=== PATIENT | male | born 1950 | race Caucasian/White ===

== ENCOUNTER 2019-06-01 14:10 | Inpatient (IN) | payer MEDICARE, SELFPAY ==
[2019-06-01] VITALS (11 sets, daily range): BP systolic 113–133; BP diastolic 55–93; PULSE 113–141; RESP 20–24; TEMP 36.8–38.3; O2SAT 90–98; BMI 46.6
--- NOTE | 2019-06-01 14:32 | DI.US.S_ITS ---
PROCEDURE: US PERIPH VENOUS LOW EXTREM LT INDICATIONS: L LOWER LEG TO THIGH DISCOMFORT WITH REDNESS, HX OF AFIB TECHNIQUE: Real-time imaging, as well as color and pulse Doppler interrogation, were performed of the lower extremity deep veins from the inguinal ligament to the popliteal fossa. COMPARISON: None. FINDINGS: The common femoral, femoral and popliteal veins are normally compressible, and free of intraluminal thrombus. Color and pulse Doppler demonstrate normal phasic intraluminal flow. There is normal augmentation response to distal compression maneuver. There is a mildly enlarged left inguinal lymph node noted measuring approximately 1.4 cm in short axis with a preserved fatty hilum. IMPRESSION: 1. No evidence of deep venous thrombosis in the left lower extremity. 2. Mildly enlarged left inguinal lymph node with a preserved fatty hilum is nonspecific but likely reactive. Recommend correlation clinically. Dictated by: Toby Vega M.D. on 06/01/2019 at 15:23 Approved by: Toby Vega M.D. on 06/01/2019 at 15:25
--- NOTE | 2019-06-01 14:34 | DI.RAD.S_ITS ---
PROCEDURE: XR CHEST 1V INDICATIONS: tachycardia, possible sepsis TECHNIQUE: One view of the chest was acquired. COMPARISON: None. FINDINGS: Surgical changes and devices: None. Lungs and pleura: Lungs are clear. No pleural effusions or pneumothorax. Mediastinum: Mediastinal contours appear normal. Heart size is enlarged. Bones and chest wall: No suspicious bony lesions. Overlying soft tissues appear unremarkable. IMPRESSION: Cardiomegaly. No acute pulmonary findings. Dictated by: Sarah Rose M.D. on 06/01/2019 at 14:32 Approved by: Sarah Rose M.D. on 06/01/2019 at 14:33
[2019-06-01] MEDS: SODIUM CHLORIDE 0.9% 100 ML 1000 ML IV (14:36)
--- NOTE | 2019-06-01 14:37 | PC.NURSE ---
1430 IV bolus of 1000ml NS at 1000ml/hr clarified with [employer] and administered as such
[2019-06-01 14:47] LABS: Hematocrit 48.5 % (41-53); Hemoglobin 16.5 g/dL (13.5-17.5); INR 2.3 (0.9-1.3); Mean Corpuscular HGB Conc 34.1 % (30-36); Mean Corpuscular Hemoglobin 29.3 PG (26-34); Platelet Count 201 X10^3/uL (150-400); Prothrombin Time 26.9 SECONDS (10.1-12.7); Red Blood Cell Count 5.64 X10^6/uL (4.5-5.9); Red Cell Distribution Width 14.7 % (11.6-14.8)
[2019-06-01 14:48] LABS: White Blood Cell Count 29.5 X10^3/uL (4.5-11.0)
[2019-06-01 14:49] LABS: Add Manual Diff / Slide Review YES
[2019-06-01 14:51] LABS: Lactate (Lactic Acid) 2.8 mmol/L (0.7-2.1)
[2019-06-01 14:52] LABS: Alanine Aminotransferase 7 IU/L (21-72); Alkaline Phosphatase 92 U/L (38-126); Aspartate Aminotransferase 22 IU/L (17-59); BUN Creatinine Ratio 17.5 (6-22); Bilirubin Total 2.1 mg/dL (0.2-1.3); Blood Urea Nitrogen 21 mg/dL (9-20); Calcium 9.1 mg/dL (8.4-10.2); Carbon Dioxide 27 mmol/L (22-32); Chloride 96 mmol/L (98-107); Estimated Glomerular Filt Rate > 60.0 mL/min (>60); Globulin 3.9 g/dL (1.7-4.1); Glucose 139 mg/dL (80-110); HEMOLYSIS < 15 (0-50); Potassium 3.7 mmol/L (3.4-5.1); Sodium 134 mmol/L (137-145); Total Protein 7.9 g/dL (6.3-8.2)
--- NOTE | 2019-06-01 14:57 | DI.RAD.S_ITS ---
PROCEDURE: XR FEMUR LT MIN 2V INDICATIONS: cellulitis of L leg, severe pain on thigh TECHNIQUE: 2 views of the femur were acquired. COMPARISON: None. FINDINGS: Bones: No fractures or dislocations. No suspicious bony lesions. Soft tissues: No suspicious soft tissue calcifications or masses. IMPRESSION: No acute radiographic findings. No suspicious bony lesions to suggest osteomyelitis. However, plain film is less sensitive in the acute phases of osteomyelitis. If there is high clinical suspicion for infection, MRI of the femur with and without contrast is recommended. Dictated by: Sarah Rose M.D. on 06/01/2019 at 14:31 Approved by: Sarah Rose M.D. on 06/01/2019 at 14:32
--- NOTE | 2019-06-01 14:59 | ED.LOWEXIN ---
HPI - Extremity Injury (Lower) <JESUS MANUEL Mendoza - Last Filed: 06/02/19 01:07> General Chief Complaint: Extremity Problem,Nontraumatic Stated Complaint: Swollen lft leg, radiating up, sores on legs, arms Time Seen by Provider: 06/01/19 14:15 Source: patient and family Mode of arrival: wheelchair Limitations: no limitations History of Present Illness HPI Narrative: This is a 69 year old male, previous smoker, presented with the daughter with history of AFib who is anticoagulated with coumadin, HTN in chief complaining of left leg pain and swelling for last 1-2 weeks. He denies fever, nausea, vomiting, fatigue but had chills last night. The pain is from left ankle to knee which radiates to the groin area. He reports nothing aggravates pain and the pain is pretty constant. His lower legs have discoloration but now the L leg appears to be darker in color per the patient's daughter. He denies recent injury or trauma to the affected leg. Also, he reports has several skin lesions on his right lower arm, 2 on left hand, 1 on the right lower abdomen as well as 1 in the medial aspect of left calf. He denies chest pain, difficulty breathing, dizziness. He is a nondiabetic patient without history of IV drug use. Related Data Home Medications Medication Instructions Recorded Confirmed amlodipine 5 mg PO DAILY 06/01/19 06/01/19 hydrochlorothiazide 12.5 mg PO DAILY 06/01/19 06/01/19 metformin 500 mg PO DAILY 06/01/19 06/01/19 metoprolol tartrate 100 mg PO DAILY 06/01/19 06/01/19 sertraline 25 mg PO DAILY 06/01/19 06/01/19 warfarin 5 mg PO Q OTHER DAY 06/01/19 06/01/19 Allergies Allergy/AdvReac Type Severity Reaction Status Date / Time No Known Drug Allergies Allergy Verified 06/01/19 14:19 Review of Systems <JESUS MANUEL Mendoza - Last Filed: 06/02/19 01:07> Review of Systems General: See HPI HEENT: Denies sinus pain, ear pain, sore throat, difficulty swallowing, dizziness. Respiratory: Denies dyspnea, cough, wheezing, hemoptysis, sputum. Cardiovascular: Denies chest pain, palpitations, orthopnea. Gastrointestinal: Denies nausea, vomiting, abdominal pain, diarrhea, constipation, melena. : Reports urinary frequency and takes BPH medication. Denies dysuria,incontinence, hematuria, urinary retention. Musculoskeletal: Reports pain in L leg. Denies weakness, joint pain or bony pain. Skin: Reports several skin lesions on right lower abdomen, left hand, right lower arm. Reports some redness to left lower leg. Neurologic: Denies weakness, headache, numbness, change in speech, confusion, seizures, incoordination. Psychiatric: No concerning psychosocial issues. 12-point review of systems is negative except for those stated above. PFSH <JESUS MANUEL Mendoza - Last Filed: 06/02/19 01:07> Medical History Cellulitis of left lower extremity without foot (Acute) Depression (Chronic) Diabetes mellitus type 2 in obese (Chronic) Essential hypertension (Chronic) Surgical History History of knee surgery (Acute) Social History household members: spouse Smoking Status: Former smoker alcohol intake: former Social History household members: spouse Smoking Status: Former smoker alcohol intake: former Exam <JESUS MANUEL Mendoza - Last Filed: 06/02/19 01:07> Narrative Exam Narrative: GEN: Alert, oriented x 3, well appearing and nourished, and in no acute distress. Head: Normal cephalic, atraumatic. No scalp or temporal tenderness, palpable mass or rash. EYES: Pupils are equal, round, and reactive to light and accommodation. Extraocular muscles are intact bilaterally. There is no subconjunctival hemorrhage, exudate and sclera non-icteric. ENT: Hearing grossly intact. Nose without bleeding, purulent discharge. Mucous membrane moist, no mucosal lesion. Throat without erythema, tonsillar hypertrophy or exudate. Uvula in midline, airway patent. Neck: Trachea in midline. No JVD, non-tender without lymphadenopathy. No masses or thyroid megaly. Supple, non-tender and meningeal signs. CARDIAC: Rhythm irregular rate and tachycardia rate about 120's. No murmurs, gallops, or rubs. No chest wall tenderness. L leg edema. No cyanosis or pallor. Capillary refill is less than 2 seconds. RESPIRATORY: Lungs are cleat to auscultate bilaterally. No cough, wheezes, rales, or rhonchi. No stridor, respiratory distress, increase work of breathing, or accessary muscle used. ABD: Abdomen soft, nontender and non-distended. No guarding or rebound tenderness to palpate. Bowel sounds are normal in all 4 quadrants. There is no palpable masses or organomegaly. EXT: L lower leg with non-pitting edema, very tender to even a light touch on especially in L thigh region. Full ROM of all extremities with no loss of sensation, strength, effusion. SKIN: Bilateral lower leg discoloration with thickened skin. L lower leg with mild diffused erythema and increase warmth to touch. Several isolated erythematous and raised skin lesions scabbed over on R lower arm, two on L hand, on R lower abdomen and one on L medial calf 1 cm in diameter w/o drainage. BACK: Nontender without deformity or crepitance. No flank tenderness. NEUROLOGICAL: Alert and oriented to place, time and person. Sensation and motor function intact bilaterally. No facial droops, dysphasia. PSYCHIATRIC: Good judgement and reason, without hallucinations, abnormal affect or abnormal behaviors during the examination. Initial Vital Signs Initial Vital Signs: Vital Signs Temperature 98.3 F 06/01/19 14:18 Pulse Rate 124 H 06/01/19 14:18 Respiratory Rate 22 06/01/19 14:18 Blood Pressure 124/70 06/01/19 14:18 Pulse Oximetry 95 06/01/19 14:18 <Arely Cunha MD - Last Filed: 06/03/19 07:45> Initial Vital Signs Initial Vital Signs: Vital Signs Temperature 98.3 F 06/01/19 14:18 Pulse Rate 124 H 06/01/19 14:18 Respiratory Rate 22 06/01/19 14:18 Blood Pressure 124/70 06/01/19 14:18 Pulse Oximetry 95 06/01/19 14:18 Course <JESUS MANUEL Mendoza - Last Filed: 06/02/19 01:07> Decision to Admit Date: 06/01/19 Decision to Admit time: 15:30 Orders Ordered: ED Orders 06/02/19 23:17 C-Reactive Protein Quant Stat Complete Blood Count AUTO DIFF Stat 06/02/19 23:18 CPAP RT PROTOCOL 06/03/19 02:30 CBC [Complete Blood Count AUTO DIFF] Routine CMP [Comprehensive Metabolic Panel] Routine Lactate (Lactic Acid) Routine Magnesium Routine Procalcitonin Routine Prothrombin Time INR Routine Vancomycin Trough Urgent Acetaminophen (Tylenol) 650 mg PO Q6HR PRN PRN Reason: As Needed for Fever/Mild Pain Al Hydrox/Mg Hydrox/Simethicone (Maalox Plus) 30 ml PO Q6HR PRN PRN Reason: Dyspepsia Amlodipine Besylate (Norvasc) 5 mg PO DAILY [facility] Last Admin: 06/02/19 09:13 Dose: 5 mg Bisacodyl (Dulcolax) 10 mg LA DAILY PRN PRN Reason: Constipation Calcium Carbonate (Tums) 1,000 mg PO Q4HR PRN PRN Reason: Dyspepsia Dextrose (D50w) 25 gm IV PRN PRN PRN Reason: Hypoglycemia Docusate Sodium (Colace) 100 mg PO BID PRN PRN Reason: Constipation Piperacillin/Tazobactam/Dextrose (Zosyn) 3.375 gm in 50 mls @ 100 mls/hr IV Q8H [facility] Last Infusion: 06/03/19 07:44 Dose: 100 mls/hr Admin: 06/03/19 07:07 Dose: 100 mls/hr Infusion: 06/03/19 00:09 Dose: 100 mls/hr Admin: 06/02/19 23:39 Dose: 100 mls/hr Infusion: 06/02/19 18:57 Dose: 100 mls/hr Admin: 06/02/19 16:00 Dose: 100 mls/hr Vancomycin HCl 2,000 mg/ (Sodium Chloride) 500 mls @ 250 mls/hr IV Q12H [facility] Magnesium Hydroxide (Milk Of Magnesia) 30 ml PO DAILY PRN PRN Reason: Constipation Metoprolol Tartrate (Lopressor) 100 mg PO BID [facility] Last Admin: 06/02/19 20:01 Dose: 100 mg Admin: 06/02/19 09:12 Dose: 100 mg Ondansetron HCl (Zofran) 4 mg IV Q8HR PRN PRN Reason: Nausea And Vomiting Sertraline HCl (Zoloft) 25 mg PO 1900 [facility] Last Admin: 06/02/19 20:01 Dose: 25 mg Vancomycin HCl (Vancomycin Trough) 1 request MISC 1430 [facility] Discontinued Medications Acetaminophen (Tylenol) 650 mg PO Q6HR PRN PRN Reason: As Needed for Fever/Mild Pain Heparin Sodium (Porcine) (Heparin) 5,000 unit SUBCUT BID [facility] Last Admin: 06/02/19 09:14 Dose: Not Given Admin: 06/01/19 22:27 Dose: 5,000 unit Sodium Chloride (Normal Saline 0.9%) 1,000 mls @ 1,000 mls/hr IV BOLUS ONE Stop: 06/01/19 15:36 Last Admin: 06/01/19 14:50 Dose: Not Given Vancomycin HCl/Dextrose (Vancomycin) 1,500 mg in 300 mls @ 200 mls/hr IV NOW ONE Stop: 06/01/19 16:26 Last Infusion: 06/01/19 17:46 Dose: 200 mls/hr Admin: 06/01/19 15:18 Dose: 200 mls/hr Sodium Chloride (Normal Saline 0.9%) 1,000 mls @ 1,000 mls/hr IV BOLUS ONE Stop: 06/01/19 16:17 Last Infusion: 06/01/19 16:57 Dose: 0 mls/hr Admin: 06/01/19 15:21 Dose: 1,000 mls/hr Sodium Chloride (Normal Saline 0.9%) 1,000 mls @ 100 mls/hr IV CONT [facility] Last Admin: 06/02/19 05:47 Dose: 100 mls/hr Infusion: 06/02/19 05:03 Dose: 100 mls/hr Admin: 06/01/19 19:03 Dose: 100 mls/hr Vancomycin HCl/Dextrose (Vancomycin) 1,500 mg in 300 mls @ 200 mls/hr IV Q12H [facility] Last Infusion: 06/03/19 04:48 Dose: 200 mls/hr Admin: 06/03/19 03:18 Dose: 200 mls/hr Infusion: 06/02/19 18:57 Dose: 200 mls/hr Admin: 06/02/19 14:49 Dose: 200 mls/hr Infusion: 06/02/19 04:30 Dose: 0 mls/hr Admin: 06/02/19 02:58 Dose: 200 mls/hr Sodium Chloride (Normal Saline 0.9%) 1,000 mls @ 100 mls/hr IV CONT [facility] Last Admin: 06/02/19 14:50 Dose: 100 mls/hr Admin: 06/01/19 22:30 Dose: Not Given Magnesium Sulfate (Magnesium Sulfate) 2 gm in 50 mls @ 25 mls/hr IV NOW ONE Stop: 06/02/19 09:14 Last Infusion: 06/02/19 10:20 Dose: 0 mls/hr Admin: 06/02/19 08:17 Dose: 25 mls/hr Vancomycin HCl 500 mg/ Sodium (Chloride) 100 mls @ 100 mls/hr IV NOW ONE Stop: 06/03/19 05:59 Last Infusion: 06/03/19 06:29 Dose: 100 mls/hr Admin: 06/03/19 05:29 Dose: 100 mls/hr Insulin Aspart (Novolog Flexpen) 6 unit SUBCUT TIDWM [facility] Last Admin: 06/02/19 12:20 Dose: Not Given Insulin Glargine (Lantus Solostar (Pen)) 18 unit SUBCUT BID [facility] Last Admin: 06/02/19 12:21 Dose: Not Given Admin: 06/01/19 22:53 Dose: 18 unit Metoprolol Succinate (Toprol Xl) 100 mg PO NOW STA Stop: 06/01/19 20:15 Last Admin: 06/01/19 20:37 Dose: 100 mg Metoprolol Tartrate (Lopressor) 5 mg IV NOW ONE Stop: 06/01/19 16:46 Last Admin: 06/01/19 16:56 Dose: 5 mg Ondansetron HCl (Zofran) 4 mg IV Q8HR PRN PRN Reason: Nausea And Vomiting Sertraline HCl (Zoloft) 25 mg PO DAILY [facility] Last Admin: 06/02/19 12:48 Dose: Not Given Sodium Chloride (Normal Saline 0.9%) 1,000 ml IV NOW ONE Stop: 06/01/19 14:32 Last Admin: 06/01/19 14:36 Dose: 1,000 ml Vancomycin HCl (Vancomycin Per Pharmacy) 1 request MISC NOW ONE Stop: 06/01/19 17:50 Vancomycin HCl (Vancomycin Trough) 1 request MISC NOW ONE Stop: 06/03/19 02:31 Last Admin: 06/03/19 03:18 Dose: 1 request Warfarin Sodium (Coumadin) 5 mg PO QOD [facility] Warfarin Sodium (Coumadin) 5 mg PO NOW [facility] Stop: 06/01/19 22:00 Last Admin: 06/01/19 20:37 Dose: 5 mg Warfarin Sodium (Coumadin) 2.5 mg PO EVERY OTHER DAY [facility] Reevaluation(s) Reevaluation #1: The patient's remains in AFib rating 118 after nearly 2nd L of normal saline has completed. Consulted hospitalist DR. Gomez and she requested to treat this with Metoprolol 5mg IV. Time: 16:48 Vital Signs - 8 hr 06/02/19 23:55 06/03/19 01:00 06/03/19 03:34 Temperature 98.6 F 98.5 F Pulse Rate 107 H 99 H Respiratory Rate 18 18 Blood Pressure 122/58 L 144/81 H Pulse Oximetry 94 94 94 <Arely Cunha MD - Last Filed: 06/03/19 07:45> Orders Ordered: ED Orders 06/02/19 23:17 C-Reactive Protein Quant Stat Complete Blood Count AUTO DIFF Stat 06/02/19 23:18 CPAP RT PROTOCOL 06/03/19 02:30 CBC [Complete Blood Count AUTO DIFF] Routine CMP [Comprehensive Metabolic Panel] Routine Lactate (Lactic Acid) Routine Magnesium Routine Procalcitonin Routine Prothrombin Time INR Routine Vancomycin Trough Urgent Acetaminophen (Tylenol) 650 mg PO Q6HR PRN PRN Reason: As Needed for Fever/Mild Pain Al Hydrox/Mg Hydrox/Simethicone (Maalox Plus) 30 ml PO Q6HR PRN PRN Reason: Dyspepsia Amlodipine Besylate (Norvasc) 5 mg PO DAILY [facility] Last Admin: 06/02/19 09:13 Dose: 5 mg Bisacodyl (Dulcolax) 10 mg LA DAILY PRN PRN Reason: Constipation Calcium Carbonate (Tums) 1,000 mg PO Q4HR PRN PRN Reason: Dyspepsia Dextrose (D50w) 25 gm IV PRN PRN PRN Reason: Hypoglycemia Docusate Sodium (Colace) 100 mg PO BID PRN PRN Reason: Constipation Piperacillin/Tazobactam/Dextrose (Zosyn) 3.375 gm in 50 mls @ 100 mls/hr IV Q8H [facility] Last Infusion: 06/03/19 07:44 Dose: 100 mls/hr Admin: 06/03/19 07:07 Dose: 100 mls/hr Infusion: 06/03/19 00:09 Dose: 100 mls/hr Admin: 06/02/19 23:39 Dose: 100 mls/hr Infusion: 06/02/19 18:57 Dose: 100 mls/hr Admin: 06/02/19 16:00 Dose: 100 mls/hr Vancomycin HCl 2,000 mg/ (Sodium Chloride) 500 mls @ 250 mls/hr IV Q12H [facility] Magnesium Hydroxide (Milk Of Magnesia) 30 ml PO DAILY PRN PRN Reason: Constipation Metoprolol Tartrate (Lopressor) 100 mg PO BID [facility] Last Admin: 06/02/19 20:01 Dose: 100 mg Admin: 06/02/19 09:12 Dose: 100 mg Ondansetron HCl (Zofran) 4 mg IV Q8HR PRN PRN Reason: Nausea And Vomiting Sertraline HCl (Zoloft) 25 mg PO 1900 [facility] Last Admin: 06/02/19 20:01 Dose: 25 mg Vancomycin HCl (Vancomycin Trough) 1 request MISC 1430 [facility] Discontinued Medications Acetaminophen (Tylenol) 650 mg PO Q6HR PRN PRN Reason: As Needed for Fever/Mild Pain Heparin Sodium (Porcine) (Heparin) 5,000 unit SUBCUT BID [facility] Last Admin: 06/02/19 09:14 Dose: Not Given Admin: 06/01/19 22:27 Dose: 5,000 unit Sodium Chloride (Normal Saline 0.9%) 1,000 mls @ 1,000 mls/hr IV BOLUS ONE Stop: 06/01/19 15:36 Last Admin: 06/01/19 14:50 Dose: Not Given Vancomycin HCl/Dextrose (Vancomycin) 1,500 mg in 300 mls @ 200 mls/hr IV NOW ONE Stop: 06/01/19 16:26 Last Infusion: 06/01/19 17:46 Dose: 200 mls/hr Admin: 06/01/19 15:18 Dose: 200 mls/hr Sodium Chloride (Normal Saline 0.9%) 1,000 mls @ 1,000 mls/hr IV BOLUS ONE Stop: 06/01/19 16:17 Last Infusion: 06/01/19 16:57 Dose: 0 mls/hr Admin: 06/01/19 15:21 Dose: 1,000 mls/hr Sodium Chloride (Normal Saline 0.9%) 1,000 mls @ 100 mls/hr IV CONT [facility] Last Admin: 06/02/19 05:47 Dose: 100 mls/hr Infusion: 06/02/19 05:03 Dose: 100 mls/hr Admin: 06/01/19 19:03 Dose: 100 mls/hr Vancomycin HCl/Dextrose (Vancomycin) 1,500 mg in 300 mls @ 200 mls/hr IV Q12H [facility] Last Infusion: 06/03/19 04:48 Dose: 200 mls/hr Admin: 06/03/19 03:18 Dose: 200 mls/hr Infusion: 06/02/19 18:57 Dose: 200 mls/hr Admin: 06/02/19 14:49 Dose: 200 mls/hr Infusion: 06/02/19 04:30 Dose: 0 mls/hr Admin: 06/02/19 02:58 Dose: 200 mls/hr Sodium Chloride (Normal Saline 0.9%) 1,000 mls @ 100 mls/hr IV CONT [facility] Last Admin: 06/02/19 14:50 Dose: 100 mls/hr Admin: 06/01/19 22:30 Dose: Not Given Magnesium Sulfate (Magnesium Sulfate) 2 gm in 50 mls @ 25 mls/hr IV NOW ONE Stop: 06/02/19 09:14 Last Infusion: 06/02/19 10:20 Dose: 0 mls/hr Admin: 06/02/19 08:17 Dose: 25 mls/hr Vancomycin HCl 500 mg/ Sodium (Chloride) 100 mls @ 100 mls/hr IV NOW ONE Stop: 06/03/19 05:59 Last Infusion: 06/03/19 06:29 Dose: 100 mls/hr Admin: 06/03/19 05:29 Dose: 100 mls/hr Insulin Aspart (Novolog Flexpen) 6 unit SUBCUT TIDWM [facility] Last Admin: 06/02/19 12:20 Dose: Not Given Insulin Glargine (Lantus Solostar (Pen)) 18 unit SUBCUT BID [facility] Last Admin: 06/02/19 12:21 Dose: Not Given Admin: 06/01/19 22:53 Dose: 18 unit Metoprolol Succinate (Toprol Xl) 100 mg PO NOW STA Stop: 06/01/19 20:15 Last Admin: 06/01/19 20:37 Dose: 100 mg Metoprolol Tartrate (Lopressor) 5 mg IV NOW ONE Stop: 06/01/19 16:46 Last Admin: 06/01/19 16:56 Dose: 5 mg Ondansetron HCl (Zofran) 4 mg IV Q8HR PRN PRN Reason: Nausea And Vomiting Sertraline HCl (Zoloft) 25 mg PO DAILY [facility] Last Admin: 06/02/19 12:48 Dose: Not Given Sodium Chloride (Normal Saline 0.9%) 1,000 ml IV NOW ONE Stop: 06/01/19 14:32 Last Admin: 06/01/19 14:36 Dose: 1,000 ml Vancomycin HCl (Vancomycin Per Pharmacy) 1 request MISC NOW ONE Stop: 06/01/19 17:50 Vancomycin HCl (Vancomycin Trough) 1 request MIS NOW ONE Stop: 06/03/19 02:31 Last Admin: 06/03/19 03:18 Dose: 1 request Warfarin Sodium (Coumadin) 5 mg PO QOD [facility] Warfarin Sodium (Coumadin) 5 mg PO NOW [facility] Stop: 06/01/19 22:00 Last Admin: 06/01/19 20:37 Dose: 5 mg Warfarin Sodium (Coumadin) 2.5 mg PO EVERY OTHER DAY [facility] Vital Signs - 8 hr 06/02/19 23:55 06/03/19 01:00 06/03/19 03:34 Temperature 98.6 F 98.5 F Pulse Rate 107 H 99 H Respiratory Rate 18 18 Blood Pressure 122/58 L 144/81 H Pulse Oximetry 94 94 94 MDM - Extremity Injury (Lower) <JESUS MANUEL Mendoza - Last Filed: 06/02/19 01:07> Differential Diagnosis Likely fracture of femur and other (cellulitis, DVT, necrotizing fascitis) Medical Records Attestation: I reviewed the patient's medical records. Lab Data Attestation: I reviewed the patient's lab results. Result diagrams: 06/03/19 02:30 06/03/19 02:30 Lab Results 06/01/19 06/01/19 06/01/19 Range/Units 14:20 14:20 14:20 WBC 29.5 H (4.5-11.0) X10^3/uL RBC 5.64 (4.5-5.9) X10^6/uL Hgb 16.5 (13.5-17.5) g/dL Hct 48.5 (41-53) % MCV 86.0 (80-100) fL MCH 29.3 (26-34) PG MCHC 34.1 (30-36) % RDW 14.7 (11.6-14.8) % Plt Count 201 (150-400) X10^3/uL Neut % (Auto) Not Reportable Lymph % (Auto) Not Reportable [place] % (Auto) Not Reportable Eos % (Auto) Not Reportable Baso % (Auto) Not Reportable Neut # (Auto) (2355-5191) /uL Lymph # (Auto) Not Reportable [place] # (Auto) Not Reportable Eos # (Auto) (0-450) /uL Baso # (Auto) Not Reportable Total Counted 100 Seg Neutrophils % 83.0 H (38-70) % Band Neutrophils % 12.0 H (3-7) % Lymphocytes % (Manual) 4.0 L (25-45) % Monocytes % (Manual) 1.0 L (2-11) % Neutrophils # (Manual) 45804 H (1689-7282) /uL RBC Morphology Normal morphology PT 26.9 H (10.1-12.7) SECONDS INR 2.3 H (0.9-1.3) Sodium 134 L (137-145) mmol/L Potassium 3.7 (3.4-5.1) mmol/L Chloride 96 L (98-107) mmol/L Carbon Dioxide 27 (22-32) mmol/L BUN 21 H (9-20) mg/dL Creatinine 1.20 (0.66-1.25) mg/dL Estimated GFR > 60.0 (>60) mL/min BUN/Creatinine Ratio 17.5 (6-22) Glucose 139 H (80-110) mg/dL Hemoglobin A1c (4.0-6.0) % Lactate (0.7-2.1) mmol/L Calcium 9.1 (8.4-10.2) mg/dL Magnesium (1.6-2.3) mg/dL Total Bilirubin 2.1 H (0.2-1.3) mg/dL AST 22 (17-59) IU/L ALT 7 L (21-72) IU/L Alkaline Phosphatase 92 (38-126) U/L C-Reactive Protein (<1.0) mg/dL Total Protein 7.9 (6.3-8.2) g/dL Albumin 4.0 (3.5-5.0) g/dL Globulin 3.9 (1.7-4.1) g/dL Albumin/Globulin Ratio 1.0 (1.0-2.8) Procalcitonin (<0.5) ng/mL Urine Color Urine Appearance Urine pH (4.5-8.0) Ur Specific [place] (1.000-1.035) Urine Protein (Negative) Urine Glucose (UA) (Negative) g/dL Urine Ketones (NEGATIVE) Urine Occult Blood (Negative) Urine Nitrate (Negative) Urine Bilirubin (NEGATIVE) Urine Urobilinogen (0.2) E.U./dL Ur Leukocyte Esterase (NEGATIVE) Urine RBC (0-5/HPF) Urine WBC (0-5/HPF) Ur Squamous Epith Cells (0-5/HPF) Amorphous Sediment Urine Bacteria (None) Granular Casts (None) Urine Mucus (Negative) Ur Culture Indicated? Nasal Screen MRSA (PCR) (Negative) Vancomycin Trough (10-20) ug/mL 06/01/19 06/01/19 06/01/19 Range/Units 14:20 14:20 14:20 WBC (4.5-11.0) X10^3/uL RBC (4.5-5.9) X10^6/uL Hgb (13.5-17.5) g/dL Hct (41-53) % MCV (80-100) fL MCH (26-34) PG MCHC (30-36) % RDW (11.6-14.8) % Plt Count (150-400) X10^3/uL Neut % (Auto) Lymph % (Auto) [place] % (Auto) Eos % (Auto) Baso % (Auto) Neut # (Auto) (9104-4756) /uL Lymph # (Auto) [place] # (Auto) Eos # (Auto) (0-450) /uL Baso # (Auto) Total Counted Seg Neutrophils % (38-70) % Band Neutrophils % (3-7) % Lymphocytes % (Manual) (25-45) % Monocytes % (Manual) (2-11) % Neutrophils # (Manual) (7749-5436) /uL RBC Morphology PT (10.1-12.7) SECONDS INR (0.9-1.3) Sodium (137-145) mmol/L Potassium (3.4-5.1) mmol/L Chloride (98-107) mmol/L Carbon Dioxide (22-32) mmol/L BUN (9-20) mg/dL Creatinine (0.66-1.25) mg/dL Estimated GFR (>60) mL/min BUN/Creatinine Ratio (6-22) Glucose (80-110) mg/dL Hemoglobin A1c 5.8 (4.0-6.0) % Lactate 2.8 H (0.7-2.1) mmol/L Calcium (8.4-10.2) mg/dL Magnesium (1.6-2.3) mg/dL Total Bilirubin (0.2-1.3) mg/dL AST (17-59) IU/L ALT (21-72) IU/L Alkaline Phosphatase (38-126) U/L C-Reactive Protein (<1.0) mg/dL Total Protein (6.3-8.2) g/dL Albumin (3.5-5.0) g/dL Globulin (1.7-4.1) g/dL Albumin/Globulin Ratio (1.0-2.8) Procalcitonin 3.36 H (<0.5) ng/mL Urine Color Urine Appearance Urine pH (4.5-8.0) Ur Specific [place] (1.000-1.035) Urine Protein (Negative) Urine Glucose (UA) (Negative) g/dL Urine Ketones (NEGATIVE) Urine Occult Blood (Negative) Urine Nitrate (Negative) Urine Bilirubin (NEGATIVE) Urine Urobilinogen (0.2) E.U./dL Ur Leukocyte Esterase (NEGATIVE) Urine RBC (0-5/HPF) Urine WBC (0-5/HPF) Ur Squamous Epith Cells (0-5/HPF) Amorphous Sediment Urine Bacteria (None) Granular Casts (None) Urine Mucus (Negative) Ur Culture Indicated? Nasal Screen MRSA (PCR) (Negative) Vancomycin Trough (10-20) ug/mL 06/01/19 06/01/19 06/01/19 Range/Units 16:45 18:35 18:35 WBC (4.5-11.0) X10^3/uL RBC (4.5-5.9) X10^6/uL Hgb (13.5-17.5) g/dL Hct (41-53) % MCV (80-100) fL MCH (26-34) PG MCHC (30-36) % RDW (11.6-14.8) % Plt Count (150-400) X10^3/uL Neut % (Auto) Lymph % (Auto) [place] % (Auto) Eos % (Auto) Baso % (Auto) Neut # (Auto) (1395-9525) /uL Lymph # (Auto) [place] # (Auto) Eos # (Auto) (0-450) /uL Baso # (Auto) Total Counted Seg Neutrophils % (38-70) % Band Neutrophils % (3-7) % Lymphocytes % (Manual) (25-45) % Monocytes % (Manual) (2-11) % Neutrophils # (Manual) (0447-5247) /uL RBC Morphology PT (10.1-12.7) SECONDS INR (0.9-1.3) Sodium (137-145) mmol/L Potassium (3.4-5.1) mmol/L Chloride (98-107) mmol/L Carbon Dioxide (22-32) mmol/L BUN (9-20) mg/dL Creatinine (0.66-1.25) mg/dL Estimated GFR (>60) mL/min BUN/Creatinine Ratio (6-22) Glucose (80-110) mg/dL Hemoglobin A1c (4.0-6.0) % Lactate 2.3 H 2.3 H (0.7-2.1) mmol/L Calcium (8.4-10.2) mg/dL Magnesium 1.3 L (1.6-2.3) mg/dL Total Bilirubin (0.2-1.3) mg/dL AST (17-59) IU/L ALT (21-72) IU/L Alkaline Phosphatase (38-126) U/L C-Reactive Protein (<1.0) mg/dL Total Protein (6.3-8.2) g/dL Albumin (3.5-5.0) g/dL Globulin (1.7-4.1) g/dL Albumin/Globulin Ratio (1.0-2.8) Procalcitonin (<0.5) ng/mL Urine Color Urine Appearance Urine pH (4.5-8.0) Ur Specific [place] (1.000-1.035) Urine Protein (Negative) Urine Glucose (UA) (Negative) g/dL Urine Ketones (NEGATIVE) Urine Occult Blood (Negative) Urine Nitrate (Negative) Urine Bilirubin (NEGATIVE) Urine Urobilinogen (0.2) E.U./dL Ur Leukocyte Esterase (NEGATIVE) Urine RBC (0-5/HPF) Urine WBC (0-5/HPF) Ur Squamous Epith Cells (0-5/HPF) Amorphous Sediment Urine Bacteria (None) Granular Casts (None) Urine Mucus (Negative) Ur Culture Indicated? Nasal Screen MRSA (PCR) (Negative) Vancomycin Trough (10-20) ug/mL 06/01/19 06/02/19 06/02/19 Range/Units 23:00 02:54 05:02 WBC 24.1 H (4.5-11.0) X10^3/uL RBC 4.81 (4.5-5.9) X10^6/uL Hgb 14.0 (13.5-17.5) g/dL Hct 41.5 (41-53) % MCV 86.2 (80-100) fL MCH 29.0 (26-34) PG MCHC 33.7 (30-36) % RDW 15.0 H (11.6-14.8) % Plt Count 151 (150-400) X10^3/uL Neut % (Auto) 92.8 H Lymph % (Auto) 4.0 L [place] % (Auto) 3.0 Eos % (Auto) 0.0 L Baso % (Auto) 0.2 Neut # (Auto) 59626 H (2653-9735) /uL Lymph # (Auto) 1000 L [place] # (Auto) 700 Eos # (Auto) 0 (0-450) /uL Baso # (Auto) 100 Total Counted Seg Neutrophils % (38-70) % Band Neutrophils % (3-7) % Lymphocytes % (Manual) (25-45) % Monocytes % (Manual) (2-11) % Neutrophils # (Manual) (0608-9858) /uL RBC Morphology PT (10.1-12.7) SECONDS INR (0.9-1.3) Sodium (137-145) mmol/L Potassium (3.4-5.1) mmol/L Chloride (98-107) mmol/L Carbon Dioxide (22-32) mmol/L BUN (9-20) mg/dL Creatinine (0.66-1.25) mg/dL Estimated GFR (>60) mL/min BUN/Creatinine Ratio (6-22) Glucose (80-110) mg/dL Hemoglobin A1c (4.0-6.0) % Lactate (0.7-2.1) mmol/L Calcium (8.4-10.2) mg/dL Magnesium (1.6-2.3) mg/dL Total Bilirubin (0.2-1.3) mg/dL AST (17-59) IU/L ALT (21-72) IU/L Alkaline Phosphatase (38-126) U/L C-Reactive Protein (<1.0) mg/dL Total Protein (6.3-8.2) g/dL Albumin (3.5-5.0) g/dL Globulin (1.7-4.1) g/dL Albumin/Globulin Ratio (1.0-2.8) Procalcitonin (<0.5) ng/mL Urine Color Dark yellow Urine Appearance Clear Urine pH 5.0 (4.5-8.0) Ur Specific [place] 1.025 (1.000-1.035) Urine Protein Trace H (Negative) Urine Glucose (UA) Negative (Negative) g/dL Urine Ketones Negative (NEGATIVE) Urine Occult Blood Trace-intact (Negative) Urine Nitrate Negative (Negative) Urine Bilirubin Negative (NEGATIVE) Urine Urobilinogen 1.0 (0.2) E.U./dL Ur Leukocyte Esterase Negative (NEGATIVE) Urine RBC 0-1/hpf (0-5/HPF) Urine WBC 0-1/hpf (0-5/HPF) Ur Squamous Epith Cells 0-1 /hpf (0-5/HPF) Amorphous Sediment 1+ Urine Bacteria Occasional (0-1) (None) Granular Casts 0-1/lpf (None) Urine Mucus 1+ H (Negative) Ur Culture Indicated? Cult not indicated Nasal Screen MRSA (PCR) Negative for mrsa (Negative) Vancomycin Trough (10-20) ug/mL 07/29/19 07/29/19 07/29/19 Range/Units 05:02 05:02 05:02 WBC (4.5-11.0) X10^3/uL RBC (4.5-5.9) X10^6/uL Hgb (13.5-17.5) g/dL Hct (41-53) % MCV (80-100) fL MCH (26-34) PG MCHC (30-36) % RDW (11.6-14.8) % Plt Count (150-400) X10^3/uL Neut % (Auto) Lymph % (Auto) [place] % (Auto) Eos % (Auto) Baso % (Auto) Neut # (Auto) (8733-5556) /uL Lymph # (Auto) [place] # (Auto) Eos # (Auto) (0-450) /uL Baso # (Auto) Total Counted Seg Neutrophils % (38-70) % Band Neutrophils % (3-7) % Lymphocytes % (Manual) (25-45) % Monocytes % (Manual) (2-11) % Neutrophils # (Manual) (3799-2260) /uL RBC Morphology PT 30.6 H (10.1-12.7) SECONDS INR 2.6 H (0.9-1.3) Sodium 134 L (137-145) mmol/L Potassium 3.9 (3.4-5.1) mmol/L Chloride 98 (98-107) mmol/L Carbon Dioxide 26 (22-32) mmol/L BUN 19 (9-20) mg/dL Creatinine 1.00 (0.66-1.25) mg/dL Estimated GFR > 60.0 (>60) mL/min BUN/Creatinine Ratio 19.0 (6-22) Glucose 119 H (80-110) mg/dL Hemoglobin A1c (4.0-6.0) % Lactate (0.7-2.1) mmol/L Calcium 8.1 L (8.4-10.2) mg/dL Magnesium (1.6-2.3) mg/dL Total Bilirubin (0.2-1.3) mg/dL AST (17-59) IU/L ALT (21-72) IU/L Alkaline Phosphatase (38-126) U/L C-Reactive Protein (<1.0) mg/dL Total Protein (6.3-8.2) g/dL Albumin (3.5-5.0) g/dL Globulin (1.7-4.1) g/dL Albumin/Globulin Ratio (1.0-2.8) Procalcitonin 4.10 H (<0.5) ng/mL Urine Color Urine Appearance Urine pH (4.5-8.0) Ur Specific [place] (1.000-1.035) Urine Protein (Negative) Urine Glucose (UA) (Negative) g/dL Urine Ketones (NEGATIVE) Urine Occult Blood (Negative) Urine Nitrate (Negative) Urine Bilirubin (NEGATIVE) Urine Urobilinogen (0.2) E.U./dL Ur Leukocyte Esterase (NEGATIVE) Urine RBC (0-5/HPF) Urine WBC (0-5/HPF) Ur Squamous Epith Cells (0-5/HPF) Amorphous Sediment Urine Bacteria (None) Granular Casts (None) Urine Mucus (Negative) Ur Culture Indicated? Nasal Screen MRSA (PCR) (Negative) Vancomycin Trough (10-20) ug/mL 06/02/19 06/02/19 06/03/19 Range/Units 23:17 23:17 02:30 WBC 22.9 H (4.5-11.0) X10^3/uL RBC 4.91 (4.5-5.9) X10^6/uL Hgb 14.2 (13.5-17.5) g/dL Hct 42.8 (41-53) % MCV 87.2 (80-100) fL MCH 29.0 (26-34) PG MCHC 33.3 (30-36) % RDW 15.0 H (11.6-14.8) % Plt Count 159 (150-400) X10^3/uL Neut % (Auto) 91.3 H Lymph % (Auto) 4.9 L [place] % (Auto) 3.4 Eos % (Auto) 0.1 L Baso % (Auto) 0.3 Neut # (Auto) 60958 H (4053-2796) /uL Lymph # (Auto) 1100 [place] # (Auto) 800 Eos # (Auto) 0 (0-450) /uL Baso # (Auto) 100 Total Counted Seg Neutrophils % (38-70) % Band Neutrophils % (3-7) % Lymphocytes % (Manual) (25-45) % Monocytes % (Manual) (2-11) % Neutrophils # (Manual) (9400-6849) /uL RBC Morphology PT (10.1-12.7) SECONDS INR (0.9-1.3) Sodium (137-145) mmol/L Potassium (3.4-5.1) mmol/L Chloride (98-107) mmol/L Carbon Dioxide (22-32) mmol/L BUN (9-20) mg/dL Creatinine (0.66-1.25) mg/dL Estimated GFR (>60) mL/min BUN/Creatinine Ratio (6-22) Glucose (80-110) mg/dL Hemoglobin A1c (4.0-6.0) % Lactate (0.7-2.1) mmol/L Calcium (8.4-10.2) mg/dL Magnesium (1.6-2.3) mg/dL Total Bilirubin (0.2-1.3) mg/dL AST (17-59) IU/L ALT (21-72) IU/L Alkaline Phosphatase (38-126) U/L C-Reactive Protein 20.8 H (<1.0) mg/dL Total Protein (6.3-8.2) g/dL Albumin (3.5-5.0) g/dL Globulin (1.7-4.1) g/dL Albumin/Globulin Ratio (1.0-2.8) Procalcitonin (<0.5) ng/mL Urine Color Urine Appearance Urine pH (4.5-8.0) Ur Specific [place] (1.000-1.035) Urine Protein (Negative) Urine Glucose (UA) (Negative) g/dL Urine Ketones (NEGATIVE) Urine Occult Blood (Negative) Urine Nitrate (Negative) Urine Bilirubin (NEGATIVE) Urine Urobilinogen (0.2) E.U./dL Ur Leukocyte Esterase (NEGATIVE) Urine RBC (0-5/HPF) Urine WBC (0-5/HPF) Ur Squamous Epith Cells (0-5/HPF) Amorphous Sediment Urine Bacteria (None) Granular Casts (None) Urine Mucus (Negative) Ur Culture Indicated? Nasal Screen MRSA (PCR) (Negative) Vancomycin Trough 7.8 L (10-20) ug/mL 06/03/19 06/03/19 06/03/19 Range/Units 02:30 02:30 02:30 WBC 21.3 H (4.5-11.0) X10^3/uL RBC 4.82 (4.5-5.9) X10^6/uL Hgb 14.1 (13.5-17.5) g/dL Hct 41.8 (41-53) % MCV 86.6 (80-100) fL MCH 29.2 (26-34) PG MCHC 33.7 (30-36) % RDW 15.0 H (11.6-14.8) % Plt Count 148 L (150-400) X10^3/uL Neut % (Auto) 90.6 H Lymph % (Auto) 4.8 L [place] % (Auto) 3.6 Eos % (Auto) 0.1 L Baso % (Auto) 0.9 Neut # (Auto) 49915 H (5397-9694) /uL Lymph # (Auto) 1000 L [place] # (Auto) 800 Eos # (Auto) 0 (0-450) /uL Baso # (Auto) 200 H Total Counted Seg Neutrophils % (38-70) % Band Neutrophils % (3-7) % Lymphocytes % (Manual) (25-45) % Monocytes % (Manual) (2-11) % Neutrophils # (Manual) (9436-0221) /uL RBC Morphology PT (10.1-12.7) SECONDS INR (0.9-1.3) Sodium 133 L (137-145) mmol/L Potassium 3.2 L (3.4-5.1) mmol/L Chloride 101 (98-107) mmol/L Carbon Dioxide 22 (22-32) mmol/L BUN 16 (9-20) mg/dL Creatinine 0.80 (0.66-1.25) mg/dL Estimated GFR > 60.0 (>60) mL/min BUN/Creatinine Ratio 20.0 (6-22) Glucose 122 H (80-110) mg/dL Hemoglobin A1c (4.0-6.0) % Lactate (0.7-2.1) mmol/L Calcium 8.7 (8.4-10.2) mg/dL Magnesium 1.9 (1.6-2.3) mg/dL Total Bilirubin 2.0 H (0.2-1.3) mg/dL AST 27 (17-59) IU/L ALT 24 (21-72) IU/L Alkaline Phosphatase 99 (38-126) U/L C-Reactive Protein (<1.0) mg/dL Total Protein 6.8 (6.3-8.2) g/dL Albumin 3.2 L (3.5-5.0) g/dL Globulin 3.6 (1.7-4.1) g/dL Albumin/Globulin Ratio 0.9 L (1.0-2.8) Procalcitonin 2.10 H (<0.5) ng/mL Urine Color Urine Appearance Urine pH (4.5-8.0) Ur Specific [place] (1.000-1.035) Urine Protein (Negative) Urine Glucose (UA) (Negative) g/dL Urine Ketones (NEGATIVE) Urine Occult Blood (Negative) Urine Nitrate (Negative) Urine Bilirubin (NEGATIVE) Urine Urobilinogen (0.2) E.U./dL Ur Leukocyte Esterase (NEGATIVE) Urine RBC (0-5/HPF) Urine WBC (0-5/HPF) Ur Squamous Epith Cells (0-5/HPF) Amorphous Sediment Urine Bacteria (None) Granular Casts (None) Urine Mucus (Negative) Ur Culture Indicated? Nasal Screen MRSA (PCR) (Negative) Vancomycin Trough (10-20) ug/mL 06/03/19 06/03/19 Range/Units 02:30 02:30 WBC (4.5-11.0) X10^3/uL RBC (4.5-5.9) X10^6/uL Hgb (13.5-17.5) g/dL Hct (41-53) % MCV (80-100) fL MCH (26-34) PG MCHC (30-36) % RDW (11.6-14.8) % Plt Count (150-400) X10^3/uL Neut % (Auto) Lymph % (Auto) [place] % (Auto) Eos % (Auto) Baso % (Auto) Neut # (Auto) (5897-8330) /uL Lymph # (Auto) [place] # (Auto) Eos # (Auto) (0-450) /uL Baso # (Auto) Total Counted Seg Neutrophils % (38-70) % Band Neutrophils % (3-7) % Lymphocytes % (Manual) (25-45) % Monocytes % (Manual) (2-11) % Neutrophils # (Manual) (9814-6309) /uL RBC Morphology PT 27.9 H (10.1-12.7) SECONDS INR 2.4 H (0.9-1.3) Sodium (137-145) mmol/L Potassium (3.4-5.1) mmol/L Chloride (98-107) mmol/L Carbon Dioxide (22-32) mmol/L BUN (9-20) mg/dL Creatinine (0.66-1.25) mg/dL Estimated GFR (>60) mL/min BUN/Creatinine Ratio (6-22) Glucose (80-110) mg/dL Hemoglobin A1c (4.0-6.0) % Lactate 1.2 (0.7-2.1) mmol/L Calcium (8.4-10.2) mg/dL Magnesium (1.6-2.3) mg/dL Total Bilirubin (0.2-1.3) mg/dL AST (17-59) IU/L ALT (21-72) IU/L Alkaline Phosphatase (38-126) U/L C-Reactive Protein (<1.0) mg/dL Total Protein (6.3-8.2) g/dL Albumin (3.5-5.0) g/dL Globulin (1.7-4.1) g/dL Albumin/Globulin Ratio (1.0-2.8) Procalcitonin (<0.5) ng/mL Urine Color Urine Appearance Urine pH (4.5-8.0) Ur Specific [place] (1.000-1.035) Urine Protein (Negative) Urine Glucose (UA) (Negative) g/dL Urine Ketones (NEGATIVE) Urine Occult Blood (Negative) Urine Nitrate (Negative) Urine Bilirubin (NEGATIVE) Urine Urobilinogen (0.2) E.U./dL Ur Leukocyte Esterase (NEGATIVE) Urine RBC (0-5/HPF) Urine WBC (0-5/HPF) Ur Squamous Epith Cells (0-5/HPF) Amorphous Sediment Urine Bacteria (None) Granular Casts (None) Urine Mucus (Negative) Ur Culture Indicated? Nasal Screen MRSA (PCR) (Negative) Vancomycin Trough (10-20) ug/mL Point of Care Testing Glucose POC 112 Imaging Data Venous US: Radiologist's impression: Rick Cunningham Jr [address] [address] Ultrasound Report Signed Patient: Rick Cunningham Jr EMR#: [id number] : 1950Acct:[id number] Age/Sex: 69 / MDate of Service: 06/01/19 Loc: ED Accession Number: [id number] Procedure: US periph venous low extrem lt Ordering Provider: Bill Guevara PROCEDURE: US PERIPH VENOUS LOW EXTREM LT INDICATIONS: L LOWER LEG TO THIGH DISCOMFORT WITH REDNESS, HX OF AFIB TECHNIQUE: Real-time imaging, as well as color and pulse Doppler interrogation, were performed of the lower extremity deep veins from the inguinal ligament to the popliteal fossa. COMPARISON: None. FINDINGS: The common femoral, femoral and popliteal veins are normally compressible, and free of intraluminal thrombus. Color and pulse Doppler demonstrate normal phasic intraluminal flow. There is normal augmentation response to distal compression maneuver. There is a mildly enlarged left inguinal lymph node noted measuring approximately 1.4 cm in short axis with a preserved fatty hilum. IMPRESSION: 1. No evidence of deep venous thrombosis in the left lower extremity. 2. Mildly enlarged left inguinal lymph node with a preserved fatty hilum is nonspecific but likely reactive. Recommend correlation clinically. Dictated by: Toby Vega M.D. on 06/01/2019 at 15:23 Approved by: Toby Vega M.D. on 06/01/2019 at 15:25 Chest x-ray: Radiologist's impression: [place] [address] XRay Report Signed Patient: Rick Cunningham Jr EMR#: [id number] : 1950Acct:[id number] Age/Sex: 69 / MDate of Service: 06/01/19 Loc: ED Accession Number: [id number] Procedure: XR chest 1V Ordering Provider: Bill Guevara PROCEDURE: XR CHEST 1V INDICATIONS: tachycardia, possible sepsis TECHNIQUE: One view of the chest was acquired. COMPARISON: None. FINDINGS: Surgical changes and devices: None. Lungs and pleura: Lungs are clear. No pleural effusions or pneumothorax. Mediastinum: Mediastinal contours appear normal. Heart size is enlarged. Bones and chest wall: No suspicious bony lesions. Overlying soft tissues appear unremarkable. IMPRESSION: Cardiomegaly. No acute pulmonary findings. Dictated by: Sarah Rose M.D. on 06/01/2019 at 14:32 Approved by: Sarah Rose M.D. on 06/01/2019 at 14:33 XR-L femur: Radiologist's impression: [address] [address] XRay Report Signed Patient: Rick Cunningham Jr EMR#: [id number] : 1950Acct:[id number] Age/Sex: 69 / MDate of Service: 06/01/19 Loc: ED Accession Number: [id number] Procedure: XR femur LT min 2V Ordering Provider: Bill Guevara PROCEDURE: XR FEMUR LT MIN 2V INDICATIONS: cellulitis of L leg, severe pain on thigh TECHNIQUE: 2 views of the femur were acquired. COMPARISON: None. FINDINGS: Bones: No fractures or dislocations. No suspicious bony lesions. Soft tissues: No suspicious soft tissue calcifications or masses. IMPRESSION: No acute radiographic findings. No suspicious bony lesions to suggest osteomyelitis. However, plain film is less sensitive in the acute phases of osteomyelitis. If there is high clinical suspicion for infection, MRI of the femur with and without contrast is recommended. Dictated by: Sarah Rose M.D. on 06/01/2019 at 14:31 Approved by: Sarah Rose M.D. on 06/01/2019 at 14:32 ECG Data Attestation: I personally reviewed and interpreted this ECG as follows: Prior ECG tracings: not available for review Interpretation: AFib with RVR, rate at 126, normal axis, nonspecific ST and T-wave abnormality in V4 V5 V6 MDM Narrative Medical decision making narrative: This is a 69 year presents with daughter in chief complaint left leg discomfort for over last 1-2 weeks which has progressively worsening. Patient has a history of AFib and currently anticoagulated with Coumadin. Patient denies fever nausea or vomiting but had chills last night. The patient denies acute injury or trauma to the affected lack. He has isolated several small boil like skin lesions throughout his body including 1 in left medial knee area. Patient takes metoprolol for 100 mg at night for his AFib. Upon his arrival his rhythm is is in AFib weight in 120s. His previous EKG was not available to compare. He denies history of diabetes current meds takes 500 mg of metformin and denies history of heart failure. Venous Ultrasound on left leg was ordered to rule out DVT. Given patient's history, consider to cellulitis and CBC, chemistry, lactic acid, procalcitonin and blood cultures. CBC indicates significantly elevated WBC of 29.5 with 1st lactic acid as 2.8 with calcitonin of 3.36 which indicates possibly the patient is in sepsis. Patient was treated with 2 L of normal saline infusion and his heart rate has improved to 110's. Per the hospitalist, Dr. Gomez's request, the patient was medicated with IV metoprolol 5 mg for AFib with RVR. The pateint was afebrile during his stay in ED and he was treated with vancomycin 1.5 g IV. The femur x-ray indicates no obvious signs of gas, acute findings or necrotizing fasciitis. His chest x-ray shows cardiomegaly without acute pulmonary findings. Patient's 2nd lactic acid was decreased to 2.3. Patient's case was discussed with the hospitalist, Dr. Gomez, who kindly accepts his admission to tele telemetry inpatient. <Arely Cunha MD - Last Filed: 06/03/19 07:45> Lab Data Lab Results 06/01/19 06/01/19 06/01/19 Range/Units 14:20 14:20 14:20 WBC 29.5 H (4.5-11.0) X10^3/uL RBC 5.64 (4.5-5.9) X10^6/uL Hgb 16.5 (13.5-17.5) g/dL Hct 48.5 (41-53) % MCV 86.0 (80-100) fL MCH 29.3 (26-34) PG MCHC 34.1 (30-36) % RDW 14.7 (11.6-14.8) % Plt Count 201 (150-400) X10^3/uL Neut % (Auto) Not Reportable Lymph % (Auto) Not Reportable [place] % (Auto) Not Reportable Eos % (Auto) Not Reportable Baso % (Auto) Not Reportable Neut # (Auto) (2562-0573) /uL Lymph # (Auto) Not Reportable [place] # (Auto) Not Reportable Eos # (Auto) (0-450) /uL Baso # (Auto) Not Reportable Total Counted 100 Seg Neutrophils % 83.0 H (38-70) % Band Neutrophils % 12.0 H (3-7) % Lymphocytes % (Manual) 4.0 L (25-45) % Monocytes % (Manual) 1.0 L (2-11) % Neutrophils # (Manual) 83008 H (1826-1162) /uL RBC Morphology Normal morphology PT 26.9 H (10.1-12.7) SECONDS INR 2.3 H (0.9-1.3) Sodium 134 L (137-145) mmol/L Potassium 3.7 (3.4-5.1) mmol/L Chloride 96 L (98-107) mmol/L Carbon Dioxide 27 (22-32) mmol/L BUN 21 H (9-20) mg/dL Creatinine 1.20 (0.66-1.25) mg/dL Estimated GFR > 60.0 (>60) mL/min BUN/Creatinine Ratio 17.5 (6-22) Glucose 139 H (80-110) mg/dL Hemoglobin A1c (4.0-6.0) % Lactate (0.7-2.1) mmol/L Calcium 9.1 (8.4-10.2) mg/dL Magnesium (1.6-2.3) mg/dL Total Bilirubin 2.1 H (0.2-1.3) mg/dL AST 22 (17-59) IU/L ALT 7 L (21-72) IU/L Alkaline Phosphatase 92 (38-126) U/L C-Reactive Protein (<1.0) mg/dL Total Protein 7.9 (6.3-8.2) g/dL Albumin 4.0 (3.5-5.0) g/dL Globulin 3.9 (1.7-4.1) g/dL Albumin/Globulin Ratio 1.0 (1.0-2.8) Procalcitonin (<0.5) ng/mL Urine Color Urine Appearance Urine pH (4.5-8.0) Ur Specific [place] (1.000-1.035) Urine Protein (Negative) Urine Glucose (UA) (Negative) g/dL Urine Ketones (NEGATIVE) Urine Occult Blood (Negative) Urine Nitrate (Negative) Urine Bilirubin (NEGATIVE) Urine Urobilinogen (0.2) E.U./dL Ur Leukocyte Esterase (NEGATIVE) Urine RBC (0-5/HPF) Urine WBC (0-5/HPF) Ur Squamous Epith Cells (0-5/HPF) Amorphous Sediment Urine Bacteria (None) Granular Casts (None) Urine Mucus (Negative) Ur Culture Indicated? Nasal Screen MRSA (PCR) (Negative) Vancomycin Trough (10-20) ug/mL 06/01/19 06/01/19 06/01/19 Range/Units 14:20 14:20 14:20 WBC (4.5-11.0) X10^3/uL RBC (4.5-5.9) X10^6/uL Hgb (13.5-17.5) g/dL Hct (41-53) % MCV (80-100) fL MCH (26-34) PG MCHC (30-36) % RDW (11.6-14.8) % Plt Count (150-400) X10^3/uL Neut % (Auto) Lymph % (Auto) [place] % (Auto) Eos % (Auto) Baso % (Auto) Neut # (Auto) (5803-2673) /uL Lymph # (Auto) [place] # (Auto) Eos # (Auto) (0-450) /uL Baso # (Auto) Total Counted Seg Neutrophils % (38-70) % Band Neutrophils % (3-7) % Lymphocytes % (Manual) (25-45) % Monocytes % (Manual) (2-11) % Neutrophils # (Manual) (6854-0770) /uL RBC Morphology PT (10.1-12.7) SECONDS INR (0.9-1.3) Sodium (137-145) mmol/L Potassium (3.4-5.1) mmol/L Chloride (98-107) mmol/L Carbon Dioxide (22-32) mmol/L BUN (9-20) mg/dL Creatinine (0.66-1.25) mg/dL Estimated GFR (>60) mL/min BUN/Creatinine Ratio (6-22) Glucose (80-110) mg/dL Hemoglobin A1c 5.8 (4.0-6.0) % Lactate 2.8 H (0.7-2.1) mmol/L Calcium (8.4-10.2) mg/dL Magnesium (1.6-2.3) mg/dL Total Bilirubin (0.2-1.3) mg/dL AST (17-59) IU/L ALT (21-72) IU/L Alkaline Phosphatase (38-126) U/L C-Reactive Protein (<1.0) mg/dL Total Protein (6.3-8.2) g/dL Albumin (3.5-5.0) g/dL Globulin (1.7-4.1) g/dL Albumin/Globulin Ratio (1.0-2.8) Procalcitonin 3.36 H (<0.5) ng/mL Urine Color Urine Appearance Urine pH (4.5-8.0) Ur Specific [place] (1.000-1.035) Urine Protein (Negative) Urine Glucose (UA) (Negative) g/dL Urine Ketones (NEGATIVE) Urine Occult Blood (Negative) Urine Nitrate (Negative) Urine Bilirubin (NEGATIVE) Urine Urobilinogen (0.2) E.U./dL Ur Leukocyte Esterase (NEGATIVE) Urine RBC (0-5/HPF) Urine WBC (0-5/HPF) Ur Squamous Epith Cells (0-5/HPF) Amorphous Sediment Urine Bacteria (None) Granular Casts (None) Urine Mucus (Negative) Ur Culture Indicated? Nasal Screen MRSA (PCR) (Negative) Vancomycin Trough (10-20) ug/mL 06/01/19 06/01/19 06/01/19 Range/Units 16:45 18:35 18:35 WBC (4.5-11.0) X10^3/uL RBC (4.5-5.9) X10^6/uL Hgb (13.5-17.5) g/dL Hct (41-53) % MCV (80-100) fL MCH (26-34) PG MCHC (30-36) % RDW (11.6-14.8) % Plt Count (150-400) X10^3/uL Neut % (Auto) Lymph % (Auto) [place] % (Auto) Eos % (Auto) Baso % (Auto) Neut # (Auto) (5045-6182) /uL Lymph # (Auto) [place] # (Auto) Eos # (Auto) (0-450) /uL Baso # (Auto) Total Counted Seg Neutrophils % (38-70) % Band Neutrophils % (3-7) % Lymphocytes % (Manual) (25-45) % Monocytes % (Manual) (2-11) % Neutrophils # (Manual) (4669-1301) /uL RBC Morphology PT (10.1-12.7) SECONDS INR (0.9-1.3) Sodium (137-145) mmol/L Potassium (3.4-5.1) mmol/L Chloride (98-107) mmol/L Carbon Dioxide (22-32) mmol/L BUN (9-20) mg/dL Creatinine (0.66-1.25) mg/dL Estimated GFR (>60) mL/min BUN/Creatinine Ratio (6-22) Glucose (80-110) mg/dL Hemoglobin A1c (4.0-6.0) % Lactate 2.3 H 2.3 H (0.7-2.1) mmol/L Calcium (8.4-10.2) mg/dL Magnesium 1.3 L (1.6-2.3) mg/dL Total Bilirubin (0.2-1.3) mg/dL AST (17-59) IU/L ALT (21-72) IU/L Alkaline Phosphatase (38-126) U/L C-Reactive Protein (<1.0) mg/dL Total Protein (6.3-8.2) g/dL Albumin (3.5-5.0) g/dL Globulin (1.7-4.1) g/dL Albumin/Globulin Ratio (1.0-2.8) Procalcitonin (<0.5) ng/mL Urine Color Urine Appearance Urine pH (4.5-8.0) Ur Specific [place] (1.000-1.035) Urine Protein (Negative) Urine Glucose (UA) (Negative) g/dL Urine Ketones (NEGATIVE) Urine Occult Blood (Negative) Urine Nitrate (Negative) Urine Bilirubin (NEGATIVE) Urine Urobilinogen (0.2) E.U./dL Ur Leukocyte Esterase (NEGATIVE) Urine RBC (0-5/HPF) Urine WBC (0-5/HPF) Ur Squamous Epith Cells (0-5/HPF) Amorphous Sediment Urine Bacteria (None) Granular Casts (None) Urine Mucus (Negative) Ur Culture Indicated? Nasal Screen MRSA (PCR) (Negative) Vancomycin Trough (10-20) ug/mL 06/01/19 06/02/19 06/02/19 Range/Units 23:00 02:54 05:02 WBC 24.1 H (4.5-11.0) X10^3/uL RBC 4.81 (4.5-5.9) X10^6/uL Hgb 14.0 (13.5-17.5) g/dL Hct 41.5 (41-53) % MCV 86.2 (80-100) fL MCH 29.0 (26-34) PG MCHC 33.7 (30-36) % RDW 15.0 H (11.6-14.8) % Plt Count 151 (150-400) X10^3/uL Neut % (Auto) 92.8 H Lymph % (Auto) 4.0 L [place] % (Auto) 3.0 Eos % (Auto) 0.0 L Baso % (Auto) 0.2 Neut # (Auto) 28591 H (0958-5813) /uL Lymph # (Auto) 1000 L [place] # (Auto) 700 Eos # (Auto) 0 (0-450) /uL Baso # (Auto) 100 Total Counted Seg Neutrophils % (38-70) % Band Neutrophils % (3-7) % Lymphocytes % (Manual) (25-45) % Monocytes % (Manual) (2-11) % Neutrophils # (Manual) (4787-4064) /uL RBC Morphology PT (10.1-12.7) SECONDS INR (0.9-1.3) Sodium (137-145) mmol/L Potassium (3.4-5.1) mmol/L Chloride (98-107) mmol/L Carbon Dioxide (22-32) mmol/L BUN (9-20) mg/dL Creatinine (0.66-1.25) mg/dL Estimated GFR (>60) mL/min BUN/Creatinine Ratio (6-22) Glucose (80-110) mg/dL Hemoglobin A1c (4.0-6.0) % Lactate (0.7-2.1) mmol/L Calcium (8.4-10.2) mg/dL Magnesium (1.6-2.3) mg/dL Total Bilirubin (0.2-1.3) mg/dL AST (17-59) IU/L ALT (21-72) IU/L Alkaline Phosphatase (38-126) U/L C-Reactive Protein (<1.0) mg/dL Total Protein (6.3-8.2) g/dL Albumin (3.5-5.0) g/dL Globulin (1.7-4.1) g/dL Albumin/Globulin Ratio (1.0-2.8) Procalcitonin (<0.5) ng/mL Urine Color Dark yellow Urine Appearance Clear Urine pH 5.0 (4.5-8.0) Ur Specific [place] 1.025 (1.000-1.035) Urine Protein Trace H (Negative) Urine Glucose (UA) Negative (Negative) g/dL Urine Ketones Negative (NEGATIVE) Urine Occult Blood Trace-intact (Negative) Urine Nitrate Negative (Negative) Urine Bilirubin Negative (NEGATIVE) Urine Urobilinogen 1.0 (0.2) E.U./dL Ur Leukocyte Esterase Negative (NEGATIVE) Urine RBC 0-1/hpf (0-5/HPF) Urine WBC 0-1/hpf (0-5/HPF) Ur Squamous Epith Cells 0-1 /hpf (0-5/HPF) Amorphous Sediment 1+ Urine Bacteria Occasional (0-1) (None) Granular Casts 0-1/lpf (None) Urine Mucus 1+ H (Negative) Ur Culture Indicated? Cult not indicated Nasal Screen MRSA (PCR) Negative for mrsa (Negative) Vancomycin Trough (10-20) ug/mL 06/02/19 06/02/19 06/02/19 Range/Units 05:02 05:02 05:02 WBC (4.5-11.0) X10^3/uL RBC (4.5-5.9) X10^6/uL Hgb (13.5-17.5) g/dL Hct (41-53) % MCV (80-100) fL MCH (26-34) PG MCHC (30-36) % RDW (11.6-14.8) % Plt Count (150-400) X10^3/uL Neut % (Auto) Lymph % (Auto) [place] % (Auto) Eos % (Auto) Baso % (Auto) Neut # (Auto) (8980-5613) /uL Lymph # (Auto) [place] # (Auto) Eos # (Auto) (0-450) /uL Baso # (Auto) Total Counted Seg Neutrophils % (38-70) % Band Neutrophils % (3-7) % Lymphocytes % (Manual) (25-45) % Monocytes % (Manual) (2-11) % Neutrophils # (Manual) (4694-2071) /uL RBC Morphology PT 30.6 H (10.1-12.7) SECONDS INR 2.6 H (0.9-1.3) Sodium 134 L (137-145) mmol/L Potassium 3.9 (3.4-5.1) mmol/L Chloride 98 (98-107) mmol/L Carbon Dioxide 26 (22-32) mmol/L BUN 19 (9-20) mg/dL Creatinine 1.00 (0.66-1.25) mg/dL Estimated GFR > 60.0 (>60) mL/min BUN/Creatinine Ratio 19.0 (6-22) Glucose 119 H (80-110) mg/dL Hemoglobin A1c (4.0-6.0) % Lactate (0.7-2.1) mmol/L Calcium 8.1 L (8.4-10.2) mg/dL Magnesium (1.6-2.3) mg/dL Total Bilirubin (0.2-1.3) mg/dL AST (17-59) IU/L ALT (21-72) IU/L Alkaline Phosphatase (38-126) U/L C-Reactive Protein (<1.0) mg/dL Total Protein (6.3-8.2) g/dL Albumin (3.5-5.0) g/dL Globulin (1.7-4.1) g/dL Albumin/Globulin Ratio (1.0-2.8) Procalcitonin 4.10 H (<0.5) ng/mL Urine Color Urine Appearance Urine pH (4.5-8.0) Ur Specific [place] (1.000-1.035) Urine Protein (Negative) Urine Glucose (UA) (Negative) g/dL Urine Ketones (NEGATIVE) Urine Occult Blood (Negative) Urine Nitrate (Negative) Urine Bilirubin (NEGATIVE) Urine Urobilinogen (0.2) E.U./dL Ur Leukocyte Esterase (NEGATIVE) Urine RBC (0-5/HPF) Urine WBC (0-5/HPF) Ur Squamous Epith Cells (0-5/HPF) Amorphous Sediment Urine Bacteria (None) Granular Casts (None) Urine Mucus (Negative) Ur Culture Indicated? Nasal Screen MRSA (PCR) (Negative) Vancomycin Trough (10-20) ug/mL 06/02/19 06/02/19 06/03/19 Range/Units 23:17 23:17 02:30 WBC 22.9 H (4.5-11.0) X10^3/uL RBC 4.91 (4.5-5.9) X10^6/uL Hgb 14.2 (13.5-17.5) g/dL Hct 42.8 (41-53) % MCV 87.2 (80-100) fL MCH 29.0 (26-34) PG MCHC 33.3 (30-36) % RDW 15.0 H (11.6-14.8) % Plt Count 159 (150-400) X10^3/uL Neut % (Auto) 91.3 H Lymph % (Auto) 4.9 L [place] % (Auto) 3.4 Eos % (Auto) 0.1 L Baso % (Auto) 0.3 Neut # (Auto) 23967 H (4098-4687) /uL Lymph # (Auto) 1100 [place] # (Auto) 800 Eos # (Auto) 0 (0-450) /uL Baso # (Auto) 100 Total Counted Seg Neutrophils % (38-70) % Band Neutrophils % (3-7) % Lymphocytes % (Manual) (25-45) % Monocytes % (Manual) (2-11) % Neutrophils # (Manual) (8722-4400) /uL RBC Morphology PT (10.1-12.7) SECONDS INR (0.9-1.3) Sodium (137-145) mmol/L Potassium (3.4-5.1) mmol/L Chloride (98-107) mmol/L Carbon Dioxide (22-32) mmol/L BUN (9-20) mg/dL Creatinine (0.66-1.25) mg/dL Estimated GFR (>60) mL/min BUN/Creatinine Ratio (6-22) Glucose (80-110) mg/dL Hemoglobin A1c (4.0-6.0) % Lactate (0.7-2.1) mmol/L Calcium (8.4-10.2) mg/dL Magnesium (1.6-2.3) mg/dL Total Bilirubin (0.2-1.3) mg/dL AST (17-59) IU/L ALT (21-72) IU/L Alkaline Phosphatase (38-126) U/L C-Reactive Protein 20.8 H (<1.0) mg/dL Total Protein (6.3-8.2) g/dL Albumin (3.5-5.0) g/dL Globulin (1.7-4.1) g/dL Albumin/Globulin Ratio (1.0-2.8) Procalcitonin (<0.5) ng/mL Urine Color Urine Appearance Urine pH (4.5-8.0) Ur Specific [place] (1.000-1.035) Urine Protein (Negative) Urine Glucose (UA) (Negative) g/dL Urine Ketones (NEGATIVE) Urine Occult Blood (Negative) Urine Nitrate (Negative) Urine Bilirubin (NEGATIVE) Urine Urobilinogen (0.2) E.U./dL Ur Leukocyte Esterase (NEGATIVE) Urine RBC (0-5/HPF) Urine WBC (0-5/HPF) Ur Squamous Epith Cells (0-5/HPF) Amorphous Sediment Urine Bacteria (None) Granular Casts (None) Urine Mucus (Negative) Ur Culture Indicated? Nasal Screen MRSA (PCR) (Negative) Vancomycin Trough 7.8 L (10-20) ug/mL 06/03/19 06/03/19 06/03/19 Range/Units 02:30 02:30 02:30 WBC 21.3 H (4.5-11.0) X10^3/uL RBC 4.82 (4.5-5.9) X10^6/uL Hgb 14.1 (13.5-17.5) g/dL Hct 41.8 (41-53) % MCV 86.6 (80-100) fL MCH 29.2 (26-34) PG MCHC 33.7 (30-36) % RDW 15.0 H (11.6-14.8) % Plt Count 148 L (150-400) X10^3/uL Neut % (Auto) 90.6 H Lymph % (Auto) 4.8 L [place] % (Auto) 3.6 Eos % (Auto) 0.1 L Baso % (Auto) 0.9 Neut # (Auto) 86103 H (6977-6215) /uL Lymph # (Auto) 1000 L [place] # (Auto) 800 Eos # (Auto) 0 (0-450) /uL Baso # (Auto) 200 H Total Counted Seg Neutrophils % (38-70) % Band Neutrophils % (3-7) % Lymphocytes % (Manual) (25-45) % Monocytes % (Manual) (2-11) % Neutrophils # (Manual) (8852-3505) /uL RBC Morphology PT (10.1-12.7) SECONDS INR (0.9-1.3) Sodium 133 L (137-145) mmol/L Potassium 3.2 L (3.4-5.1) mmol/L Chloride 101 (98-107) mmol/L Carbon Dioxide 22 (22-32) mmol/L BUN 16 (9-20) mg/dL Creatinine 0.80 (0.66-1.25) mg/dL Estimated GFR > 60.0 (>60) mL/min BUN/Creatinine Ratio 20.0 (6-22) Glucose 122 H (80-110) mg/dL Hemoglobin A1c (4.0-6.0) % Lactate (0.7-2.1) mmol/L Calcium 8.7 (8.4-10.2) mg/dL Magnesium 1.9 (1.6-2.3) mg/dL Total Bilirubin 2.0 H (0.2-1.3) mg/dL AST 27 (17-59) IU/L ALT 24 (21-72) IU/L Alkaline Phosphatase 99 (38-126) U/L C-Reactive Protein (<1.0) mg/dL Total Protein 6.8 (6.3-8.2) g/dL Albumin 3.2 L (3.5-5.0) g/dL Globulin 3.6 (1.7-4.1) g/dL Albumin/Globulin Ratio 0.9 L (1.0-2.8) Procalcitonin 2.10 H (<0.5) ng/mL Urine Color Urine Appearance Urine pH (4.5-8.0) Ur Specific [place] (1.000-1.035) Urine Protein (Negative) Urine Glucose (UA) (Negative) g/dL Urine Ketones (NEGATIVE) Urine Occult Blood (Negative) Urine Nitrate (Negative) Urine Bilirubin (NEGATIVE) Urine Urobilinogen (0.2) E.U./dL Ur Leukocyte Esterase (NEGATIVE) Urine RBC (0-5/HPF) Urine WBC (0-5/HPF) Ur Squamous Epith Cells (0-5/HPF) Amorphous Sediment Urine Bacteria (None) Granular Casts (None) Urine Mucus (Negative) Ur Culture Indicated? Nasal Screen MRSA (PCR) (Negative) Vancomycin Trough (10-20) ug/mL 06/03/19 06/03/19 Range/Units 02:30 02:30 WBC (4.5-11.0) X10^3/uL RBC (4.5-5.9) X10^6/uL Hgb (13.5-17.5) g/dL Hct (41-53) % MCV (80-100) fL MCH (26-34) PG MCHC (30-36) % RDW (11.6-14.8) % Plt Count (150-400) X10^3/uL Neut % (Auto) Lymph % (Auto) [place] % (Auto) Eos % (Auto) Baso % (Auto) Neut # (Auto) (9668-8366) /uL Lymph # (Auto) [place] # (Auto) Eos # (Auto) (0-450) /uL Baso # (Auto) Total Counted Seg Neutrophils % (38-70) % Band Neutrophils % (3-7) % Lymphocytes % (Manual) (25-45) % Monocytes % (Manual) (2-11) % Neutrophils # (Manual) (5834-6621) /uL RBC Morphology PT 27.9 H (10.1-12.7) SECONDS INR 2.4 H (0.9-1.3) Sodium (137-145) mmol/L Potassium (3.4-5.1) mmol/L Chloride (98-107) mmol/L Carbon Dioxide (22-32) mmol/L BUN (9-20) mg/dL Creatinine (0.66-1.25) mg/dL Estimated GFR (>60) mL/min BUN/Creatinine Ratio (6-22) Glucose (80-110) mg/dL Hemoglobin A1c (4.0-6.0) % Lactate 1.2 (0.7-2.1) mmol/L Calcium (8.4-10.2) mg/dL Magnesium (1.6-2.3) mg/dL Total Bilirubin (0.2-1.3) mg/dL AST (17-59) IU/L ALT (21-72) IU/L Alkaline Phosphatase (38-126) U/L C-Reactive Protein (<1.0) mg/dL Total Protein (6.3-8.2) g/dL Albumin (3.5-5.0) g/dL Globulin (1.7-4.1) g/dL Albumin/Globulin Ratio (1.0-2.8) Procalcitonin (<0.5) ng/mL Urine Color Urine Appearance Urine pH (4.5-8.0) Ur Specific [place] (1.000-1.035) Urine Protein (Negative) Urine Glucose (UA) (Negative) g/dL Urine Ketones (NEGATIVE) Urine Occult Blood (Negative) Urine Nitrate (Negative) Urine Bilirubin (NEGATIVE) Urine Urobilinogen (0.2) E.U./dL Ur Leukocyte Esterase (NEGATIVE) Urine RBC (0-5/HPF) Urine WBC (0-5/HPF) Ur Squamous Epith Cells (0-5/HPF) Amorphous Sediment Urine Bacteria (None) Granular Casts (None) Urine Mucus (Negative) Ur Culture Indicated? Nasal Screen MRSA (PCR) (Negative) Vancomycin Trough (10-20) ug/mL Point of Care Testing Glucose POC 112 Discharge Plan Departure Patient Disposition: Admitted As Inpatient Clinical Impression: Cellulitis Qualifiers: Site of cellulitis: extremity Site of cellulitis of extremity: lower extremity Laterality: left Qualified Code(s): L03.116 - Cellulitis of left lower limb Sepsis Qualifiers: Sepsis type: sepsis due to unspecified organism Qualified Code(s): A41.9 - Sepsis, unspecified organism Discharge Date/Time: 06/01/19 17:30 Interventions: ED Discharge Assessment Last Done: 06/01/19 17:30 Admit Date/Time: 06/01/19 16:44 Admit Provider: Elaine Rivera
--- NOTE | 2019-06-01 15:02 | ED_ITS ---
HPI - Extremity Injury (Lower) <JESUS MANUEL Mendoza - Last Filed: 06/02/19 01:07> General Chief Complaint: Extremity Problem,Nontraumatic Stated Complaint: Swollen lft leg, radiating up, sores on legs, arms Time Seen by Provider: 06/01/19 14:15 Source: patient and family Mode of arrival: wheelchair Limitations: no limitations History of Present Illness HPI Narrative: This is a 69 year old male, previous smoker, presented with the daughter with history of AFib who is anticoagulated with coumadin, HTN in chief complaining of left leg pain and swelling for last 1-2 weeks. He denies fever, nausea, vomiting, fatigue but had chills last night. The pain is from left ankle to knee which radiates to the groin area. He reports nothing aggravates pain and the pain is pretty constant. His lower legs have discoloration but now the L leg appears to be darker in color per the patient's daughter. He denies recent injury or trauma to the affected leg. Also, he reports has several skin lesions on his right lower arm, 2 on left hand, 1 on the right lower abdomen as well as 1 in the medial aspect of left calf. He denies chest pain, difficulty breathing, dizziness. He is a nondiabetic patient without history of IV drug use. Related Data Home Medications Medication Instructions Recorded Confirmed amlodipine 5 mg PO DAILY 06/01/19 06/01/19 hydrochlorothiazide 12.5 mg PO DAILY 06/01/19 06/01/19 metformin 500 mg PO DAILY 06/01/19 06/01/19 metoprolol tartrate 100 mg PO DAILY 06/01/19 06/01/19 sertraline 25 mg PO DAILY 06/01/19 06/01/19 warfarin 5 mg PO Q OTHER DAY 06/01/19 06/01/19 Allergies Allergy/AdvReac Type Severity Reaction Status Date / Time No Known Drug Allergies Allergy Verified 06/01/19 14:19 Review of Systems <JESUS MANUEL Mendoza - Last Filed: 06/02/19 01:07> Review of Systems General: See HPI HEENT: Denies sinus pain, ear pain, sore throat, difficulty swallowing, dizziness. Respiratory: Denies dyspnea, cough, wheezing, hemoptysis, sputum. Cardiovascular: Denies chest pain, palpitations, orthopnea. Gastrointestinal: Denies nausea, vomiting, abdominal pain, diarrhea, constipation, melena. : Reports urinary frequency and takes BPH medication. Denies dysuria,incontinence, hematuria, urinary retention. Musculoskeletal: Reports pain in L leg. Denies weakness, joint pain or bony pain. Skin: Reports several skin lesions on right lower abdomen, left hand, right lower arm. Reports some redness to left lower leg. Neurologic: Denies weakness, headache, numbness, change in speech, confusion, seizures, incoordination. Psychiatric: No concerning psychosocial issues. 12-point review of systems is negative except for those stated above. PFSH <JESUS MANUEL Mendoza - Last Filed: 06/02/19 01:07> Medical History Cellulitis of left lower extremity without foot (Acute) Depression (Chronic) Diabetes mellitus type 2 in obese (Chronic) Essential hypertension (Chronic) Surgical History History of knee surgery (Acute) Social History household members: spouse Smoking Status: Former smoker alcohol intake: former Social History household members: spouse Smoking Status: Former smoker alcohol intake: former Exam <JESUS MANUEL Mendoza - Last Filed: 06/02/19 01:07> Narrative Exam Narrative: GEN: Alert, oriented x 3, well appearing and nourished, and in no acute distress. Head: Normal cephalic, atraumatic. No scalp or temporal tenderness, palpable mass or rash. EYES: Pupils are equal, round, and reactive to light and accommodation. Extraocular muscles are intact bilaterally. There is no subconjunctival hemorrhage, exudate and sclera non-icteric. ENT: Hearing grossly intact. Nose without bleeding, purulent discharge. Mucous membrane moist, no mucosal lesion. Throat without erythema, tonsillar hypertrophy or exudate. Uvula in midline, airway patent. Neck: Trachea in midline. No JVD, non-tender without lymphadenopathy. No masses or thyroid megaly. Supple, non-tender and meningeal signs. CARDIAC: Rhythm irregular rate and tachycardia rate about 120's. No murmurs, gallops, or rubs. No chest wall tenderness. L leg edema. No cyanosis or pallor. Capillary refill is less than 2 seconds. RESPIRATORY: Lungs are cleat to auscultate bilaterally. No cough, wheezes, rales, or rhonchi. No stridor, respiratory distress, increase work of breathing, or accessary muscle used. ABD: Abdomen soft, nontender and non-distended. No guarding or rebound tenderness to palpate. Bowel sounds are normal in all 4 quadrants. There is no palpable masses or organomegaly. EXT: L lower leg with non-pitting edema, very tender to even a light touch on especially in L thigh region. Full ROM of all extremities with no loss of sensation, strength, effusion. SKIN: Bilateral lower leg discoloration with thickened skin. L lower leg with mild diffused erythema and increase warmth to touch. Several isolated erythematous and raised skin lesions scabbed over on R lower arm, two on L hand, on R lower abdomen and one on L medial calf 1 cm in diameter w/o drainage. BACK: Nontender without deformity or crepitance. No flank tenderness. NEUROLOGICAL: Alert and oriented to place, time and person. Sensation and motor function intact bilaterally. No facial droops, dysphasia. PSYCHIATRIC: Good judgement and reason, without hallucinations, abnormal affect or abnormal behaviors during the examination. Initial Vital Signs Initial Vital Signs: Vital Signs Temperature 98.3 F 06/01/19 14:18 Pulse Rate 124 H 06/01/19 14:18 Respiratory Rate 22 06/01/19 14:18 Blood Pressure 124/70 06/01/19 14:18 Pulse Oximetry 95 06/01/19 14:18 <Arely Cunha MD - Last Filed: 06/03/19 07:45> Initial Vital Signs Initial Vital Signs: Vital Signs Temperature 98.3 F 06/01/19 14:18 Pulse Rate 124 H 06/01/19 14:18 Respiratory Rate 22 06/01/19 14:18 Blood Pressure 124/70 06/01/19 14:18 Pulse Oximetry 95 06/01/19 14:18 Course <JESUS MANUEL Mendoza - Last Filed: 06/02/19 01:07> Decision to Admit Date: 06/01/19 Decision to Admit time: 15:30 Orders Ordered: ED Orders 06/02/19 23:17 C-Reactive Protein Quant Stat Complete Blood Count AUTO DIFF Stat 06/02/19 23:18 CPAP RT PROTOCOL 06/03/19 02:30 CBC [Complete Blood Count AUTO DIFF] Routine CMP [Comprehensive Metabolic Panel] Routine Lactate (Lactic Acid) Routine Magnesium Routine Procalcitonin Routine Prothrombin Time INR Routine Vancomycin Trough Urgent Acetaminophen (Tylenol) 650 mg PO Q6HR PRN PRN Reason: As Needed for Fever/Mild Pain Al Hydrox/Mg Hydrox/Simethicone (Maalox Plus) 30 ml PO Q6HR PRN PRN Reason: Dyspepsia Amlodipine Besylate (Norvasc) 5 mg PO DAILY [facility] Last Admin: 06/02/19 09:13 Dose: 5 mg Bisacodyl (Dulcolax) 10 mg [place] DAILY PRN PRN Reason: Constipation Calcium Carbonate (Tums) 1,000 mg PO Q4HR PRN PRN Reason: Dyspepsia Dextrose (D50w) 25 gm IV PRN PRN PRN Reason: Hypoglycemia Docusate Sodium (Colace) 100 mg PO BID PRN PRN Reason: Constipation Piperacillin/Tazobactam/Dextrose (Zosyn) 3.375 gm in 50 mls @ 100 mls/hr IV Q8H [facility] Last Infusion: 06/03/19 07:44 Dose: 100 mls/hr Admin: 06/03/19 07:07 Dose: 100 mls/hr Infusion: 06/03/19 00:09 Dose: 100 mls/hr Admin: 06/02/19 23:39 Dose: 100 mls/hr Infusion: 06/02/19 18:57 Dose: 100 mls/hr Admin: 06/02/19 16:00 Dose: 100 mls/hr Vancomycin HCl 2,000 mg/ (Sodium Chloride) 500 mls @ 250 mls/hr IV Q12H [facility] Magnesium Hydroxide (Milk Of Magnesia) 30 ml PO DAILY PRN PRN Reason: Constipation Metoprolol Tartrate (Lopressor) 100 mg PO BID [facility] Last Admin: 06/02/19 20:01 Dose: 100 mg Admin: 06/02/19 09:12 Dose: 100 mg Ondansetron HCl (Zofran) 4 mg IV Q8HR PRN PRN Reason: Nausea And Vomiting Sertraline HCl (Zoloft) 25 mg PO 1900 [facility] Last Admin: 06/02/19 20:01 Dose: 25 mg Vancomycin HCl (Vancomycin Trough) 1 request MISC 1430 [facility] Discontinued Medications Acetaminophen (Tylenol) 650 mg PO Q6HR PRN PRN Reason: As Needed for Fever/Mild Pain Heparin Sodium (Porcine) (Heparin) 5,000 unit SUBCUT BID [facility] Last Admin: 06/02/19 09:14 Dose: Not Given Admin: 06/01/19 22:27 Dose: 5,000 unit Sodium Chloride (Normal Saline 0.9%) 1,000 mls @ 1,000 mls/hr IV BOLUS ONE Stop: 06/01/19 15:36 Last Admin: 06/01/19 14:50 Dose: Not Given Vancomycin HCl/Dextrose (Vancomycin) 1,500 mg in 300 mls @ 200 mls/hr IV NOW ONE Stop: 06/01/19 16:26 Last Infusion: 06/01/19 17:46 Dose: 200 mls/hr Admin: 06/01/19 15:18 Dose: 200 mls/hr Sodium Chloride (Normal Saline 0.9%) 1,000 mls @ 1,000 mls/hr IV BOLUS ONE Stop: 06/01/19 16:17 Last Infusion: 06/01/19 16:57 Dose: 0 mls/hr Admin: 06/01/19 15:21 Dose: 1,000 mls/hr Sodium Chloride (Normal Saline 0.9%) 1,000 mls @ 100 mls/hr IV CONT [facility] Last Admin: 06/02/19 05:47 Dose: 100 mls/hr Infusion: 06/02/19 05:03 Dose: 100 mls/hr Admin: 06/01/19 19:03 Dose: 100 mls/hr Vancomycin HCl/Dextrose (Vancomycin) 1,500 mg in 300 mls @ 200 mls/hr IV Q12H [facility] Last Infusion: 06/03/19 04:48 Dose: 200 mls/hr Admin: 06/03/19 03:18 Dose: 200 mls/hr Infusion: 06/02/19 18:57 Dose: 200 mls/hr Admin: 06/02/19 14:49 Dose: 200 mls/hr Infusion: 06/02/19 04:30 Dose: 0 mls/hr Admin: 06/02/19 02:58 Dose: 200 mls/hr Sodium Chloride (Normal Saline 0.9%) 1,000 mls @ 100 mls/hr IV CONT [facility] Last Admin: 06/02/19 14:50 Dose: 100 mls/hr Admin: 06/01/19 22:30 Dose: Not Given Magnesium Sulfate (Magnesium Sulfate) 2 gm in 50 mls @ 25 mls/hr IV NOW ONE Stop: 06/02/19 09:14 Last Infusion: 06/02/19 10:20 Dose: 0 mls/hr Admin: 06/02/19 08:17 Dose: 25 mls/hr Vancomycin HCl 500 mg/ Sodium (Chloride) 100 mls @ 100 mls/hr IV NOW ONE Stop: 06/03/19 05:59 Last Infusion: 06/03/19 06:29 Dose: 100 mls/hr Admin: 06/03/19 05:29 Dose: 100 mls/hr Insulin Aspart (Novolog Flexpen) 6 unit SUBCUT TIDWM [facility] Last Admin: 06/02/19 12:20 Dose: Not Given Insulin Glargine (Lantus Solostar (Pen)) 18 unit SUBCUT BID [facility] Last Admin: 06/02/19 12:21 Dose: Not Given Admin: 06/01/19 22:53 Dose: 18 unit Metoprolol Succinate (Toprol Xl) 100 mg PO NOW STA Stop: 06/01/19 20:15 Last Admin: 06/01/19 20:37 Dose: 100 mg Metoprolol Tartrate (Lopressor) 5 mg IV NOW ONE Stop: 06/01/19 16:46 Last Admin: 06/01/19 16:56 Dose: 5 mg Ondansetron HCl (Zofran) 4 mg IV Q8HR PRN PRN Reason: Nausea And Vomiting Sertraline HCl (Zoloft) 25 mg PO DAILY [facility] Last Admin: 06/02/19 12:48 Dose: Not Given Sodium Chloride (Normal Saline 0.9%) 1,000 ml IV NOW ONE Stop: 06/01/19 14:32 Last Admin: 06/01/19 14:36 Dose: 1,000 ml Vancomycin HCl (Vancomycin Per Pharmacy) 1 request MISC NOW ONE Stop: 06/01/19 17:50 Vancomycin HCl (Vancomycin Trough) 1 request MISC NOW ONE Stop: 06/03/19 02:31 Last Admin: 06/03/19 03:18 Dose: 1 request Warfarin Sodium (Coumadin) 5 mg PO QOD [facility] Warfarin Sodium (Coumadin) 5 mg PO NOW [facility] Stop: 06/01/19 22:00 Last Admin: 06/01/19 20:37 Dose: 5 mg Warfarin Sodium (Coumadin) 2.5 mg PO EVERY OTHER DAY [facility] Reevaluation(s) Reevaluation #1: The patient's remains in AFib rating 118 after nearly 2nd L of normal saline has completed. Consulted hospitalist DR. Gomez and she requested to treat this with Metoprolol 5mg IV. Time: 16:48 Vital Signs - 8 hr 06/02/19 23:55 06/03/19 01:00 06/03/19 03:34 Temperature 98.6 F 98.5 F Pulse Rate 107 H 99 H Respiratory Rate 18 18 Blood Pressure 122/58 L 144/81 H Pulse Oximetry 94 94 94 <Arely Cunha MD - Last Filed: 06/03/19 07:45> Orders Ordered: ED Orders 06/02/19 23:17 C-Reactive Protein Quant Stat Complete Blood Count AUTO DIFF Stat 06/02/19 23:18 CPAP RT PROTOCOL 06/03/19 02:30 CBC [Complete Blood Count AUTO DIFF] Routine CMP [Comprehensive Metabolic Panel] Routine Lactate (Lactic Acid) Routine Magnesium Routine Procalcitonin Routine Prothrombin Time INR Routine Vancomycin Trough Urgent Acetaminophen (Tylenol) 650 mg PO Q6HR PRN PRN Reason: As Needed for Fever/Mild Pain Al Hydrox/Mg Hydrox/Simethicone (Maalox Plus) 30 ml PO Q6HR PRN PRN Reason: Dyspepsia Amlodipine Besylate (Norvasc) 5 mg PO DAILY [facility] Last Admin: 06/02/19 09:13 Dose: 5 mg Bisacodyl (Dulcolax) 10 mg [place] DAILY PRN PRN Reason: Constipation Calcium Carbonate (Tums) 1,000 mg PO Q4HR PRN PRN Reason: Dyspepsia Dextrose (D50w) 25 gm IV PRN PRN PRN Reason: Hypoglycemia Docusate Sodium (Colace) 100 mg PO BID PRN PRN Reason: Constipation Piperacillin/Tazobactam/Dextrose (Zosyn) 3.375 gm in 50 mls @ 100 mls/hr IV Q8H [facility] Last Infusion: 06/03/19 07:44 Dose: 100 mls/hr Admin: 06/03/19 07:07 Dose: 100 mls/hr Infusion: 06/03/19 00:09 Dose: 100 mls/hr Admin: 06/02/19 23:39 Dose: 100 mls/hr Infusion: 06/02/19 18:57 Dose: 100 mls/hr Admin: 06/02/19 16:00 Dose: 100 mls/hr Vancomycin HCl 2,000 mg/ (Sodium Chloride) 500 mls @ 250 mls/hr IV Q12H [facility] Magnesium Hydroxide (Milk Of Magnesia) 30 ml PO DAILY PRN PRN Reason: Constipation Metoprolol Tartrate (Lopressor) 100 mg PO BID [facility] Last Admin: 06/02/19 20:01 Dose: 100 mg Admin: 06/02/19 09:12 Dose: 100 mg Ondansetron HCl (Zofran) 4 mg IV Q8HR PRN PRN Reason: Nausea And Vomiting Sertraline HCl (Zoloft) 25 mg PO 1900 [facility] Last Admin: 06/02/19 20:01 Dose: 25 mg Vancomycin HCl (Vancomycin Trough) 1 request MISC 1430 [facility] Discontinued Medications Acetaminophen (Tylenol) 650 mg PO Q6HR PRN PRN Reason: As Needed for Fever/Mild Pain Heparin Sodium (Porcine) (Heparin) 5,000 unit SUBCUT BID [facility] Last Admin: 06/02/19 09:14 Dose: Not Given Admin: 06/01/19 22:27 Dose: 5,000 unit Sodium Chloride (Normal Saline 0.9%) 1,000 mls @ 1,000 mls/hr IV BOLUS ONE Stop: 06/01/19 15:36 Last Admin: 06/01/19 14:50 Dose: Not Given Vancomycin HCl/Dextrose (Vancomycin) 1,500 mg in 300 mls @ 200 mls/hr IV NOW ONE Stop: 06/01/19 16:26 Last Infusion: 06/01/19 17:46 Dose: 200 mls/hr Admin: 06/01/19 15:18 Dose: 200 mls/hr Sodium Chloride (Normal Saline 0.9%) 1,000 mls @ 1,000 mls/hr IV BOLUS ONE Stop: 06/01/19 16:17 Last Infusion: 06/01/19 16:57 Dose: 0 mls/hr Admin: 06/01/19 15:21 Dose: 1,000 mls/hr Sodium Chloride (Normal Saline 0.9%) 1,000 mls @ 100 mls/hr IV CONT [facility] Last Admin: 06/02/19 05:47 Dose: 100 mls/hr Infusion: 06/02/19 05:03 Dose: 100 mls/hr Admin: 06/01/19 19:03 Dose: 100 mls/hr Vancomycin HCl/Dextrose (Vancomycin) 1,500 mg in 300 mls @ 200 mls/hr IV Q12H [facility] Last Infusion: 06/03/19 04:48 Dose: 200 mls/hr Admin: 06/03/19 03:18 Dose: 200 mls/hr Infusion: 06/02/19 18:57 Dose: 200 mls/hr Admin: 06/02/19 14:49 Dose: 200 mls/hr Infusion: 06/02/19 04:30 Dose: 0 mls/hr Admin: 06/02/19 02:58 Dose: 200 mls/hr Sodium Chloride (Normal Saline 0.9%) 1,000 mls @ 100 mls/hr IV CONT [facility] Last Admin: 06/02/19 14:50 Dose: 100 mls/hr Admin: 06/01/19 22:30 Dose: Not Given Magnesium Sulfate (Magnesium Sulfate) 2 gm in 50 mls @ 25 mls/hr IV NOW ONE Stop: 06/02/19 09:14 Last Infusion: 06/02/19 10:20 Dose: 0 mls/hr Admin: 06/02/19 08:17 Dose: 25 mls/hr Vancomycin HCl 500 mg/ Sodium (Chloride) 100 mls @ 100 mls/hr IV NOW ONE Stop: 06/03/19 05:59 Last Infusion: 06/03/19 06:29 Dose: 100 mls/hr Admin: 06/03/19 05:29 Dose: 100 mls/hr Insulin Aspart (Novolog Flexpen) 6 unit SUBCUT TIDWM [facility] Last Admin: 06/02/19 12:20 Dose: Not Given Insulin Glargine (Lantus Solostar (Pen)) 18 unit SUBCUT BID [facility] Last Admin: 06/02/19 12:21 Dose: Not Given Admin: 06/01/19 22:53 Dose: 18 unit Metoprolol Succinate (Toprol Xl) 100 mg PO NOW STA Stop: 06/01/19 20:15 Last Admin: 06/01/19 20:37 Dose: 100 mg Metoprolol Tartrate (Lopressor) 5 mg IV NOW ONE Stop: 06/01/19 16:46 Last Admin: 06/01/19 16:56 Dose: 5 mg Ondansetron HCl (Zofran) 4 mg IV Q8HR PRN PRN Reason: Nausea And Vomiting Sertraline HCl (Zoloft) 25 mg PO DAILY [facility] Last Admin: 06/02/19 12:48 Dose: Not Given Sodium Chloride (Normal Saline 0.9%) 1,000 ml IV NOW ONE Stop: 06/01/19 14:32 Last Admin: 06/01/19 14:36 Dose: 1,000 ml Vancomycin HCl (Vancomycin Per Pharmacy) 1 request MISC NOW ONE Stop: 06/01/19 17:50 Vancomycin HCl (Vancomycin Trough) 1 request MIS NOW ONE Stop: 06/03/19 02:31 Last Admin: 06/03/19 03:18 Dose: 1 request Warfarin Sodium (Coumadin) 5 mg PO QOD [facility] Warfarin Sodium (Coumadin) 5 mg PO NOW [facility] Stop: 06/01/19 22:00 Last Admin: 06/01/19 20:37 Dose: 5 mg Warfarin Sodium (Coumadin) 2.5 mg PO EVERY OTHER DAY [facility] Vital Signs - 8 hr 06/02/19 23:55 06/03/19 01:00 06/03/19 03:34 Temperature 98.6 F 98.5 F Pulse Rate 107 H 99 H Respiratory Rate 18 18 Blood Pressure 122/58 L 144/81 H Pulse Oximetry 94 94 94 MDM - Extremity Injury (Lower) <JESUS MANUEL Mendoza - Last Filed: 06/02/19 01:07> Differential Diagnosis Likely fracture of femur and other (cellulitis, DVT, necrotizing fascitis) Medical Records Attestation: I reviewed the patient's medical records. Lab Data Attestation: I reviewed the patient's lab results. Result diagrams: 06/03/19 02:30 06/03/19 02:30 Lab Results 06/01/19 06/01/19 06/01/19 Range/Units 14:20 14:20 14:20 WBC 29.5 H (4.5-11.0) X10^3/uL RBC 5.64 (4.5-5.9) X10^6/uL Hgb 16.5 (13.5-17.5) g/dL Hct 48.5 (41-53) % MCV 86.0 (80-100) fL MCH 29.3 (26-34) PG MCHC 34.1 (30-36) % RDW 14.7 (11.6-14.8) % Plt Count 201 (150-400) X10^3/uL Neut % (Auto) Not Reportable Lymph % (Auto) Not Reportable [place] % (Auto) Not Reportable Eos % (Auto) Not Reportable Baso % (Auto) Not Reportable Neut # (Auto) (7360-2601) /uL Lymph # (Auto) Not Reportable [place] # (Auto) Not Reportable Eos # (Auto) (0-450) /uL Baso # (Auto) Not Reportable Total Counted 100 Seg Neutrophils % 83.0 H (38-70) % Band Neutrophils % 12.0 H (3-7) % Lymphocytes % (Manual) 4.0 L (25-45) % Monocytes % (Manual) 1.0 L (2-11) % Neutrophils # (Manual) 57532 H (4707-8357) /uL RBC Morphology Normal morphology PT 26.9 H (10.1-12.7) SECONDS INR 2.3 H (0.9-1.3) Sodium 134 L (137-145) mmol/L Potassium 3.7 (3.4-5.1) mmol/L Chloride 96 L (98-107) mmol/L Carbon Dioxide 27 (22-32) mmol/L BUN 21 H (9-20) mg/dL Creatinine 1.20 (0.66-1.25) mg/dL Estimated GFR > 60.0 (>60) mL/min BUN/Creatinine Ratio 17.5 (6-22) Glucose 139 H (80-110) mg/dL Hemoglobin A1c (4.0-6.0) % Lactate (0.7-2.1) mmol/L Calcium 9.1 (8.4-10.2) mg/dL Magnesium (1.6-2.3) mg/dL Total Bilirubin 2.1 H (0.2-1.3) mg/dL AST 22 (17-59) IU/L ALT 7 L (21-72) IU/L Alkaline Phosphatase 92 (38-126) U/L C-Reactive Protein (<1.0) mg/dL Total Protein 7.9 (6.3-8.2) g/dL Albumin 4.0 (3.5-5.0) g/dL Globulin 3.9 (1.7-4.1) g/dL Albumin/Globulin Ratio 1.0 (1.0-2.8) Procalcitonin (<0.5) ng/mL Urine Color Urine Appearance Urine pH (4.5-8.0) Ur Specific [place] (1.000-1.035) Urine Protein (Negative) Urine Glucose (UA) (Negative) g/dL Urine Ketones (NEGATIVE) Urine Occult Blood (Negative) Urine Nitrate (Negative) Urine Bilirubin (NEGATIVE) Urine Urobilinogen (0.2) E.U./dL Ur Leukocyte Esterase (NEGATIVE) Urine RBC (0-5/HPF) Urine WBC (0-5/HPF) Ur Squamous Epith Cells (0-5/HPF) Amorphous Sediment Urine Bacteria (None) Granular Casts (None) Urine Mucus (Negative) Ur Culture Indicated? Nasal Screen MRSA (PCR) (Negative) Vancomycin Trough (10-20) ug/mL 06/01/19 06/01/19 06/01/19 Range/Units 14:20 14:20 14:20 WBC (4.5-11.0) X10^3/uL RBC (4.5-5.9) X10^6/uL Hgb (13.5-17.5) g/dL Hct (41-53) % MCV (80-100) fL MCH (26-34) PG MCHC (30-36) % RDW (11.6-14.8) % Plt Count (150-400) X10^3/uL Neut % (Auto) Lymph % (Auto) [place] % (Auto) Eos % (Auto) Baso % (Auto) Neut # (Auto) (5344-6666) /uL Lymph # (Auto) [place] # (Auto) Eos # (Auto) (0-450) /uL Baso # (Auto) Total Counted Seg Neutrophils % (38-70) % Band Neutrophils % (3-7) % Lymphocytes % (Manual) (25-45) % Monocytes % (Manual) (2-11) % Neutrophils # (Manual) (3981-7467) /uL RBC Morphology PT (10.1-12.7) SECONDS INR (0.9-1.3) Sodium (137-145) mmol/L Potassium (3.4-5.1) mmol/L Chloride (98-107) mmol/L Carbon Dioxide (22-32) mmol/L BUN (9-20) mg/dL Creatinine (0.66-1.25) mg/dL Estimated GFR (>60) mL/min BUN/Creatinine Ratio (6-22) Glucose (80-110) mg/dL Hemoglobin A1c 5.8 (4.0-6.0) % Lactate 2.8 H (0.7-2.1) mmol/L Calcium (8.4-10.2) mg/dL Magnesium (1.6-2.3) mg/dL Total Bilirubin (0.2-1.3) mg/dL AST (17-59) IU/L ALT (21-72) IU/L Alkaline Phosphatase (38-126) U/L C-Reactive Protein (<1.0) mg/dL Total Protein (6.3-8.2) g/dL Albumin (3.5-5.0) g/dL Globulin (1.7-4.1) g/dL Albumin/Globulin Ratio (1.0-2.8) Procalcitonin 3.36 H (<0.5) ng/mL Urine Color Urine Appearance Urine pH (4.5-8.0) Ur Specific [place] (1.000-1.035) Urine Protein (Negative) Urine Glucose (UA) (Negative) g/dL Urine Ketones (NEGATIVE) Urine Occult Blood (Negative) Urine Nitrate (Negative) Urine Bilirubin (NEGATIVE) Urine Urobilinogen (0.2) E.U./dL Ur Leukocyte Esterase (NEGATIVE) Urine RBC (0-5/HPF) Urine WBC (0-5/HPF) Ur Squamous Epith Cells (0-5/HPF) Amorphous Sediment Urine Bacteria (None) Granular Casts (None) Urine Mucus (Negative) Ur Culture Indicated? Nasal Screen MRSA (PCR) (Negative) Vancomycin Trough (10-20) ug/mL 06/01/19 06/01/19 06/01/19 Range/Units 16:45 18:35 18:35 WBC (4.5-11.0) X10^3/uL RBC (4.5-5.9) X10^6/uL Hgb (13.5-17.5) g/dL Hct (41-53) % MCV (80-100) fL MCH (26-34) PG MCHC (30-36) % RDW (11.6-14.8) % Plt Count (150-400) X10^3/uL Neut % (Auto) Lymph % (Auto) [place] % (Auto) Eos % (Auto) Baso % (Auto) Neut # (Auto) (3911-6468) /uL Lymph # (Auto) [place] # (Auto) Eos # (Auto) (0-450) /uL Baso # (Auto) Total Counted Seg Neutrophils % (38-70) % Band Neutrophils % (3-7) % Lymphocytes % (Manual) (25-45) % Monocytes % (Manual) (2-11) % Neutrophils # (Manual) (2833-8973) /uL RBC Morphology PT (10.1-12.7) SECONDS INR (0.9-1.3) Sodium (137-145) mmol/L Potassium (3.4-5.1) mmol/L Chloride (98-107) mmol/L Carbon Dioxide (22-32) mmol/L BUN (9-20) mg/dL Creatinine (0.66-1.25) mg/dL Estimated GFR (>60) mL/min BUN/Creatinine Ratio (6-22) Glucose (80-110) mg/dL Hemoglobin A1c (4.0-6.0) % Lactate 2.3 H 2.3 H (0.7-2.1) mmol/L Calcium (8.4-10.2) mg/dL Magnesium 1.3 L (1.6-2.3) mg/dL Total Bilirubin (0.2-1.3) mg/dL AST (17-59) IU/L ALT (21-72) IU/L Alkaline Phosphatase (38-126) U/L C-Reactive Protein (<1.0) mg/dL Total Protein (6.3-8.2) g/dL Albumin (3.5-5.0) g/dL Globulin (1.7-4.1) g/dL Albumin/Globulin Ratio (1.0-2.8) Procalcitonin (<0.5) ng/mL Urine Color Urine Appearance Urine pH (4.5-8.0) Ur Specific [place] (1.000-1.035) Urine Protein (Negative) Urine Glucose (UA) (Negative) g/dL Urine Ketones (NEGATIVE) Urine Occult Blood (Negative) Urine Nitrate (Negative) Urine Bilirubin (NEGATIVE) Urine Urobilinogen (0.2) E.U./dL Ur Leukocyte Esterase (NEGATIVE) Urine RBC (0-5/HPF) Urine WBC (0-5/HPF) Ur Squamous Epith Cells (0-5/HPF) Amorphous Sediment Urine Bacteria (None) Granular Casts (None) Urine Mucus (Negative) Ur Culture Indicated? Nasal Screen MRSA (PCR) (Negative) Vancomycin Trough (10-20) ug/mL 06/01/19 06/02/19 06/02/19 Range/Units 23:00 02:54 05:02 WBC 24.1 H (4.5-11.0) X10^3/uL RBC 4.81 (4.5-5.9) X10^6/uL Hgb 14.0 (13.5-17.5) g/dL Hct 41.5 (41-53) % MCV 86.2 (80-100) fL MCH 29.0 (26-34) PG MCHC 33.7 (30-36) % RDW 15.0 H (11.6-14.8) % Plt Count 151 (150-400) X10^3/uL Neut % (Auto) 92.8 H Lymph % (Auto) 4.0 L [place] % (Auto) 3.0 Eos % (Auto) 0.0 L Baso % (Auto) 0.2 Neut # (Auto) 45838 H (1632-5392) /uL Lymph # (Auto) 1000 L [place] # (Auto) 700 Eos # (Auto) 0 (0-450) /uL Baso # (Auto) 100 Total Counted Seg Neutrophils % (38-70) % Band Neutrophils % (3-7) % Lymphocytes % (Manual) (25-45) % Monocytes % (Manual) (2-11) % Neutrophils # (Manual) (7042-8290) /uL RBC Morphology PT (10.1-12.7) SECONDS INR (0.9-1.3) Sodium (137-145) mmol/L Potassium (3.4-5.1) mmol/L Chloride (98-107) mmol/L Carbon Dioxide (22-32) mmol/L BUN (9-20) mg/dL Creatinine (0.66-1.25) mg/dL Estimated GFR (>60) mL/min BUN/Creatinine Ratio (6-22) Glucose (80-110) mg/dL Hemoglobin A1c (4.0-6.0) % Lactate (0.7-2.1) mmol/L Calcium (8.4-10.2) mg/dL Magnesium (1.6-2.3) mg/dL Total Bilirubin (0.2-1.3) mg/dL AST (17-59) IU/L ALT (21-72) IU/L Alkaline Phosphatase (38-126) U/L C-Reactive Protein (<1.0) mg/dL Total Protein (6.3-8.2) g/dL Albumin (3.5-5.0) g/dL Globulin (1.7-4.1) g/dL Albumin/Globulin Ratio (1.0-2.8) Procalcitonin (<0.5) ng/mL Urine Color Dark yellow Urine Appearance Clear Urine pH 5.0 (4.5-8.0) Ur Specific [place] 1.025 (1.000-1.035) Urine Protein Trace H (Negative) Urine Glucose (UA) Negative (Negative) g/dL Urine Ketones Negative (NEGATIVE) Urine Occult Blood Trace-intact (Negative) Urine Nitrate Negative (Negative) Urine Bilirubin Negative (NEGATIVE) Urine Urobilinogen 1.0 (0.2) E.U./dL Ur Leukocyte Esterase Negative (NEGATIVE) Urine RBC 0-1/hpf (0-5/HPF) Urine WBC 0-1/hpf (0-5/HPF) Ur Squamous Epith Cells 0-1 /hpf (0-5/HPF) Amorphous Sediment 1+ Urine Bacteria Occasional (0-1) (None) Granular Casts 0-1/lpf (None) Urine Mucus 1+ H (Negative) Ur Culture Indicated? Cult not indicated Nasal Screen MRSA (PCR) Negative for mrsa (Negative) Vancomycin Trough (10-20) ug/mL 07/29/19 07/29/19 07/29/19 Range/Units 05:02 05:02 05:02 WBC (4.5-11.0) X10^3/uL RBC (4.5-5.9) X10^6/uL Hgb (13.5-17.5) g/dL Hct (41-53) % MCV (80-100) fL MCH (26-34) PG MCHC (30-36) % RDW (11.6-14.8) % Plt Count (150-400) X10^3/uL Neut % (Auto) Lymph % (Auto) [place] % (Auto) Eos % (Auto) Baso % (Auto) Neut # (Auto) (5524-8618) /uL Lymph # (Auto) [place] # (Auto) Eos # (Auto) (0-450) /uL Baso # (Auto) Total Counted Seg Neutrophils % (38-70) % Band Neutrophils % (3-7) % Lymphocytes % (Manual) (25-45) % Monocytes % (Manual) (2-11) % Neutrophils # (Manual) (8688-6841) /uL RBC Morphology PT 30.6 H (10.1-12.7) SECONDS INR 2.6 H (0.9-1.3) Sodium 134 L (137-145) mmol/L Potassium 3.9 (3.4-5.1) mmol/L Chloride 98 (98-107) mmol/L Carbon Dioxide 26 (22-32) mmol/L BUN 19 (9-20) mg/dL Creatinine 1.00 (0.66-1.25) mg/dL Estimated GFR > 60.0 (>60) mL/min BUN/Creatinine Ratio 19.0 (6-22) Glucose 119 H (80-110) mg/dL Hemoglobin A1c (4.0-6.0) % Lactate (0.7-2.1) mmol/L Calcium 8.1 L (8.4-10.2) mg/dL Magnesium (1.6-2.3) mg/dL Total Bilirubin (0.2-1.3) mg/dL AST (17-59) IU/L ALT (21-72) IU/L Alkaline Phosphatase (38-126) U/L C-Reactive Protein (<1.0) mg/dL Total Protein (6.3-8.2) g/dL Albumin (3.5-5.0) g/dL Globulin (1.7-4.1) g/dL Albumin/Globulin Ratio (1.0-2.8) Procalcitonin 4.10 H (<0.5) ng/mL Urine Color Urine Appearance Urine pH (4.5-8.0) Ur Specific [place] (1.000-1.035) Urine Protein (Negative) Urine Glucose (UA) (Negative) g/dL Urine Ketones (NEGATIVE) Urine Occult Blood (Negative) Urine Nitrate (Negative) Urine Bilirubin (NEGATIVE) Urine Urobilinogen (0.2) E.U./dL Ur Leukocyte Esterase (NEGATIVE) Urine RBC (0-5/HPF) Urine WBC (0-5/HPF) Ur Squamous Epith Cells (0-5/HPF) Amorphous Sediment Urine Bacteria (None) Granular Casts (None) Urine Mucus (Negative) Ur Culture Indicated? Nasal Screen MRSA (PCR) (Negative) Vancomycin Trough (10-20) ug/mL 06/02/19 06/02/19 06/03/19 Range/Units 23:17 23:17 02:30 WBC 22.9 H (4.5-11.0) X10^3/uL RBC 4.91 (4.5-5.9) X10^6/uL Hgb 14.2 (13.5-17.5) g/dL Hct 42.8 (41-53) % MCV 87.2 (80-100) fL MCH 29.0 (26-34) PG MCHC 33.3 (30-36) % RDW 15.0 H (11.6-14.8) % Plt Count 159 (150-400) X10^3/uL Neut % (Auto) 91.3 H Lymph % (Auto) 4.9 L [place] % (Auto) 3.4 Eos % (Auto) 0.1 L Baso % (Auto) 0.3 Neut # (Auto) 21222 H (0410-6273) /uL Lymph # (Auto) 1100 [place] # (Auto) 800 Eos # (Auto) 0 (0-450) /uL Baso # (Auto) 100 Total Counted Seg Neutrophils % (38-70) % Band Neutrophils % (3-7) % Lymphocytes % (Manual) (25-45) % Monocytes % (Manual) (2-11) % Neutrophils # (Manual) (5401-9930) /uL RBC Morphology PT (10.1-12.7) SECONDS INR (0.9-1.3) Sodium (137-145) mmol/L Potassium (3.4-5.1) mmol/L Chloride (98-107) mmol/L Carbon Dioxide (22-32) mmol/L BUN (9-20) mg/dL Creatinine (0.66-1.25) mg/dL Estimated GFR (>60) mL/min BUN/Creatinine Ratio (6-22) Glucose (80-110) mg/dL Hemoglobin A1c (4.0-6.0) % Lactate (0.7-2.1) mmol/L Calcium (8.4-10.2) mg/dL Magnesium (1.6-2.3) mg/dL Total Bilirubin (0.2-1.3) mg/dL AST (17-59) IU/L ALT (21-72) IU/L Alkaline Phosphatase (38-126) U/L C-Reactive Protein 20.8 H (<1.0) mg/dL Total Protein (6.3-8.2) g/dL Albumin (3.5-5.0) g/dL Globulin (1.7-4.1) g/dL Albumin/Globulin Ratio (1.0-2.8) Procalcitonin (<0.5) ng/mL Urine Color Urine Appearance Urine pH (4.5-8.0) Ur Specific [place] (1.000-1.035) Urine Protein (Negative) Urine Glucose (UA) (Negative) g/dL Urine Ketones (NEGATIVE) Urine Occult Blood (Negative) Urine Nitrate (Negative) Urine Bilirubin (NEGATIVE) Urine Urobilinogen (0.2) E.U./dL Ur Leukocyte Esterase (NEGATIVE) Urine RBC (0-5/HPF) Urine WBC (0-5/HPF) Ur Squamous Epith Cells (0-5/HPF) Amorphous Sediment Urine Bacteria (None) Granular Casts (None) Urine Mucus (Negative) Ur Culture Indicated? Nasal Screen MRSA (PCR) (Negative) Vancomycin Trough 7.8 L (10-20) ug/mL 06/03/19 06/03/19 06/03/19 Range/Units 02:30 02:30 02:30 WBC 21.3 H (4.5-11.0) X10^3/uL RBC 4.82 (4.5-5.9) X10^6/uL Hgb 14.1 (13.5-17.5) g/dL Hct 41.8 (41-53) % MCV 86.6 (80-100) fL MCH 29.2 (26-34) PG MCHC 33.7 (30-36) % RDW 15.0 H (11.6-14.8) % Plt Count 148 L (150-400) X10^3/uL Neut % (Auto) 90.6 H Lymph % (Auto) 4.8 L [place] % (Auto) 3.6 Eos % (Auto) 0.1 L Baso % (Auto) 0.9 Neut # (Auto) 36701 H (2767-8681) /uL Lymph # (Auto) 1000 L [place] # (Auto) 800 Eos # (Auto) 0 (0-450) /uL Baso # (Auto) 200 H Total Counted Seg Neutrophils % (38-70) % Band Neutrophils % (3-7) % Lymphocytes % (Manual) (25-45) % Monocytes % (Manual) (2-11) % Neutrophils # (Manual) (9419-8355) /uL RBC Morphology PT (10.1-12.7) SECONDS INR (0.9-1.3) Sodium 133 L (137-145) mmol/L Potassium 3.2 L (3.4-5.1) mmol/L Chloride 101 (98-107) mmol/L Carbon Dioxide 22 (22-32) mmol/L BUN 16 (9-20) mg/dL Creatinine 0.80 (0.66-1.25) mg/dL Estimated GFR > 60.0 (>60) mL/min BUN/Creatinine Ratio 20.0 (6-22) Glucose 122 H (80-110) mg/dL Hemoglobin A1c (4.0-6.0) % Lactate (0.7-2.1) mmol/L Calcium 8.7 (8.4-10.2) mg/dL Magnesium 1.9 (1.6-2.3) mg/dL Total Bilirubin 2.0 H (0.2-1.3) mg/dL AST 27 (17-59) IU/L ALT 24 (21-72) IU/L Alkaline Phosphatase 99 (38-126) U/L C-Reactive Protein (<1.0) mg/dL Total Protein 6.8 (6.3-8.2) g/dL Albumin 3.2 L (3.5-5.0) g/dL Globulin 3.6 (1.7-4.1) g/dL Albumin/Globulin Ratio 0.9 L (1.0-2.8) Procalcitonin 2.10 H (<0.5) ng/mL Urine Color Urine Appearance Urine pH (4.5-8.0) Ur Specific [place] (1.000-1.035) Urine Protein (Negative) Urine Glucose (UA) (Negative) g/dL Urine Ketones (NEGATIVE) Urine Occult Blood (Negative) Urine Nitrate (Negative) Urine Bilirubin (NEGATIVE) Urine Urobilinogen (0.2) E.U./dL Ur Leukocyte Esterase (NEGATIVE) Urine RBC (0-5/HPF) Urine WBC (0-5/HPF) Ur Squamous Epith Cells (0-5/HPF) Amorphous Sediment Urine Bacteria (None) Granular Casts (None) Urine Mucus (Negative) Ur Culture Indicated? Nasal Screen MRSA (PCR) (Negative) Vancomycin Trough (10-20) ug/mL 06/03/19 06/03/19 Range/Units 02:30 02:30 WBC (4.5-11.0) X10^3/uL RBC (4.5-5.9) X10^6/uL Hgb (13.5-17.5) g/dL Hct (41-53) % MCV (80-100) fL MCH (26-34) PG MCHC (30-36) % RDW (11.6-14.8) % Plt Count (150-400) X10^3/uL Neut % (Auto) Lymph % (Auto) [place] % (Auto) Eos % (Auto) Baso % (Auto) Neut # (Auto) (0232-3242) /uL Lymph # (Auto) [place] # (Auto) Eos # (Auto) (0-450) /uL Baso # (Auto) Total Counted Seg Neutrophils % (38-70) % Band Neutrophils % (3-7) % Lymphocytes % (Manual) (25-45) % Monocytes % (Manual) (2-11) % Neutrophils # (Manual) (1166-7578) /uL RBC Morphology PT 27.9 H (10.1-12.7) SECONDS INR 2.4 H (0.9-1.3) Sodium (137-145) mmol/L Potassium (3.4-5.1) mmol/L Chloride (98-107) mmol/L Carbon Dioxide (22-32) mmol/L BUN (9-20) mg/dL Creatinine (0.66-1.25) mg/dL Estimated GFR (>60) mL/min BUN/Creatinine Ratio (6-22) Glucose (80-110) mg/dL Hemoglobin A1c (4.0-6.0) % Lactate 1.2 (0.7-2.1) mmol/L Calcium (8.4-10.2) mg/dL Magnesium (1.6-2.3) mg/dL Total Bilirubin (0.2-1.3) mg/dL AST (17-59) IU/L ALT (21-72) IU/L Alkaline Phosphatase (38-126) U/L C-Reactive Protein (<1.0) mg/dL Total Protein (6.3-8.2) g/dL Albumin (3.5-5.0) g/dL Globulin (1.7-4.1) g/dL Albumin/Globulin Ratio (1.0-2.8) Procalcitonin (<0.5) ng/mL Urine Color Urine Appearance Urine pH (4.5-8.0) Ur Specific [place] (1.000-1.035) Urine Protein (Negative) Urine Glucose (UA) (Negative) g/dL Urine Ketones (NEGATIVE) Urine Occult Blood (Negative) Urine Nitrate (Negative) Urine Bilirubin (NEGATIVE) Urine Urobilinogen (0.2) E.U./dL Ur Leukocyte Esterase (NEGATIVE) Urine RBC (0-5/HPF) Urine WBC (0-5/HPF) Ur Squamous Epith Cells (0-5/HPF) Amorphous Sediment Urine Bacteria (None) Granular Casts (None) Urine Mucus (Negative) Ur Culture Indicated? Nasal Screen MRSA (PCR) (Negative) Vancomycin Trough (10-20) ug/mL Point of Care Testing Glucose POC 112 Imaging Data Venous US: Radiologist's impression: Rick Cunningham Jr [address] [address] Ultrasound Report Signed Patient: Rick Cunningham Jr EMR#: [id number] : 1950Acct:[id number] Age/Sex: 69 / MDate of Service: 06/01/19 Loc: ED Accession Number: [id number] Procedure: US periph venous low extrem lt Ordering Provider: Bill Guevara PROCEDURE: US PERIPH VENOUS LOW EXTREM LT INDICATIONS: L LOWER LEG TO THIGH DISCOMFORT WITH REDNESS, HX OF AFIB TECHNIQUE: Real-time imaging, as well as color and pulse Doppler interrogation, were performed of the lower extremity deep veins from the inguinal ligament to the popliteal fossa. COMPARISON: None. FINDINGS: The common femoral, femoral and popliteal veins are normally compressible, and free of intraluminal thrombus. Color and pulse Doppler demonstrate normal phasic intraluminal flow. There is normal augmentation response to distal compression maneuver. There is a mildly enlarged left inguinal lymph node noted measuring approximately 1.4 cm in short axis with a preserved fatty hilum. IMPRESSION: 1. No evidence of deep venous thrombosis in the left lower extremity. 2. Mildly enlarged left inguinal lymph node with a preserved fatty hilum is nonspecific but likely reactive. Recommend correlation clinically. Dictated by: Toby Vega M.D. on 06/01/2019 at 15:23 Approved by: Toby Vega M.D. on 06/01/2019 at 15:25 Chest x-ray: Radiologist's impression: [place] [address] XRay Report Signed Patient: Rick Cunningham Jr EMR#: [id number] : 1950Acct:[id number] Age/Sex: 69 / MDate of Service: 06/01/19 Loc: ED Accession Number: [id number] Procedure: XR chest 1V Ordering Provider: Bill Guevara PROCEDURE: XR CHEST 1V INDICATIONS: tachycardia, possible sepsis TECHNIQUE: One view of the chest was acquired. COMPARISON: None. FINDINGS: Surgical changes and devices: None. Lungs and pleura: Lungs are clear. No pleural effusions or pneumothorax. Mediastinum: Mediastinal contours appear normal. Heart size is enlarged. Bones and chest wall: No suspicious bony lesions. Overlying soft tissues appear unremarkable. IMPRESSION: Cardiomegaly. No acute pulmonary findings. Dictated by: Sarah Rose M.D. on 06/01/2019 at 14:32 Approved by: Sarah Rose M.D. on 06/01/2019 at 14:33 XR-L femur: Radiologist's impression: [address] [address] XRay Report Signed Patient: Rick Cunningham Jr EMR#: [id number] : 1950Acct:[id number] Age/Sex: 69 / MDate of Service: 06/01/19 Loc: ED Accession Number: [id number] Procedure: XR femur LT min 2V Ordering Provider: Bill Guevara PROCEDURE: XR FEMUR LT MIN 2V INDICATIONS: cellulitis of L leg, severe pain on thigh TECHNIQUE: 2 views of the femur were acquired. COMPARISON: None. FINDINGS: Bones: No fractures or dislocations. No suspicious bony lesions. Soft tissues: No suspicious soft tissue calcifications or masses. IMPRESSION: No acute radiographic findings. No suspicious bony lesions to suggest osteomyelitis. However, plain film is less sensitive in the acute phases of osteomyelitis. If there is high clinical suspicion for infection, MRI of the femur with and without contrast is recommended. Dictated by: Sarah Rose M.D. on 06/01/2019 at 14:31 Approved by: Sarah Rose M.D. on 06/01/2019 at 14:32 ECG Data Attestation: I personally reviewed and interpreted this ECG as follows: Prior ECG tracings: not available for review Interpretation: AFib with RVR, rate at 126, normal axis, nonspecific ST and T- wave abnormality in V4 V5 V6 MDM Narrative Medical decision making narrative: This is a 69 year presents with daughter in chief complaint left leg discomfort for over last 1-2 weeks which has progressively worsening. Patient has a history of AFib and currently anticoagulated with Coumadin. Patient denies fever nausea or vomiting but had chills last night. The patient denies acute injury or trauma to the affected lack. He has isolated several small boil like skin lesions throughout his body including 1 in left medial knee area. Patient takes metoprolol for 100 mg at night for his AFib. Upon his arrival his rhythm is is in AFib weight in 120s. His previous EKG was not available to compare. He denies history of diabetes current meds takes 500 mg of metformin and denies history of heart failure. Venous Ultrasound on left leg was ordered to rule out DVT. Given patient's history, consider to cellulitis and CBC, chemistry, lactic acid, procalcitonin and blood cultures. CBC indicates significantly elevated WBC of 29.5 with 1st lactic acid as 2.8 with calcitonin of 3.36 which indicates possibly the patient is in sepsis. Patient was treated with 2 L of normal saline infusion and his heart rate has improved to 110's. Per the hospitalist, Dr. Gomez's request, the patient was medicated with IV metoprolol 5 mg for AFib with RVR. The pateint was afebrile during his stay in ED and he was treated with vancomycin 1.5 g IV. The femur x-ray indicates no obvious signs of gas, acute findings or necrotizing fasciitis. His chest x-ray shows cardiomegaly without acute pulmonary findings. Patient's 2nd lactic acid was decreased to 2.3. Patient's case was discussed with the hospitalist, Dr. Gomez, who kindly accepts his admission to tele telemetry inpatient. <Arely Cunha MD - Last Filed: 06/03/19 07:45> Lab Data Lab Results 06/01/19 06/01/19 06/01/19 Range/Units 14:20 14:20 14:20 WBC 29.5 H (4.5-11.0) X10^3/uL RBC 5.64 (4.5-5.9) X10^6/uL Hgb 16.5 (13.5-17.5) g/dL Hct 48.5 (41-53) % MCV 86.0 (80-100) fL MCH 29.3 (26-34) PG MCHC 34.1 (30-36) % RDW 14.7 (11.6-14.8) % Plt Count 201 (150-400) X10^3/uL Neut % (Auto) Not Reportable Lymph % (Auto) Not Reportable [place] % (Auto) Not Reportable Eos % (Auto) Not Reportable Baso % (Auto) Not Reportable Neut # (Auto) (5380-5073) /uL Lymph # (Auto) Not Reportable [place] # (Auto) Not Reportable Eos # (Auto) (0-450) /uL Baso # (Auto) Not Reportable Total Counted 100 Seg Neutrophils % 83.0 H (38-70) % Band Neutrophils % 12.0 H (3-7) % Lymphocytes % (Manual) 4.0 L (25-45) % Monocytes % (Manual) 1.0 L (2-11) % Neutrophils # (Manual) 55575 H (7028-1128) /uL RBC Morphology Normal morphology PT 26.9 H (10.1-12.7) SECONDS INR 2.3 H (0.9-1.3) Sodium 134 L (137-145) mmol/L Potassium 3.7 (3.4-5.1) mmol/L Chloride 96 L (98-107) mmol/L Carbon Dioxide 27 (22-32) mmol/L BUN 21 H (9-20) mg/dL Creatinine 1.20 (0.66-1.25) mg/dL Estimated GFR > 60.0 (>60) mL/min BUN/Creatinine Ratio 17.5 (6-22) Glucose 139 H (80-110) mg/dL Hemoglobin A1c (4.0-6.0) % Lactate (0.7-2.1) mmol/L Calcium 9.1 (8.4-10.2) mg/dL Magnesium (1.6-2.3) mg/dL Total Bilirubin 2.1 H (0.2-1.3) mg/dL AST 22 (17-59) IU/L ALT 7 L (21-72) IU/L Alkaline Phosphatase 92 (38-126) U/L C-Reactive Protein (<1.0) mg/dL Total Protein 7.9 (6.3-8.2) g/dL Albumin 4.0 (3.5-5.0) g/dL Globulin 3.9 (1.7-4.1) g/dL Albumin/Globulin Ratio 1.0 (1.0-2.8) Procalcitonin (<0.5) ng/mL Urine Color Urine Appearance Urine pH (4.5-8.0) Ur Specific [place] (1.000-1.035) Urine Protein (Negative) Urine Glucose (UA) (Negative) g/dL Urine Ketones (NEGATIVE) Urine Occult Blood (Negative) Urine Nitrate (Negative) Urine Bilirubin (NEGATIVE) Urine Urobilinogen (0.2) E.U./dL Ur Leukocyte Esterase (NEGATIVE) Urine RBC (0-5/HPF) Urine WBC (0-5/HPF) Ur Squamous Epith Cells (0-5/HPF) Amorphous Sediment Urine Bacteria (None) Granular Casts (None) Urine Mucus (Negative) Ur Culture Indicated? Nasal Screen MRSA (PCR) (Negative) Vancomycin Trough (10-20) ug/mL 06/01/19 06/01/19 06/01/19 Range/Units 14:20 14:20 14:20 WBC (4.5-11.0) X10^3/uL RBC (4.5-5.9) X10^6/uL Hgb (13.5-17.5) g/dL Hct (41-53) % MCV (80-100) fL MCH (26-34) PG MCHC (30-36) % RDW (11.6-14.8) % Plt Count (150-400) X10^3/uL Neut % (Auto) Lymph % (Auto) [place] % (Auto) Eos % (Auto) Baso % (Auto) Neut # (Auto) (3473-9797) /uL Lymph # (Auto) [place] # (Auto) Eos # (Auto) (0-450) /uL Baso # (Auto) Total Counted Seg Neutrophils % (38-70) % Band Neutrophils % (3-7) % Lymphocytes % (Manual) (25-45) % Monocytes % (Manual) (2-11) % Neutrophils # (Manual) (2418-5834) /uL RBC Morphology PT (10.1-12.7) SECONDS INR (0.9-1.3) Sodium (137-145) mmol/L Potassium (3.4-5.1) mmol/L Chloride (98-107) mmol/L Carbon Dioxide (22-32) mmol/L BUN (9-20) mg/dL Creatinine (0.66-1.25) mg/dL Estimated GFR (>60) mL/min BUN/Creatinine Ratio (6-22) Glucose (80-110) mg/dL Hemoglobin A1c 5.8 (4.0-6.0) % Lactate 2.8 H (0.7-2.1) mmol/L Calcium (8.4-10.2) mg/dL Magnesium (1.6-2.3) mg/dL Total Bilirubin (0.2-1.3) mg/dL AST (17-59) IU/L ALT (21-72) IU/L Alkaline Phosphatase (38-126) U/L C-Reactive Protein (<1.0) mg/dL Total Protein (6.3-8.2) g/dL Albumin (3.5-5.0) g/dL Globulin (1.7-4.1) g/dL Albumin/Globulin Ratio (1.0-2.8) Procalcitonin 3.36 H (<0.5) ng/mL Urine Color Urine Appearance Urine pH (4.5-8.0) Ur Specific [place] (1.000-1.035) Urine Protein (Negative) Urine Glucose (UA) (Negative) g/dL Urine Ketones (NEGATIVE) Urine Occult Blood (Negative) Urine Nitrate (Negative) Urine Bilirubin (NEGATIVE) Urine Urobilinogen (0.2) E.U./dL Ur Leukocyte Esterase (NEGATIVE) Urine RBC (0-5/HPF) Urine WBC (0-5/HPF) Ur Squamous Epith Cells (0-5/HPF) Amorphous Sediment Urine Bacteria (None) Granular Casts (None) Urine Mucus (Negative) Ur Culture Indicated? Nasal Screen MRSA (PCR) (Negative) Vancomycin Trough (10-20) ug/mL 06/01/19 06/01/19 06/01/19 Range/Units 16:45 18:35 18:35 WBC (4.5-11.0) X10^3/uL RBC (4.5-5.9) X10^6/uL Hgb (13.5-17.5) g/dL Hct (41-53) % MCV (80-100) fL MCH (26-34) PG MCHC (30-36) % RDW (11.6-14.8) % Plt Count (150-400) X10^3/uL Neut % (Auto) Lymph % (Auto) [place] % (Auto) Eos % (Auto) Baso % (Auto) Neut # (Auto) (5995-9107) /uL Lymph # (Auto) [place] # (Auto) Eos # (Auto) (0-450) /uL Baso # (Auto) Total Counted Seg Neutrophils % (38-70) % Band Neutrophils % (3-7) % Lymphocytes % (Manual) (25-45) % Monocytes % (Manual) (2-11) % Neutrophils # (Manual) (3190-6198) /uL RBC Morphology PT (10.1-12.7) SECONDS INR (0.9-1.3) Sodium (137-145) mmol/L Potassium (3.4-5.1) mmol/L Chloride (98-107) mmol/L Carbon Dioxide (22-32) mmol/L BUN (9-20) mg/dL Creatinine (0.66-1.25) mg/dL Estimated GFR (>60) mL/min BUN/Creatinine Ratio (6-22) Glucose (80-110) mg/dL Hemoglobin A1c (4.0-6.0) % Lactate 2.3 H 2.3 H (0.7-2.1) mmol/L Calcium (8.4-10.2) mg/dL Magnesium 1.3 L (1.6-2.3) mg/dL Total Bilirubin (0.2-1.3) mg/dL AST (17-59) IU/L ALT (21-72) IU/L Alkaline Phosphatase (38-126) U/L C-Reactive Protein (<1.0) mg/dL Total Protein (6.3-8.2) g/dL Albumin (3.5-5.0) g/dL Globulin (1.7-4.1) g/dL Albumin/Globulin Ratio (1.0-2.8) Procalcitonin (<0.5) ng/mL Urine Color Urine Appearance Urine pH (4.5-8.0) Ur Specific [place] (1.000-1.035) Urine Protein (Negative) Urine Glucose (UA) (Negative) g/dL Urine Ketones (NEGATIVE) Urine Occult Blood (Negative) Urine Nitrate (Negative) Urine Bilirubin (NEGATIVE) Urine Urobilinogen (0.2) E.U./dL Ur Leukocyte Esterase (NEGATIVE) Urine RBC (0-5/HPF) Urine WBC (0-5/HPF) Ur Squamous Epith Cells (0-5/HPF) Amorphous Sediment Urine Bacteria (None) Granular Casts (None) Urine Mucus (Negative) Ur Culture Indicated? Nasal Screen MRSA (PCR) (Negative) Vancomycin Trough (10-20) ug/mL 06/01/19 06/02/19 06/02/19 Range/Units 23:00 02:54 05:02 WBC 24.1 H (4.5-11.0) X10^3/uL RBC 4.81 (4.5-5.9) X10^6/uL Hgb 14.0 (13.5-17.5) g/dL Hct 41.5 (41-53) % MCV 86.2 (80-100) fL MCH 29.0 (26-34) PG MCHC 33.7 (30-36) % RDW 15.0 H (11.6-14.8) % Plt Count 151 (150-400) X10^3/uL Neut % (Auto) 92.8 H Lymph % (Auto) 4.0 L [place] % (Auto) 3.0 Eos % (Auto) 0.0 L Baso % (Auto) 0.2 Neut # (Auto) 56860 H (2375-0232) /uL Lymph # (Auto) 1000 L [place] # (Auto) 700 Eos # (Auto) 0 (0-450) /uL Baso # (Auto) 100 Total Counted Seg Neutrophils % (38-70) % Band Neutrophils % (3-7) % Lymphocytes % (Manual) (25-45) % Monocytes % (Manual) (2-11) % Neutrophils # (Manual) (8181-4883) /uL RBC Morphology PT (10.1-12.7) SECONDS INR (0.9-1.3) Sodium (137-145) mmol/L Potassium (3.4-5.1) mmol/L Chloride (98-107) mmol/L Carbon Dioxide (22-32) mmol/L BUN (9-20) mg/dL Creatinine (0.66-1.25) mg/dL Estimated GFR (>60) mL/min BUN/Creatinine Ratio (6-22) Glucose (80-110) mg/dL Hemoglobin A1c (4.0-6.0) % Lactate (0.7-2.1) mmol/L Calcium (8.4-10.2) mg/dL Magnesium (1.6-2.3) mg/dL Total Bilirubin (0.2-1.3) mg/dL AST (17-59) IU/L ALT (21-72) IU/L Alkaline Phosphatase (38-126) U/L C-Reactive Protein (<1.0) mg/dL Total Protein (6.3-8.2) g/dL Albumin (3.5-5.0) g/dL Globulin (1.7-4.1) g/dL Albumin/Globulin Ratio (1.0-2.8) Procalcitonin (<0.5) ng/mL Urine Color Dark yellow Urine Appearance Clear Urine pH 5.0 (4.5-8.0) Ur Specific [place] 1.025 (1.000-1.035) Urine Protein Trace H (Negative) Urine Glucose (UA) Negative (Negative) g/dL Urine Ketones Negative (NEGATIVE) Urine Occult Blood Trace-intact (Negative) Urine Nitrate Negative (Negative) Urine Bilirubin Negative (NEGATIVE) Urine Urobilinogen 1.0 (0.2) E.U./dL Ur Leukocyte Esterase Negative (NEGATIVE) Urine RBC 0-1/hpf (0-5/HPF) Urine WBC 0-1/hpf (0-5/HPF) Ur Squamous Epith Cells 0-1 /hpf (0-5/HPF) Amorphous Sediment 1+ Urine Bacteria Occasional (0-1) (None) Granular Casts 0-1/lpf (None) Urine Mucus 1+ H (Negative) Ur Culture Indicated? Cult not indicated Nasal Screen MRSA (PCR) Negative for mrsa (Negative) Vancomycin Trough (10-20) ug/mL 06/02/19 06/02/19 06/02/19 Range/Units 05:02 05:02 05:02 WBC (4.5-11.0) X10^3/uL RBC (4.5-5.9) X10^6/uL Hgb (13.5-17.5) g/dL Hct (41-53) % MCV (80-100) fL MCH (26-34) PG MCHC (30-36) % RDW (11.6-14.8) % Plt Count (150-400) X10^3/uL Neut % (Auto) Lymph % (Auto) [place] % (Auto) Eos % (Auto) Baso % (Auto) Neut # (Auto) (6743-6148) /uL Lymph # (Auto) [place] # (Auto) Eos # (Auto) (0-450) /uL Baso # (Auto) Total Counted Seg Neutrophils % (38-70) % Band Neutrophils % (3-7) % Lymphocytes % (Manual) (25-45) % Monocytes % (Manual) (2-11) % Neutrophils # (Manual) (4257-0202) /uL RBC Morphology PT 30.6 H (10.1-12.7) SECONDS INR 2.6 H (0.9-1.3) Sodium 134 L (137-145) mmol/L Potassium 3.9 (3.4-5.1) mmol/L Chloride 98 (98-107) mmol/L Carbon Dioxide 26 (22-32) mmol/L BUN 19 (9-20) mg/dL Creatinine 1.00 (0.66-1.25) mg/dL Estimated GFR > 60.0 (>60) mL/min BUN/Creatinine Ratio 19.0 (6-22) Glucose 119 H (80-110) mg/dL Hemoglobin A1c (4.0-6.0) % Lactate (0.7-2.1) mmol/L Calcium 8.1 L (8.4-10.2) mg/dL Magnesium (1.6-2.3) mg/dL Total Bilirubin (0.2-1.3) mg/dL AST (17-59) IU/L ALT (21-72) IU/L Alkaline Phosphatase (38-126) U/L C-Reactive Protein (<1.0) mg/dL Total Protein (6.3-8.2) g/dL Albumin (3.5-5.0) g/dL Globulin (1.7-4.1) g/dL Albumin/Globulin Ratio (1.0-2.8) Procalcitonin 4.10 H (<0.5) ng/mL Urine Color Urine Appearance Urine pH (4.5-8.0) Ur Specific [place] (1.000-1.035) Urine Protein (Negative) Urine Glucose (UA) (Negative) g/dL Urine Ketones (NEGATIVE) Urine Occult Blood (Negative) Urine Nitrate (Negative) Urine Bilirubin (NEGATIVE) Urine Urobilinogen (0.2) E.U./dL Ur Leukocyte Esterase (NEGATIVE) Urine RBC (0-5/HPF) Urine WBC (0-5/HPF) Ur Squamous Epith Cells (0-5/HPF) Amorphous Sediment Urine Bacteria (None) Granular Casts (None) Urine Mucus (Negative) Ur Culture Indicated? Nasal Screen MRSA (PCR) (Negative) Vancomycin Trough (10-20) ug/mL 06/02/19 06/02/19 06/03/19 Range/Units 23:17 23:17 02:30 WBC 22.9 H (4.5-11.0) X10^3/uL RBC 4.91 (4.5-5.9) X10^6/uL Hgb 14.2 (13.5-17.5) g/dL Hct 42.8 (41-53) % MCV 87.2 (80-100) fL MCH 29.0 (26-34) PG MCHC 33.3 (30-36) % RDW 15.0 H (11.6-14.8) % Plt Count 159 (150-400) X10^3/uL Neut % (Auto) 91.3 H Lymph % (Auto) 4.9 L [place] % (Auto) 3.4 Eos % (Auto) 0.1 L Baso % (Auto) 0.3 Neut # (Auto) 50883 H (8192-0484) /uL Lymph # (Auto) 1100 [place] # (Auto) 800 Eos # (Auto) 0 (0-450) /uL Baso # (Auto) 100 Total Counted Seg Neutrophils % (38-70) % Band Neutrophils % (3-7) % Lymphocytes % (Manual) (25-45) % Monocytes % (Manual) (2-11) % Neutrophils # (Manual) (2042-6218) /uL RBC Morphology PT (10.1-12.7) SECONDS INR (0.9-1.3) Sodium (137-145) mmol/L Potassium (3.4-5.1) mmol/L Chloride (98-107) mmol/L Carbon Dioxide (22-32) mmol/L BUN (9-20) mg/dL Creatinine (0.66-1.25) mg/dL Estimated GFR (>60) mL/min BUN/Creatinine Ratio (6-22) Glucose (80-110) mg/dL Hemoglobin A1c (4.0-6.0) % Lactate (0.7-2.1) mmol/L Calcium (8.4-10.2) mg/dL Magnesium (1.6-2.3) mg/dL Total Bilirubin (0.2-1.3) mg/dL AST (17-59) IU/L ALT (21-72) IU/L Alkaline Phosphatase (38-126) U/L C-Reactive Protein 20.8 H (<1.0) mg/dL Total Protein (6.3-8.2) g/dL Albumin (3.5-5.0) g/dL Globulin (1.7-4.1) g/dL Albumin/Globulin Ratio (1.0-2.8) Procalcitonin (<0.5) ng/mL Urine Color Urine Appearance Urine pH (4.5-8.0) Ur Specific [place] (1.000-1.035) Urine Protein (Negative) Urine Glucose (UA) (Negative) g/dL Urine Ketones (NEGATIVE) Urine Occult Blood (Negative) Urine Nitrate (Negative) Urine Bilirubin (NEGATIVE) Urine Urobilinogen (0.2) E.U./dL Ur Leukocyte Esterase (NEGATIVE) Urine RBC (0-5/HPF) Urine WBC (0-5/HPF) Ur Squamous Epith Cells (0-5/HPF) Amorphous Sediment Urine Bacteria (None) Granular Casts (None) Urine Mucus (Negative) Ur Culture Indicated? Nasal Screen MRSA (PCR) (Negative) Vancomycin Trough 7.8 L (10-20) ug/mL 06/03/19 06/03/19 06/03/19 Range/Units 02:30 02:30 02:30 WBC 21.3 H (4.5-11.0) X10^3/uL RBC 4.82 (4.5-5.9) X10^6/uL Hgb 14.1 (13.5-17.5) g/dL Hct 41.8 (41-53) % MCV 86.6 (80-100) fL MCH 29.2 (26-34) PG MCHC 33.7 (30-36) % RDW 15.0 H (11.6-14.8) % Plt Count 148 L (150-400) X10^3/uL Neut % (Auto) 90.6 H Lymph % (Auto) 4.8 L [place] % (Auto) 3.6 Eos % (Auto) 0.1 L Baso % (Auto) 0.9 Neut # (Auto) 04858 H (7179-0867) /uL Lymph # (Auto) 1000 L [place] # (Auto) 800 Eos # (Auto) 0 (0-450) /uL Baso # (Auto) 200 H Total Counted Seg Neutrophils % (38-70) % Band Neutrophils % (3-7) % Lymphocytes % (Manual) (25-45) % Monocytes % (Manual) (2-11) % Neutrophils # (Manual) (2748-9487) /uL RBC Morphology PT (10.1-12.7) SECONDS INR (0.9-1.3) Sodium 133 L (137-145) mmol/L Potassium 3.2 L (3.4-5.1) mmol/L Chloride 101 (98-107) mmol/L Carbon Dioxide 22 (22-32) mmol/L BUN 16 (9-20) mg/dL Creatinine 0.80 (0.66-1.25) mg/dL Estimated GFR > 60.0 (>60) mL/min BUN/Creatinine Ratio 20.0 (6-22) Glucose 122 H (80-110) mg/dL Hemoglobin A1c (4.0-6.0) % Lactate (0.7-2.1) mmol/L Calcium 8.7 (8.4-10.2) mg/dL Magnesium 1.9 (1.6-2.3) mg/dL Total Bilirubin 2.0 H (0.2-1.3) mg/dL AST 27 (17-59) IU/L ALT 24 (21-72) IU/L Alkaline Phosphatase 99 (38-126) U/L C-Reactive Protein (<1.0) mg/dL Total Protein 6.8 (6.3-8.2) g/dL Albumin 3.2 L (3.5-5.0) g/dL Globulin 3.6 (1.7-4.1) g/dL Albumin/Globulin Ratio 0.9 L (1.0-2.8) Procalcitonin 2.10 H (<0.5) ng/mL Urine Color Urine Appearance Urine pH (4.5-8.0) Ur Specific [place] (1.000-1.035) Urine Protein (Negative) Urine Glucose (UA) (Negative) g/dL Urine Ketones (NEGATIVE) Urine Occult Blood (Negative) Urine Nitrate (Negative) Urine Bilirubin (NEGATIVE) Urine Urobilinogen (0.2) E.U./dL Ur Leukocyte Esterase (NEGATIVE) Urine RBC (0-5/HPF) Urine WBC (0-5/HPF) Ur Squamous Epith Cells (0-5/HPF) Amorphous Sediment Urine Bacteria (None) Granular Casts (None) Urine Mucus (Negative) Ur Culture Indicated? Nasal Screen MRSA (PCR) (Negative) Vancomycin Trough (10-20) ug/mL 06/03/19 06/03/19 Range/Units 02:30 02:30 WBC (4.5-11.0) X10^3/uL RBC (4.5-5.9) X10^6/uL Hgb (13.5-17.5) g/dL Hct (41-53) % MCV (80-100) fL MCH (26-34) PG MCHC (30-36) % RDW (11.6-14.8) % Plt Count (150-400) X10^3/uL Neut % (Auto) Lymph % (Auto) [place] % (Auto) Eos % (Auto) Baso % (Auto) Neut # (Auto) (4801-4385) /uL Lymph # (Auto) [place] # (Auto) Eos # (Auto) (0-450) /uL Baso # (Auto) Total Counted Seg Neutrophils % (38-70) % Band Neutrophils % (3-7) % Lymphocytes % (Manual) (25-45) % Monocytes % (Manual) (2-11) % Neutrophils # (Manual) (1345-0198) /uL RBC Morphology PT 27.9 H (10.1-12.7) SECONDS INR 2.4 H (0.9-1.3) Sodium (137-145) mmol/L Potassium (3.4-5.1) mmol/L Chloride (98-107) mmol/L Carbon Dioxide (22-32) mmol/L BUN (9-20) mg/dL Creatinine (0.66-1.25) mg/dL Estimated GFR (>60) mL/min BUN/Creatinine Ratio (6-22) Glucose (80-110) mg/dL Hemoglobin A1c (4.0-6.0) % Lactate 1.2 (0.7-2.1) mmol/L Calcium (8.4-10.2) mg/dL Magnesium (1.6-2.3) mg/dL Total Bilirubin (0.2-1.3) mg/dL AST (17-59) IU/L ALT (21-72) IU/L Alkaline Phosphatase (38-126) U/L C-Reactive Protein (<1.0) mg/dL Total Protein (6.3-8.2) g/dL Albumin (3.5-5.0) g/dL Globulin (1.7-4.1) g/dL Albumin/Globulin Ratio (1.0-2.8) Procalcitonin (<0.5) ng/mL Urine Color Urine Appearance Urine pH (4.5-8.0) Ur Specific [place] (1.000-1.035) Urine Protein (Negative) Urine Glucose (UA) (Negative) g/dL Urine Ketones (NEGATIVE) Urine Occult Blood (Negative) Urine Nitrate (Negative) Urine Bilirubin (NEGATIVE) Urine Urobilinogen (0.2) E.U./dL Ur Leukocyte Esterase (NEGATIVE) Urine RBC (0-5/HPF) Urine WBC (0-5/HPF) Ur Squamous Epith Cells (0-5/HPF) Amorphous Sediment Urine Bacteria (None) Granular Casts (None) Urine Mucus (Negative) Ur Culture Indicated? Nasal Screen MRSA (PCR) (Negative) Vancomycin Trough (10-20) ug/mL Point of Care Testing Glucose POC 112 Discharge Plan Departure Patient Disposition: Admitted As Inpatient Clinical Impression: Cellulitis Qualifiers: Site of cellulitis: extremity Site of cellulitis of extremity: lower extremity Laterality: left Qualified Code(s): L03.116 - Cellulitis of left lower limb Sepsis Qualifiers: Sepsis type: sepsis due to unspecified organism Qualified Code(s): A41.9 - Sepsis, unspecified organism Discharge Date/Time: 06/01/19 17:30 Interventions: ED Discharge Assessment Last Done: 06/01/19 17:30 Admit Date/Time: 06/01/19 16:44 Admit Provider: Elaine Rivera
[2019-06-01 15:03] LABS: Neutrophils Absolute Manual 28025 /uL (3000-5900); Total Cells Counted 100
[2019-06-01 15:04] LABS: RBC Morphology Normal Morphology
[2019-06-01] MEDS: VANCOMYCIN 1,500 MG/300 ML FROZ.PIGGY 200 MG IV (15:18)
[2019-06-01] MEDS: SODIUM CHLORIDE 0.9% 1,000 ML 1000 ML IV (15:21)
[2019-06-01 15:32] LABS: Procalcitonin 3.36 ng/mL (<0.5)
[2019-06-01 16:35] LABS: Reflexed Lactate in 2 Hours Y
[2019-06-01] MEDS: METOPROLOL TARTRATE 5 MG/5 ML INJ IV (16:56)
[2019-06-01 17:03] LABS: Lactate 2HR (Lactic Acid Rflx) 2.3 mmol/L (0.7-2.1)
[2019-06-01 19:00] LABS: Lactate (Lactic Acid) 2.3 mmol/L (0.7-2.1); Magnesium 1.3 mg/dL (1.6-2.3)
[2019-06-01] MEDS: SODIUM CHLORIDE 0.9% 1,000 ML 100 ML IV (19:03)
[2019-06-01] MEDS: WARFARIN 5 MG TABLET PO (20:37)
[2019-06-01] MEDS: METOPROLOL ER 50 MG TABLET 100 MG PO (20:37)
[2019-06-01 20:40] LABS: Reflexed Lactate in 2 Hours Y
--- NOTE | 2019-06-01 20:52 | P.HP_ITS ---
History of Present Illness Date Patient Seen: 06/01/19 Time Patient Seen: 20:00 Chief complaint: Swollen lft leg, radiating up, sores on legs, arms Narrative: Rick Cunningham is a 69-year-old male with a history of atrial fibrillation anticoagulated on warfarin, diabetes type 2, essential hypertension, and a new diagnosis of depression who presents to the emergency department with a 2 to th ree-week history of pain in his left lower leg. He states that it began with a sore on the right side of his left lower leg calf area and has now gotten more painful and difficult to walk on. The patient does not appear to be aware whether not he has had a fever. He endorses mild shortness of breath with exertion, denies chest pain or palpitations, denies nausea, vomiting, abdominal pain, diarrhea or constipation, he does state he urinates frequently and has benign prostatic hypertrophy, denies urinary pain, incontinence, hematuria or urinary retention. He does endorse having pain in his left leg but denies weakness, difficulty ambulating. He does state he has lesions on his hands and arms and he does state that he picks as a stress reaction. He denies weakness but acknowledges that he has difficulties word-finding and answering questions even though he understands what is being said. He does state that he is mildly depressed, recently started on an antidepressant, he does not know the name of the medication he is taking. The patient states that he is not diabetic even though he is taking medicine for this. He states that they have been trying to monitor him for this. Patient states he takes warfarin 5 mg every other day and 2.5 mg every other day. Patient History Medical History (Updated 06/01/19 @ 21:12 by JESUS MANUEL Cardenas) Cellulitis of left lower extremity without foot (Acute) Depression (Chronic) Diabetes mellitus type 2 in obese (Chronic) Essential hypertension (Chronic) Surgical History (Updated 06/01/19 @ 21:12 by JESUS MANUEL Cardenas) History of knee surgery (Acute) Social History household members: spouse Smoking Status: Former smoker alcohol intake: former Family & Social History Social History: household members spouse is 76 years and has dementia Mother age 76 of stomach cancer Father age 93 of old age Patient has 3 siblings states alive and well Prior Living Arrangements recently moved from [place] to be with his son and [id number]. States he has been taking care of his with dementia, currently they are renting a small cottage in [place] Safety & Behavioral: Feels Safe in Current Yes Environment Been Physically Hurt or No Threatened By a Person Suicidal Ideation Description None Suicide Plan Description No Plan Tobacco & Substance use: Smoking Status Former smoker alcohol intake denies Substance Use Type denies current or prior IVDU Meds Home Medications Medication Instructions Recorded Confirmed Type amlodipine 5 mg PO DAILY 06/01/19 06/01/19 History hydrochlorothiazide 12.5 mg PO DAILY 06/01/19 06/01/19 History metformin 500 mg PO DAILY 06/01/19 06/01/19 History metoprolol tartrate 100 mg PO DAILY 06/01/19 06/01/19 History sertraline 25 mg PO DAILY 06/01/19 06/01/19 History warfarin 5 mg PO Q OTHER DAY 06/01/19 06/01/19 History Allergies Allergy/AdvReac Type Severity Reaction Status Date / Time No Known Drug Allergies Allergy Verified 06/01/19 14:19 Review of Systems Review of Systems All systems reviewed & are unremarkable except as noted in HPI and below Exam Vital Signs (past 8 hours): - 06/01/19 14:18 06/01/19 15:00 06/01/19 16:00 Temperature 98.3 F Pulse Rate 124 H 123 H 113 H Respiratory Rate 22 24 Blood Pressure 124/70 Blood Pressure [Left Arm] 120/68 133/76 Pulse Oximetry 95 98 96 06/01/19 16:30 06/01/19 17:00 06/01/19 17:30 Temperature 99.9 F H Pulse Rate 131 H 115 H 113 H Respiratory Rate 23 Blood Pressure 122/58 L Blood Pressure [Left Arm] 132/55 L 132/55 L Pulse Oximetry 95 96 96 06/01/19 18:13 06/01/19 20:00 06/01/19 20:37 Temperature 98.7 F Pulse Rate 139 H 122 H 141 H Respiratory Rate 20 24 Blood Pressure 130/93 H 113/69 130/93 H Blood Pressure [Left Arm] Pulse Oximetry 98 90 L Oxygen Delivery Method Room Air Narrative Exam Narrative: Gen: Alert, oriented 69 y.o. morbidly obese male, does not appear toxic HEENT: normocephalic, atraumatic, conjunctiva clear, sclera non-icteric, oral mucosa pink and moist Neck: supple, full ROM Resp: Lungs CTA, non-labored breathing CV: RRR, no murmur or rubs Abd: Obese, soft, non-tender, normoactive BTs Skin: Multiple areas of bruising, as a mildly macerated wound approximately 1/2 inch in diameter on the right side of the affected leg with no drainage or exudate observed. Bilaterally he has darkened pigmentation of both lower legs. Neuro: Alert and oriented X 4, appears to be either fatigued or with difficulty word finding. Extremities: moves all 4 extremities, is ambulatory currently with assistance Psyche: normal mood and affect. Objective Labs Result Diagrams: 06/01/19 14:20 06/01/19 14:20 Labs: Laboratory Results - last 24 hr 06/01/19 06/01/19 06/01/19 14:20 14:20 14:20 WBC 29.5 H RBC 5.64 Hgb 16.5 Hct 48.5 MCV 86.0 MCH 29.3 MCHC 34.1 RDW 14.7 Plt Count 201 Neut % (Auto) Not Reportable Lymph % (Auto) Not Reportable [place] % (Auto) Not Reportable Eos % (Auto) Not Reportable Baso % (Auto) Not Reportable Lymph # (Auto) Not Reportable [place] # (Auto) Not Reportable Baso # (Auto) Not Reportable Total Counted 100 Seg Neutrophils % 83.0 H Band Neutrophils % 12.0 H Lymphocytes % (Manual) 4.0 L Monocytes % (Manual) 1.0 L Neutrophils # (Manual) 53549 H RBC Morphology Normal morphology PT 26.9 H INR 2.3 H Sodium 134 L Potassium 3.7 Chloride 96 L Carbon Dioxide 27 BUN 21 H Creatinine 1.20 Estimated GFR > 60.0 BUN/Creatinine Ratio 17.5 Glucose 139 H Lactate Calcium 9.1 Magnesium Total Bilirubin 2.1 H AST 22 ALT 7 L Alkaline Phosphatase 92 Total Protein 7.9 Albumin 4.0 Globulin 3.9 Albumin/Globulin Ratio 1.0 Procalcitonin 06/01/19 06/01/19 06/01/19 14:20 14:20 16:45 WBC RBC Hgb Hct MCV MCH MCHC RDW Plt Count Neut % (Auto) Lymph % (Auto) [place] % (Auto) Eos % (Auto) Baso % (Auto) Lymph # (Auto) [place] # (Auto) Baso # (Auto) Total Counted Seg Neutrophils % Band Neutrophils % Lymphocytes % (Manual) Monocytes % (Manual) Neutrophils # (Manual) RBC Morphology PT INR Sodium Potassium Chloride Carbon Dioxide BUN Creatinine Estimated GFR BUN/Creatinine Ratio Glucose Lactate 2.8 H 2.3 H Calcium Magnesium Total Bilirubin AST ALT Alkaline Phosphatase Total Protein Albumin Globulin Albumin/Globulin Ratio Procalcitonin 3.36 H 06/01/19 06/01/19 18:35 18:35 WBC RBC Hgb Hct MCV MCH MCHC RDW Plt Count Neut % (Auto) Lymph % (Auto) [place] % (Auto) Eos % (Auto) Baso % (Auto) Lymph # (Auto) [place] # (Auto) Baso # (Auto) Total Counted Seg Neutrophils % Band Neutrophils % Lymphocytes % (Manual) Monocytes % (Manual) Neutrophils # (Manual) RBC Morphology PT INR Sodium Potassium Chloride Carbon Dioxide BUN Creatinine Estimated GFR BUN/Creatinine Ratio Glucose Lactate 2.3 H Calcium Magnesium 1.3 L Total Bilirubin AST ALT Alkaline Phosphatase Total Protein Albumin Globulin Albumin/Globulin Ratio Procalcitonin Assessment & Plan Assessment & Plan narrative: At 1 Octavio will be admitted as an inpatient for further management of a left lower extremity cellulitis through IV antibiotic administration. 1. Sepsis secondary to cellulitis of the left lower extremity, acute, present on admission * Patient has a temperature of 101?, heart rate into the 150s, and mildly hypotensive on admission * Patient's WBC was 29,000, lactate of 2.8 and a procalcitonin of 3.36 * Patient was started on IV vancomycin initially 1500 mg b.i.d. to be dosed by pharmacy 2. Atrial fibrillation anticoagulated on warfarin, chronic, INR of 2.3 is therapeutic, present on admission * Patient takes warfarin 5 mg alternating with 2.5 mg. This will be continued. 3. Diabetes type 2 * Patient's home medications included metformin 500 mg once daily. Patient stated that he does not have diabetes an is taking for either prevention or is still being assessed for diabetes * Hemoglobin A1c was 5.8 which places him in a pre-diabetic status * Patient's admission glucose was 139. * He is started on Lantus weight based b.i.d. dosing and prandial insulin * Carb controlled diet * Dietary consult for diabetic education in the morning 3. Essential hypertension * ED note states patient takes metoprolol tartrate 100 mg b.i.d. although his home medications indicate that he takes once daily. Due to tachycardia he was given 5 mg of IV Lopressor. * Patient will be administered metoprolol tartrate 100 mg b.i.d. and received his 2nd dose this evening. 4. Morbid obesity * Patient is at high risk of BESSY. He will require close pulse oximetry monitoring tonight. Patient is admitted as an inpatient as his stay is anticipated to exceed 2 midnights. FEN: NS at 100 ml/hour, carb controlled diet, chemistries in the am VTE Prophylaxis: Continue current warfarin anticoagulation Disposition: Unknown at this time, likely discharge to home Code status: Full Code Admission time: 65 minutes Meds reconciled: Yes/No/Partial based on current med list Time Spent With Patient Time with patient: 25 - 35 minutes Quality VTE Deep Vein Thrombosis/Pulmonary Embolism Present on Admission: No
[2019-06-01 21:15] LABS: Hemoglobin A1C% w Est Avg Glu 5.8 % (4.0-6.0)
[2019-06-01] MEDS: HEPARIN 5,000 UNIT/ML VIAL 5000 UNIT SUBCUT (22:27)
[2019-06-01] MEDS: INSULIN GLARGINE 100 UNIT/ML 3ML PEN 18 UNIT SUBCUT (22:53)
--- NOTE | 2019-06-01 23:41 | PC.NURSE ---
1745- Pt arrived to room 214 from ED via bed. A/O x4, 96%RA, LS wheezy throughout, SOB with activity and rest, labored breathing. Tremors. Pt tachy in ED and first VSS HR 139, BP 130-93, right LE 2+ pitting edema, erythema from top calf to ankle, tender, hot to tough, marked boarders, left LE 1+ pitting edema, erythema from mid calf to ankle, non tender, elevated bilat. Using urinal while standing at bedside with 2PA FWW, unsteady gait, urine is redish/orange, 100mL out and rest on floor. Telemetry in place with A-fib-128 @ 1800. RAC NS Bolus then 100/hr. Bolus and vanco given in ED. CBG @ 1999 146 and 2250-140, new orders for 18 units lantus, given @ 0. 2PA FWW BSC for LG BM. UA ordered and waiting for next void to get clean catch urine. Bed alarm on.
[2019-06-02] VITALS (10 sets, daily range): BP systolic 95–129; BP diastolic 45–87; PULSE 93–122; RESP 16–22; TEMP 36.6–37.4; O2SAT 92–94
[2019-06-02 01:15] LABS: Appearance Urine UA CLEAR; Bilirubin Urine UA NEGATIVE (NEGATIVE); Glucose Urine UA NEGATIVE (Negative); Ketones Urine UA NEGATIVE (NEGATIVE); Leukocyte Esterase Urine UA NEGATIVE (NEGATIVE); Nitrite Urine UA NEGATIVE (Negative); Occult Blood Urine UA TRACE-INTACT (Negative); Protein Urine UA TRACE (Negative); Specific Gravity Urine UA 1.025 (1.000-1.035)
[2019-06-02 01:17] LABS: Color Urine UA Dark Yellow
[2019-06-02 01:18] LABS: Amorphous Sediment Urine 1+; Bacteria Urine Occasional (0-1); Culture Indicated Urine Cult Not Indicated; Granular Casts Urine 0-1/LPF; Mucus Urine 1+ (Negative); RBC Urine 0-1/HPF (0-5/HPF); Squamous Epithelial Cell Urine 0-1 /HPF (0-5/HPF); WBC Urine 0-1/HPF (0-5/HPF)
[2019-06-02] MEDS: VANCOMYCIN 1,500 MG/300 ML FROZ.PIGGY 200 MG IV ×2 (02:58→14:49)
[2019-06-02 05:21] LABS: INR 2.6 (0.9-1.3); Prothrombin Time 30.6 SECONDS (10.1-12.7)
[2019-06-02 05:24] LABS: Add Manual Diff / Slide Review NO; Basophils Absolute Auto 100 /uL (0-100); Basophils Percent Auto 0.2 % (0-2); Eosinophils Absolute Auto 0 /uL (0-450); Hematocrit 41.5 % (41-53); Lymphocytes Absolute Auto 1000 /uL (1100-4500); Mean Corpuscular HGB Conc 33.7 % (30-36); Mean Corpuscular Volume 86.2 fL (80-100); Monocytes Absolute Auto 700 /uL (0-900); Neutrophils Absolute Auto 22400 /uL (1500-7000); Neutrophils Percent Auto 92.8 % (50-75); Platelet Count 151 X10^3/uL (150-400); Red Blood Cell Count 4.81 X10^6/uL (4.5-5.9); White Blood Cell Count 24.1 X10^3/uL (4.5-11.0)
[2019-06-02 05:27] LABS: Blood Urea Nitrogen 19 mg/dL (9-20); Calcium 8.1 mg/dL (8.4-10.2); Carbon Dioxide 26 mmol/L (22-32); Chloride 98 mmol/L (98-107); Estimated Glomerular Filt Rate > 60.0 mL/min (>60); Glucose 119 mg/dL (80-110); HEMOLYSIS < 15 (0-50); Potassium 3.9 mmol/L (3.4-5.1); Sodium 134 mmol/L (137-145)
[2019-06-02] MEDS: SODIUM CHLORIDE 0.9% 1,000 ML 100 ML IV ×2 (05:47→14:50)
[2019-06-02] MEDS: MAGNESIUM SULFATE 2 GM/50 ML PIGGYBACK IV (08:17)
--- NOTE | 2019-06-02 08:55 | CM.DANOTE ---
Addendum entered by Shraddha Rajan R.N. 06/02/19 12:19: Was able to reach out to [id number], Callie Ritchie, who she stated that she and her are patient's POA. Stated that patient's has a GEORGE caregiver that comes out weekly to assist her with showers. Stated and confirmed that patient's is staying with older son in [facility]. Discussed how patient does at home, and she mentioned, he had been getting around ok, but since his leg has been bothering him, has been harder. She stated, patient is not a diabetic to their knowledge. Discussed home health option, which she stated, is a great idea, and had mentioned that they have worked with [facility] before. She understands that nursing could come out and do INR checks, as well as wound care if necessary. P.T. may also be an option as well. Well continue to assess, and see how patient progresses here in hospital. Addendum entered by Shraddha Rajan R.N. 06/02/19 11:05: Noted that patient is two person assist with walker. Has P.T/O.T. orders, will see how he does with therapy team. Addendum entered by Shraddha Rajan R.N. 06/02/19 09:12: Correction, Callie Ritchie is [id number], not Teri Dye, which was documented in error. Original Note: DCP: Case received, EMR reviewed and met with patient. Introduced self and role. Was able to obtain baseline history and living situation from patient. DCP assessment was completed with information currently available. Patient is a 69 year old male who admitted yesterday afternoon to the care of the hospitalist team. DCP: Dr. Beverly. Payer: confirmed: [facility]. Patient came to the hospital via family vehicle secondary to increased pain in his left leg. Patient holds diagnosis of cellulitis of his left leg. Patient has history of a-fib, as well as diabetes type 2. His leg had gotten to the point of where it was difficult to walk. Met with patient in his room. Alert and oriented. He lives in a small cottage here in [place] with his , who has dementia. He is her main caregiver. He stated that she is currently staying with her son in [facility], while he is here in the hospital. They both moved here a few years ago from [place]. He stated that Teri Dye is his [id number], and his son and her live approximately 5 minutes away. Patient mentioned that he is independent at home, and is driving. P: DCP will follow closely. Will be available for any resources that patient may need. Is still early at this time, but patient could benefit from home health nursing, as long as he is homebound. Shraddha Rajan, RN/[employer] T[employer]
--- NOTE | 2019-06-02 09:05 | PT.IPTN ---
Physical Therapy Treatment Note M3 PT-IP Subjective Start: 06/02/19 10:22 Freq: NEEDED Status: Active Protocol: Document 06/02/19 09:05 RS (Rec: 06/02/19 15:08 RS [id number]) Subjective Physical Therapy Visit Type Type Patient Unavailable Notes Pt eating breakfast, not available to participate at this time.
[2019-06-02] MEDS: METOPROLOL IR 50 MG TABLET 100 MG PO ×2 (09:12→20:01)
[2019-06-02] MEDS: AMLODIPINE 5 MG TABLET PO (09:13)
--- NOTE | 2019-06-02 13:00 | PT.IPTN ---
Physical Therapy Treatment Note M3 PT-IP Subjective Start: 06/02/19 10:22 Freq: NEEDED Status: Active Protocol: Document 06/02/19 13:00 RS (Rec: 06/02/19 15:09 RS [id number]) Subjective Physical Therapy Visit Type Type Patient Unavailable Notes Pt just got done working with OT, quite fatigued, needs time to rest.
--- NOTE | 2019-06-02 14:43 | OT.IP.EVAL ---
Past Medical History (Last Reviewed 06/02/19 @ 00:33 by JESUS MANUEL Mendoza) Cellulitis of left lower extremity without foot (Acute) Depression (Chronic) Diabetes mellitus type 2 in obese (Chronic) Essential hypertension (Chronic) Surgical History (Last Reviewed 06/02/19 @ 00:33 by JESUS MANUEL Mendoza) History of knee surgery (Acute) Occupational Therapy Inpatient Evaluation/Re-Eval M1 PT/OT-IP Prior Functional Status Start: 06/02/19 10:22 Freq: NEEDED Status: Active Protocol: Document 06/02/19 14:22 CGR (Rec: 06/02/19 14:43 CGR [email or web address]) Medical Review Prior Functional Status Medical History Reviewed Yes Communication Able to communicate effectively Mobility and Gait Pt is IND in all ADLs and functional mobility. Activities of Daily Living and IADL's Pt is IND in all ADLs and functional mobility. Social History Household Members spouse Living Arrangements House Number of Floors (Floors) One Floor Number of Stairs To Enter/Railing? 2 steps to enter with B rails Home Environment Standard Height Toilet Tub/Shower Home Equipment Grab Bars Near Toilet Grab Bars In Shower Employment Status Retired Additional Social History Comment Pt has no DME M2 OT-IP Current Condition Start: 06/02/19 13:21 Freq: Status: Active Protocol: Document 06/02/19 14:22 CGR (Rec: 06/02/19 14:43 CGR [email or web address]) Occupational Therapy Current Condition Current Condition Evaluation Date 06/02/19 Treatment Diagnosis LLE cellulitis Weight Bearing Status Weight Bearing Status Full Weight Bearing M3 OT- IP Subjective and Pain Start: 06/02/19 13:21 Freq: Status: Active Protocol: Document 06/02/19 14:22 CGR (Rec: 06/02/19 14:43 CGR [email or web address]) OT- Subjective Occupational Therapy Visit Type Type Initial Evaluation Visit Start Time 12:15 Visit Stop Time 13:00 Total Visit Minutes 45 Occupational Therapy Visit Comments Patient Comments Pt states the nurse wants him back to bed because of the swelling to the leg. OT Pain Assessment Pain When Pain Assessed At Rest Pain Present Pain Present Pain Reported Location Bilateral Leg Intensity 2 Scale Used Numeric (1 - 10) M4 OT- IP ADL's Start: 06/02/19 13:21 Freq: Status: Active Protocol: Document 06/02/19 14:22 CGR (Rec: 06/02/19 14:43 CGR [email or web address]) OT [id number] General Evaluation Self-Feeding Ability Independent Comments OT Self-Feeding Comments Pt finishing lunch when OT entered. OT ADL-Grooming General Evaluation Grooming Ability Standby Assistance Areas Needing Assistance Retrieving/Set-up of Grooming Items Face Washing Comments OT Grooming Comments Seated OT ADL-Oral Care Comments Oral Care Comments Pt declined OT ADL-Dressing General Eval Lower Body Dressing Ability Standby Assistance Areas Needing Assistance Shoes Comments OT Dressing Comments Pt able to slide slip on shoes off OT ADL-Toileting General Evaluation Toileting Ability Moderate Assistance Areas Needing Assistance Manage Clothing Perform Perineal Hygiene Comments OT Toileting Comments On BSC, Pt urinated but no BM. Requests assist for back pericare. OT ADL-Bathing Comments OT Bathing Comments Not performed on this date. M5 OT- IP IADL's Start: 06/02/19 13:21 Freq: Status: Active Protocol: Document 06/02/19 14:22 CGR (Rec: 06/02/19 14:43 CGR [email or web address]) OT-Instrumental Activities of Daily Living Deficits IADL Deficits Identified Deficits Home Safety Awareness Awareness of Need for Assistance at Home Good Awareness Ability to Problem Solve Emergency Able to Problem Solve Situations Home Safety Comments Pt is the caregiver for his with advanced dementia. 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 M6 OT- IP Functional Cognition Start: 06/02/19 13:21 Freq: Status: Active Protocol: Document 06/02/19 14:22 CGR (Rec: 06/02/19 14:43 CGR [email or web address]) Cognitive Factors Limiting Selfcare Function Cognitive Ability Level of Alertness Alert Patient Orientation Name Age Birthday Month Date Year Day of Week Place Situation Attention Span Ability Capable of Focused Attention Ability to Follow Commands Able to Follow One Step Commands Memory Description No Deficits Noted Safety Awareness No Deficits Noted Problem Solving Ability No deficits Noted Cognitive Comments Cognitive Assessment Comments May benefit from formal assessment given delayed responses in todays session but appears to be at baseline. OT- Vision and Hearing OT- Hearing Assessment OT- Hearing Assessment WFL OT- Vision Assessment Visual Acuity Glasses For Reading Visual Attentiveness WFL Occular Pursuits WFL Visual Convergence WFL Visual Mason WFL M7 OT- IP Mobility and Balance Start: 06/02/19 13:21 Freq: Status: Active Protocol: Document 06/02/19 14:22 CGR (Rec: 06/02/19 14:43 CGR [email or web address]) OT- Bed Mobility Assessment Sit to Supine Sit to Supine Assist Minimal Assistance Bedrails Scooting Scooting to Edge of Bed Standby Assistance Scooting Up and Down in Bed Standby Assistance OT-Transfer Assessment Sit to and From Stand Sit to and from Stand Contact Guard Assistance Transfers Transfer Ability Contact Guard Assistance Technique Transfer Destination Bedside Commode Chair Devices Transfer Assistive Devices Gait Belt Front Wheeled Walker OT- Gait Assessment Gait Gait Assistance Required: Contact Guard Assist Assistive Devices Assistive Device Gait Belt Front Wheeled Walker Comments Gait Ability Comments 5 steps to edge of bed. OT- Balance Assessment Sitting Balance and Reactions Static Sitting Balance Ability Good Dynamic Sitting Balance Ability Good Standing Balance and Reactions Static Standing Balance Ability Fair Dynamic Standing Balance Ability Fair M8 OT- IP Objective Assessments Start: 06/02/19 13:21 Freq: Status: Active Protocol: Document 06/02/19 14:22 CGR (Rec: 06/02/19 14:43 CGR [email or web address]) OT Gross Range of Motion Upper Extremity Range of Motion Assessment Within Functional Limits OT Strength Upper Extremity Strength Assessment Within Functional Limits Comments Strength Comments Grossly 4+/5 throughout OT- Coordination Assessment Upper Extremity Finger to Nose Test Within Functional Limits Finger Tapping Test Within Functional Limits OT-Muscle Tone Assessment Muscle Tone WNL Yes OT Sensation Assessment Comments Summary Comments No deficits noted Edema Edema Present Edema Comments to LLE M9 OT- IP Assessment and Plan Start: 06/02/19 13:21 Freq: Status: Active Protocol: Document 06/02/19 14:22 CGR (Rec: 06/02/19 14:43 CGR [email or web address]) OT Summary Assessment and Plan Potential Rehabilitation Potential Excellent Analytic Complexity at Evaluation Low Summary OT Impairments Pain Balance Functional Mobility Grooming Dressing Toileting Bathing Toilet Transfers Shower Transfers Progress Towards Goals Progressing Toward Goals Assessment Summary Pt presents with LLE cellulitis which is impairing his ability to perform ADLs and functional mobility at his baseline. Pt will benefit from OT services to address declines. Recommend d/c to SNF vs home depending on functional progress as pt is the caregiver for his with dementia. Goals Grooming Goal Independent Dressing Goal Independent Toileting Goal Independent Bathing Goal Independent Toilet Transfer Goal Independent Shower Transfer Goal Independent Days to Meet Goals 5 Frequency of Treatment Frequency Of Treatment Once a Day Treatment Plan OT Treatment Plan ADL Training Functional Mobility Patient/Family Education Discharge Planning Other Treatment Recommendations and Next Shower and ADLs standing at Treatment Focus sink. Discharge Recommendations OT Discharge Recommendations Home SNF Rehab Other Discharge Recommendations Home vs SNF depending on functional abilities. Pt is the fulltime caregiver for his .
[2019-06-02] MEDS: PIPERACILLIN-TAZO 3.375 GM/50 ML FROZ.PIGGY IV ×2 (16:00→23:39)
--- NOTE | 2019-06-02 16:00 | PM.PN.1 ---
Subjective Date Patient Seen: 06/02/19 Interval history: Rick Cunningham is a 69-year-old male with a past medical history significant for hypertension, chronic atrial fibrillation anticoagulated on warfarin, prediabetes and a recent new diagnosis of depression who presented to the ED with a 2-3 week history of pain in his left lower leg with worsening erythema and edema. The patient is resting in bed and appears mildly uncomfortable. He is in no acute distress. He endorses pain in leg that is +2/10 at rest and with palpation he reports is a 10-11. He has no other complaints and denies headache, shortness of breath, chest pain, abdominal pain, nausea, vomiting, fever, chills, dysuria, diarrhea or constipation. He is voiding and eliminating without difficulty. He is in bed due to significant generalized weakness. Exam Vital Signs (past 8 hours): - 06/02/19 16:40 06/02/19 16:57 06/02/19 20:32 Temperature 97.8 F Pulse Rate 104 H 107 H Respiratory Rate 20 22 Blood Pressure 128/87 127/86 Pulse Oximetry 93 94 92 Oxygen Delivery Method Room Air Oxygen Flow Rate 0 Narrative Exam Narrative: General: Older male lying in bed and in no acute distress, slightly uncomfortable, appears older than stated age, well-developed, well-nourished, depressed mood and flat affect but appropriately interactive. HEENT: Normocephalic, atraumatic. External ears without defect. Pupils equal, round, and reactive to light. Anicteric sclerae, moist conjunctivae, and no lid lag. Neck: Supple with full range of motion No lymphadenopathy or thyromegaly. Cardiovascular: Irregularly irregular, mild tachycardia, without murmurs, rubs, or gallops appreciated Pulmonary: Clear to auscultation bilaterally without crackles, wheezes, or rhonchi. Normal respiratory effort with no use of accessory muscles. Abdomen: Mildly firm, bowel sounds hypoactive, nontender, nondistended. No hepatosplenomegaly or masses appreciated. Extremities: No clubbing or cyanosis. Stasis dermatitis of right leg without signs of infection. Moderate swelling of left leg from foot to knee, warmth, significant erythema and streaking outside margins to groin which was outlined with black marker (previous outline blue). Neurological: Cranial nerves grossly intact. Psychiatric: Depressed mood and flat affect. Appears alert and oriented to person, place, and time. Objective Labs Result Diagrams: 06/02/19 05:02 06/02/19 05:02 Labs: Laboratory Results - last 24 hr 06/01/19 06/02/19 06/02/19 23:00 02:54 05:02 WBC 24.1 H RBC 4.81 Hgb 14.0 Hct 41.5 MCV 86.2 MCH 29.0 MCHC 33.7 RDW 15.0 H Plt Count 151 Neut % (Auto) 92.8 H Lymph % (Auto) 4.[address] % (Auto) 3.0 Eos % (Auto) 0.0 L Baso % (Auto) 0.2 Neut # (Auto) 97290 H Lymph # (Auto) [address] [place] # (Auto) 700 Eos # (Auto) 0 Baso # (Auto) 100 PT INR Sodium Potassium Chloride Carbon Dioxide BUN Creatinine Estimated GFR BUN/Creatinine Ratio Glucose Calcium Procalcitonin Urine Color Dark yellow Urine Appearance Clear Urine pH 5.0 Ur Specific [place] 1.025 Urine Protein Trace H Urine Glucose (UA) Negative Urine Ketones Negative Urine Occult Blood Trace-intact Urine Nitrate Negative Urine Bilirubin Negative Urine Urobilinogen 1.0 Ur Leukocyte Esterase Negative Urine RBC 0-1/hpf Urine WBC 0-1/hpf Ur Squamous Epith Cells 0-1 /hpf Amorphous Sediment 1+ Urine Bacteria Occasional (0-1) Granular Casts 0-1/lpf Urine Mucus 1+ H Ur Culture Indicated? Cult not indicated Nasal Screen MRSA (PCR) Negative for mrsa 06/02/19 06/02/19 06/02/19 05:02 05:02 05:02 WBC RBC Hgb Hct MCV MCH MCHC RDW Plt Count Neut % (Auto) Lymph % (Auto) [place] % (Auto) Eos % (Auto) Baso % (Auto) Neut # (Auto) Lymph # (Auto) [place] # (Auto) Eos # (Auto) Baso # (Auto) PT 30.6 H INR 2.6 H Sodium 134 L Potassium 3.9 Chloride 98 Carbon Dioxide 26 BUN 19 Creatinine 1.00 Estimated GFR > 60.0 BUN/Creatinine Ratio 19.0 Glucose 119 H Calcium 8.1 L Procalcitonin 4.10 H Urine Color Urine Appearance Urine pH Ur Specific [place] Urine Protein Urine Glucose (UA) Urine Ketones Urine Occult Blood Urine Nitrate Urine Bilirubin Urine Urobilinogen Ur Leukocyte Esterase Urine RBC Urine WBC Ur Squamous Epith Cells Amorphous Sediment Urine Bacteria Granular Casts Urine Mucus Ur Culture Indicated? Nasal Screen MRSA (PCR) Assessment & Plan Assessment & Plan narrative: Rick Cunningham is a 69-year-old male with a past medical history significant for hypertension, chronic atrial fibrillation anticoagulated on warfarin, prediabetes and a recent new diagnosis of depression who presented to the ED with a 2-3 week history of pain in his left lower leg with worsening erythema and edema. 1. Acute severe sepsis, present on admission. Resolved. -Sepsis criteria met including: Febrile (T 101? F), tachycardic (HR 150's), leukocytosis (WBC 29.5), tachypneic (RR 24) with organ dysfunction hypotension (BP 95/45 and IV fluid responsive) and source significant left leg cellulitis. qSOFA score 2. -Early goal-directed therapy met including IV fluids and broad-spectrum antibiotics which were further broadened today with addition of Zosyn to vancomycin. -LA elevated at 2.8. Continued to trend LA which trended down to 2.3 and persitently at 2.3. Repeat in AM. 2. Acute severe left leg cellulitis, present on admission. Active. -Patient presented with left leg pain from left ankle to knee radiating to groin. Now patient has streaking toward groin and has additionally been marked. -WBC markedly elevated at 29.5 and trending down to 22.9. Procalcitonin elevated at 3.36 and now likely peaking at 4.10. Continue to trend both WBC and PCT daily. -Received vancomycin in ED. Continue vancomycin with dosing per pharmacist and added Zosyn 3.375 mg every 8 hours for additional gram negative coverage. -May need to consult general surgery if infection continues to expand per outline margins of infection. 3. Chronic trial fibrillation with mild RVR and anticoagulated on warfarin, acute on chronic, present on admission. Active. -Received metoprolol 5 mg of IV for persistent atrial fibrillation with RVR 120's despite pain control and treatment of infection. -Continue metoprolol tartrate 100 mg twice daily. May need metoprolol IV push for continued RVR. -Continue warfarin alternating 5 mg and 2.5 mg daily. INR of 2.3 is therapeutic. Continue to monitor daily. 4. Acute hypomagnesemia, present on admission. Active. -Initial magnesium level is 1.3. -Received magnesium sulfate 2 g IV x 1. -Continue to monitor closely and replete as necessary. Goal Mg + > 2.0 and K+ > 4.0 with atrial fibrillation. 5. Prediabetes, chronic, present on admission. Stable and well controlled. -Hemoglobin A1c was 5.8% indicative of prediabetes. -Held metformin. -Admitting provider ordered lantus 18 units twice daily and nutritional 6 three times daily with meals which was discontinued as patient is not overtly hyperglycemic and not on insulin. May consider correctional or low dose basal only if persitently hyperglycemic and due to infection. -Continue carbohydrate consistent diet. 6. Hypertension, chronic, present on admission. Stable. -Received metoprolol 5 mg of IV for persistent atrial fibrillation with RVR 120's despite pain control and treatment of infection. -Did not receive amlodipine right away and continued this morning as no longer hypotensive. Continue metoprolol tartrate 100 mg twice daily. 7. Depression, newly diagnosed, present on admission. Stable. -Patient has mildly depressed mood and flat affect. -Continue sertraline 25 mg daily. 8. Morbid obesity, chronic, present on admission. Stable. -BMI 46.3 -Patient is at high risk of BESSY and ordered CPAP protocol to assess overnight capnography. Recommend outpatient sleep study. Disposition: Patient will be hospitalized for several days and will need to have significant improvement in cellulitis and may need SNF at discharge due to weakness. Quality VTE Deep Vein Thrombosis/Pulmonary Embolism Present on Admission: No
[2019-06-02] MEDS: SERTRALINE 25 MG TABLET PO (20:01)
--- NOTE | 2019-06-02 23:16 | PM.CN ---
History of Present Illness Date Patient Seen: 06/02/19 Time Patient Seen: 23:16 Chief complaint: Swollen lft leg, radiating up, sores on legs, arms Reason for consult: Concern for necrotizing soft tissue infection Narrative: 69-year-old man hospital day 2, admitted for left lower extremity cellulitis -in the setting of pre diabetes, and obesity with BMI of 46. Patient initially presented with septic physiology with a T-max of a 101?, tachycardia, without hypotension. He was noted to have exquisitely tender erythema and induration of the left leg. He was admitted to the medicine service and started on vancomycin monotherapy. Admission blood cultures have been negative times 24 hours. Today medicine team was concerned that there was progression of his erythema on his leg, with streaking up the medial thigh towards the groin. His procalcitonin had worsened from 3.36->4.1 This evening patient states that he feels mildly but clearly improved from his admission. He now feels well. He feels his left leg is better into ways firstly he has clearly less painful tingling at rest within the leg, the leg is less tender when palpated as well. He does not have additional complaints. No scrotal penile or perineal pain or discomfort Reviewing patient's laboratory data: White blood cell count has dropped from 29.5-24 Creatinine has improved from 1.2-1 Sodium has remained stable at 134 He has been afebrile times 24 hours, he continues to make good urine at 1.1 L in the last 24 hours Of note patient on warfarin with INR of 2.6 for history of AFib. [facility] Medical History Cellulitis of left lower extremity without foot (Acute) Depression (Chronic) Diabetes mellitus type 2 in obese (Chronic) Essential hypertension (Chronic) Surgical History History of knee surgery (Acute) Social History household members: spouse Smoking Status: Former smoker alcohol intake: former Social History household members: spouse Smoking Status: Former smoker alcohol intake: former Meds Home Medications Medication Instructions Recorded Confirmed Type amlodipine 5 mg PO DAILY 06/01/19 06/01/19 History hydrochlorothiazide 12.5 mg PO DAILY 06/01/19 06/01/19 History metformin 500 mg PO DAILY 06/01/19 06/01/19 History metoprolol tartrate 100 mg PO DAILY 06/01/19 06/01/19 History sertraline 25 mg PO DAILY 06/01/19 06/01/19 History warfarin 5 mg PO Q OTHER DAY 06/01/19 06/01/19 History Allergies Allergy/AdvReac Type Severity Reaction Status Date / Time No Known Drug Allergies Allergy Verified 06/01/19 14:19 Review of Systems Constitutional Constitutional: Denies fever(s) Eyes Eyes: Denies bulging eyes ENT Ears, Nose, Mouth, and Throat: No lip swelling Cardiovascular Cardiovascular: Denies generalize swelling Respiratory Respiratory: Denies stridor Gastrointestinal Gastrointestinal: Denies coffee ground emesis Musculoskeletal Musculoskeletal: Denies loss of height Integumentary/Breasts Skin/Breast: Denies wounds Neurologic Neurologic: Denies abnormal speech and Denies confusion Psychiatric Psychiatric: Denies confusion Endocrine Endocrine: Denies deepening of the voice Hematologic/Lymphatic Hematologic/Lymphatic: Denies lymphadenopathy Allergic/Immunologic Allergic/Immunologic: Denies lip swelling Exam Vital Signs (past 8 hours): - 06/02/19 16:40 06/02/19 16:57 06/02/19 20:32 Temperature 97.8 F Pulse Rate 104 H 107 H Respiratory Rate 20 22 Blood Pressure 128/87 127/86 Pulse Oximetry 93 94 92 Oxygen Delivery Method Room Air Oxygen Flow Rate 0 Narrative Exam Narrative: Overall appears well not ill resting comfortably in bed Const General: cooperative Orientation: alert HENMT Head: normal to inspection Nose: nares normal Mouth: oral mucosae normal and lip normal Eyes Eyelids: eyelids normal Conjunctivae: conjunctivae normal Sclera: sclerae normal Neck Neck: supple and other (No thyromegally) Chest Chest: other (LCTAB , regular respiratory effort) Cardio Rhythm: regular rhythm Heart Sounds: S1 normal, S2 normal, no gallops, no murmurs and no rubs GI Other: Abdomen soft nontender nondistended Skin General: no rashes or lesions noted Neuro General: alert and awake Extrem Other: Extremity exam: The left leg has a circumferential area of induration and erythema that extends from just superior to the ankle to the level just below the knee -this is ready erythematous without bullae or purpuric changes. There is a small area of skin breakdown on the medial aspect of the leg which the patient reports his long-standing from a injury on a ladder approximately 1 year ago. The area is quite tender to touch but patient is able to tolerate this -he reports there is less pain at this point than prior exam. Along the left medial thigh there is a streak of erythema that extends to within approximately 20 cm of the groin crease. This is relatively mild, it is tender to palpation but minimally so -patient reports this area has improve substantially in terms of overall tenderness. Inspecting the intertrigo areas between the toes patient has tinea pedis was areas of skin cracking No crepitance identified, no areas of necrotic skin Psych Appearance: grossly normal Affect: normal affect Objective Labs Result Diagrams: 06/02/19 05:02 06/02/19 05:02 Labs: Laboratory Results - last 24 hr 06/01/19 06/02/19 06/02/19 23:00 02:54 05:02 WBC 24.1 H RBC 4.81 Hgb 14.0 Hct 41.5 MCV 86.2 MCH 29.0 MCHC 33.7 RDW 15.0 H Plt Count 151 Neut % (Auto) 92.8 H Lymph % (Auto) 4.0 L [place] % (Auto) 3.0 Eos % (Auto) 0.0 L Baso % (Auto) 0.2 Neut # (Auto) 57787 H Lymph # (Auto) 1000 L [place] # (Auto) 700 Eos # (Auto) 0 Baso # (Auto) 100 PT INR Sodium Potassium Chloride Carbon Dioxide BUN Creatinine Estimated GFR BUN/Creatinine Ratio Glucose Calcium Procalcitonin Urine Color Dark yellow Urine Appearance Clear Urine pH 5.0 Ur Specific [place] 1.025 Urine Protein Trace H Urine Glucose (UA) Negative Urine Ketones Negative Urine Occult Blood Trace-intact Urine Nitrate Negative Urine Bilirubin Negative Urine Urobilinogen 1.0 Ur Leukocyte Esterase Negative Urine RBC 0-1/hpf Urine WBC 0-1/hpf Ur Squamous Epith Cells 0-1 /hpf Amorphous Sediment 1+ Urine Bacteria Occasional (0-1) Granular Casts 0-1/lpf Urine Mucus 1+ H Ur Culture Indicated? Cult not indicated Nasal Screen MRSA (PCR) Negative for mrsa 06/02/19 06/02/19 06/02/19 05:02 05:02 05:02 WBC RBC Hgb Hct MCV MCH MCHC RDW Plt Count Neut % (Auto) Lymph % (Auto) [place] % (Auto) Eos % (Auto) Baso % (Auto) Neut # (Auto) Lymph # (Auto) [place] # (Auto) Eos # (Auto) Baso # (Auto) PT 30.6 H INR 2.6 H Sodium 134 L Potassium 3.9 Chloride 98 Carbon Dioxide 26 BUN 19 Creatinine 1.00 Estimated GFR > 60.0 BUN/Creatinine Ratio 19.0 Glucose 119 H Calcium 8.1 L Procalcitonin 4.10 H Urine Color Urine Appearance Urine pH Ur Specific [place] Urine Protein Urine Glucose (UA) Urine Ketones Urine Occult Blood Urine Nitrate Urine Bilirubin Urine Urobilinogen Ur Leukocyte Esterase Urine RBC Urine WBC Ur Squamous Epith Cells Amorphous Sediment Urine Bacteria Granular Casts Urine Mucus Ur Culture Indicated? Nasal Screen MRSA (PCR) Assessment & Plan Assessment & Plan narrative: 69-year-old man hospital the to with severe left lower extremity cellulitis in the setting of a BMI of 46, pre diabetes. The significant majority of patients clinical markers including physical exam, subjective pain, subjective constitution, white blood cell count, renal function -are consistent with a patient improving. He has no definitive signs of necrotizing soft tissue infection including bulae crepitance rapid progression. His soft signs including erythema induration tenderness -are improving. Taken together I think there is a low likelihood that this constitutes and an NSTI. rec: Agree with gram-positive and gram-negative coverage with the pip/umm, vanco stop warfarin until clinical course trajectory more certain, no vit K or other reversal needed treat tinea pedis with terbinafine or other topical - possibly site of entry We will continue to follow with you
--- NOTE | 2019-06-02 23:27 | P.CONS_ITS ---
History of Present Illness Date Patient Seen: 06/02/19 Time Patient Seen: 23:16 Chief complaint: Swollen lft leg, radiating up, sores on legs, arms Reason for consult: Concern for necrotizing soft tissue infection Narrative: 69-year-old man hospital day 2, admitted for left lower extremity cellulitis -in the setting of pre diabetes, and obesity with BMI of 46. Patient initially presented with septic physiology with a T-max of a 101?, tachycardia, without hypotension. He was noted to have exquisitely tender erythema and induration of the left leg. He was admitted to the medicine service and started on vancomycin monotherapy. Admission blood cultures have been negative times 24 hours. Today medicine team was concerned that there was progression of his erythema on his leg, with streaking up the medial thigh towards the groin. His procalcitonin had worsened from 3.36->4.1 This evening patient states that he feels mildly but clearly improved from his admission. He now feels well. He feels his left leg is better into ways firstly he has clearly less painful tingling at rest within the leg, the leg is less tender when palpated as well. He does not have additional complaints. No scrotal penile or perineal pain or discomfort Reviewing patient's laboratory data: White blood cell count has dropped from 29.5-24 Creatinine has improved from 1.2-1 Sodium has remained stable at 134 He has been afebrile times 24 hours, he continues to make good urine at 1.1 L in the last 24 hours Of note patient on warfarin with INR of 2.6 for history of AFib. [facility] Medical History Cellulitis of left lower extremity without foot (Acute) Depression (Chronic) Diabetes mellitus type 2 in obese (Chronic) Essential hypertension (Chronic) Surgical History History of knee surgery (Acute) Social History household members: spouse Smoking Status: Former smoker alcohol intake: former Social History household members: spouse Smoking Status: Former smoker alcohol intake: former Meds Home Medications Medication Instructions Recorded Confirmed Type amlodipine 5 mg PO DAILY 06/01/19 06/01/19 History hydrochlorothiazide 12.5 mg PO DAILY 06/01/19 06/01/19 History metformin 500 mg PO DAILY 06/01/19 06/01/19 History metoprolol tartrate 100 mg PO DAILY 06/01/19 06/01/19 History sertraline 25 mg PO DAILY 06/01/19 06/01/19 History warfarin 5 mg PO Q OTHER DAY 06/01/19 06/01/19 History Allergies Allergy/AdvReac Type Severity Reaction Status Date / Time No Known Drug Allergies Allergy Verified 06/01/19 14:19 Review of Systems Constitutional Constitutional: Denies fever(s) Eyes Eyes: Denies bulging eyes ENT Ears, Nose, Mouth, and Throat: No lip swelling Cardiovascular Cardiovascular: Denies generalize swelling Respiratory Respiratory: Denies stridor Gastrointestinal Gastrointestinal: Denies coffee ground emesis Musculoskeletal Musculoskeletal: Denies loss of height Integumentary/Breasts Skin/Breast: Denies wounds Neurologic Neurologic: Denies abnormal speech and Denies confusion Psychiatric Psychiatric: Denies confusion Endocrine Endocrine: Denies deepening of the voice Hematologic/Lymphatic Hematologic/Lymphatic: Denies lymphadenopathy Allergic/Immunologic Allergic/Immunologic: Denies lip swelling Exam Vital Signs (past 8 hours): - 06/02/19 16:40 06/02/19 16:57 06/02/19 20:32 Temperature 97.8 F Pulse Rate 104 H 107 H Respiratory Rate 20 22 Blood Pressure 128/87 127/86 Pulse Oximetry 93 94 92 Oxygen Delivery Method Room Air Oxygen Flow Rate 0 Narrative Exam Narrative: Overall appears well not ill resting comfortably in bed Const General: cooperative Orientation: alert HENMT Head: normal to inspection Nose: nares normal Mouth: oral mucosae normal and lip normal Eyes Eyelids: eyelids normal Conjunctivae: conjunctivae normal Sclera: sclerae normal Neck Neck: supple and other (No thyromegally) Chest Chest: other (LCTAB , regular respiratory effort) Cardio Rhythm: regular rhythm Heart Sounds: S1 normal, S2 normal, no gallops, no murmurs and no rubs GI Other: Abdomen soft nontender nondistended Skin General: no rashes or lesions noted Neuro General: alert and awake Extrem Other: Extremity exam: The left leg has a circumferential area of induration and erythema that extends from just superior to the ankle to the level just below the knee -this is ready erythematous without bullae or purpuric changes. There is a small area of skin breakdown on the medial aspect of the leg which the patient reports his long- standing from a injury on a ladder approximately 1 year ago. The area is quite tender to touch but patient is able to tolerate this -he reports there is less pain at this point than prior exam. Along the left medial thigh there is a streak of erythema that extends to within approximately 20 cm of the groin crease. This is relatively mild, it is tender to palpation but minimally so -jaime limon reports this area has improve substantially in terms of overall tenderness. Inspecting the intertrigo areas between the toes patient has tinea pedis was areas of skin cracking No crepitance identified, no areas of necrotic skin Psych Appearance: grossly normal Affect: normal affect Objective Labs Result Diagrams: 06/02/19 05:02 06/02/19 05:02 Labs: Laboratory Results - last 24 hr 06/01/19 06/02/19 06/02/19 23:00 02:54 05:02 WBC 24.1 H RBC 4.81 Hgb 14.0 Hct 41.5 MCV 86.2 MCH 29.0 MCHC 33.7 RDW 15.0 H Plt Count 151 Neut % (Auto) 92.8 H Lymph % (Auto) 4.[address] [place] % (Auto) 3.0 Eos % (Auto) 0.0 L Baso % (Auto) 0.2 Neut # (Auto) 34959 H Lymph # (Auto) [address] [facility] # (Auto) 700 Eos # (Auto) 0 Baso # (Auto) 100 PT INR Sodium Potassium Chloride Carbon Dioxide BUN Creatinine Estimated GFR BUN/Creatinine Ratio Glucose Calcium Procalcitonin Urine Color Dark yellow Urine Appearance Clear Urine pH 5.0 Ur Specific [place] 1.025 Urine Protein Trace H Urine Glucose (UA) Negative Urine Ketones Negative Urine Occult Blood Trace-intact Urine Nitrate Negative Urine Bilirubin Negative Urine Urobilinogen 1.0 Ur Leukocyte Esterase Negative Urine RBC 0-1/hpf Urine WBC 0-1/hpf Ur Squamous Epith Cells 0-1 /hpf Amorphous Sediment 1+ Urine Bacteria Occasional (0-1) Granular Casts 0-1/lpf Urine Mucus 1+ H Ur Culture Indicated? Cult not indicated Nasal Screen MRSA (PCR) Negative for mrsa 06/02/19 06/02/19 06/02/19 05:02 05:02 05:02 WBC RBC Hgb Hct MCV MCH MCHC RDW Plt Count Neut % (Auto) Lymph % (Auto) [place] % (Auto) Eos % (Auto) Baso % (Auto) Neut # (Auto) Lymph # (Auto) [facility] [facility] # (Auto) Eos # (Auto) Baso # (Auto) PT 30.6 H INR 2.6 H Sodium 134 L Potassium 3.9 Chloride 98 Carbon Dioxide 26 BUN 19 Creatinine 1.00 Estimated GFR > 60.0 BUN/Creatinine Ratio 19.0 Glucose 119 H Calcium 8.1 L Procalcitonin 4.10 H Urine Color Urine Appearance Urine pH Ur Specific [place] Urine Protein Urine Glucose (UA) Urine Ketones Urine Occult Blood Urine Nitrate Urine Bilirubin Urine Urobilinogen Ur Leukocyte Esterase Urine RBC Urine WBC Ur Squamous Epith Cells Amorphous Sediment Urine Bacteria Granular Casts Urine Mucus Ur Culture Indicated? Nasal Screen MRSA (PCR) Assessment & Plan Assessment & Plan narrative: 69-year-old man hospital the to with severe left lower extremity cellulitis in the setting of a BMI of 46, pre diabetes. The significant majority of patients clinical markers including physical exam, alvarez bjective pain, subjective constitution, white blood cell count, renal function - are consistent with a patient improving. He has no definitive signs of necrotizing soft tissue infection including bulae crepitance rapid progression. His soft signs including erythema induration tenderness -are improving. Taken together I think there is a low likelihood that this constitutes and an NSTI. rec: Agree with gram-positive and gram-negative coverage with the pip/umm, vanco stop warfarin until clinical course trajectory more certain, no vit K or other reversal needed treat tinea pedis with terbinafine or other topical - possibly site of entry We will continue to follow with you
[2019-06-02 23:58] LABS: Add Manual Diff / Slide Review NO; Basophils Absolute Auto 100 /uL (0-100); Basophils Percent Auto 0.3 % (0-2); Eosinophils Absolute Auto 0 /uL (0-450); Eosinophils Percent Auto 0.1 % (2-4); Hematocrit 42.8 % (41-53); Hemoglobin 14.2 g/dL (13.5-17.5); Lymphocytes Absolute Auto 1100 /uL (1100-4500); Lymphocytes Percent Auto 4.9 % (25-40); Mean Corpuscular HGB Conc 33.3 % (30-36); Mean Corpuscular Volume 87.2 fL (80-100); Monocytes Absolute Auto 800 /uL (0-900); Monocytes Percent Auto 3.4 % (3-14); Neutrophils Absolute Auto 20900 /uL (1500-7000); Neutrophils Percent Auto 91.3 % (50-75); Platelet Count 159 X10^3/uL (150-400); Red Blood Cell Count 4.91 X10^6/uL (4.5-5.9); White Blood Cell Count 22.9 X10^3/uL (4.5-11.0)
[2019-06-03] VITALS (8 sets, daily range): BP systolic 118–151; BP diastolic 69–87; PULSE 85–107; RESP 17–22; TEMP 36.4–36.9; O2SAT 94–97
[2019-06-03 00:25] LABS: C-Reactive Protein Quant 20.8 mg/dL (<1.0)
[2019-06-03 02:51] LABS: Add Manual Diff / Slide Review NO; Basophils Absolute Auto 200 /uL (0-100); Basophils Percent Auto 0.9 % (0-2); Eosinophils Absolute Auto 0 /uL (0-450); Eosinophils Percent Auto 0.1 % (2-4); Hematocrit 41.8 % (41-53); Hemoglobin 14.1 g/dL (13.5-17.5); Lymphocytes Absolute Auto 1000 /uL (1100-4500); Lymphocytes Percent Auto 4.8 % (25-40); Mean Corpuscular HGB Conc 33.7 % (30-36); Mean Corpuscular Hemoglobin 29.2 PG (26-34); Mean Corpuscular Volume 86.6 fL (80-100); Monocytes Absolute Auto 800 /uL (0-900); Monocytes Percent Auto 3.6 % (3-14); Neutrophils Absolute Auto 19300 /uL (1500-7000); Neutrophils Percent Auto 90.6 % (50-75); Platelet Count 148 X10^3/uL (150-400); Red Blood Cell Count 4.82 X10^6/uL (4.5-5.9); White Blood Cell Count 21.3 X10^3/uL (4.5-11.0)
[2019-06-03 02:55] LABS: Lactate (Lactic Acid) 1.2 mmol/L (0.7-2.1)
[2019-06-03 02:57] LABS: Alanine Aminotransferase 24 IU/L (21-72); Albumin 3.2 g/dL (3.5-5.0); Albumin Globulin Ratio 0.9 (1.0-2.8); Alkaline Phosphatase 99 U/L (38-126); Aspartate Aminotransferase 27 IU/L (17-59); Blood Urea Nitrogen 16 mg/dL (9-20); Calcium 8.7 mg/dL (8.4-10.2); Carbon Dioxide 22 mmol/L (22-32); Chloride 101 mmol/L (98-107); Estimated Glomerular Filt Rate > 60.0 mL/min (>60); Globulin 3.6 g/dL (1.7-4.1); Glucose 122 mg/dL (80-110); HEMOLYSIS < 15 (0-50); INR 2.4 (0.9-1.3); Magnesium 1.9 mg/dL (1.6-2.3); Potassium 3.2 mmol/L (3.4-5.1); Prothrombin Time 27.9 SECONDS (10.1-12.7); Sodium 133 mmol/L (137-145); Total Protein 6.8 g/dL (6.3-8.2)
[2019-06-03 03:05] LABS: Vancomycin Trough 7.8 ug/mL (10-20)
[2019-06-03] MEDS: VANCOMYCIN 1,500 MG/300 ML FROZ.PIGGY 200 MG IV (03:18)
[2019-06-03] MEDS: VANCOMYCIN TROUGH 1 REQUEST MISC (03:18)
--- NOTE | 2019-06-03 04:49 | PC.NURSE ---
[facility] notified Vanco Trough result is low 7.8. Talked to Night Pharmacist & she will let our Pharmacist know & she states they will adjust the dose. Will monitor.
[2019-06-03] MEDS: VANCOMYCIN 500 MG in SODIUM CHLORIDE 0.9% 100 ML IV (05:29)
--- NOTE | 2019-06-03 05:56 | PC.NURSE ---
Night Pharmacist increased Vanco dose to 2000 mg. Q 12 hrs. additional 500 mg. IVPB, infusing at this time.
[2019-06-03] MEDS: PIPERACILLIN-TAZO 3.375 GM/50 ML FROZ.PIGGY IV ×3 (07:07→23:14)
[2019-06-03] MEDS: METOPROLOL IR 50 MG TABLET 100 MG PO ×2 (08:14→20:15)
[2019-06-03] MEDS: ACETAMINOPHEN 325 MG TABLET 650 MG PO (08:15)
[2019-06-03] MEDS: AMLODIPINE 5 MG TABLET PO (08:15)
--- NOTE | 2019-06-03 09:15 | PM.PN.1 ---
Subjective Date Patient Seen: 06/03/19 Time Patient Seen: 09:15 Interval history: Reporting pain today is continuing to slowly rib improve and left lower extremity, overall feels he is recovering -and feels better than at the time of my initial consultation yesterday evening Exam Vital Signs (past 8 hours): - 06/03/19 03:34 06/03/19 08:00 Temperature 98.5 F 98.3 F Pulse Rate 99 H 95 H Respiratory Rate 18 17 Blood Pressure 144/81 H 136/81 Pulse Oximetry 94 95 Oxygen Delivery Method Room Air Oxygen Flow Rate 0 Narrative Exam Narrative: Continued erythematous changes of the left lower leg -the erythema is more less within the boundaries of the demarcated line placed shortly after admission. The color is less bright and more rina color. Ongoing induration. The color changes on the medial thigh are diminishing. The left leg continues to be quite tender to palpation but less so Again no crepitus or areas and skin breakdown/necrosis Objective Labs Result Diagrams: 06/03/19 02:30 06/03/19 02:30 Labs: Laboratory Results - last 24 hr 06/02/19 06/02/19 06/02/19 05:02 23:17 23:17 WBC 22.9 H RBC 4.91 Hgb 14.2 Hct 42.8 MCV 87.2 MCH 29.0 MCHC 33.3 RDW 15.0 H Plt Count 159 Neut % (Auto) 91.3 H Lymph % (Auto) 4.9 L [place] % (Auto) 3.4 Eos % (Auto) 0.1 L Baso % (Auto) 0.3 Neut # (Auto) 40200 H Lymph # (Auto) 1100 [place] # (Auto) 800 Eos # (Auto) 0 Baso # (Auto) 100 PT INR Sodium Potassium Chloride Carbon Dioxide BUN Creatinine Estimated GFR BUN/Creatinine Ratio Glucose Lactate Calcium Magnesium Total Bilirubin AST ALT Alkaline Phosphatase C-Reactive Protein 20.8 H Total Protein Albumin Globulin Albumin/Globulin Ratio Procalcitonin 4.10 H Vancomycin Trough 06/03/19 06/03/19 06/03/19 02:30 02:30 02:30 WBC 21.3 H RBC 4.82 Hgb 14.1 Hct 41.8 MCV 86.6 MCH 29.2 MCHC 33.7 RDW 15.0 H Plt Count 148 L Neut % (Auto) 90.6 H Lymph % (Auto) 4.8 L [place] % (Auto) 3.6 Eos % (Auto) 0.1 L Baso % (Auto) 0.9 Neut # (Auto) 40973 H Lymph # (Auto) 1000 L [place] # (Auto) 800 Eos # (Auto) 0 Baso # (Auto) 200 H PT INR Sodium Potassium Chloride Carbon Dioxide BUN Creatinine Estimated GFR BUN/Creatinine Ratio Glucose Lactate Calcium Magnesium Total Bilirubin AST ALT Alkaline Phosphatase C-Reactive Protein Total Protein Albumin Globulin Albumin/Globulin Ratio Procalcitonin 2.10 H Vancomycin Trough 7.8 L 06/03/19 06/03/19 06/03/19 02:30 02:30 02:30 WBC RBC Hgb Hct MCV MCH MCHC RDW Plt Count Neut % (Auto) Lymph % (Auto) [place] % (Auto) Eos % (Auto) Baso % (Auto) Neut # (Auto) Lymph # (Auto) [place] # (Auto) Eos # (Auto) Baso # (Auto) PT 27.9 H INR 2.4 H Sodium 133 L Potassium 3.2 L Chloride 101 Carbon Dioxide 22 BUN 16 Creatinine 0.80 Estimated GFR > 60.0 BUN/Creatinine Ratio 20.0 Glucose 122 H Lactate 1.2 Calcium 8.7 Magnesium 1.9 Total Bilirubin 2.0 H AST 27 ALT 24 Alkaline Phosphatase 99 C-Reactive Protein Total Protein 6.8 Albumin 3.2 L Globulin 3.6 Albumin/Globulin Ratio 0.9 L Procalcitonin Vancomycin Trough Assessment & Plan Assessment & Plan narrative: 69-year-old man hospital day 3. Admitted with severe lower extremity cellulitis of the left leg. Slow improvement on Vanco + pip/umm. White blood cell count has dropped further today as has, procalcitonin. Continues to be afebrile. Slow rate of infection clearance may be related to venous stasis and lymphatic dysfunction from obesity Rec We will continue follow with you Agree with ongoing antibiotic therapy as ordered Okay to eat Would continue to hold warfarin Quality VTE Deep Vein Thrombosis/Pulmonary Embolism Present on Admission: No
--- NOTE | 2019-06-03 09:20 | P.PN_ITS ---
Subjective Date Patient Seen: 06/03/19 Time Patient Seen: 09:15 Interval history: Reporting pain today is continuing to slowly rib improve and left lower extremity, overall feels he is recovering -and feels better than at the time of my initial consultation yesterday evening Exam Vital Signs (past 8 hours): - 06/03/19 03:34 06/03/19 08:00 Temperature 98.5 F 98.3 F Pulse Rate 99 H 95 H Respiratory Rate 18 17 Blood Pressure 144/81 H 136/81 Pulse Oximetry 94 95 Oxygen Delivery Method Room Air Oxygen Flow Rate 0 Narrative Exam Narrative: Continued erythematous changes of the left lower leg -the e rythema is more less within the boundaries of the demarcated line placed shortly after admission. The color is less bright and more rina color. Ongoing induration. The color changes on the medial thigh are diminishing. The left leg continues to be quite tender to palpation but less so Again no crepitus or areas and skin breakdown/necrosis Objective Labs Result Diagrams: 06/03/19 02:30 06/03/19 02:30 Labs: Laboratory Results - last 24 hr 06/02/19 06/02/19 06/02/19 05:02 23:17 23:17 WBC 22.9 H RBC 4.91 Hgb 14.2 Hct 42.8 MCV 87.2 MCH 29.0 MCHC 33.3 RDW 15.0 H Plt Count 159 Neut % (Auto) 91.3 H Lymph % (Auto) 4.9 L [place] % (Auto) 3.4 Eos % (Auto) 0.1 L Baso % (Auto) 0.3 Neut # (Auto) 97984 H Lymph # (Auto) 1100 [place] # (Auto) 800 Eos # (Auto) 0 Baso # (Auto) 100 PT INR Sodium Potassium Chloride Carbon Dioxide BUN Creatinine Estimated GFR BUN/Creatinine Ratio Glucose Lactate Calcium Magnesium Total Bilirubin AST ALT Alkaline Phosphatase C-Reactive Protein 20.8 H Total Protein Albumin Globulin Albumin/Globulin Ratio Procalcitonin 4.10 H Vancomycin Trough 06/03/19 06/03/19 06/03/19 02:30 02:30 02:30 WBC 21.3 H RBC 4.82 Hgb 14.1 Hct 41.8 MCV 86.6 MCH 29.2 MCHC 33.7 RDW 15.0 H Plt Count 148 L Neut % (Auto) 90.6 H Lymph % (Auto) 4.8 L [place] % (Auto) 3.6 Eos % (Auto) 0.1 L Baso % (Auto) 0.9 Neut # (Auto) 36060 H Lymph # (Auto) 1000 L [place] # (Auto) 800 Eos # (Auto) 0 Baso # (Auto) 200 H PT INR Sodium Potassium Chloride Carbon Dioxide BUN Creatinine Estimated GFR BUN/Creatinine Ratio Glucose Lactate Calcium Magnesium Total Bilirubin AST ALT Alkaline Phosphatase C-Reactive Protein Total Protein Albumin Globulin Albumin/Globulin Ratio Procalcitonin 2.10 H Vancomycin Trough 7.8 L 06/03/19 06/03/19 06/03/19 02:30 02:30 02:30 WBC RBC Hgb Hct MCV MCH MCHC RDW Plt Count Neut % (Auto) Lymph % (Auto) [place] % (Auto) Eos % (Auto) Baso % (Auto) Neut # (Auto) Lymph # (Auto) [place] # (Auto) Eos # (Auto) Baso # (Auto) PT 27.9 H INR 2.4 H Sodium 133 L Potassium 3.2 L Chloride 101 Carbon Dioxide 22 BUN 16 Creatinine 0.80 Estimated GFR > 60.0 BUN/Creatinine Ratio 20.0 Glucose 122 H Lactate 1.2 Calcium 8.7 Magnesium 1.9 Total Bilirubin 2.0 H AST 27 ALT 24 Alkaline Phosphatase 99 C-Reactive Protein Total Protein 6.8 Albumin 3.2 L Globulin 3.6 Albumin/Globulin Ratio 0.9 L Procalcitonin Vancomycin Trough Assessment & Plan Assessment & Plan narrative: 69-year-old man hospital day 3. Admitted with severe lower extremity cellulitis of the left leg. Slow improvement on Vanco + pip/umm. White blood cell count has dropped further today as has, procalcitonin. Continues to be afebrile. Slow rate of infection clearance may be related to venous stasis and lymphatic dysfunction from obesity Rec We will continue follow with you Agree with ongoing antibiotic therapy as ordered Okay to eat Would continue to hold warfarin Quality VTE Deep Vein Thrombosis/Pulmonary Embolism Present on Admission: No
--- NOTE | 2019-06-03 11:37 | PT.IIE ---
Current Diagnoses Sepsis, unspecified organism (06/01/19) Surgical History (Last Reviewed 06/02/19 @ 00:33 by JESUS MANUEL Mendoza) History of knee surgery (Acute) Medical History (Last Reviewed 06/02/19 @ 00:33 by JESUS MANUEL Mendoza) Cellulitis of left lower extremity without foot (Acute) Depression (Chronic) Diabetes mellitus type 2 in obese (Chronic) Essential hypertension (Chronic) Physical Therapy Inpatient Evaluation/Re-Eval M1 PT/OT-IP Prior Functional Status Start: 06/02/19 10:22 Freq: NEEDED Status: Active Protocol: Document 06/03/19 11:37 AB (Rec: 06/03/19 13:55 AB [id number]) Medical Review Prior Functional Status Medical History Reviewed Yes Communication able to make needs known Mobility and Gait pt stated that he is independent with all mobilities and ambulation without AD. pt stated that he takes care of his spouse with dementia. Activities of Daily Living and IADL's per OT's note. Pt is IND in all ADLs and functional mobility. Social History Household Members spouse Living Arrangements House Number of Floors (Floors) One Floor Number of Stairs To Enter/Railing? 2 steps to enter with L rail ascending Home Environment High Toilet Tub/Shower Home Equipment Hand Held Shower Grab Bars Near Toilet Grab Bars In Shower Employment Status Retired Additional Social History Comment Pt has no DME M1 PT/OT-IP Prior Functional Status Start: 06/02/19 13:21 Freq: NEEDED Status: Active Protocol: Document 06/03/19 11:37 AB (Rec: 06/03/19 13:55 AB [id number]) M2 PT-IP Current Condition Start: 06/02/19 10:22 Freq: NEEDED Status: Active Protocol: Document 06/03/19 11:37 AB (Rec: 06/03/19 13:55 AB [id number]) Physical Therapy Current Condition Current Condition Evaluation Date 06/03/19 Treatment Diagnosis sepsis; L leg cellulitis; difficulty in walking Onset Date 06/01/19 M3 PT-IP Subjective Start: 06/02/19 10:22 Freq: NEEDED Status: Active Protocol: Document 06/03/19 11:37 AB (Rec: 06/03/19 13:55 AB [id number]) Subjective Physical Therapy Visit Type Type Initial Evaluation Visit Start Time 11:37 Visit Stop Time 11:56 Total Visit Minutes 19 Number of BOAT OUTFITTER Visits 0 Physical Therapy Visit Comments Patient Comments pt agreeable to do PT Therapy Pain Assessment Pain When Pain Assessed At Rest Pain Present Pain Present Pain Reported Location Bilateral Leg Scale Used c/o pain with mobility; pain scale not stated Pain Management Techniques Timing of Activity with Medications M4 PT-IP Mobility and Gait Start: 06/02/19 10:22 Freq: NEEDED Status: Active Protocol: Document 06/03/19 11:37 AB (Rec: 06/03/19 13:55 AB [id number]) PT-Bed Mobility Assessment Supine to Sit Supine to Sit Maximum Assistance Sit to Supine Sit to Supine Maximum Assistance PT-Transfer Assessment Sit to and From Stand Sit to and from Stand Maximum Assistance 1 Person Assistance Equipment Transfer Assistive Device Gait Belt Front Wheeled Walker Orthotic/Prosthetic Devices or Brace: No Transfers Transfer Destination Bed Chair Transfer Technique pt ambulated using FWW Transfer Ability Level of Assist Moderate Assistance 1 Person Assistance Use of Upper Extremities Comments Mobility Comments pt completed sit to stand max A and cues. pt ambulated towards the bed ~15 ft using FWW mod A and cues. completed bed mobility supine <>sit max A and cues. pt. requested to use the toilet and ambulated to the toilet using FWW ~ 25ft mod A and cues. pt wanted to sit on the toilet for a few minutes. left pt on the toilet with call light next to pt. Gait Assessment Gait Gait Assistance Required: Moderate Assistance 1 Person Assist Distance (Feet) 150 Able to Maintain Weight Bearing Status Yes During Gait Assistive Devices Assistive Device Gait Belt Front Wheeled Walker Orthotic/Prosthetic Devices or Brace: No Gait Deviations General Gait Pattern Antalgic Decreased Stride Length Decreased Feet Clearance Factors Limiting Gait Function Factors Limiting Gait Function Decreased Activity Tolerance Decreased Strength Pain Poor Balance PT-Balance Assessment Sitting Balance and Reactions Static Sitting Balance Ability Good Dynamic Sitting Balance Ability Good Standing Balance and Reactions Static Standing Balance Ability Fair Dynamic Standing Balance Ability Fair Device Used FWW M5 PT-IP Objective Assessments Start: 06/02/19 10:22 Freq: NEEDED Status: Active Protocol: Document 06/03/19 11:37 AB (Rec: 06/03/19 13:55 AB [id number]) Orientation Orientation/Cognition Level of Alertness Alert Orientation Name Age Birthday Month Date Year Day of Week Place Situation Language Function Ability No Deficits Noted Safety Awareness Understands Safety Issues Memory Description No Deficits Noted Gross Range of Motion Lower Extremity ROM Assessment Within Functional Limits Strength Lower Extremity Strength Assessment Left Impaired Knee 3-/5 Coordination Assessment Gross Coordination Gross Coordination WNL Muscle Tone Muscle Tone WNL Yes M6 PT-IP Treatment Start: 06/02/19 10:22 Freq: NEEDED Status: Active Protocol: Document 06/03/19 11:37 AB (Rec: 06/03/19 13:55 AB [id number]) Physical Therapy Treatment Exercises Exercises Quad Sets Heel Slides Education Education Provided Precautions Weight Bearing Status Post-Op Packet Safety M7 PT-IP Assessment and Plan Start: 06/02/19 10:22 Freq: NEEDED Status: Active Protocol: Document 06/03/19 11:37 AB (Rec: 06/03/19 13:55 AB [id number]) PT Summary Assessment and Plan Potential Rehabilitation Potential Fair Status of Condition at Evaluation Evolving Summary Impairments Pain ROM Strength Balance Coordination Sensation Tone Cognition Bed Mobility Transfers Gait Activity Tolerance Assessment Summary pt requiring mod to max A with mobility using FWW. pt will not have any assist at home as pt is the one taking care of his spouse. pt needs to be more independent before he can go home. Pt will benefit from SNF rehab. Goals Bed Mobility Goal Independent Transfer Goal Independent Front Wheeled Walker Gait Goal Independent Front Wheel Walker Gait Distance 150 Other Goals up/down 2 steps with L rail SBA Days to Meet Goals 10 Frequency of Treatment Frequency Of Treatment Once a Day Treatment Plan Physical Therapy Treatment Plan Bed Mobility Training Transfer Training Gait Training Therapeutic Exercise Balance Retraining Discharge Planning Neuromuscular Re-ed Coordination Retraining Other Recommendations and Next Treatment ambulation; sit <>stand Focus Recommendations To Nursing Amount of Assist Needed 1 Person Assist Discharge Recommendations PT Discharge Recommendations SNF Rehab Equipment Needed for Home Before FWW if pt goes home Discharge
--- NOTE | 2019-06-03 11:58 | DIET.PN ---
Dietary Progress Note Assessment: 69 yom admitted for cellulitis of the left leg. Consult request for Diabetes Education. Pt reports he does not follow any form of dietary restrictions at home. Recently moved to [place] in March and is living with his son and [id number]. HT: 177.8cm WT: 146kg BMI: 46.3 (obese class III) MNA: 14 Labs: B, 119, 122 Bili: 2.1 H A1c: 5.8 Nutrition Diagnosis: Altered nutrition related lab values r/t impared glucose metabolism aeb pt report lack of previous knowledge of dietary restrictions, DX diabetes. Interventions: 1. Provided diabetes education. Discussed effect of Carbs, Pro, and fat on glucose control. 2. Discussed recommended portion sizes and meal time consistency. 3. Pt agreed to try Terrell BID for wound healing. Monitoring/Evaluations: POC BG, weight, PO intake, Terrell tolerance
--- NOTE | 2019-06-03 14:20 | PM.PN.1 ---
Subjective Date Patient Seen: 06/03/19 Interval history: The patient is a 69-year-old male admitted to the hospital with severe sepsis, morbid obesity, left lower extremity cellulitis. Overall he feels like the cellulitis is improved. He has some loose stools but no janice diarrhea. Exam Vital Signs (past 8 hours): - 06/03/19 08:00 06/03/19 12:00 Temperature 98.3 F 98.0 F Pulse Rate 95 H 92 H Respiratory Rate 17 17 Blood Pressure 136/81 118/69 Pulse Oximetry 94 96 Oxygen Delivery Method Room Air Oxygen Flow Rate 0 Narrative Exam Narrative: Pleasant gentleman resting comfortably in no obvious distress Lungs: Clear to auscultation Cardiac exam irregularly irregular, normal S1-S2, 2/6 systolic ejection murmur Abdomen: Obese soft and nontender Extremities: Left lower extremity with significant edema and erythema tracking from the ankle up into the inner thigh. Pictures compared to exam today shows mild improvement in his left lower extremity cellulitis Objective Labs Result Diagrams: 06/03/19 02:30 06/03/19 02:30 Labs: Laboratory Results - last 24 hr 06/02/19 06/02/19 06/02/19 05:02 23:17 23:17 WBC 22.9 H RBC 4.91 Hgb 14.2 Hct 42.8 MCV 87.2 MCH 29.0 MCHC 33.3 RDW 15.0 H Plt Count 159 Neut % (Auto) 91.3 H Lymph % (Auto) 4.9 L [place] % (Auto) 3.4 Eos % (Auto) 0.1 L Baso % (Auto) 0.3 Neut # (Auto) 20257 H Lymph # (Auto) 1100 [place] # (Auto) 800 Eos # (Auto) 0 Baso # (Auto) 100 PT INR Sodium Potassium Chloride Carbon Dioxide BUN Creatinine Estimated GFR BUN/Creatinine Ratio Glucose Lactate Calcium Magnesium Total Bilirubin AST ALT Alkaline Phosphatase C-Reactive Protein 20.8 H Total Protein Albumin Globulin Albumin/Globulin Ratio Procalcitonin 4.10 H Vancomycin Trough 06/03/19 06/03/19 06/03/19 02:30 02:30 02:30 WBC 21.3 H RBC 4.82 Hgb 14.1 Hct 41.8 MCV 86.6 MCH 29.2 MCHC 33.7 RDW 15.0 H Plt Count 148 L Neut % (Auto) 90.6 H Lymph % (Auto) 4.8 L [place] % (Auto) 3.6 Eos % (Auto) 0.1 L Baso % (Auto) 0.9 Neut # (Auto) 13951 H Lymph # (Auto) 1000 L [place] # (Auto) 800 Eos # (Auto) 0 Baso # (Auto) 200 H PT INR Sodium Potassium Chloride Carbon Dioxide BUN Creatinine Estimated GFR BUN/Creatinine Ratio Glucose Lactate Calcium Magnesium Total Bilirubin AST ALT Alkaline Phosphatase C-Reactive Protein Total Protein Albumin Globulin Albumin/Globulin Ratio Procalcitonin 2.10 H Vancomycin Trough 7.8 L 06/03/19 06/03/19 06/03/19 02:30 02:30 02:30 WBC RBC Hgb Hct MCV MCH MCHC RDW Plt Count Neut % (Auto) Lymph % (Auto) [place] % (Auto) Eos % (Auto) Baso % (Auto) Neut # (Auto) Lymph # (Auto) [place] # (Auto) Eos # (Auto) Baso # (Auto) PT 27.9 H INR 2.4 H Sodium 133 L Potassium 3.2 L Chloride 101 Carbon Dioxide 22 BUN 16 Creatinine 0.80 Estimated GFR > 60.0 BUN/Creatinine Ratio 20.0 Glucose 122 H Lactate 1.2 Calcium 8.7 Magnesium 1.9 Total Bilirubin 2.0 H AST 27 ALT 24 Alkaline Phosphatase 99 C-Reactive Protein Total Protein 6.8 Albumin 3.2 L Globulin 3.6 Albumin/Globulin Ratio 0.9 L Procalcitonin Vancomycin Trough Assessment & Plan Assessment & Plan narrative: 1. Severe sepsis patient mid to the hospital with elevated heart rate, elevated white count significant cellulitis. His initial lactate was elevated 2.8. Lactate today his clear to 1.0. Will continue IV fluids and IV antibiotics. 2. Left lower extremity cellulitis. Patient is making significant improvement white count is still elevated at 21,000 one thousand. This does not appear to be an MRSA infection. Will discontinue vancomycin however continue Zosyn. 3. Chronic atrial fibrillation, present on admission, chronic, rate controlled. INR is within normal limits. Will hold Coumadin and resume tomorrow. 4. Hyponatremia. Will continue to follow 5. Hypokalemia, will replace 6. Hypertension, continue usual medication 7. Depression, continue antidepressant 8. Morbid obesity Quality VTE Deep Vein Thrombosis/Pulmonary Embolism Present on Admission: No
[2019-06-03] MEDS: POTASSIUM CHLORIDE 20 MEQ TAB 40 MEQ PO (14:44)
--- NOTE | 2019-06-03 14:46 | OT.IP.TRT ---
Current Diagnoses Sepsis, unspecified organism (06/01/19) Occupational Therapy Treatment Note M2 OT-IP Current Condition Start: 06/02/19 13:21 Freq: Status: Active Protocol: Document 06/02/19 14:22 CGR (Rec: 06/02/19 14:43 CGR [email or web address]) Occupational Therapy Current Condition Current Condition Evaluation Date 06/02/19 Treatment Diagnosis LLE cellulitis Weight Bearing Status Weight Bearing Status Full Weight Bearing M3 OT- IP Subjective and Pain Start: 06/02/19 13:21 Freq: Status: Active Protocol: Document 06/03/19 14:35 CGR (Rec: 06/03/19 14:46 CGR [email or web address]) OT- Subjective Occupational Therapy Visit Type Type Treatment Note Visit Start Time 09:55 Visit Stop Time 10:30 Total Visit Minutes 35 Occupational Therapy Visit Comments Patient Comments Pt states he already brushed his teeth but agreeable to getting to sink to wash up. OT Pain Assessment Pain When Pain Assessed At Rest Pain Present Pain Present Pain Reported Location Bilateral Leg Intensity 1 Scale Used Numeric (1 - 10) M4 OT- IP ADL's Start: 06/02/19 13:21 Freq: Status: Active Protocol: Document 06/03/19 14:35 CGR (Rec: 06/03/19 14:46 CGR [email or web address]) OT [id number] Comments OT Self-Feeding Comments Not meal time OT ADL-Grooming General Evaluation Grooming Ability Standby Assistance Areas Needing Assistance Face Washing Comments OT Grooming Comments seated at sink OT ADL-Oral Care Comments Oral Care Comments not performed, pt states performed earlier this AM. OT ADL-Dressing General Eval Upper Body Dressing Ability Standby Assistance Areas Needing Assistance Retrieving/Set-up of Clothing Button-Up Shirt/Blouse Comments OT Dressing Comments hospital gown after bathing at sink OT ADL-Toileting Comments OT Toileting Comments not performed in this session. OT ADL-Bathing Bathing Type Bathing Type Sponge Bath General Evaluation Bathing Ability Minimal Assistance Areas Needing Assistance Retrieving/Setting Up Items Wash/Dry Upper Body Wash/Dry Back Wash/Dry Lower Extremities Comments OT Bathing Comments pt sat in chair at sink to perform bathing. Per MD, hold on shower at this time. 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 M6 OT- IP Functional Cognition Start: 06/02/19 13:21 Freq: Status: Active Protocol: Document 06/02/19 14:22 CGR (Rec: 06/02/19 14:43 CGR [email or web address]) Cognitive Factors Limiting Selfcare Function Cognitive Ability Level of Alertness Alert Patient Orientation Name Age Birthday Month Date Year Day of Week Place Situation Attention Span Ability Capable of Focused Attention Ability to Follow Commands Able to Follow One Step Commands Memory Description No Deficits Noted Safety Awareness No Deficits Noted Problem Solving Ability No deficits Noted Cognitive Comments Cognitive Assessment Comments May benefit from formal assessment given delayed responses in todays session but appears to be at baseline. OT- Vision and Hearing OT- Hearing Assessment OT- Hearing Assessment WFL OT- Vision Assessment Visual Acuity Glasses For Reading Visual Attentiveness WFL Occular Pursuits WFL Visual Convergence WFL Visual Mason WFL M7 OT- IP Mobility and Balance Start: 06/02/19 13:21 Freq: Status: Active Protocol: Document 06/03/19 14:35 CGR (Rec: 06/03/19 14:46 CGR [email or web address]) OT-Transfer Assessment Sit to and From Stand Sit to and from Stand Standby Assistance Transfers Transfer Ability Standby Assistance Technique Transfer Destination Chair Transfer Technique Stand Step Pivot Devices Transfer Assistive Devices Gait Belt Front Wheeled Walker OT- Gait Assessment Gait Gait Assistance Required: Standby Assistance Assistive Devices Assistive Device Gait Belt Front Wheeled Walker Comments Gait Ability Comments Pt stood and ambulated to sink then requested to sit in chair for ADLs. Pt then stood and ambualted back to where the chair was. OT- Balance Assessment Sitting Balance and Reactions Static Sitting Balance Ability Normal Dynamic Sitting Balance Ability Normal Standing Balance and Reactions Static Standing Balance Ability Good Dynamic Standing Balance Ability Good M8 OT- IP Objective Assessments Start: 06/02/19 13:21 Freq: Status: Active Protocol: Document 06/02/19 14:22 CGR (Rec: 06/02/19 14:43 CGR [email or web address]) OT Gross Range of Motion Upper Extremity Range of Motion Assessment Within Functional Limits OT Strength Upper Extremity Strength Assessment Within Functional Limits Comments Strength Comments Grossly 4+/5 throughout OT- Coordination Assessment Upper Extremity Finger to Nose Test Within Functional Limits Finger Tapping Test Within Functional Limits OT-Muscle Tone Assessment Muscle Tone WNL Yes OT Sensation Assessment Comments Summary Comments No deficits noted Edema Edema Present Edema Comments to LLE M9 OT- IP Assessment and Plan Start: 06/02/19 13:21 Freq: Status: Active Protocol: Document 06/03/19 14:35 CGR (Rec: 06/03/19 14:46 CGR [email or web address]) OT Summary Assessment and Plan Potential Rehabilitation Potential Excellent Analytic Complexity at Evaluation Low Summary OT Impairments Pain Balance Functional Mobility Grooming Dressing Toileting Bathing Toilet Transfers Shower Transfers Progress Towards Goals Progressing Toward Goals Assessment Summary Pt presents with LLE cellulites which is impairing his ability to perform ADLs. Pt has less pain today. Will continue to benefit from OT services. Goals Grooming Goal Independent Dressing Goal Independent Toileting Goal Independent Bathing Goal Independent Toilet Transfer Goal Independent Shower Transfer Goal Independent Days to Meet Goals 4 Frequency of Treatment Frequency Of Treatment Once a Day Treatment Plan OT Treatment Plan ADL Training Functional Mobility Patient/Family Education Discharge Planning Other Treatment Recommendations and Next Shower if oked by MD and ADLs Treatment Focus standing at sink. Discharge Recommendations OT Discharge Recommendations Home SNF Rehab Other Discharge Recommendations SNF vs home depending on functional abilities. Pt is the fulltime caregiver for his .
[2019-06-03] MEDS: VANCOMYCIN 2,000 MG in SODIUM CHLORIDE 0.9% 500 ML 250 ML IV (15:23)
[2019-06-03] MEDS: SERTRALINE 25 MG TABLET PO (20:15)
[2019-06-04] VITALS (7 sets, daily range): BP systolic 123–143; BP diastolic 67–92; PULSE 90–121; RESP 16–20; TEMP 36.8–37.1; O2SAT 91–97
--- NOTE | 2019-06-04 00:20 | PC.NURSE ---
Addendum entered by Mary Saez R.N. 06/04/19 06:50: Up to chair with 1 assist + walker. Minimal drainage from left LE overnight. Bed rezeroed and is now up only 4.5kg from admission but only up 0.5kg from yesterday's weight. Addendum entered by Mary Saez R.N. 06/04/19 06:28: Noted weight to be up 6.5kg from admission but per [employer] now has trapeze on bed so will need to rezero bed next time patient gets up and reweigh. Addendum entered by Mary Saez R.N. 06/04/19 06:08: Slept at intervals. Continues to decline pain medication stating leg only hurts when it's touched. BP not as elevated this morning at 133/83. No further stools this shift. Original Note: Patient is alert and oriented. Breath sounds diminished but CTA with RA sat of 96%. HR irregular with hx of afib. Telemetry reading was afib RVR with rate of 101 at 0000 and HR is 111 after being up to bathroom. SBP elevated at 150. Denies nausea. BT present and had watery stool; patient states MD is aware. Denies dysuria, frequency or urgency and is continent of urine. Able to turn self in bed. When out of bed uses walker and 1 assist due to weakness in left LE. 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 Left LE is erythematous with lower leg being dark red and medial thigh being pink but appears to be staying within previously drawn markings. Has 2 spots on medial aspect of lower leg one of which is draining serous drainage. Does have 3+ edema in left LE. CMS is intact. Denies pain except when leg is touched or when walking; declines offer of pain medicaton. Ice applied as per MD order and leg is elevated on several pillows. Fall risk score is high and bed alarm is activated.
[2019-06-04] MEDS: VANCOMYCIN 2,000 MG in SODIUM CHLORIDE 0.9% 500 ML 250 ML IV (03:22)
[2019-06-04] MEDS: SODIUM CHLORIDE 0.9% FLUSH 10 ML IV ×4 (03:22→20:33)
[2019-06-04 05:29] LABS: Add Manual Diff / Slide Review NO; Basophils Absolute Auto 100 /uL (0-100); Basophils Percent Auto 0.7 % (0-2); Eosinophils Absolute Auto 100 /uL (0-450); Eosinophils Percent Auto 0.6 % (2-4); Hematocrit 40.8 % (41-53); Hemoglobin 13.4 g/dL (13.5-17.5); Lymphocytes Absolute Auto 900 /uL (1100-4500); Lymphocytes Percent Auto 6.5 % (25-40); Mean Corpuscular HGB Conc 32.9 % (30-36); Mean Corpuscular Hemoglobin 28.9 PG (26-34); Mean Corpuscular Volume 87.7 fL (80-100); Monocytes Absolute Auto 700 /uL (0-900); Monocytes Percent Auto 5.2 % (3-14); Neutrophils Absolute Auto 12500 /uL (1500-7000); Platelet Count 159 X10^3/uL (150-400); Red Blood Cell Count 4.65 X10^6/uL (4.5-5.9); Red Cell Distribution Width 15.1 % (11.6-14.8); White Blood Cell Count 14.4 X10^3/uL (4.5-11.0)
[2019-06-04 05:37] LABS: INR 1.9 (0.9-1.3); Prothrombin Time 21.8 SECONDS (10.1-12.7)
[2019-06-04 05:43] LABS: BUN Creatinine Ratio 21.4 (6-22); Blood Urea Nitrogen 15 mg/dL (9-20); Calcium 8.3 mg/dL (8.4-10.2); Carbon Dioxide 24 mmol/L (22-32); Chloride 103 mmol/L (98-107); Estimated Glomerular Filt Rate > 60.0 mL/min (>60); Glucose 97 mg/dL (80-110); HEMOLYSIS < 15 (0-50); Potassium 3.4 mmol/L (3.4-5.1); Sodium 135 mmol/L (137-145)
[2019-06-04] MEDS: PIPERACILLIN-TAZO 3.375 GM/50 ML FROZ.PIGGY IV ×3 (07:58→23:08)
[2019-06-04] MEDS: METOPROLOL IR 50 MG TABLET 100 MG PO ×2 (08:09→20:32)
[2019-06-04] MEDS: AMLODIPINE 5 MG TABLET PO (08:09)
--- NOTE | 2019-06-04 11:01 | PM.PN.1 ---
Subjective Date Patient Seen: 06/04/19 Interval history: Patient reports some loose stool last night. He notes some swelling of the left foot. He had a couple blisters on the lower extremity which were unroof to by surgery today. Overall the redness and degree of induration of the rash has improved. Exam Vital Signs (past 8 hours): - 06/04/19 04:00 06/04/19 09:00 Temperature 98.3 F 98.7 F Pulse Rate 102 H 121 H Respiratory Rate 18 18 Blood Pressure 133/83 141/92 H Pulse Oximetry 91 95 Oxygen Delivery Method Room Air Oxygen Flow Rate 0 Narrative Exam Narrative: Patient is resting comfortably without any acute distress Lungs: Clear to auscultation Cardiac: Irregular normal S1-S2 Abdomen: Soft nontender nondistended Extremities: Left leg with decreasing erythema, no, 2 to 3+ edema overall improved Objective Labs Result Diagrams: 06/04/19 05:10 06/04/19 05:10 Labs: Laboratory Results - last 24 hr 06/04/19 06/04/19 06/04/19 05:10 05:10 05:10 WBC 14.4 H RBC 4.65 Hgb 13.4 L Hct 40.8 L MCV 87.7 MCH 28.9 MCHC 32.9 RDW 15.1 H Plt Count 159 Neut % (Auto) 87.0 H Lymph % (Auto) 6.5 L [place] % (Auto) 5.2 Eos % (Auto) 0.6 L Baso % (Auto) 0.7 Neut # (Auto) 12589 H Lymph # (Auto) 900 L [place] # (Auto) 700 Eos # (Auto) 100 Baso # (Auto) 100 PT 21.8 H D INR 1.9 H Sodium 135 L Potassium 3.4 Chloride 103 Carbon Dioxide 24 BUN 15 Creatinine 0.70 Estimated GFR > 60.0 BUN/Creatinine Ratio 21.4 Glucose 97 Calcium 8.3 L Assessment & Plan Assessment & Plan narrative: Assessment & Plan narrative: 1. Severe sepsis patient mid to the hospital with elevated heart rate, elevated white count significant cellulitis. His initial lactate was elevated 2.8. Lactate today his clear to 1.0. Will continue IV fluids and IV antibiotics. 2. Left lower extremity cellulitis. Patient is making significant improvement white count is still elevated at 21,000 one thousand. This does not appear to be an MRSA infection. Will discontinue vancomycin however continue Zosyn. Culture wound today. 3. Chronic atrial fibrillation, present on admission, chronic, rate controlled. INR is within normal limits. Will hold Coumadin and resume tomorrow. 4. Hyponatremia. Will continue to follow 5. Hypokalemia, will replace 6. Hypertension, continue usual medication 7. Depression, continue antidepressant 8. Morbid obesity Quality VTE Deep Vein Thrombosis/Pulmonary Embolism Present on Admission: No
--- NOTE | 2019-06-04 12:12 | PT.IPTN ---
Current Diagnoses Sepsis, unspecified organism (06/01/19) Physical Therapy Treatment Note M2 PT-IP Current Condition Start: 06/02/19 10:22 Freq: NEEDED Status: Active Protocol: Document 06/03/19 11:37 AB (Rec: 06/03/19 13:55 AB [id number]) Physical Therapy Current Condition Current Condition Evaluation Date 06/03/19 Treatment Diagnosis sepsis; L leg cellulitis; difficulty in walking Onset Date 06/01/19 M3 PT-IP Subjective Start: 06/02/19 10:22 Freq: NEEDED Status: Active Protocol: Document 06/04/19 11:45 HH (Rec: 06/04/19 12:12 HH [email or web address]) Subjective Physical Therapy Visit Type Type Treatment Note Visit Start Time 11:45 Visit Stop Time 12:00 Total Visit Minutes 15 Number of GOSPEL SINGER Visits 0 Physical Therapy Visit Comments Patient Comments pt agreeable to do PT Therapy Pain Assessment Pain When Pain Assessed During Mobility Pain Present Pain Present Pain Reported Location Bilateral Leg Intensity 8 Scale Used c/o pain with mobility; pain scale not stated Pain Management Techniques Timing of Activity with Medications M4 PT-IP Mobility and Gait Start: 06/02/19 10:22 Freq: NEEDED Status: Active Protocol: Document 06/04/19 11:45 HH (Rec: 06/04/19 12:12 [id number]) PT-Bed Mobility Assessment Rolling Type of Rolling Roll to Left Supine to Sit Supine to Sit Contact Guard Assistance Bedrails Sit to Supine Sit to Supine Contact Guard Assistance Bedrails Scooting Scooting to Edge of Bed Contact Guard Assistance PT-Transfer Assessment Sit to and From Stand Sit to and from Stand Contact Guard Assistance Use of Upper Extremities Equipment Transfer Assistive Device Front Wheeled Walker Transfers Transfer Destination Bed Chair Transfer Technique pt ambulated using FWW Transfer Ability Level of Assist Minimal Assistance 1 Person Assistance Use of Upper Extremities Comments Mobility Comments Pt used trapeze for bed mobility with CGA. Able to supine to sit from flattened bed. Pt refused to use gait belt this session. He used FWW and PT's assistance to stabilize FWW for him to pull to stand. Gait Assessment Gait Gait Assistance Required: Contact Guard Assist Distance (Feet) 150 Able to Maintain Weight Bearing Status Yes During Gait Assistive Devices Assistive Device Front Wheeled Walker Orthotic/Prosthetic Devices or Brace: No Gait Deviations General Gait Pattern Antalgic Decreased Stride Length Decreased Feet Clearance Factors Limiting Gait Function Factors Limiting Gait Function Decreased Activity Tolerance Decreased Strength Pain Poor Balance Comments Gait Comments step to gait PT-Balance Assessment Sitting Balance and Reactions Static Sitting Balance Ability Good Dynamic Sitting Balance Ability Good Standing Balance and Reactions Static Standing Balance Ability Fair Dynamic Standing Balance Ability Fair Device Used FWW M5 PT-IP Objective Assessments Start: 06/02/19 10:22 Freq: NEEDED Status: Active Protocol: Document 06/03/19 11:37 AB (Rec: 06/03/19 13:55 AB [id number]) Orientation Orientation/Cognition Level of Alertness Alert Orientation Name Age Birthday Month Date Year Day of Week Place Situation Language Function Ability No Deficits Noted Safety Awareness Understands Safety Issues Memory Description No Deficits Noted Gross Range of Motion Lower Extremity ROM Assessment Within Functional Limits Strength Lower Extremity Strength Assessment Left Impaired Knee 3-/5 Coordination Assessment Gross Coordination Gross Coordination WNL Muscle Tone Muscle Tone WNL Yes M6 PT-IP Treatment Start: 06/02/19 10:22 Freq: NEEDED Status: Active Protocol: Document 06/03/19 11:37 AB (Rec: 06/03/19 13:55 AB [id number]) Physical Therapy Treatment Exercises Exercises Quad Sets Heel Slides Education Education Provided Precautions Weight Bearing Status Post-Op Packet Safety M7 PT-IP Assessment and Plan Start: 06/02/19 10:22 Freq: NEEDED Status: Active Protocol: Document 06/04/19 11:45 HH (Rec: 06/04/19 12:12 HH [id number]) PT Summary Assessment and Plan Potential Rehabilitation Potential Fair Status of Condition at Evaluation Evolving Summary Impairments Pain ROM Strength Balance Coordination Sensation Tone Cognition Bed Mobility Transfers Gait Activity Tolerance Assessment Summary pt was able to perform bed mob with CGA, trapeze and bed rails today. Sit to stand with mod to max A, and CGA for gait training. Recommended pt for SNF rehab due to his current mobility and lack of DME at home. Goals Bed Mobility Goal Independent Transfer Goal Independent Front Wheeled Walker Gait Goal Independent Front Wheel Walker Gait Distance 150 Other Goals up/down 2 steps with L rail SBA Days to Meet Goals 10 Frequency of Treatment Frequency Of Treatment Once a Day Treatment Plan Physical Therapy Treatment Plan Bed Mobility Training Transfer Training Gait Training Therapeutic Exercise Balance Retraining Discharge Planning Neuromuscular Re-ed Coordination Retraining Other Recommendations and Next Treatment ambulation; sit <>stand Focus Recommendations To Nursing Amount of Assist Needed 1 Person Assist Discharge Recommendations PT Discharge Recommendations SNF Rehab Equipment Needed for Home Before FWW if pt goes home Discharge
--- NOTE | 2019-06-04 13:47 | OT.IP.TRT ---
Current Diagnoses Sepsis, unspecified organism (06/01/19) Occupational Therapy Treatment Note M2 OT-IP Current Condition Start: 06/02/19 13:21 Freq: Status: Active Protocol: Document 06/02/19 14:22 CGR (Rec: 06/02/19 14:43 CGR [email or web address]) Occupational Therapy Current Condition Current Condition Evaluation Date 06/02/19 Treatment Diagnosis LLE cellulitis Weight Bearing Status Weight Bearing Status Full Weight Bearing M3 OT- IP Subjective and Pain Start: 06/02/19 13:21 Freq: Status: Active Protocol: Document 06/04/19 13:47 PJM (Rec: 06/04/19 17:53 PJM [id number]) OT- Subjective Occupational Therapy Visit Type Type Treatment Note Visit Start Time 13:10 Visit Stop Time 13:47 Total Visit Minutes 37 Occupational Therapy Visit Comments Patient Comments I am not sure I can manage everything I need to do to help my at home. Patient/Caregiver Goals to return home when stronger OT Pain Assessment Pain When Pain Assessed After Treatment Pain Present Pain Present Denied Pain M4 OT- IP ADL's Start: 06/02/19 13:21 Freq: Status: Active Protocol: Document 06/04/19 13:47 PJM (Rec: 06/04/19 17:53 PJM [id number]) OT [id number] General Evaluation Self-Feeding Ability Independent OT ADL-Dressing General Eval Upper Body Dressing Ability Independent Lower Body Dressing Ability Maximum Assistance Areas Needing Assistance Socks Shoes Assistive Devices Dressing Assistive Devices Long Handled Shoe [facility] Sock Aid Comments OT Dressing Comments Provided education re: use of financial institution treasurer and sock aid for lower body dressing as needed due to current LLE pain, edema. Pt has financial institution treasurer and long shoe horn. He will need wide sock aid and further practice for independence. Family to bring in pt's own clothing later today. OT ADL-Bathing Devices Bathing Equipment Hand Held Shower Sprayer Shower Chair without Arms Tub Transfer Bench Grab Bars Comments OT Bathing Comments Provided pt education re: bathroom safety equipment options and resources. He cannot recall whether there is a grab bar by toilet at home. 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 and needs to be able to physically assist his with dressing M9 OT- IP Assessment and Plan Start: 06/02/19 13:21 Freq: Status: Active Protocol: Document 06/04/19 13:47 PJM (Rec: 06/04/19 17:53 PJM [email or web address]) OT Summary Assessment and Plan Potential Rehabilitation Potential Good Summary OT Impairments Strength Balance Functional Mobility Dressing Toileting Bathing Toilet Transfers Shower Transfers Progress Towards Goals Slow Progress due to Medical Issues Assessment Summary Pt presents with low activity tolerance and reports that he never feels rested at home due to need to get up with for at least 1 hour every night due to her toileting needs. He provides at least verbal cuing to for all self care tasks and some physical assist with dressing. Pt will benefit from use of adaptive equipment to increase ease and independence with lower body dressing and also recommend tub seat vs transfer tub bench pending progress with mobility here. Pt not safe to return home alone or with (she is currently staying with her son) due to her high care needs. Recommend short term rehab at SNF to increase endurance, independence and safety in basic self care and functional mobility prior to pt's return home where he has high caregiver burden. Goals Grooming Goal Independent Dressing Goal Independent Toileting Goal Independent Bathing Goal Independent Toilet Transfer Goal Independent Shower Transfer Goal Independent Days to Meet Goals 4 Frequency of Treatment Frequency Of Treatment Once a Day Treatment Plan OT Treatment Plan ADL Training Functional Mobility Patient/Family Education Discharge Planning Discharge Recommendations OT Discharge Recommendations SNF Rehab Other Discharge Recommendations Pt not able to care for himself independently at this time. Home Equipment Needs wide sock aid, tub seat
--- NOTE | 2019-06-04 18:52 | P.PN_ITS ---
Subjective Date Patient Seen: 06/04/19 Time Patient Seen: 09:00 Interval history: Patient continues to feel improved His left leg still with pain but markedly improved over prior days Tolerating diet without difficulty Exam Vital Signs (past 8 hours): - 06/04/19 15:00 06/04/19 15:12 Temperature 98.3 F Pulse Rate 90 Respiratory Rate 18 Blood Pressure 134/67 Pulse Oximetry 97 94 Oxygen Delivery Method Room Air Oxygen Flow Rate 0 Narrative Exam Narrative: Erythema of the left leg becoming less pronounced overall, much less tender, erythematous streaks up left thigh nearly resolved Two small areas on medial aspect of leg-unroof with small amount of purulence underneath Objective Labs Result Diagrams: 06/04/19 05:10 06/04/19 05:10 Labs: Laboratory Results - last 24 hr 06/04/19 06/04/19 06/04/19 05:10 05:10 05:10 WBC 14.4 H RBC 4.65 Hgb 13.4 L Hct 40.8 L MCV 87.7 MCH 28.9 MCHC 32.9 RDW 15.1 H Plt Count 159 Neut % (Auto) 87.0 H Lymph % (Auto) 6.5 L Charles % (Auto) 5.2 Eos % (Auto) 0.6 L Baso % (Auto) 0.7 Neut # (Auto) 29578 H Lymph # (Auto) 900 L Charles # (Auto) 700 Eos # (Auto) 100 Baso # (Auto) 100 PT 21.8 H D INR 1.9 H Sodium 135 L Potassium 3.4 Chloride 103 Carbon Dioxide 24 BUN 15 Creatinine 0.70 Estimated GFR > 60.0 BUN/Creatinine Ratio 21.4 Glucose 97 Calcium 8.3 L Assessment & Plan Assessment & Plan narrative: 69-year-old man with severe but improving cellulitis of the left lower extremity. White blood cell count significantly improved today. No concern for necrotizing soft tissue infection Two small abscess cavities can be covered -with dry gauze until the granulate closed. Quite small Would consider compression Abhishek wraps to left lower extremity -would assist with infection clearance given underlining of venous stasis General surgery will sign off Quality VTE Deep Vein Thrombosis/Pulmonary Embolism Present on Admission: No
[2019-06-04] MEDS: SERTRALINE 25 MG TABLET PO (20:32)
[2019-06-05] VITALS (9 sets, daily range): BP systolic 123–149; BP diastolic 79–105; PULSE 89–131; RESP 16–20; TEMP 36.3–36.9; O2SAT 92–96
--- NOTE | 2019-06-05 04:04 | PC.NURSE ---
Research Instructor Note: 0000: Sleeping; respirations unlabored. Not disturbed at this time. 0100: Awake, vital signs stable. IV in place in rt AC. Lt leg elevated on pillow. Redness is within the ink margin.
[2019-06-05 06:07] LABS: Add Manual Diff / Slide Review NO; Basophils Absolute Auto 100 /uL (0-100); Basophils Percent Auto 0.5 % (0-2); Eosinophils Absolute Auto 100 /uL (0-450); Eosinophils Percent Auto 1.1 % (2-4); Hematocrit 40.7 % (41-53); Hemoglobin 13.7 g/dL (13.5-17.5); INR 1.6 (0.9-1.3); Lymphocytes Absolute Auto 900 /uL (1100-4500); Mean Corpuscular HGB Conc 33.7 % (30-36); Mean Corpuscular Hemoglobin 29.4 PG (26-34); Mean Corpuscular Volume 87.3 fL (80-100); Monocytes Absolute Auto 800 /uL (0-900); Neutrophils Absolute Auto 9300 /uL (1500-7000); Neutrophils Percent Auto 83.4 % (50-75); Platelet Count 189 X10^3/uL (150-400); Prothrombin Time 18.4 SECONDS (10.1-12.7); Red Blood Cell Count 4.67 X10^6/uL (4.5-5.9); Red Cell Distribution Width 15.3 % (11.6-14.8); White Blood Cell Count 11.1 X10^3/uL (4.5-11.0)
[2019-06-05] MEDS: AMLODIPINE 5 MG TABLET PO (08:16)
[2019-06-05] MEDS: METOPROLOL IR 50 MG TABLET 100 MG PO ×2 (08:17→20:21)
[2019-06-05] MEDS: PIPERACILLIN-TAZO 3.375 GM/50 ML FROZ.PIGGY IV ×2 (08:37→15:53)
--- NOTE | 2019-06-05 09:09 | P.PN_ITS ---
Subjective Date Patient Seen: 06/05/19 Interval history: Patient is a 69-year-old male admitted to the hospital with left lower extremity cellulitis. He had unroofing of 1 of these small abscesses on the left side of the leg. The preliminary cultures are growing Staph aureus. The patient has been treated with zoxyn initially and vancomycin which was discontinued. Will await final culture and this is MSSA will start him on Ancef. The patient denies any diarrhea. He denies any shortness of breath or abdominal pain. He continues to have some pain in the left lower extremity. Exam Vital Signs (past 8 hours): - 06/05/19 03:00 06/05/19 04:15 06/05/19 04:48 Temperature 98.4 F Pulse Rate 89 Respiratory Rate 16 Blood Pressure 148/88 H Pulse Oximetry 93 96 93 Oxygen Delivery Method Room Air Oxygen Flow Rate 0 Narrative Exam Narrative: Pleasant gentleman in no acute distress Lungs: Clear to auscultation Cardiac exam: Irregularly irregular normal S1-S2 Abdomen: Soft and nontender nondistended without hepatosplenomegaly Extremities: Left leg with decreasing erythema, still warmth anteriorly, no drainage from the wounds. There is still a demarcated area of erythema on the anterior chacon. It is decreasing on the upper inner thigh. There is still 2 to 3+ edema. Objective Labs Result Diagrams: 06/05/19 05:42 06/04/19 05:10 Labs: Laboratory Results - last 24 hr 06/05/19 06/05/19 05:42 05:42 WBC 11.1 H RBC 4.67 Hgb 13.7 Hct 40.7 L MCV 87.3 MCH 29.4 MCHC 33.7 RDW 15.3 H Plt Count 189 Neut % (Auto) 83.4 H Lymph % (Auto) 8.0 L Carolina % (Auto) 7.0 Eos % (Auto) 1.1 L Baso % (Auto) 0.5 Neut # (Auto) 9300 H Lymph # (Auto) 900 L Carolina # (Auto) 800 Eos # (Auto) 100 Baso # (Auto) 100 PT 18.4 H INR 1.6 H Assessment & Plan Assessment & Plan narrative: Assessment & Plan narrative: Assessment & Plan narrative: 1. Severe sepsis patient mid to the hospital with elevated heart rate, elevated white count significant cellulitis. His initial lactate was e levated 2.8. Lactate today his clear to 1.0. Will continue IV fluids and IV antibiotics. 2. Left lower extremity cellulitis. Patient is making significant improvement white count is still elevated at 21,000 one thousand. This does not appear to be an MRSA infection. Will discontinue vancomycin however continue Zosyn. Culture wound today. Wound culture growing Staph aureus. Will await final identification. If MSSA will add Ancef. Will apply compression dressings to the lower extremity given significant venous stasis bilaterally. 3. Chronic atrial fibrillation, present on admission, chronic, rate controlled. INR is within normal limits. Will hold Coumadin and resume tomorrow. 4. Hyponatremia. Will continue to follow, resolved 5. Hypokalemia, will replace, resolved 6. Hypertension, continue usual medication 7. Depression, continue antidepressant 8. Morbid obesity Anticipate patient will be able to switch to oral antibiotics and be discharged in 1-2 days. Quality VTE Deep Vein Thrombosis/Pulmonary Embolism Present on Admission: No
[2019-06-05] MEDS: VANCOMYCIN 2,000 MG in SODIUM CHLORIDE 0.9% 500 ML 250 ML IV ×2 (10:46→21:28)
[2019-06-05] MEDS: SODIUM CHLORIDE 0.9% FLUSH 10 ML IV ×2 (10:47→21:31)
--- NOTE | 2019-06-05 11:37 | PT.IPTN ---
Current Diagnoses Sepsis, unspecified organism (06/01/19) Physical Therapy Treatment Note M2 PT-IP Current Condition Start: 06/02/19 10:22 Freq: NEEDED Status: Active Protocol: Document 06/03/19 11:37 AB (Rec: 06/03/19 13:55 AB [id number]) Physical Therapy Current Condition Current Condition Evaluation Date 06/03/19 Treatment Diagnosis sepsis; L leg cellulitis; difficulty in walking Onset Date 06/01/19 M3 PT-IP Subjective Start: 06/02/19 10:22 Freq: NEEDED Status: Active Protocol: Document 06/05/19 10:40 HH (Rec: 06/05/19 11:34 HH [id number]) Subjective Physical Therapy Visit Type Type Treatment Note Visit Start Time 10:40 Visit Stop Time 11:05 Total Visit Minutes 25 Notes pt's son rashmi presents first 5 mins of tx session. 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 Physical Therapy Visit Comments Patient Comments pt agreeable to do PT Therapy Pain Assessment Pain When Pain Assessed During Mobility Pain Present Pain Present Pain Reported Location Bilateral Leg Intensity 6 Scale Used c/o pain with mobility; pain scale not stated Pain Management Techniques Timing of Activity with Medications M4 PT-IP Mobility and Gait Start: 06/02/19 10:22 Freq: NEEDED Status: Active Protocol: Document 06/05/19 10:40 HH (Rec: 06/05/19 11:34 HH [id number]) PT-Bed Mobility Assessment Rolling Type of Rolling Log Rolling Roll to Left Supine to Sit Supine to Sit Contact Guard Assistance Bedrails Sit to Supine Sit to Supine Contact Guard Assistance Bedrails Scooting Scooting to Edge of Bed Contact Guard Assistance PT-Transfer Assessment Sit to and From Stand Sit to and from Stand Contact Guard Assistance Use of Upper Extremities Equipment Transfer Assistive Device Front Wheeled Walker Orthotic/Prosthetic Devices or Brace: No Transfers Transfer Destination Bed Chair Toilet Transfer Technique pt ambulated using FWW Transfer Ability Level of Assist Standby Assistance Contact Guard Assistance 1 Person Assistance Use of Upper Extremities Comments Mobility Comments Pt used trapeze for bed mobility with CGA. Pt did faster than last session. Able to supine to sit from flattened bed. Pt cont refused to use gait belt this session . Insturcted pt to use support from bed and walker for sit to stand. He was then able to transfer CGA afterwards. Pt also used grab bar in the bathroom for transfers with SBA Gait Assessment Gait Gait Assistance Required: Standby Assistance Distance (Feet) 220 Able to Maintain Weight Bearing Status Yes During Gait Assistive Devices Assistive Device Front Wheeled Walker Orthotic/Prosthetic Devices or Brace: No Gait Deviations General Gait Pattern Antalgic Decreased Stride Length Decreased Feet Clearance Factors Limiting Gait Function Factors Limiting Gait Function Decreased Activity Tolerance Decreased Strength Pain Poor Balance Comments Gait Comments step to <-> step over gait M5 PT-IP Objective Assessments Start: 06/02/19 10:22 Freq: NEEDED Status: Active Protocol: Document 06/03/19 11:37 AB (Rec: 06/03/19 13:55 AB [id number]) Orientation Orientation/Cognition Level of Alertness Alert Orientation Name Age Birthday Month Date Year Day of Week Place Situation Language Function Ability No Deficits Noted Safety Awareness Understands Safety Issues Memory Description No Deficits Noted Gross Range of Motion Lower Extremity ROM Assessment Within Functional Limits Strength Lower Extremity Strength Assessment Left Impaired Knee 3-/5 Coordination Assessment Gross Coordination Gross Coordination WNL Muscle Tone Muscle Tone WNL Yes M6 PT-IP Treatment Start: 06/02/19 10:22 Freq: NEEDED Status: Active Protocol: Document 06/03/19 11:37 AB (Rec: 06/03/19 13:55 AB [id number]) Physical Therapy Treatment Exercises Exercises Quad Sets Heel Slides Education Education Provided Precautions Weight Bearing Status Post-Op Packet Safety M7 PT-IP Assessment and Plan Start: 06/02/19 10:22 Freq: NEEDED Status: Active Protocol: Document 06/05/19 10:40 HH (Rec: 06/05/19 11:37 HH [id number]) PT Summary Assessment and Plan Potential Rehabilitation Potential Good Status of Condition at Evaluation Evolving Summary Impairments Pain ROM Strength Balance Coordination Sensation Tone Cognition Bed Mobility Transfers Gait Activity Tolerance Assessment Summary Pt cont to improve with activity tolerance. Was able to perform bed mob and transfers with CGA/ SBA. Amb ~ 200 ft with improved step length and speed. However, cont to recommend pt to have short term reahb at SNF to increase endurance, independence in functional mobility prior to pt's return home where he has high CG burden Goals Bed Mobility Goal Independent Transfer Goal Independent Front Wheeled Walker Gait Goal Independent Front Wheel Walker Gait Distance 500 Other Goals up/down 2 steps with L rail SBA Days to Meet Goals 10 Frequency of Treatment Frequency Of Treatment Once a Day Treatment Plan Physical Therapy Treatment Plan Bed Mobility Training Transfer Training Gait Training Therapeutic Exercise Balance Retraining Discharge Planning Neuromuscular Re-ed Coordination Retraining Other Recommendations and Next Treatment stair climbing Focus sambulation; sit <>stand Recommendations To Nursing Amount of Assist Needed 1 Person Assist Discharge Recommendations PT Discharge Recommendations SNF Rehab Equipment Needed for Home Before FWW if pt goes home Discharge tub seat
[2019-06-05] MEDS: ACETAMINOPHEN 325 MG TABLET 650 MG PO (12:10)
--- NOTE | 2019-06-05 15:30 | OT.IP.TRT ---
Current Diagnoses Sepsis, unspecified organism (06/01/19) Occupational Therapy Treatment Note M2 OT-IP Current Condition Start: 06/02/19 13:21 Freq: Status: Active Protocol: Document 06/02/19 14:22 CGR (Rec: 06/02/19 14:43 CGR [id number]) Occupational Therapy Current Condition Current Condition Evaluation Date 06/02/19 Treatment Diagnosis LLE cellulitis Weight Bearing Status Weight Bearing Status Full Weight Bearing M3 OT- IP Subjective and Pain Start: 06/02/19 13:21 Freq: Status: Active Protocol: Document 06/05/19 15:30 PJM (Rec: 06/05/19 16:53 PJM [email or web address]) OT- Subjective Occupational Therapy Visit Type Type Treatment Note Visit Start Time 15:12 Visit Stop Time 15:30 Total Visit Minutes 18 Notes Pt's daughter in law, granddaughter, and here this session. Occupational Therapy Visit Comments Patient Comments I am about the same. Patient/Caregiver Goals to get stronger before going home OT Pain Assessment Pain When Pain Assessed After Treatment Pain Present Pain Present Pain Reported FLACC Pain Scale Face No particular expression Legs Normal position; relaxed Activity Quiet, moves easily Cry No cry (awake or asleep) Consolability Reassurable with touch FLACC Total 1 Location Bilateral Leg Scale Used pt does not rate on 10 pt scale M4 OT- IP ADL's Start: 06/02/19 13:21 Freq: Status: Active Protocol: Document 06/05/19 15:30 PJM (Rec: 06/05/19 16:53 PJM [id number]) OT ADL-Dressing General Eval Lower Body Dressing Ability Moderate Assistance Areas Needing Assistance Socks Comments OT Dressing Comments Wide sock aid does work with width of pt's foot. Written ordering information provide to pt and family. Modified pt's hospital socks to decrease pressure areas around swollen feet. Pt's slippers from home causing significant pressure area across top of foot, especially on more swollen L foot. 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 OT- Gait Assessment Comments Gait Ability Comments Pt declined any mobility this session due to company present . M9 OT- IP Assessment and Plan Start: 06/02/19 13:21 Freq: Status: Active Protocol: Document 06/05/19 15:30 PJM (Rec: 06/05/19 16:53 PJM [email or web address]) OT Summary Assessment and Plan Potential Rehabilitation Potential Good Summary OT Impairments Pain Functional Mobility Dressing Toileting Bathing Toilet Transfers Shower Transfers Progress Towards Goals Progressing Toward Goals Assessment Summary Pt will to try adapted equipt for lower body dressing, needs to practice for complete independence. Continue to recommend SNF at discharge as pt needs to be completely independent with all self care including bathing, as well as IADLS such as meal prep and light diamond setter prior to returning home. He also needs to be able to assist ( who has dementia) with dressing and provide 24 hr supervision to her. Goals Grooming Goal Independent Dressing Goal Independent Toileting Goal Independent Bathing Goal Independent Toilet Transfer Goal Independent Shower Transfer Goal Independent Days to Meet Goals 4 Frequency of Treatment Frequency Of Treatment Once a Day Treatment Plan OT Treatment Plan ADL Training Functional Mobility Patient/Family Education Discharge Planning Discharge Recommendations OT Discharge Recommendations SNF Rehab Other Discharge Recommendations Pt not able to care for himself independently at this time. Home Equipment Needs wide sock aid, tub seat
[2019-06-05] MEDS: VANCOMYCIN PER PHARMACY 1 REQUEST MISC (15:36)
[2019-06-05] MEDS: WARFARIN 5 MG TABLET PO (16:39)
[2019-06-05] MEDS: SERTRALINE 25 MG TABLET PO (20:22)
[2019-06-06] MEDS: PIPERACILLIN-TAZO 3.375 GM/50 ML FROZ.PIGGY IV ×2 (01:00→09:22)
[2019-06-06 03:15] VITALS: BP 135/74; PULSE 93; RESP 17; TEMP 36.7; O2SAT 97
--- NOTE | 2019-06-06 05:02 | PC.NURSE ---
Pedal pulse felt on right foot. Left foot too sore to attempt to find pedal pulse. Used doppler to find audible pedal pulse.
[2019-06-06 09:00] VITALS: BP 135/76; PULSE 112; RESP 18; TEMP 36.7; O2SAT 94
[2019-06-06] MEDS: AMLODIPINE 5 MG TABLET PO (09:22)
[2019-06-06] MEDS: METOPROLOL IR 50 MG TABLET 100 MG PO ×2 (09:22→21:13)
[2019-06-06] MEDS: SODIUM CHLORIDE 0.9% FLUSH 10 ML IV ×2 (09:24→21:48)
--- NOTE | 2019-06-06 10:55 | PM.PN.1 ---
Subjective Date Patient Seen: 06/06/19 Interval history: The patient is a 69-year-old male admitted to the hospital with left lower extremity cellulitis. He also has chronic venous stasis changes. Over night the patient developed some blistering of the anterior surface of the chacon. This developed over the past 24 hours. He has tenderness over the area. There appears to be fluctuance and clear fluid underneath. The surrounding cellulitis and erythema is improving. Patient continues to have edema of that lower extremity as well. Exam Vital Signs (past 8 hours): - 06/06/19 03:15 06/06/19 09:00 Temperature 98.1 F 98.1 F Pulse Rate 93 H 112 H Respiratory Rate 17 18 Blood Pressure 135/74 135/76 Pulse Oximetry 97 94 Oxygen Delivery Method Room Air Oxygen Flow Rate 0 Narrative Exam Narrative: Pleasant male resting comfortably Lungs: Clear to auscultation Cardiac: Irregularly irregular normal S1 S with a 2/6 systolic ejection Abdomen: Soft and non Extremities left leg with decreasing erythema, confluence of ulceration on the anterior chacon with fluctuance and tender to palpation. Objective Labs Result Diagrams: 06/05/19 05:42 06/04/19 05:10 Assessment & Plan Assessment & Plan narrative: Assessment & Plan narrative: Assessment & Plan narrative: Assessment & Plan narrative: 1. Severe sepsis patient mid to the hospital with elevated heart rate, elevated white count significant cellulitis. His initial lactate was elevated 2.8. Lactate today his clear to 1.0. Will continue IV fluids and IV antibiotics. 2. Left lower extremity cellulitis. Patient is making significant improvement white count is still elevated at 21,000 one thousand. This does not appear to be an MRSA infection. Will discontinue vancomycin however continue Zosyn. Culture wound today. Wound culture growing Staph aureus. Will await final identification. If MSSA will add Ancef. Will apply compression dressings to the lower extremity given significant venous stasis bilaterally. Cultures are methicillin sensitive Staph aureus, will change antibiotics from Zosyn and Vanco to Ancef. Consult surgery for possible I&D of the ulcerations of the lower extremity 3. Chronic atrial fibrillation, present on admission, chronic, rate controlled. INR is within normal limits. Will hold Coumadin and resume tomorrow. 4. Hyponatremia. Will continue to follow, resolved 5. Hypokalemia, will replace, resolved 6. Hypertension, continue usual medication 7. Depression, continue antidepressant 8. Morbid obesity Quality VTE Deep Vein Thrombosis/Pulmonary Embolism Present on Admission: No
--- NOTE | 2019-06-06 11:42 | PM.PN.1 ---
Subjective Date Patient Seen: 06/06/19 Time Patient Seen: 11:43 Interval history: Patient is a 69-year-old male admitted to the hospital with left lower extremity cellulitis and chronic venous stasis disease. Overnight he had some blistering in his cellulitis with some aspects of purulence beneath. The erythema is not spreading. He reports overall feeling well and endorses some left lower extremity pain which is moderate. Exam Vital Signs (past 8 hours): - 06/06/19 09:00 Temperature 98.1 F Pulse Rate 112 H Respiratory Rate 18 Blood Pressure 135/76 Pulse Oximetry 94 Oxygen Delivery Method Room Air Oxygen Flow Rate 0 Narrative Exam Narrative: General adult male obese alert and oriented no acute distress Chest clear to auscultation bilaterally Cardiac regular rate and rhythm Abdomen obese soft nontender nondistended Extremities chronic venous stasis changes in both lower extremities. Left lower extremity has cellulitis which is within the outlined margin. There is some blistering of the cellulitis on the left chacon with what appears to be some purulence beneath it. Objective Labs Result Diagrams: 06/05/19 05:42 06/04/19 05:10 Labs: WBC 11, INR 1.6 Assessment & Plan (1) Cellulitis: Qualifiers: Laterality: left Site of cellulitis: extremity Site of cellulitis of extremity: lower extremity Site of cellulitis of trunk: Qualified Code(s): L03.116 - Cellulitis of left lower limb Current visit: Yes Status: Acute Assessment & Plan narrative: 69-year-old male with chronic venous stasis and cellulitis of his left lower extremity with resolved sepsis. The left lower extremity has some blistering and purulence beneath the skin. The cellulitis is not expanding his white count is down trending he has been afebrile overnight. The extremity will require operative debridement. The patient has been booked for Thursday 06/07 for debridement of the left lower extremity. NPO after midnight Hold warfarin tonight Continue antibiotics Quality VTE Deep Vein Thrombosis/Pulmonary Embolism Present on Admission: No
--- NOTE | 2019-06-06 11:53 | PT.IPTN ---
Current Diagnoses Sepsis, unspecified organism (06/01/19) Cellulitis of left lower limb (06/01/19) Surgery Performed Operation Date: 06/07/19 09:00 <No data on this case meets the specified criteria> Physical Therapy Treatment Note M2 PT-IP Current Condition Start: 06/02/19 10:22 Freq: NEEDED Status: Active Protocol: Document 06/03/19 11:37 AB (Rec: 06/03/19 13:55 AB [id number]) Physical Therapy Current Condition Current Condition Evaluation Date 06/03/19 Treatment Diagnosis sepsis; L leg cellulitis; difficulty in walking Onset Date 06/01/19 M3 PT-IP Subjective Start: 06/02/19 10:22 Freq: NEEDED Status: Active Protocol: Document 06/06/19 11:52 AB (Rec: 06/06/19 11:53 AB [id number]) Subjective Physical Therapy Visit Type Type Patient Refusal Notes pt refused PT. stated that he is not feeling good and they will do surgery on his leg tomorrow. informed pt that PT will check again this afternoon and pt refused. stated not today. M4 PT-IP Mobility and Gait Start: 06/02/19 10:22 Freq: NEEDED Status: Active Protocol: Document 06/05/19 10:40 HH (Rec: 06/05/19 11:34 HH [id number]) PT-Bed Mobility Assessment Rolling Type of Rolling Log Rolling Roll to Left Supine to Sit Supine to Sit Contact Guard Assistance Bedrails Sit to Supine Sit to Supine Contact Guard Assistance Bedrails Scooting Scooting to Edge of Bed Contact Guard Assistance PT-Transfer Assessment Sit to and From Stand Sit to and from Stand Contact Guard Assistance Use of Upper Extremities Equipment Transfer Assistive Device Front Wheeled Walker Orthotic/Prosthetic Devices or Brace: No Transfers Transfer Destination Bed Chair Toilet Transfer Technique pt ambulated using FWW Transfer Ability Level of Assist Standby Assistance Contact Guard Assistance 1 Person Assistance Use of Upper Extremities Comments Mobility Comments Pt used trapeze for bed mobility with CGA. Pt did faster than last session. Able to supine to sit from flattened bed. Pt cont refused to use gait belt this session . Insturcted pt to use support from bed and walker for sit to stand. He was then able to transfer CGA afterwards. Pt also used grab bar in the bathroom for transfers with SBA Gait Assessment Gait Gait Assistance Required: Standby Assistance Distance (Feet) 220 Able to Maintain Weight Bearing Status Yes During Gait Assistive Devices Assistive Device Front Wheeled Walker Orthotic/Prosthetic Devices or Brace: No Gait Deviations General Gait Pattern Antalgic Decreased Stride Length Decreased Feet Clearance Factors Limiting Gait Function Factors Limiting Gait Function Decreased Activity Tolerance Decreased Strength Pain Poor Balance Comments Gait Comments step to <-> step over gait M5 PT-IP Objective Assessments Start: 06/02/19 10:22 Freq: NEEDED Status: Active Protocol: Document 06/03/19 11:37 AB (Rec: 06/03/19 13:55 AB [id number]) Orientation Orientation/Cognition Level of Alertness Alert Orientation Name Age Birthday Month Date Year Day of Week Place Situation Language Function Ability No Deficits Noted Safety Awareness Understands Safety Issues Memory Description No Deficits Noted Gross Range of Motion Lower Extremity ROM Assessment Within Functional Limits Strength Lower Extremity Strength Assessment Left Impaired Knee 3-/5 Coordination Assessment Gross Coordination Gross Coordination WNL Muscle Tone Muscle Tone WNL Yes M6 PT-IP Treatment Start: 06/02/19 10:22 Freq: NEEDED Status: Active Protocol: Document 06/03/19 11:37 AB (Rec: 06/03/19 13:55 AB [id number]) Physical Therapy Treatment Exercises Exercises Quad Sets Heel Slides Education Education Provided Precautions Weight Bearing Status Post-Op Packet Safety M7 PT-IP Assessment and Plan Start: 06/02/19 10:22 Freq: NEEDED Status: Active Protocol: Document 06/05/19 10:40 HH (Rec: 06/05/19 11:37 HH [id number]) PT Summary Assessment and Plan Potential Rehabilitation Potential Good Status of Condition at Evaluation Evolving Summary Impairments Pain ROM Strength Balance Coordination Sensation Tone Cognition Bed Mobility Transfers Gait Activity Tolerance Assessment Summary Pt cont to improve with activity tolerance. Was able to perform bed mob and transfers with CGA/ SBA. Amb ~ 200 ft with improved step length and speed. However, cont to recommend pt to have short term reahb at SNF to increase endurance, independence in functional mobility prior to pt's return home where he has high CG burden Goals Bed Mobility Goal Independent Transfer Goal Independent Front Wheeled Walker Gait Goal Independent Front Wheel Walker Gait Distance 500 Other Goals up/down 2 steps with L rail SBA Days to Meet Goals 10 Frequency of Treatment Frequency Of Treatment Once a Day Treatment Plan Physical Therapy Treatment Plan Bed Mobility Training Transfer Training Gait Training Therapeutic Exercise Balance Retraining Discharge Planning Neuromuscular Re-ed Coordination Retraining Other Recommendations and Next Treatment stair climbing Focus sambulation; sit <>stand Recommendations To Nursing Amount of Assist Needed 1 Person Assist Discharge Recommendations PT Discharge Recommendations SNF Rehab Equipment Needed for Home Before FWW if pt goes home Discharge tub seat
--- NOTE | 2019-06-06 13:33 | PC.NURSE ---
Addendum entered by Anabelle Goetz R.N. 06/06/19 14:28: Pts L.chacon now has large blisters that are oozing a serous fluid. Pus colored fluid is also present still. aware. Pt up to do his personal care, sitting up in chair, but wants pt back to bed so that leg does not swell more. Original Note: Pts leg is looking worse this shift. He has redness up his chacon and to thigh. Area is outlined in red and still within margins. He has developed some pustules that look like blisters with pus underneath skin. There are several on inner aspect of ankle and all around pts chacon.. He has 3-4+ pitting edema in this leg but pp present. Pt will be NPO after midnight as he will be having an I&D on these area's. He is comfortable in bed and has denies pain this shift.
[2019-06-06] MEDS: CEFAZOLIN 2 GM/100 ML FROZ.PIGGY IV ×2 (13:48→21:13)
[2019-06-06 14:58] LABS: Add Manual Diff / Slide Review NO; Basophils Absolute Auto 100 /uL (0-100); Basophils Percent Auto 0.7 % (0-2); Eosinophils Absolute Auto 100 /uL (0-450); Eosinophils Percent Auto 1.2 % (2-4); Hematocrit 43.3 % (41-53); Hemoglobin 14.5 g/dL (13.5-17.5); Lymphocytes Absolute Auto 800 /uL (1100-4500); Lymphocytes Percent Auto 8.3 % (25-40); Mean Corpuscular HGB Conc 33.6 % (30-36); Mean Corpuscular Hemoglobin 29.3 PG (26-34); Mean Corpuscular Volume 87.2 fL (80-100); Monocytes Absolute Auto 800 /uL (0-900); Monocytes Percent Auto 8.3 % (3-14); Neutrophils Absolute Auto 8200 /uL (1500-7000); Neutrophils Percent Auto 81.5 % (50-75); Platelet Count 259 X10^3/uL (150-400); Red Blood Cell Count 4.97 X10^6/uL (4.5-5.9); Red Cell Distribution Width 15.3 % (11.6-14.8)
[2019-06-06 15:00] VITALS: O2SAT 94
[2019-06-06 15:05] LABS: INR 1.9 (0.9-1.3); Prothrombin Time 21.7 SECONDS (10.1-12.7)
--- NOTE | 2019-06-06 15:57 | CM.DPC ---
DCP: continued: met with pt today after a discussion of his case in Team Rounds and EMR review. Dr. Bolden noted [facility]: Dr. Madden was consulting for ? of abscess of LLE/this now done and surgical debridement planned in the OR tomorrow. Met with pt and his daughter in law, Callie. Pt would like it possible to be able to go home at d/c. He will NOT be caring for his with dementia as she will continue to stay with family in [facility] so that he can focus on his own recovery. Family live very nearby and will be assisting him as needed. He would like to have HH services. Agency choice list: discussed: Family members have lots of experienc with [facility] and this would be first choice if they are network with his Payer: [employer]. All acknowledge that this plan may change dependent on what the surgeon decides is needed for care of the leg. Pt notes he is unable at this point to WB on the leg: it is noted to be markedly swollen and discolored. [facility] for [facility] on his sn[facility] benefit and network facilities in case of need. DCP team will be following.
--- NOTE | 2019-06-06 16:14 | OT.IP.TRT ---
Current Diagnoses Sepsis, unspecified organism (06/01/19) Cellulitis of left lower limb (06/01/19) Surgery Performed Operation Date: 06/07/19 09:00 <No data on this case meets the specified criteria> Occupational Therapy Treatment Note M2 OT-IP Current Condition Start: 06/02/19 13:21 Freq: Status: Active Protocol: Document 06/02/19 14:22 CGR (Rec: 06/02/19 14:43 CGR [id number]) Occupational Therapy Current Condition Current Condition Evaluation Date 06/02/19 Treatment Diagnosis LLE cellulitis Weight Bearing Status Weight Bearing Status Full Weight Bearing M3 OT- IP Subjective and Pain Start: 06/02/19 13:21 Freq: Status: Active Protocol: Document 06/06/19 16:13 CGR (Rec: 06/06/19 16:14 CGR [id number]) OT- Subjective Occupational Therapy Visit Type Type Administrative Note Notes discussed with nursing. Pt now with open blisters to the LLE . Plan is to go to surgery tomorrow. Will hold at this time and continue to follow.
[2019-06-06 16:19] VITALS: BP 146/89; PULSE 80; RESP 16; TEMP 36.6; O2SAT 95
--- NOTE | 2019-06-06 17:27 | PT.IPTN ---
Current Diagnoses Sepsis, unspecified organism (06/01/19) Cellulitis of left lower limb (06/01/19) Surgery Performed Operation Date: 06/07/19 09:00 <No data on this case meets the specified criteria> Physical Therapy Treatment Note M2 PT-IP Current Condition Start: 06/02/19 10:22 Freq: NEEDED Status: Active Protocol: Document 06/03/19 11:37 AB (Rec: 06/03/19 13:55 AB [id number]) Physical Therapy Current Condition Current Condition Evaluation Date 06/03/19 Treatment Diagnosis sepsis; L leg cellulitis; difficulty in walking Onset Date 06/01/19 M3 PT-IP Subjective Start: 06/02/19 10:22 Freq: NEEDED Status: Active Protocol: Document 06/06/19 17:26 AB (Rec: 06/06/19 17:27 AB [id number]) Subjective Physical Therapy Visit Type Notes checked on pt and pt stated that he is not supposed to get out of bed due to drainage on LLE and will require surgery. pt is schedules for I&D tomorrow. will f/u
[2019-06-06] MEDS: SERTRALINE 25 MG TABLET PO (18:42)
[2019-06-06 20:15] VITALS: BP 147/97; PULSE 110; RESP 18; TEMP 36.4; O2SAT 95
[2019-06-06 23:50] VITALS: BP 146/85; PULSE 92; RESP 17; TEMP 36.4; O2SAT 96
[2019-06-07] VITALS (18 sets, daily range): BP systolic 83–153; BP diastolic 58–102; PULSE 83–125; RESP 14–22; TEMP 36.1–36.8; O2SAT 91–99
[2019-06-07] MEDS: CEFAZOLIN 2 GM/100 ML FROZ.PIGGY IV ×3 (05:43→18:03)
[2019-06-07] MEDS: LACTATED RINGERS 1,000 ML 42 ML IV (05:46)
[2019-06-07] MEDS: SODIUM CHLORIDE 0.9% FLUSH 10 ML IV ×2 (05:47→10:59)
--- NOTE | 2019-06-07 08:26 | PM.PN.1 ---
Subjective Date Patient Seen: 06/07/19 Time Patient Seen: 08:26 Interval history: No acute overnight events. Patient continues to have cellulitis with some underlying purulence of the left lower extremity. Exam Vital Signs (past 8 hours): - 06/07/19 01:00 06/07/19 04:35 06/07/19 06:28 Temperature 97.9 F 98.1 F Pulse Rate 91 H 90 Respiratory Rate 17 20 Blood Pressure 132/72 153/99 H Pulse Oximetry 94 95 95 06/07/19 07:25 Temperature 98.3 F Pulse Rate 88 Respiratory Rate 18 Blood Pressure 151/93 H Pulse Oximetry 94 Oxygen Delivery Method Room Air Oxygen Flow Rate 0 Narrative Exam Narrative: General adult male no acute distress alert and oriented Chest clear to auscultation bilaterally Cardiac regular rate and rhythm Lower extremities. Venous stasis disease of both lower extremities. Cellulitis within the outlined margin on the left lower extremity. Within the cellulitis on the anterior chacon there is aspects of purulence beneath the skin that remained unchanged size over the past 24 hours period Objective Labs Result Diagrams: 06/06/19 14:50 06/04/19 05:10 Labs: Laboratory Results - last 24 hr 06/06/19 06/06/19 14:50 14:50 WBC 10.0 RBC 4.97 Hgb 14.5 Hct 43.3 MCV 87.2 MCH 29.3 MCHC 33.6 RDW 15.3 H Plt Count 259 Neut % (Auto) 81.5 H Lymph % (Auto) 8.3 L [place] % (Auto) 8.3 Eos % (Auto) 1.2 L Baso % (Auto) 0.7 Neut # (Auto) 8200 H Lymph # (Auto) 800 L [place] # (Auto) 800 Eos # (Auto) 100 Baso # (Auto) 100 PT 21.7 H INR 1.9 H Assessment & Plan (1) Cellulitis: Qualifiers: Laterality: left Site of cellulitis: extremity Site of cellulitis of extremity: lower extremity Site of cellulitis of trunk: Qualified Code(s): L03.116 - Cellulitis of left lower limb Current visit: Yes Status: Acute Assessment & Plan narrative: 69-year-old male with chronic venous stasis disease and cellulitis of the left lower extremity with resolved sepsis. The cellulitis is stable over the last few days but has developed some aspects purulence beneath the skin that will require excisional debridement of the left lower extremity in the operating room today. Informed consents been obtained as questions have been answered and we will proceed. Time Spent With Patient Time with patient: less than 15 minutes Quality VTE Deep Vein Thrombosis/Pulmonary Embolism Present on Admission: No
--- NOTE | 2019-06-07 09:10 | PM.PREOP ---
Pre-operative Note Interval Note History & Physical reviewed/Exam performed by Physician: Yes Changes to H&P: No
--- NOTE | 2019-06-07 09:27 | PT.IPTN ---
Current Diagnoses Sepsis, unspecified organism (06/01/19) Cellulitis of left lower limb (06/01/19) Surgery Performed Operation Date: 06/07/19 09:00 <No data on this case meets the specified criteria> Physical Therapy Treatment Note M2 PT-IP Current Condition Start: 06/02/19 10:22 Freq: NEEDED Status: Active Protocol: Document 06/03/19 11:37 AB (Rec: 06/03/19 13:55 AB [id number]) Physical Therapy Current Condition Current Condition Evaluation Date 06/03/19 Treatment Diagnosis sepsis; L leg cellulitis; difficulty in walking Onset Date 06/01/19 M3 PT-IP Subjective Start: 06/02/19 10:22 Freq: NEEDED Status: Active Protocol: Document 06/07/19 09:26 AB (Rec: 06/07/19 09:26 AB [id number]) Subjective Physical Therapy Visit Type Notes pt is going to have excisional debridement of LLE this morning and is in pre-op at this time. will f/u in pm. M4 PT-IP Mobility and Gait Start: 06/02/19 10:22 Freq: NEEDED Status: Active Protocol: Document 06/05/19 10:40 HH (Rec: 06/05/19 11:34 HH [id number]) PT-Bed Mobility Assessment Rolling Type of Rolling Log Rolling Roll to Left Supine to Sit Supine to Sit Contact Guard Assistance Bedrails Sit to Supine Sit to Supine Contact Guard Assistance Bedrails Scooting Scooting to Edge of Bed Contact Guard Assistance PT-Transfer Assessment Sit to and From Stand Sit to and from Stand Contact Guard Assistance Use of Upper Extremities Equipment Transfer Assistive Device Front Wheeled Walker Orthotic/Prosthetic Devices or Brace: No Transfers Transfer Destination Bed Chair Toilet Transfer Technique pt ambulated using FWW Transfer Ability Level of Assist Standby Assistance Contact Guard Assistance 1 Person Assistance Use of Upper Extremities Comments Mobility Comments Pt used trapeze for bed mobility with CGA. Pt did faster than last session. Able to supine to sit from flattened bed. Pt cont refused to use gait belt this session . Insturcted pt to use support from bed and walker for sit to stand. He was then able to transfer CGA afterwards. Pt also used grab bar in the bathroom for transfers with SBA Gait Assessment Gait Gait Assistance Required: Standby Assistance Distance (Feet) 220 Able to Maintain Weight Bearing Status Yes During Gait Assistive Devices Assistive Device Front Wheeled Walker Orthotic/Prosthetic Devices or Brace: No Gait Deviations General Gait Pattern Antalgic Decreased Stride Length Decreased Feet Clearance Factors Limiting Gait Function Factors Limiting Gait Function Decreased Activity Tolerance Decreased Strength Pain Poor Balance Comments Gait Comments step to <-> step over gait M5 PT-IP Objective Assessments Start: 06/02/19 10:22 Freq: NEEDED Status: Active Protocol: Document 06/03/19 11:37 AB (Rec: 06/03/19 13:55 AB [id number]) Orientation Orientation/Cognition Level of Alertness Alert Orientation Name Age Birthday Month Date Year Day of Week Place Situation Language Function Ability No Deficits Noted Safety Awareness Understands Safety Issues Memory Description No Deficits Noted Gross Range of Motion Lower Extremity ROM Assessment Within Functional Limits Strength Lower Extremity Strength Assessment Left Impaired Knee 3-/5 Coordination Assessment Gross Coordination Gross Coordination WNL Muscle Tone Muscle Tone WNL Yes M6 PT-IP Treatment Start: 06/02/19 10:22 Freq: NEEDED Status: Active Protocol: Document 06/03/19 11:37 AB (Rec: 06/03/19 13:55 AB [id number]) Physical Therapy Treatment Exercises Exercises Quad Sets Heel Slides Education Education Provided Precautions Weight Bearing Status Post-Op Packet Safety M7 PT-IP Assessment and Plan Start: 06/02/19 10:22 Freq: NEEDED Status: Active Protocol: Document 06/05/19 10:40 HH (Rec: 06/05/19 11:37 HH [id number]) PT Summary Assessment and Plan Potential Rehabilitation Potential Good Status of Condition at Evaluation Evolving Summary Impairments Pain ROM Strength Balance Coordination Sensation Tone Cognition Bed Mobility Transfers Gait Activity Tolerance Assessment Summary Pt cont to improve with activity tolerance. Was able to perform bed mob and transfers with CGA/ SBA. Amb ~ 200 ft with improved step length and speed. However, cont to recommend pt to have short term reahb at SNF to increase endurance, independence in functional mobility prior to pt's return home where he has high CG burden Goals Bed Mobility Goal Independent Transfer Goal Independent Front Wheeled Walker Gait Goal Independent Front Wheel Walker Gait Distance 500 Other Goals up/down 2 steps with L rail SBA Days to Meet Goals 10 Frequency of Treatment Frequency Of Treatment Once a Day Treatment Plan Physical Therapy Treatment Plan Bed Mobility Training Transfer Training Gait Training Therapeutic Exercise Balance Retraining Discharge Planning Neuromuscular Re-ed Coordination Retraining Other Recommendations and Next Treatment stair climbing Focus sambulation; sit <>stand Recommendations To Nursing Amount of Assist Needed 1 Person Assist Discharge Recommendations PT Discharge Recommendations SNF Rehab Equipment Needed for Home Before FWW if pt goes home Discharge tub seat
--- NOTE | 2019-06-07 09:55 | SUR.OPER ---
Supine on padded OR bed, head on pillow, arms secured on padded arm boards at <90 degrees abduction, legs uncrossed, safety belt at thigh, tape over blanket over lower legs.
--- NOTE | 2019-06-07 10:18 | PM.OP.1 ---
Operative Date/Time/Diagnoses Date of procedure: 06/07/19 Time of procedure: 10:18 Pre-op diagnosis: Cellulitis Chronic venous stasis Resolved sepsis Post-op diagnosis: same Procedure & Clinicians Procedure: Sharp excisional debridement of left lower extremity Same procedure as scheduled: Yes Indications: Cellultitis with purulence Surgeon: Onofre Madden Click Yes if Unassisted: Yes Anesthesia Type: General Operative Notes Specimen(s): other (culture LLE) Estimated Blood Loss (mL): 5 Procedure in detail: Brief Clinical Note: 69M with venous stasis and cellultitis of the left lower extremity. Developed purulence within the cellulitis, consented for excisional debridement. Procedure: The patient was placed supine on the table. General anesthesia was induced and intubated with an endotracheal tube. Time out performed to ensure the correct procedure, patient and necessary equipment. The left lower extremity was prepped and draped in the usual sterile fashion. The blisters and necrotic skin from the extremity was sharply debrided. Cultures were sent. The size of the wound was 10 x 24 inches. Sterile wet to dry dressings followed by karla wrap was applied. Patient emerged from general anesthesia was extubated and transfered to recovery in stable condition. Complications: none Condition: stable Disposition: PACU
--- NOTE | 2019-06-07 10:27 | PM.PN.1 ---
Subjective Date Patient Seen: 06/07/19 Interval history: Patient has no specific complaints. He has continued increased blistering with fluid filled areas of the left lower extremity. The surrounding erythema is improving daily. He denies diarrhea. He is scheduled for definitive debridement today Exam Vital Signs (past 8 hours): - 06/07/19 04:35 06/07/19 06:28 06/07/19 07:25 Temperature 97.9 F 98.1 F 98.3 F Pulse Rate 91 H 90 88 Respiratory Rate 17 20 18 Blood Pressure 132/72 153/99 H 151/93 H Pulse Oximetry 95 95 94 Oxygen Delivery Method Room Air Oxygen Flow Rate 0 Narrative Exam Narrative: Pleasant male lying in bed without complaints Lungs: Clear to Auscultation CV: irregularly, irregular, nl Sl S2 2/6SEM ABd: soft non tender Ext: decreasing erythema of the cellulitis, the left leg has increased blisters with fluid filled areas, draining yellow fluid The extremity has 3+ edema as well Objective Labs Result Diagrams: 06/06/19 14:50 06/04/19 05:10 Labs: Laboratory Results - last 24 hr 06/06/19 06/06/19 14:50 14:50 WBC 10.0 RBC 4.97 Hgb 14.5 Hct 43.3 MCV 87.2 MCH 29.3 MCHC 33.6 RDW 15.3 H Plt Count 259 Neut % (Auto) 81.5 H Lymph % (Auto) 8.3 L [place] % (Auto) 8.3 Eos % (Auto) 1.2 L Baso % (Auto) 0.7 Neut # (Auto) 8200 H Lymph # (Auto) 800 L [place] # (Auto) 800 Eos # (Auto) 100 Baso # (Auto) 100 PT 21.7 H INR 1.9 H Assessment & Plan Assessment & Plan narrative: Assessment & Plan narrative: Assessment & Plan narrative: Assessment & Plan narrative: 1. Severe sepsis patient mid to the hospital with elevated heart rate, elevated white count significant cellulitis. His initial lactate was elevated 2.8. Lactate today his clear to 1.0. Will continue IV fluids and IV antibiotics. 2. Left lower extremity cellulitis. Patient is making significant improvement white count is still elevated at 21,000 one thousand. This does not appear to be an MRSA infection. Will discontinue vancomycin however continue Zosyn. Culture wound today. Wound culture growing Staph aureus. Will await final identification. If MSSA will add Ancef. Will apply compression dressings to the lower extremity given significant venous stasis bilaterally. Cultures are methicillin sensitive Staph aureus, will change antibiotics from Zosyn and Vanco to Ancef. Consult surgery for possible I&D of the ulcerations of the lower extremity Patient undewent debridement today. Will continue wound care, Ancef for now. 3. Chronic atrial fibrillation, present on admission, chronic, rate controlled. INR is within normal limits. resume coumadin 4. Hyponatremia. Will continue to follow, resolved 5. Hypokalemia, will replace, resolved 6. Hypertension, continue usual medication 7. Depression, continue antidepressant 8. Morbid obesity REsume PT Quality VTE Deep Vein Thrombosis/Pulmonary Embolism Present on Admission: No
--- NOTE | 2019-06-07 10:49 | SUR.PHASEI ---
WHEN PT BROUGHT TO OR IT WAS NOTED THAT HIS RIGHT FOREARM IV WAS INFILTRATED, IV D/C'D AND WARM COMPRESS APPLIED, NEW IV STARTED IN LEFT INNER WRIST WITH 20 GA ANGIO. PT TO [facility], [facility] [place] HAND OFF OF CARE TO ROMI SEWELL
[2019-06-07] MEDS: METOPROLOL IR 50 MG TABLET 100 MG PO ×2 (10:59→21:07)
[2019-06-07] MEDS: AMLODIPINE 5 MG TABLET PO (10:59)
--- NOTE | 2019-06-07 12:45 | PC.NURSE ---
Pt left to have his surgery this morning around 0900. He was back up to room around 1115. Per pt had his blisters scraped off his cellulitis to l.chacon. Area is wrapped with karla wrap and slight drainage to top of chacon. Pt is doing well, he is on ivf LR at 42cc/hr.
[2019-06-07] MEDS: ACETAMINOPHEN 325 MG TABLET 650 MG PO ×2 (12:59→18:30)
[2019-06-07] MEDS: WARFARIN 5 MG TABLET PO (18:03)
[2019-06-07] MEDS: SERTRALINE 25 MG TABLET PO (18:31)
[2019-06-08] VITALS (9 sets, daily range): BP systolic 136–151; BP diastolic 79–92; PULSE 95–111; RESP 14–21; TEMP 36.6–36.8; O2SAT 91–95
[2019-06-08] MEDS: ACETAMINOPHEN 325 MG TABLET 650 MG PO ×2 (00:42→19:52)
[2019-06-08] MEDS: SODIUM CHLORIDE 0.9% FLUSH 10 ML IV ×4 (00:43→20:38)
[2019-06-08] MEDS: CEFAZOLIN 2 GM/100 ML FROZ.PIGGY IV ×3 (01:35→16:47)
--- NOTE | 2019-06-08 08:49 | PM.PNPO.1 ---
Subjective Date Patient Seen: 06/08/19 Time Patient Seen: 08:49 Interval history: Postoperative day 1 status post left lower extremity debridement. Doing well. No overnight events. Exam Vital Signs (past 8 hours): - 06/08/19 05:30 06/08/19 07:40 Temperature 98 F 97.8 F Pulse Rate 111 H 108 H Respiratory Rate 17 14 Blood Pressure 146/81 H 151/88 H Pulse Oximetry 92 95 Oxygen Delivery Method Room Air Oxygen Flow Rate 0 Narrative Exam Narrative: Adult male no acute distress alert and oriented Chest nonlabored respirations Abdomen soft nontender nondistended Left lower extremity cellulitis stable. Wound is clean of exudate. Objective Labs Result Diagrams: 06/06/19 14:50 06/04/19 05:10 Assessment & Plan Post-op Postoperative Procedures Operation Date: 06/07/19 09:00 Actual Procedures Side Surgeon p lower extremity debribement Left Onofre Madden MD Postoperative plan narrative: 69-year-old male postoperative day 1 status post excisional debridement of left lower extremity. History of of chronic venous stasis disease who developed cellulitis of the extremity with the development of purulence and exudate within the wound. Wound appears to be healing well postoperative day 1. Continue wet-to-dry dressings twice daily and the application of the Abhishek wrap. Follow up wound care consult. Time Spent With Patient less than 15 minutes Quality VTE Deep Vein Thrombosis/Pulmonary Embolism Present on Admission: No
--- NOTE | 2019-06-08 09:04 | PM.PN.1 ---
Subjective Date Patient Seen: 06/08/19 Interval history: Mr. Espinoza is a 69-year-old male who was admitted to the hospital for left lower extremity cellulitis. He had improvement of the cellulitis but developed bullous lesions and ulcerations along the anterior chacon. The patient went for sharp debridement yesterday with significant improvement in his lower left lower extremity. Patient reports that he does not have pain when he is at rest however with any manipulation of the leg is somewhat painful. He complains of constipation. He has no diarrhea. He has no shortness of breath. Given that the patient lives at home alone he is in agreement of jail at discharge. It would be difficult for him to manage both his wound in addition to ambulation and activities of daily living at this time. Exam Vital Signs (past 8 hours): - 06/08/19 05:30 06/08/19 07:40 Temperature 98 F 97.8 F Pulse Rate 111 H 108 H Respiratory Rate 17 14 Blood Pressure 146/81 H 151/88 H Pulse Oximetry 92 95 Oxygen Delivery Method Room Air Oxygen Flow Rate 0 Narrative Exam Narrative: Pleasant gentleman resting comfortably in no obvious distress Lungs: Decreased breath sounds with some coarse sounds at the bases Cardiac exam irregularly irregular normal S1-S2 with a 2/6 systolic ejection murmur Abdomen: Soft and nontender Lower extremity: Left lower extremity with 2+ edema, decreasing erythema on the upper thigh going down to the chacon. The wound has been debrided. There is healthy granulation tissue. Overall the wound appears to be healing quite nicely Objective Labs Result Diagrams: 06/06/19 14:50 06/04/19 05:10 Assessment & Plan Assessment & Plan narrative: 1. 69-year-old male admitted to the hospital for sepsis secondary to left lower extremity cellulitis. Cellulitis is improving quite nicely. Will continue Ancef at this time as the patient's wound was growing a methicillin sensitive Staph aureus and strep pyogenes. Would plan to switch to p.o. antibiotics at discharge. 2. Status post sharp debridement of the left lower extremity ulceration. Overall improving quite nicely. Await wound care consultation tomorrow. 3. Chronic atrial fibrillation, rate controlled, continue Coumadin 4. Hypertension, continue usual medication his hydrochlorothiazide has been held 5. Hypokalemia, resolved will recheck lytes in the morning 6. Hyponatremia, improved 7. Depression 8. Morbid obesity Plan wound care consultation tomorrow. Patient is getting b.i.d. wet-to-dry dressings twice daily. Would recommend SNF stay at discharge and the patient is agreeable. Anticipate discharge to the jail unit tomorrow. Quality VTE Deep Vein Thrombosis/Pulmonary Embolism Present on Admission: No
--- NOTE | 2019-06-08 09:07 | P.PN_ITS ---
Subjective Date Patient Seen: 06/08/19 Interval history: Mr. Espinoza is a 69-year-old male who was admitted to the [facility] for left lower extremity cellulitis. He had improvement of the cellulitis but developed bullous lesions and ulcerations along the anterior chacon. The patient went for sharp debridement yesterday with significant improvement in his lower left lower extremity. Patient reports that he does not have pain when he is at rest however with any manipulation of the leg is somewhat painful. He complains of constipation. He has no diarrhea. He has no shortness of breath. Given that the patient lives at home alone he is in agreement of retirement at discharge. It would be difficult for him to manage both his wound in addition to ambulation and activities of daily living at this time. Exam Vital Signs (past 8 hours): - 06/08/19 05:30 06/08/19 07:40 Temperature 98 F 97.8 F Pulse Rate 111 H 108 H Respiratory Rate 17 14 Blood Pressure 146/81 H 151/88 H Pulse Oximetry 92 95 Oxygen Delivery Method Room Air Oxygen Flow Rate 0 Narrative Exam Narrative: Pleasant gentleman resting comfortably in no obvious distress Lungs: Decreased breath sounds with some coarse sounds at the bases Cardiac exam irregularly irregular normal S1-S2 with a 2/6 systolic ejection murmur Abdomen: Soft and nontender Lower extremity: Left lower extremity with 2+ edema, decreasing erythema on the upper thigh going down to the chacon. The wound has been debrided. There is healthy granulation tissue. Overall the wound appears to be healing quite nicely Objective Labs Result Diagrams: 06/06/19 14:50 06/04/19 05:10 Assessment & Plan Assessment & Plan narrative: 1. 69-year-old male admitted to the hospital for sepsis secondary to left lower extremity cellulitis. Cellulitis is improving quite nicely. Will continue Ancef at this time as the patient's wound was growing a methicillin sensitive Staph aureus and strep pyogenes. Would plan to switch to p.o. antibiotics at discharge. 2. Status post sharp debridement of the left lower extremity ulceration. Overall improving quite nicely. Await wound care consultation tomorrow. 3. Chronic atrial fibrillation, rate controlled, continue Coumadin 4. Hypertension, continue usual medication his hydrochlorothiazide has been held 5. Hypokalemia, resolved will recheck lytes in the morning 6. Hyponatremia, improved 7. Depression 8. Morbid obesity Plan wound care consultation tomorrow. Patient is getting b.i.d. wet-to-dry dressings twice daily. Would recommend SNF stay at discharge and the patient is agreeable. Anticipate discharge to the retirement unit tomorrow. Quality VTE Deep Vein Thrombosis/Pulmonary Embolism Present on Admission: No
[2019-06-08] MEDS: SENNOSIDES 8.6 MG TABLET 17.2 MG PO ×2 (09:29→20:38)
[2019-06-08] MEDS: DOCUSATE 100 MG CAPSULE PO (09:29)
[2019-06-08] MEDS: METOPROLOL IR 50 MG TABLET 100 MG PO ×2 (09:29→20:38)
[2019-06-08] MEDS: POLYETHYLENE GLYCOL 3350 17 GM POWD.PACK PO (09:29)
[2019-06-08] MEDS: AMLODIPINE 5 MG TABLET PO (09:29)
--- NOTE | 2019-06-08 11:15 | CM.DPC ---
Addendum entered by Shraddha Rajan R.N. 06/08/19 14:56: Spoke to Callie, patient's [id number] regarding patient needing some skilled for his wound. Let her know that referral was sent over to [facility]. she stated, she has had good luck with [facility], for her mother was there. Encouraged her to make a second choice of skilled facilities, for patient has been sleeping, and unable to speak to him. She stated, [facility] a good option because his older son lives there, and his is staying with him. Will also send referral to [facility]. Updated Marcos in admissions over the phone. She is also aware of his insurance, and obtaining authorization. [id number] prefers [place], but [facility] would also be ok. Referral also faxed over to [facility]. Original Note: DCP Cont: Discussed patient at team rounds with Dr. Bolden. She mentioned that patient may need senior living, secondary to wound care, which may have to be done more than once a day. He should be getting a wound consult tomorrow. Patient was sleeping, but went ahead and left him a Medicare choice list. Patient resides here in [place], so discussed with Nithya at [facility]. They do take his [employer] Medicare, but authorization could take from 24 to 48 hours. She stated that she could start this in the morning. Mentioned that his coverage would be about 20 days, like Medicare. P: DCP to continue to follow closely. He may be able to go to [facility] within next couple of days pending insurance authorization, but will also need to check in with patient. Shraddha Rajan RN/Manager Event
--- NOTE | 2019-06-08 12:50 | PC.NURSE ---
Pt is doing better today. L.lower chacon dressing changed, Had some serous drainage through dressing and karla wrap. New dressing with telfa and kurlex.. Pt will be sitting up in chair for a bit later today. He is a one person assist to bathroom and using the urinal. Son in visiting and pt is eating well at meals.
--- NOTE | 2019-06-08 14:12 | OT.IP.TRT ---
Current Diagnoses Sepsis, unspecified organism (06/01/19) Cellulitis of left lower limb (06/01/19) Surgery Performed Operation Date: 06/07/19 09:00 Actual Procedures p lower extremity debribement(Left) - Onofre Madden MD Occupational Therapy Treatment Note M2 OT-IP Current Condition Start: 06/02/19 13:21 Freq: Status: Active Protocol: Document 06/02/19 14:22 CGR (Rec: 06/02/19 14:43 CGR [id number]) Occupational Therapy Current Condition Current Condition Evaluation Date 06/02/19 Treatment Diagnosis LLE cellulitis Weight Bearing Status Weight Bearing Status Full Weight Bearing M3 OT- IP Subjective and Pain Start: 06/02/19 13:21 Freq: Status: Active Protocol: Document 06/08/19 14:07 CGR (Rec: 06/08/19 14:12 CGR [id number]) OT- Subjective Occupational Therapy Visit Type Type Treatment Note Visit Start Time 13:41 Visit Stop Time 14:00 Total Visit Minutes 19 Notes Partial co-treat with P.T. Occupational Therapy Visit Comments Patient Comments The pain isn't that bad OT Pain Assessment Pain When Pain Assessed At Rest Pain Present Pain Present Pain Reported Location Left Leg Intensity 1 Scale Used Numeric (1 - 10) M4 OT- IP ADL's Start: 06/02/19 13:21 Freq: Status: Active Protocol: Document 06/05/19 15:30 PJM (Rec: 06/05/19 16:53 PJM [id number]) OT ADL-Dressing General Eval Lower Body Dressing Ability Moderate Assistance Areas Needing Assistance Socks Comments OT Dressing Comments Wide sock aid does work with width of pt's foot. Written ordering information provide to pt and family. Modified hospital socks to decrease pressure areas around swollen feet. Pt's slippers from home causing significant pressure area across top of foot, especially on more swollen L foot. M5 OT- IP IADL's Start: 06/02/19 13:21 Freq: Status: Active Protocol: Document 06/02/19 14:22 CGR (Rec: 06/02/19 14:43 CGR [email or web address]) OT-Instrumental Activities of Daily Living Deficits IADL Deficits Identified Deficits Home Safety Awareness Awareness of Need for Assistance at Home Good Awareness Ability to Problem Solve Emergency Able to Problem Solve Situations Home Safety Comments Pt is the caregiver for his with advanced dementia. 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 M6 OT- IP Functional Cognition Start: 06/02/19 13:21 Freq: Status: Active Protocol: Document 06/02/19 14:22 CGR (Rec: 06/02/19 14:43 CGR [email or web address]) Cognitive Factors Limiting Selfcare Function Cognitive Ability Level of Alertness Alert Patient Orientation Name Age Birthday Month Date Year Day of Week Place Situation Attention Span Ability Capable of Focused Attention Ability to Follow Commands Able to Follow One Step Commands Memory Description No Deficits Noted Safety Awareness No Deficits Noted Problem Solving Ability No deficits Noted Cognitive Comments Cognitive Assessment Comments May benefit from formal assessment given delayed responses in todays session but appears to be at baseline. OT- Vision and Hearing OT- Hearing Assessment OT- Hearing Assessment WFL OT- Vision Assessment Visual Acuity Glasses For Reading Visual Attentiveness WFL Occular Pursuits WFL Visual Convergence WFL Visual Mason WFL M7 OT- IP Mobility and Balance Start: 06/02/19 13:21 Freq: Status: Active Protocol: Document 06/08/19 14:07 CGR (Rec: 06/08/19 14:12 CGR [id number]) OT- Bed Mobility Assessment Supine to Sit Supine to Sit Assist Moderate Assistance Head of Bed Elevated Bedrails Scooting Scooting to Edge of Bed Moderate Assistance Head of Bed Elevated Bedrails OT-Transfer Assessment Sit to and From Stand Sit to and from Stand Contact Guard Assistance Transfers Transfer Ability Contact Guard Assistance Technique Transfer Destination Bed Chair Transfer Technique Stand Step Pivot Devices Transfer Assistive Devices Front Wheeled Walker Comments Mobility Comments Pt used tilt feature on bed ( to 5 percent towards exiting side) to assist with getting to EOB. Pt has a [place] to assist with bed mobility. Pt requests to pull up on therapist for supine to sit and performs with mod a. Limited ambulation on this date d/t weeping dressing. Nursing aware and plans to change dressing after transfer . OT- Balance Assessment Sitting Balance and Reactions Static Sitting Balance Ability Good Dynamic Sitting Balance Ability Good Standing Balance and Reactions Static Standing Balance Ability Fair Dynamic Standing Balance Ability Fair M8 OT- IP Objective Assessments Start: 06/02/19 13:21 Freq: Status: Active Protocol: Document 06/02/19 14:22 CGR (Rec: 06/02/19 14:43 CGR [id number]) OT Gross Range of Motion Upper Extremity Range of Motion Assessment Within Functional Limits OT Strength Upper Extremity Strength Assessment Within Functional Limits Comments Strength Comments Grossly 4+/5 throughout OT- Coordination Assessment Upper Extremity Finger to Nose Test Within Functional Limits Finger Tapping Test Within Functional Limits OT-Muscle Tone Assessment Muscle Tone WNL Yes OT Sensation Assessment Comments Summary Comments No deficits noted Edema Edema Present Edema Comments to LLE M9 OT- IP Assessment and Plan Start: 06/02/19 13:21 Freq: Status: Active Protocol: Document 06/08/19 14:07 CGR (Rec: 06/08/19 14:12 CGR [id number]) OT Summary Assessment and Plan Potential Rehabilitation Potential Good Summary OT Impairments Pain Functional Mobility Dressing Toileting Bathing Toilet Transfers Shower Transfers Progress Towards Goals Progressing Toward Goals Assessment Summary Pt will to try adapted equipt for lower body dressing. 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 He also needs to be able to assist ( who has dementia) with dressing and provide 24 hr supervision to her. Goals Grooming Goal Independent Dressing Goal Independent Toileting Goal Independent Bathing Goal Independent Toilet Transfer Goal Independent Shower Transfer Goal Independent Days to Meet Goals 3 Frequency of Treatment Frequency Of Treatment Once a Day Treatment Plan OT Treatment Plan ADL Training Functional Mobility Patient/Family Education Discharge Planning Discharge Recommendations OT Discharge Recommendations SNF Rehab Other Discharge Recommendations Pt not able to care for himself independently at this time. Home Equipment Needs wide sock aid, tub seat
--- NOTE | 2019-06-08 14:33 | PT.IPTN ---
Current Diagnoses Sepsis, unspecified organism (06/01/19) Cellulitis of left lower limb (06/01/19) Surgery Performed Operation Date: 06/07/19 09:00 Actual Procedures p lower extremity debribement(Left) - Onofre Madden MD Physical Therapy Treatment Note M2 PT-IP Current Condition Start: 06/02/19 10:22 Freq: NEEDED Status: Active Protocol: Document 06/03/19 11:37 AB (Rec: 06/03/19 13:55 AB [id number]) Physical Therapy Current Condition Current Condition Evaluation Date 06/03/19 Treatment Diagnosis sepsis; L leg cellulitis; difficulty in walking Onset Date 06/01/19 M3 PT-IP Subjective Start: 06/02/19 10:22 Freq: NEEDED Status: Active Protocol: Document 06/08/19 13:40 CLB (Rec: 06/08/19 14:32 CLB [id number]) Subjective Physical Therapy Visit Type Type Treatment Note Visit Start Time 13:40 Visit Stop Time 13:55 Total Visit Minutes 15 Number of ASSISTANT SPA MANAGER Visits 1 Physical Therapy Visit Comments Patient Comments Pt working with OT upon arrival and is willing to transfer to bed but doesn't feel he could ambulate at this time. M4 PT-IP Mobility and Gait Start: 06/02/19 10:22 Freq: NEEDED Status: Active Protocol: Document 06/08/19 13:40 CLB (Rec: 06/08/19 14:32 CLB [id number]) PT-Bed Mobility Assessment Supine to Sit Supine to Sit Moderate Assistance 2 Person Assistance Head of Bed Elevated Bedrails Scooting Scooting to Edge of Bed Moderate Assistance PT-Transfer Assessment Sit to and From Stand Sit to and from Stand Minimal Assistance 2 Person Assistance Use of Upper Extremities Equipment Transfer Assistive Device Front Wheeled Walker Orthotic/Prosthetic Devices or Brace: No Transfers Transfer Destination Chair Transfer Ability Level of Assist Contact Guard Assistance Comments Mobility Comments Pt required Mod A for bed mobility using trapeze and bed tilted to left 5 degrees. Pt then needing to pull on therapists to sit upright to square hips at EOB. M5 PT-IP Objective Assessments Start: 06/02/19 10:22 Freq: NEEDED Status: Active Protocol: Document 06/03/19 11:37 AB (Rec: 06/03/19 13:55 AB [id number]) Orientation Orientation/Cognition Level of Alertness Alert Orientation Name Age Birthday Month Date Year Day of Week Place Situation Language Function Ability No Deficits Noted Safety Awareness Understands Safety Issues Memory Description No Deficits Noted Gross Range of Motion Lower Extremity ROM Assessment Within Functional Limits Strength Lower Extremity Strength Assessment Left Impaired Knee 3-/5 Coordination Assessment Gross Coordination Gross Coordination WNL Muscle Tone Muscle Tone WNL Yes M6 PT-IP Treatment Start: 06/02/19 10:22 Freq: NEEDED Status: Active Protocol: Document 06/03/19 11:37 AB (Rec: 06/03/19 13:55 AB [id number]) Physical Therapy Treatment Exercises Exercises Quad Sets Heel Slides Education Education Provided Precautions Weight Bearing Status Post-Op Packet Safety M7 PT-IP Assessment and Plan Start: 06/02/19 10:22 Freq: NEEDED Status: Active Protocol: Document 06/08/19 13:40 CLB (Rec: 06/08/19 14:32 CLB [id number]) PT Summary Assessment and Plan Summary Assessment Summary Pt respectfully refused ambulation this afternoon but transferred to chair requiring Mod A x2 to EOB then CGAx2 w/ FWW to stand pivot to chair with cues for hand placement to slow descent. Goals Bed Mobility Goal Independent Transfer Goal Independent Front Wheeled Walker Gait Goal Independent Front Wheel Walker Gait Distance 500 Other Goals up/down 2 steps with L rail SBA Days to Meet Goals 10 Frequency of Treatment Frequency Of Treatment Once a Day Treatment Plan Physical Therapy Treatment Plan Bed Mobility Training Transfer Training Gait Training Therapeutic Exercise Balance Retraining Discharge Planning Neuromuscular Re-ed Coordination Retraining Other Recommendations and Next Treatment stair climbing Focus sambulation; sit <>stand Recommendations To Nursing Amount of Assist Needed 1 Person Assist 2 Person Assist Discharge Recommendations PT Discharge Recommendations SNF Rehab Equipment Needed for Home Before FWW if pt goes home Discharge tub seat
[2019-06-08] MEDS: WARFARIN 5 MG TABLET PO (16:47)
[2019-06-08] MEDS: SERTRALINE 25 MG TABLET PO (19:52)
--- NOTE | 2019-06-08 22:37 | PC.NURSE ---
Evening Shift Note- Patient in bed resting quietly with eyes closed. Patient Pleasent, calm, and cooperative with care. PRN tylenol given per patient request for complaints of discomfort. Patient tolerated without issue. Dressing to LLE changed as needed. Safety measures in place. patient calls appropriatly. Call garcia and phone within reach. will continue to monitor.
[2019-06-09] VITALS (7 sets, daily range): BP systolic 114–149; BP diastolic 69–94; PULSE 100–128; RESP 17–18; TEMP 36.4–37.2; O2SAT 93–98
[2019-06-09] MEDS: CEFAZOLIN 2 GM/100 ML FROZ.PIGGY IV ×2 (01:53→10:17)
--- NOTE | 2019-06-09 02:46 | PC.NURSE ---
Commercial Construction Estimator Note: 0030: Resting in bed. Vital signs stable. IV in place in lt wrist. Pt independently turns. Urinal is at bedside. Lt leg elevated on pillow, resting on chux pad: small amt serosanguinous drainage on dressing, which was changed at 2300. Pt declines pain medication, states he has minimal discomfort.
[2019-06-09 06:07] LABS: Add Manual Diff / Slide Review NO; Basophils Absolute Auto 100 /uL (0-100); Basophils Percent Auto 1.3 % (0-2); Eosinophils Absolute Auto 100 /uL (0-450); Eosinophils Percent Auto 1.4 % (2-4); Hematocrit 42.5 % (41-53); Hemoglobin 14.2 g/dL (13.5-17.5); Lymphocytes Absolute Auto 900 /uL (1100-4500); Lymphocytes Percent Auto 11.3 % (25-40); Mean Corpuscular HGB Conc 33.4 % (30-36); Mean Corpuscular Hemoglobin 29.1 PG (26-34); Mean Corpuscular Volume 87.3 fL (80-100); Monocytes Absolute Auto 500 /uL (0-900); Monocytes Percent Auto 6.5 % (3-14); Neutrophils Absolute Auto 6700 /uL (1500-7000); Neutrophils Percent Auto 79.5 % (50-75); Platelet Count 305 X10^3/uL (150-400); Red Blood Cell Count 4.86 X10^6/uL (4.5-5.9); White Blood Cell Count 8.4 X10^3/uL (4.5-11.0)
[2019-06-09 06:13] LABS: INR 2.8 (0.9-1.3); Prothrombin Time 32.9 SECONDS (10.1-12.7)
[2019-06-09 06:21] LABS: BUN Creatinine Ratio 16.3 (6-22); Blood Urea Nitrogen 13 mg/dL (9-20); Calcium 8.7 mg/dL (8.4-10.2); Carbon Dioxide 30 mmol/L (22-32); Chloride 99 mmol/L (98-107); Estimated Glomerular Filt Rate > 60.0 mL/min (>60); Glucose 103 mg/dL (80-110); HEMOLYSIS < 15 (0-50); Potassium 3.1 mmol/L (3.4-5.1); Sodium 136 mmol/L (137-145)
[2019-06-09] MEDS: POTASSIUM CHLORIDE 40 MEQ in SODIUM CHLORIDE 0.9% 500 ML 130 ML IV (08:26)
[2019-06-09] MEDS: AMLODIPINE 5 MG TABLET PO (08:31)
[2019-06-09] MEDS: ACETAMINOPHEN 325 MG TABLET 650 MG PO ×2 (08:31→21:41)
[2019-06-09] MEDS: SENNOSIDES 8.6 MG TABLET 17.2 MG PO ×2 (08:31→21:37)
[2019-06-09] MEDS: METOPROLOL IR 50 MG TABLET 100 MG PO ×2 (08:31→21:35)
--- NOTE | 2019-06-09 10:02 | DIET.PN ---
Dietary Progress Note Assessment: 69y M admitted for cellulitis of the left leg. POs in past 2d range 25-100%. Pt reports only drinking 3 Terrell, doesn't like it. HT: 177.8cm WT: 145.6kg (-0.6kg since 06/02) BMI: 46.1 (obese class III) MNA: 14 Labs: B-122 A1c: 5.8 Nutrition Diagnosis: Altered nutrition related lab values r/t impared glucose metabolism aeb pt report lack of previous knowledge of dietary restrictions, DX diabetes. Interventions: Pt open to trying Terrell in smoothie form, will make CCD form bid. Pt BG in good range <150 for healing wounds, smoothie will increase PRO and Arginine to further healing process. Monitoring/Evaluations: POC BG, weight, PO intake, Terrell tolerance
--- NOTE | 2019-06-09 10:56 | P.CONS_ITS ---
History of Present Illness Date Patient Seen: 06/09/19 Time Patient Seen: 10:30 Chief complaint: Swollen lft leg, radiating up, sores on legs, arms Reason for consult: Recommend dressings to LLE wound Requesting provider: Ingrid Bolden Narrative: Location: L pretibial and calf Duration: 3-4 weeks Severity: Partial-thickness Context: Infection The patient is a 69-year-old type 2 diabetic male with venous insufficiency associated with a vesicular and purulent cellulitis of the left lower extremity, status post sharp excisional debridement in the operating room on 06/07/19. He reports improvement postoperatively. He does not have any pain and rest. He reports pain when the leg is moved or touched. He is being treated with IV cef azolin targeted to wound culture and sensitivities. [facility] Medical History Cellulitis of left lower extremity without foot (Acute) Depression (Chronic) Diabetes mellitus type 2 in obese (Chronic) Essential hypertension (Chronic) Surgical History History of knee surgery (Acute) Social History household members: spouse Smoking Status: Former smoker alcohol intake: former Social History household members: spouse Smoking Status: Former smoker alcohol intake: former Meds Home Medications Medication Instructions Recorded Confirmed Type amlodipine 5 mg PO DAILY 06/01/19 06/01/19 History hydrochlorothiazide 12.5 mg PO DAILY 06/01/19 06/01/19 History metformin 500 mg PO DAILY 06/01/19 06/01/19 History sertraline 25 mg PO DAILY 06/01/19 06/01/19 History acetaminophen 650 mg PO Q6HR PRN #30 tab 06/09/19 Rx cephalexin 500 mg PO QID 7 Days #28 cap 06/09/19 Rx metoprolol tartrate 100 mg PO BID #60 tab 06/09/19 Rx sennosides [senna] 17.2 mg PO BID #60 tab 06/09/19 Rx warfarin [Coumadin] 5 mg PO 1700 #30 tab 06/09/19 Rx Allergies Allergy/AdvReac Type Severity Reaction Status Date / Time No Known Drug Allergies Allergy Verified 06/01/19 14:19 Review of Systems Review of Systems Constitutional: Reports fatigue and lack of appetite; denies fevers, chills, or night sweats. Integumentary: Reports wound redness, drainage, and pain with movement or touch; denies odor. Exam Vital Signs (past 8 hours): - 06/09/19 03:00 06/09/19 08:00 06/09/19 08:06 Temperature 98.9 F 98.8 F Pulse Rate 100 H 128 H Respiratory Rate 18 17 Blood Pressure 149/94 H 130/79 Pulse Oximetry 93 95 97 Oxygen Delivery Method Room Air Oxygen Flow Rate 0 Narrative Exam Narrative: Constitutional: VS reviewed (see above). NAD. Conversant. Non toxic appearance. Eyes: Sclerae anicteric. Ears, Nose, Mouth, and Throat: Normal hearing Respiratory: Normal respiratory effort. Cardiovascular: Irregularly irregular pulse. Extremities warm and well perfused. Capillary refill less than 3 seconds. Left lower extremity exhibits increased swelling of the calf and foot compared to the right side. Musculoskeletal: Ambulates without assistance. Steady. No digital cyanosis or clubbing. No prior amputations. Neurological: A&OX3. No focal deficits. Psychiatric: Judgment intact. Affect appropriate. Integumentary (Hair, Skin) Inspection and palpation of skin and subcutaneous tissues: Wound is partial thickness and involves the majority of the left lower extremity from the knee to ankle, nearly circumferential in width, but with a few centimeters intact skin on the posterior calf. There is a large amount of serous drainage present. Erythema is retreating from marked boundaries. There is mild increased warmth to palpation. The area is tender to palpation. Objective Labs Result Diagrams: 06/09/19 05:55 06/09/19 05:55 Labs: Laboratory Results - last 24 hr 06/09/19 06/09/19 06/09/19 05:55 05:55 05:55 WBC 8.4 RBC 4.86 Hgb 14.2 Hct 42.5 MCV 87.3 MCH 29.1 MCHC 33.4 RDW 15.0 H Plt Count 305 Neut % (Auto) 79.5 H Lymph % (Auto) 11.3 L [place] % (Auto) 6.5 Eos % (Auto) 1.4 L Baso % (Auto) 1.3 Neut # (Auto) 6700 Lymph # (Auto) 900 L [place] # (Auto) 500 Eos # (Auto) 100 Baso # (Auto) 100 PT 32.9 H D INR 2.8 H Sodium 136 L Potassium 3.1 L Chloride 99 Carbon Dioxide 30 BUN 13 Creatinine 0.80 Estimated GFR > 60.0 BUN/Creatinine Ratio 16.3 Glucose 103 Calcium 8.7 06/07/19: Intraoperative swab for culture, preliminary results, growing Staphylococcus species. 06/04/19: Left leg wound swab for culture grew Strep pyogenes and Staphylococcus aureus. 06/01/19: Left lower extremity venous ultrasound negative for DVT. 06/01/19: X-ray of left femur demonstrated no acute radiographic findings. Assessment & Plan Assessment & Plan narrative: Assessment: 69-year-old type 2 diabetic male with venous insufficiency associated with a vesicular and purulent cellulitis of the left lower extremity, status post sharp excisional debridement in the operating room on 06/07/19. Culture grew Strep pyogenes and Staphylococcus aureus. He is being treated with IV cefazolin targeted to wound culture and sensitivities and appears to be improving well. Plan: Cleanse wound and yue-wound skin on left lower extremity with normal saline. Pat dry the periwound skin. Apply Mextra superabsorbent pads (17.5 x 22.5 cm) to the wound with at least 2-4 cm overlap on the yue-wound skin. Secure in place with rolled gauze and tape. Change daily and prn dressing saturation. Would be happy to continue wound care in the outpatient clinic. Please arrange appointment prior to discharge.
--- NOTE | 2019-06-09 11:37 | PM.DS.1 ---
History of Present Illness Chief complaint: Swollen lft leg, radiating up, sores on legs, arms Narrative: Rick Cunningham is a 69-year-old male with a history of atrial fibrillation anticoagulated on warfarin, diabetes type 2, essential hypertension, and a new diagnosis of depression who presents to the emergency department with a 2 to three-week history of pain in his left lower leg. He states that it began with a sore on the right side of his left lower leg calf area and has now gotten more painful and difficult to walk on. The patient does not appear to be aware whether not he has had a fever. He endorses mild shortness of breath with exertion, denies chest pain or palpitations, denies nausea, vomiting, abdominal pain, diarrhea or constipation, he does state he urinates frequently and has benign prostatic hypertrophy, denies urinary pain, incontinence, hematuria or urinary retention. He does endorse having pain in his left leg but denies weakness, difficulty ambulating. He does state he has lesions on his hands and arms and he does state that he picks as a stress reaction. He denies weakness but acknowledges that he has difficulties word-finding and answering questions even though he understands what is being said. He does state that he is mildly depressed, recently started on an antidepressant, he does not know the name of the medication he is taking. The patient states that he is not diabetic even though he is taking medicine for this. He states that they have been trying to monitor him for this. Patient states he takes warfarin 5 mg every other day and 2.5 mg every other day. Discharge Providers Date of admission: 06/01/19 16:44 Primary care physician: Ayo Beverly MD Consults: 06/01/19 17:52 Consult to Discharge Planning Routine Comment: Consult to Occupational Therapy Evaluate & Treat Comment: Physician Instructions: Evaluate and treat Consult to Physical Therapy Evaluate & Treat Comment: Physician Instructions: Evaluate and Treat 06/02/19 08:50 Consult to Dietitian, Adult Routine Comment: Reason For Exam: Diabetic education 06/04/19 11:18 Consult to Pharmacy Routine Comment: manage coumadin 06/05/19 17:14 Consult to Wound Care Routine Comment: Consulting Provider: [facility] 06/07/19 11:25 Consult to Wound Care Routine Comment: Consulting Provider: [facility] Discharge provider: Paul Roman MD Exam Vital Signs (past 8 hours): - 06/09/19 08:00 06/09/19 08:06 Temperature 98.8 F Pulse Rate 128 H Respiratory Rate 17 Blood Pressure 130/79 Pulse Oximetry 95 97 Oxygen Delivery Method Room Air Oxygen Flow Rate 0 Objective Labs Result Diagrams: 06/09/19 05:55 06/09/19 05:55 Labs: Laboratory Results - last 24 hr 06/09/19 06/09/19 06/09/19 05:55 05:55 05:55 WBC 8.4 RBC 4.86 Hgb 14.2 Hct 42.5 MCV 87.3 MCH 29.1 MCHC 33.4 RDW 15.0 H Plt Count 305 Neut % (Auto) 79.5 H Lymph % (Auto) 11.3 L [place] % (Auto) 6.5 Eos % (Auto) 1.4 L Baso % (Auto) 1.3 Neut # (Auto) 6700 Lymph # (Auto) 900 L [place] # (Auto) 500 Eos # (Auto) 100 Baso # (Auto) 100 PT 32.9 H D INR 2.8 H Sodium 136 L Potassium 3.1 L Chloride 99 Carbon Dioxide 30 BUN 13 Creatinine 0.80 Estimated GFR > 60.0 BUN/Creatinine Ratio 16.3 Glucose 103 Calcium 8.7 Discharge Plan Discharge Plan Patient Disposition: SNF Other facility: TBD Transportation: Facility vehicle Labs: CBC, BMP, INR on 06/16/19 Consult as needed: Dental, Hearing, Mental health, Podiatry and Vision I certify the postop hospital fdc care is medically necessary on a continuing basis for any conditions for which he/ she received care during this hospitalization.: Yes The receiving facility has agreed to accept transfer and provide medical treatment.: Yes Discharge Med Rec/Prescriptions Prescriptions: New acetaminophen 325 mg Tablet 650 mg PO Q6HR PRN (Reason: As Needed For Fever/Mild Pain) Qty: 30 RF: 0 cephalexin 250 mg Capsule 500 mg PO QID 7 Days Qty: 28 RF: 0 metoprolol tartrate 50 mg Tablet 100 mg PO BID Qty: 60 RF: 0 warfarin [Coumadin] 5 mg Tablet 2.5 mg PO 1700 Qty: 30 RF: 0 sennosides [senna] 8.6 mg Tablet 17.2 mg PO BID Qty: 60 RF: 0 Continued metformin 500 mg tablet 500 mg PO DAILY RF: 0 amlodipine 5 mg tablet 5 mg PO DAILY RF: 0 sertraline 25 mg tablet 25 mg PO DAILY RF: 0 hydrochlorothiazide 12.5 mg tablet 12.5 mg PO DAILY RF: 0 Discontinued metoprolol tartrate 100 mg tablet 100 mg PO DAILY RF: 0 warfarin 5 mg PO Q OTHER DAY RF: 0 Follow up/Referrals: Ayo Beverly MD [Primary Care Provider] - Discharge Health Status Brief summary of current health status: improving lt leg cellulitis, s/p I&D 06/07/19, d/c to SNF for PT/OT rehab and wound care Multidrug resistant organism: No MDRO Precautions: [place] Provider Discharge Instructions Diet: Carb-consistent/Diabetic Liquid consistency: Normal/Thin Food texture: Regular Discharge Data Primary Care Provider: Ayo Beverly Attending Provider: Elaine Rivera Admit Date/Time: 06/01/19 16:44 Quality VTE Deep Vein Thrombosis/Pulmonary Embolism Present on Admission: No
--- NOTE | 2019-06-09 11:42 | PM.PN.1 ---
Subjective Date Patient Seen: 06/09/19 Interval history: Patient is status post I and D of purulent left leg cellulitis on 06/07/2019. He denies severe pain. He is tolerating IV antibiotic. He does note diminished appetite without nausea or vomiting. Also notes generalized weakness and unstable on his feet. Exam Vital Signs (past 8 hours): - 06/09/19 08:00 06/09/19 08:06 Temperature 98.8 F Pulse Rate 128 H Respiratory Rate 17 Blood Pressure 130/79 Pulse Oximetry 95 97 Oxygen Delivery Method Room Air Oxygen Flow Rate 0 Narrative Exam Narrative: General: Alert, pleasant in no acute distress Lungs: Breathing nonlabored, clear to auscultation Heart: Irregularly irregular rhythm Abdomen: Obese, soft Extremities: Left leg is edematous, erythema is largely retreating or resolved. Currently there is clean dry dressing-C under assessment and plan for wound care examination findings. Objective Labs Result Diagrams: 06/09/19 05:55 06/09/19 05:55 Labs: Laboratory Results - last 24 hr 06/09/19 06/09/19 06/09/19 05:55 05:55 05:55 WBC 8.4 RBC 4.86 Hgb 14.2 Hct 42.5 MCV 87.3 MCH 29.1 MCHC 33.4 RDW 15.0 H Plt Count 305 Neut % (Auto) 79.5 H Lymph % (Auto) 11.3 L [place] % (Auto) 6.5 Eos % (Auto) 1.4 L Baso % (Auto) 1.3 Neut # (Auto) 6700 Lymph # (Auto) 900 L [place] # (Auto) 500 Eos # (Auto) 100 Baso # (Auto) 100 PT 32.9 H D INR 2.8 H Sodium 136 L Potassium 3.1 L Chloride 99 Carbon Dioxide 30 BUN 13 Creatinine 0.80 Estimated GFR > 60.0 BUN/Creatinine Ratio 16.3 Glucose 103 Calcium 8.7 Assessment & Plan Assessment & Plan narrative: 1. 69-year-old male admitted to the hospital for sepsis secondary to left lower extremity cellulitis. Cellulitis is improving quite nicely. Patient is afebrile with normal WBC. Cultures grew methicillin sensitive Staph aureus and strep pyogenes. Discontinue Ancef status post 8 days IV antibiotic. On 06/09/2019 started patient on cephalexin 500 mg 4 times daily for 7 days. 2. Status post sharp debridement of the left lower extremity purulence cellulitis. Appreciate wound care evaluation and recommendations. Wound care note 06/09/2019: ?Wound is partial thickness and involves the majority of the left lower extremity from the knee to ankle, nearly circumferential in width, but with a few centimeters intact skin on the posterior calf. There is a large amount of serous drainage present. Erythema is retreating from marked boundaries. There is mild increased warmth to palpation. The area is tender to palpation. 3. Chronic atrial fibrillation, rate controlled, continue Coumadin. Patient has occasional periods of tachycardia but overall rate controlled. We had increased his metoprolol tartrate to 100 mg twice daily which will be continued. His INR was subtherapeutic, warfarin increased, and INR 2.8 on 06/09/2019. Continue warfarin 5 mg q.p.m. and recheck INR on 06/16/2019. 4. Hypertension, BP mildly elevated, continue usual medication amlodipine 5 mg daily and on 06/10/2019 resume HCTZ 12.5 mg daily. 5. Hypokalemia, receiving 40 mEq KCL IV for serum potassium 3.1. 6. Hyponatremia, very mild and stable 7. Depression, stable on low-dose sertraline 8. Morbid obesity, BMI 46 Patient is medically stable for discharge but will need group home rehab services due to weakness, need for PT and OT, and wound care needs. We are awaiting insurance authorization to discharge to group home facility. Quality VTE Deep Vein Thrombosis/Pulmonary Embolism Present on Admission: No
--- NOTE | 2019-06-09 11:54 | P.PN_ITS ---
Subjective Date Patient Seen: 06/09/19 Interval history: Patient is status post I and D of purulent left leg cellulitis on 06/07/2019. He denies severe pain. He is tolerating IV antibiotic. He does note diminished appetite without nausea or vomiting. Also notes generalized weakness and unstable on his feet. Exam Vital Signs (past 8 hours): - 06/09/19 08:00 06/09/19 08:06 Temperature 98.8 F Pulse Rate 128 H Respiratory Rate 17 Blood Pressure 130/79 Pulse Oximetry 95 97 Oxygen Delivery Method Room Air Oxygen Flow Rate 0 Narrative Exam Narrative: General: Alert, pleasant in no acute distress Lungs: Breathing nonlabored, clear to auscultation Heart: Irregularly irregular rhythm Abdomen: Obese, soft Extremities: Left leg is edematous, erythema is largely retreating or resolved. Currently there is clean dry dressing-C under assessment and plan for wound care examination findings. Objective Labs Result Diagrams: 06/09/19 05:55 06/09/19 05:55 Labs: Laboratory Results - last 24 hr 06/09/19 06/09/19 06/09/19 05:55 05:55 05:55 WBC 8.4 RBC 4.86 Hgb 14.2 Hct 42.5 MCV 87.3 MCH 29.1 MCHC 33.4 RDW 15.0 H Plt Count 305 Neut % (Auto) 79.5 H Lymph % (Auto) 11.3 L [place] % (Auto) 6.5 Eos % (Auto) 1.4 L Baso % (Auto) 1.3 Neut # (Auto) 6700 Lymph # (Auto) 900 L [place] # (Auto) 500 Eos # (Auto) 100 Baso # (Auto) 100 PT 32.9 H D INR 2.8 H Sodium 136 L Potassium 3.1 L Chloride 99 Carbon Dioxide 30 BUN 13 Creatinine 0.80 Estimated GFR > 60.0 BUN/Creatinine Ratio 16.3 Glucose 103 Calcium 8.7 Assessment & Plan Assessment & Plan narrative: 1. 69-year-old male admitted to the hospital for se psis secondary to left lower extremity cellulitis. Cellulitis is improving quite nicely. Patient is afebrile with normal WBC. Cultures grew methicillin sensitive Staph aureus and strep pyogenes. Discontinue Ancef status post 8 days IV antibiotic. On 06/09/2019 started patient on cephalexin 500 mg 4 times daily for 7 days. 2. Status post sharp debridement of the left lower extremity purulence cellulitis. Appreciate wound care evaluation and recommendations. Wound care note 06/09/2019: ?Wound is partial thickness and involves the majority of the left lower extremity from the knee to ankle, nearly circumferential in width, but with a few centimeters intact skin on the posterior calf. There is a large amount of serous drainage present. Erythema is retreating from marked boundaries. There is mild increased warmth to palpation. The area is tender to palpation. 3. Chronic atrial fibrillation, rate controlled, continue Coumadin. Patient has occasional periods of tachycardia but overall rate controlled. We had increased his metoprolol tartrate to 100 mg twice daily which will be continued. His INR was subtherapeutic, warfarin increased, and INR 2.8 on 06/09/2019. Continue warfarin 5 mg q.p.m. and recheck INR on 06/16/2019. 4. Hypertension, BP mildly elevated, continue usual medication amlodipine 5 mg daily and on 06/10/2019 resume HCTZ 12.5 mg daily. 5. Hypokalemia, receiving 40 mEq KCL IV for serum potassium 3.1. 6. Hyponatremia, very mild and stable 7. Depression, stable on low-dose sertraline 8. Morbid obesity, BMI 46 Patient is medically stable for discharge but will need detention rehab services due to weakness, need for PT and OT, and wound care needs. We are awaiting insurance authorization to discharge to detention facility. Quality VTE Deep Vein Thrombosis/Pulmonary Embolism Present on Admission: No
[2019-06-09] MEDS: cephALEXin 250 MG CAPSULE 500 MG PO ×3 (12:10→21:35)
--- NOTE | 2019-06-09 13:21 | CM.DPC ---
DCP: continued: EMR reviewed for last 2 days and discussed case in Team Rounds. It was noted that d/c plan is FCC/1 or LCCSV/2 and that pt does need insurance auth for same from [facility]. Spoke early this morning with Viktoria/[employer] and then later with Nithya/[facility]. Both confirmed that this insurance is only open on weekdays and thus the auth process had not been started until 0800 this morning. Nithya clarifies: it typically takes 24-48 hours to obtain a decision from the insurance company. [facility] will accept pt when auth is received. Dr. Roman gave update later today and said pt was now ok'd for a d/c. Dr. Menchaca from Wound Care had consulted and recommended followup at the wound clinic. Put a call into [facility] now and spoke with Marcos. She stated that she had not had a chance to discuss case with the RN and that she was concerned re pt's dx morbid obesity. Gave ht/wt info to her. Asked if the referral to insurance had been started yet. She said she did not know, that Christine typically does this and she is not working today. Explained to her that this would likely take 24/48 hours and she will discuss further with her team. Dr. Roman is aware and ROMI Gray is updated. Will follow up with pt this afternoon for update and confirmation of this plan. P: [facility] pending insurance auth vs [facility] pending acceptance of pt and insurance auth....Likely this will all be in place by tomorrow.
--- NOTE | 2019-06-09 16:08 | PT.IPTN ---
Current Diagnoses Sepsis, unspecified organism (06/01/19) Cellulitis of left lower limb (06/01/19) Surgery Performed Operation Date: 06/07/19 09:00 Actual Procedures p lower extremity debribement(Left) - Onofre Madden MD Physical Therapy Treatment Note M2 PT-IP Current Condition Start: 06/02/19 10:22 Freq: NEEDED Status: Active Protocol: Document 06/03/19 11:37 AB (Rec: 06/03/19 13:55 AB [id number]) Physical Therapy Current Condition Current Condition Evaluation Date 06/03/19 Treatment Diagnosis sepsis; L leg cellulitis; difficulty in walking Onset Date 06/01/19 M3 PT-IP Subjective Start: 06/02/19 10:22 Freq: NEEDED Status: Active Protocol: Document 06/09/19 16:07 LJ (Rec: 06/09/19 16:08 LJ [id number]) Subjective Physical Therapy Visit Type Type Patient Refusal Notes pt in bed sleeping. States he was in chair most of the day and just got back to bed. States he is too groggy to get up. Thinks tylenol has made him sleepy M4 PT-IP Mobility and Gait Start: 06/02/19 10:22 Freq: NEEDED Status: Active Protocol: Document 06/08/19 13:40 CLB (Rec: 06/08/19 14:32 CLB [id number]) PT-Bed Mobility Assessment Supine to Sit Supine to Sit Moderate Assistance 2 Person Assistance Head of Bed Elevated Bedrails Scooting Scooting to Edge of Bed Moderate Assistance PT-Transfer Assessment Sit to and From Stand Sit to and from Stand Minimal Assistance 2 Person Assistance Use of Upper Extremities Equipment Transfer Assistive Device Front Wheeled Walker Orthotic/Prosthetic Devices or Brace: No Transfers Transfer Destination Chair Transfer Ability Level of Assist Contact Guard Assistance Comments Mobility Comments Pt required Mod A for bed mobility using trapeze and bed tilted to left 5 degrees. Pt then needing to pull on therapists to sit upright to square hips at EOB. M5 PT-IP Objective Assessments Start: 06/02/19 10:22 Freq: NEEDED Status: Active Protocol: Document 06/03/19 11:37 AB (Rec: 06/03/19 13:55 AB [id number]) Orientation Orientation/Cognition Level of Alertness Alert Orientation Name Age Birthday Month Date Year Day of Week Place Situation Language Function Ability No Deficits Noted Safety Awareness Understands Safety Issues Memory Description No Deficits Noted Gross Range of Motion Lower Extremity ROM Assessment Within Functional Limits Strength Lower Extremity Strength Assessment Left Impaired Knee 3-/5 Coordination Assessment Gross Coordination Gross Coordination WNL Muscle Tone Muscle Tone WNL Yes M6 PT-IP Treatment Start: 06/02/19 10:22 Freq: NEEDED Status: Active Protocol: Document 06/03/19 11:37 AB (Rec: 06/03/19 13:55 AB [id number]) Physical Therapy Treatment Exercises Exercises Quad Sets Heel Slides Education Education Provided Precautions Weight Bearing Status Post-Op Packet Safety M7 PT-IP Assessment and Plan Start: 06/02/19 10:22 Freq: NEEDED Status: Active Protocol: Document 06/08/19 13:40 CLB (Rec: 06/08/19 14:32 CLB [id number]) PT Summary Assessment and Plan Summary Assessment Summary Pt respectfully refused ambulation this afternoon but transferred to chair requiring Mod A x2 to EOB then CGAx2 w/ FWW to stand pivot to chair with cues for hand placement to slow descent. Goals Bed Mobility Goal Independent Transfer Goal Independent Front Wheeled Walker Gait Goal Independent Front Wheel Walker Gait Distance 500 Other Goals up/down 2 steps with L rail SBA Days to Meet Goals 10 Frequency of Treatment Frequency Of Treatment Once a Day Treatment Plan Physical Therapy Treatment Plan Bed Mobility Training Transfer Training Gait Training Therapeutic Exercise Balance Retraining Discharge Planning Neuromuscular Re-ed Coordination Retraining Other Recommendations and Next Treatment stair climbing Focus sambulation; sit <>stand Recommendations To Nursing Amount of Assist Needed 1 Person Assist 2 Person Assist Discharge Recommendations PT Discharge Recommendations SNF Rehab Equipment Needed for Home Before FWW if pt goes home Discharge tub seat
[2019-06-09] MEDS: WARFARIN 5 MG TABLET PO (17:47)
[2019-06-09] MEDS: SERTRALINE 25 MG TABLET PO (18:04)
--- NOTE | 2019-06-09 18:48 | PC.NURSE ---
Evening Shift Note- Patient alert and oriented and able to make needs known to staff. Patient pleasent, calm, and cooperative with care. No complaints of pain or discomfort at this time. No complaints of N/V that this time. LLE elevated up on pillows. Dressing to LLE c/d/i. Lung sounds clear throughout, even and unlabored respitations noted. Safety measures in place. Patient calls appropriatly for assistance. Call garcia and phone within reach. Will continue to monitor.
[2019-06-10] VITALS (11 sets, daily range): BP systolic 137–147; BP diastolic 72–87; PULSE 88–125; RESP 16–19; TEMP 36.3–36.9; O2SAT 94–97
--- NOTE | 2019-06-10 08:10 | CM.DPC ---
Addendum entered by Yareli Russo LPN 06/10/19 15:39: Have checked in every 2 hours today with [facility] and [facility]. Both confirm that that the case is listed with the insurance company as [id number] and that the case is still in the review process. They too have been checking in on auth status every couple of hours. Last updates by both Viktoria and Marian/[facility] state same answer. Dr. Roman was updated and has incorporated this infor into his note for today. Discussed same with Signaler Yaneth and JANNETH Luis. Avoidable day process is noted. Pt has been updated. DCP team will follow closely tomorrow. Addendum entered by Yareli Russo LPN 06/10/19 08:31: Spoke now with [facility]. She has called the insurance company this morning and thus far it is in review. Pending reference # is: [id number]. She plans another call in an hour and will keep checking. Have also now given referral to [facility] and she will review and start auth process immediately. She is aware that the facility is alternate choice. [facility] is faxing clincal review now. Original Note: DCP: continued: checked in with pt now to confirm his plan for [facility] when insurance auth is received. He states he feels ready to go whenever the insurance ok's this but notes I am not in any hurry. The care here has been wonderful. Did get a vm this morning, left on 1362 line, from [facility]. She reported that she conferred with her team and pt would need a bariatric bed and we cannot provide that so we cannot accept him. Have [facility] a [facility] now [facility] re status of the insurance authorization. Did confirm that no IV antibiotics are needed and pt has now fully transitioned to oral antibiotic therapy. Will do PASRR in prep for the d/c. Will consider a snf choice #3 if need be.
[2019-06-10] MEDS: AMLODIPINE 5 MG TABLET PO (09:00)
[2019-06-10] MEDS: METOPROLOL IR 50 MG TABLET 100 MG PO ×2 (09:00→20:19)
[2019-06-10] MEDS: cephALEXin 250 MG CAPSULE 500 MG PO ×4 (09:01→20:19)
[2019-06-10] MEDS: SENNOSIDES 8.6 MG TABLET 17.2 MG PO (09:02)
[2019-06-10] MEDS: SODIUM CHLORIDE 0.9% FLUSH 10 ML IV ×2 (09:02→20:20)
[2019-06-10] MEDS: ACETAMINOPHEN 325 MG TABLET 650 MG PO ×2 (09:03→22:08)
--- NOTE | 2019-06-10 11:45 | OT.IP.TRT ---
Current Diagnoses Sepsis, unspecified organism (06/01/19) Cellulitis of left lower limb (06/01/19) Surgery Performed Operation Date: 06/07/19 09:00 Actual Procedures p lower extremity debribement(Left) - Onofre Madden MD Occupational Therapy Treatment Note M2 OT-IP Current Condition Start: 06/02/19 13:21 Freq: Status: Active Protocol: Document 06/02/19 14:22 CGR (Rec: 06/02/19 14:43 CGR [id number]) Occupational Therapy Current Condition Current Condition Evaluation Date 06/02/19 Treatment Diagnosis LLE cellulitis Weight Bearing Status Weight Bearing Status Full Weight Bearing M3 OT- IP Subjective and Pain Start: 06/02/19 13:21 Freq: Status: Active Protocol: Document 06/10/19 11:45 PJM (Rec: 06/10/19 16:53 PJM [id number]) OT- Subjective Occupational Therapy Visit Type Type Treatment Note Visit Start Time 11:35 Visit Stop Time 11:47 Total Visit Minutes 12 Notes P.T. in to walk with pt at end of session Occupational Therapy Visit Comments Patient Comments I am doing better. Patient/Caregiver Goals to get stronger and go home after rehab, be able to care for OT Pain Assessment Pain When Pain Assessed After Treatment Pain Present Pain Present Pain Reported Location Left Leg Intensity 3 Scale Used Numeric (1 - 10) Description Aching Acute M4 OT- IP ADL's Start: 06/02/19 13:21 Freq: Status: Active Protocol: Document 06/10/19 11:45 PJM (Rec: 06/10/19 16:53 PJM [id number]) OT [id number] General Evaluation Self-Feeding Ability Independent OT ADL-Grooming General Evaluation Grooming Ability Standby Assistance Areas Needing Assistance Face Washing Comments OT Grooming Comments standing at sink with FWW OT ADL-Dressing General Eval Lower Body Dressing Ability Minimal Assistance Areas Needing Assistance Shoes Assistive Devices Dressing Assistive Devices Long Handled Shoe [employer] Setter Comments OT Dressing Comments provided education re: optimal shoe selection to increase ease of donning and doffing OT ADL-Toileting General Evaluation Toileting Ability Standby Assistance Comments OT Toileting Comments standing to urinate in bathroom with FWW M5 OT- IP IADL's Start: 06/02/19 13:21 Freq: Status: Active Protocol: Document 06/02/19 14:22 CGR (Rec: 06/02/19 14:43 CGR [id number]) OT-Instrumental Activities of Daily Living Deficits IADL Deficits Identified Deficits Home Safety Awareness Awareness of Need for Assistance at Home Good Awareness Ability to Problem Solve Emergency Able to Problem Solve Situations Home Safety Comments Pt is the caregiver for his with advanced dementia. 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 M6 OT- IP Functional Cognition Start: 06/02/19 13:21 Freq: Status: Active Protocol: Document 06/10/19 11:45 PJM (Rec: 06/10/19 16:53 PJ [id number]) Cognitive Factors Limiting Selfcare Function Cognitive Ability Level of Alertness Alert Patient Orientation Name Age Birthday Month Date Year Day of Week Place Situation Attention Span Ability Capable of Focused Attention Capable of Sustained Attention Ability to Follow Commands Able to Follow One Step Commands Memory Description No Deficits Noted Safety Awareness No Deficits Noted Cognitive Comments Cognitive Assessment Comments Pt's affect brighter this week . He is initiating conversation and joking. M7 OT- IP Mobility and Balance Start: 06/02/19 13:21 Freq: Status: Active Protocol: Document 06/10/19 11:45 PJM (Rec: 06/10/19 16:53 PJ [id number]) OT- Bed Mobility Assessment Supine to Sit Supine to Sit Assist Standby Assistance Head of Bed Elevated Scooting Scooting to Edge of Bed Standby Assistance OT-Transfer Assessment Sit to and From Stand Sit to and from Stand Standby Assistance 1 Person Assistance Transfers Transfer Ability Standby Assistance 1 Person Assistance Technique Transfer Destination Toilet Transfer Technique Stand Step Pivot Devices Transfer Assistive Devices Front Wheeled Walker Comments Mobility Comments pt declines gait belt, needs to work on flat bed mobility as he relies heavily on power bed features here OT- Gait Assessment Gait Gait Assistance Required: Standby Assistance Distance (Feet) 20 Assistive Devices Assistive Device Front Wheeled Walker Comments Gait Ability Comments to bathroom , then to sink OT- Balance Assessment Sitting Balance and Reactions Static Sitting Balance Ability Good Dynamic Sitting Balance Ability Good Standing Balance and Reactions Static Standing Balance Ability Good Dynamic Standing Balance Ability Fair M9 OT- IP Assessment and Plan Start: 06/02/19 13:21 Freq: Status: Active Protocol: Document 06/10/19 11:45 PJM (Rec: 06/10/19 16:53 PJM [id number]) OT Summary Assessment and Plan Potential Rehabilitation Potential Good Summary OT Impairments Pain Strength Functional Mobility Dressing Bathing Shower Transfers Progress Towards Goals Progressing Toward Goals Assessment Summary Pt making good progress since I&D on LLE on 06/07/19. Pt still has open wound on LLE that requires ongoing care. 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 He needs to be completely independent with all these tasks to return home . He is primary caregiver for with dementia and needs to assist her with dressing and provide 24 hr supervision including getting up with her to go to bathroom at night. Recommend SNF at d/c for further rehab services. Goals Grooming Goal Independent Dressing Goal Independent Toileting Goal Independent Bathing Goal Independent Toilet Transfer Goal Independent Shower Transfer Goal Independent Days to Meet Goals 2 Frequency of Treatment Frequency Of Treatment Once a Day Treatment Plan OT Treatment Plan ADL Training Functional Mobility Patient/Family Education Discharge Planning Discharge Recommendations OT Discharge Recommendations SNF Rehab Other Discharge Recommendations needs to be indep with IADLS and able to care for with dementia
--- NOTE | 2019-06-10 12:05 | PT.IPTN ---
Current Diagnoses Sepsis, unspecified organism (06/01/19) Cellulitis of left lower limb (06/01/19) Surgery Performed Operation Date: 06/07/19 09:00 Actual Procedures p lower extremity debribement(Left) - Onofre Madden MD Physical Therapy Treatment Note M2 PT-IP Current Condition Start: 06/02/19 10:22 Freq: NEEDED Status: Active Protocol: Document 06/03/19 11:37 AB (Rec: 06/03/19 13:55 AB [id number]) Physical Therapy Current Condition Current Condition Evaluation Date 06/03/19 Treatment Diagnosis sepsis; L leg cellulitis; difficulty in walking Onset Date 06/01/19 M3 PT-IP Subjective Start: 06/02/19 10:22 Freq: NEEDED Status: Active Protocol: Document 06/10/19 11:45 CLB (Rec: 06/10/19 12:58 CLB [id number]) Subjective Physical Therapy Visit Type Type Treatment Note Visit Start Time 11:45 Visit Stop Time 12:05 Total Visit Minutes 20 Physical Therapy Visit Comments Patient Comments Pt agreeable to ambulate. M4 PT-IP Mobility and Gait Start: 06/02/19 10:22 Freq: NEEDED Status: Active Protocol: Document 06/10/19 11:45 CLB (Rec: 06/10/19 12:58 CLB [id number]) PT-Bed Mobility Assessment Supine to Sit Supine to Sit Standby Assistance Head of Bed Elevated Scooting Scooting to Edge of Bed Standby Assistance PT-Transfer Assessment Sit to and From Stand Sit to and from Stand Standby Assistance 1 Person Assistance Use of Upper Extremities Equipment Transfer Assistive Device Front Wheeled Walker Orthotic/Prosthetic Devices or Brace: No Transfers Transfer Destination Chair Transfer Ability Level of Assist Standby Assistance Use of Upper Extremities Comments Mobility Comments Pt improving with bed mobility able to get himself up to seated position w/o use of trapeze. Gait Assessment Gait Gait Assistance Required: Standby Assistance Distance (Feet) 200 Able to Maintain Weight Bearing Status Yes During Gait Assistive Devices Assistive Device Front Wheeled Walker Orthotic/Prosthetic Devices or Brace: No Gait Deviations General Gait Pattern Antalgic Decreased Stride Length Decreased Feet Clearance Flexed Trunk Factors Limiting Gait Function Factors Limiting Gait Function Decreased Activity Tolerance Decreased Strength Pain Comments Gait Comments Pt able to ambulate ~200ft with steady gait and safety awareness. M5 PT-IP Objective Assessments Start: 06/02/19 10:22 Freq: NEEDED Status: Active Protocol: Document 06/03/19 11:37 AB (Rec: 06/03/19 13:55 AB [id number]) Orientation Orientation/Cognition Level of Alertness Alert Orientation Name Age Birthday Month Date Year Day of Week Place Situation Language Function Ability No Deficits Noted Safety Awareness Understands Safety Issues Memory Description No Deficits Noted Gross Range of Motion Lower Extremity ROM Assessment Within Functional Limits Strength Lower Extremity Strength Assessment Left Impaired Knee 3-/5 Coordination Assessment Gross Coordination Gross Coordination WNL Muscle Tone Muscle Tone WNL Yes M6 PT-IP Treatment Start: 06/02/19 10:22 Freq: NEEDED Status: Active Protocol: Document 06/03/19 11:37 AB (Rec: 06/03/19 13:55 AB [id number]) Physical Therapy Treatment Exercises Exercises Quad Sets Heel Slides Education Education Provided Precautions Weight Bearing Status Post-Op Packet Safety M7 PT-IP Assessment and Plan Start: 06/02/19 10:22 Freq: NEEDED Status: Active Protocol: Document 06/10/19 11:45 CLB (Rec: 06/10/19 12:58 CLB [id number]) PT Summary Assessment and Plan Summary Assessment Summary Pt refused use of gait belt. Pt able to get OOB w/o use of trapeze and SBA. Pt ambulated ~200ft in reddy w/FWW/SBA. Goals Bed Mobility Goal Independent Transfer Goal Independent Front Wheeled Walker Gait Goal Independent Front Wheel Walker Gait Distance 500 Other Goals up/down 2 steps with L rail SBA Days to Meet Goals 10 Frequency of Treatment Frequency Of Treatment Once a Day Treatment Plan Physical Therapy Treatment Plan Bed Mobility Training Transfer Training Gait Training Therapeutic Exercise Balance Retraining Discharge Planning Neuromuscular Re-ed Coordination Retraining Other Recommendations and Next Treatment stair climbing Focus sambulation; sit <>stand Recommendations To Nursing Amount of Assist Needed 1 Person Assist Discharge Recommendations PT Discharge Recommendations SNF Rehab Equipment Needed for Home Before FWW if pt goes home Discharge tub seat
--- NOTE | 2019-06-10 14:20 | PM.PN.1 ---
Subjective Date Patient Seen: 06/10/19 Interval history: Patient discharge delayed now 2 days due to awaiting insurance authorization for retirement facility rehab. Patient remains stable but with generalized weakness and poor balance. He is status post superficial I and D on 06/07/2019. He was on Ancef and now on cephalexin to complete treatment course. No nausea, vomiting, diarrhea or other antibiotic side effects noted. Exam Vital Signs (past 8 hours): - 06/10/19 07:33 06/10/19 07:45 06/10/19 12:46 Temperature 97.7 F 97.4 F L Pulse Rate 93 H 98 H Respiratory Rate 16 16 Blood Pressure 139/87 139/72 Pulse Oximetry 94 94 95 Oxygen Delivery Method Room Air Oxygen Flow Rate 0 Narrative Exam Narrative: General: Alert, pleasant in no acute distress Lungs: Breathing nonlabored, clear to auscultation Heart: Irregularly irregular rhythm Abdomen: Obese, soft Extremities: Left leg is edematous, erythema is largely retreating from the lower leg, but there is still some remaining erythema or inflammation around the I and D area. There is large area of very superficial debridement on the anterior calf. Objective Labs Result Diagrams: 06/09/19 05:55 06/09/19 05:55 Assessment & Plan Assessment & Plan narrative: 1. 69-year-old male admitted to the hospital for sepsis secondary to left lower extremity cellulitis. Cellulitis is resolving. Patient is afebrile with normal WBC. Cultures grew methicillin sensitive Staph aureus and strep pyogenes. Discontinued Ancef status on 06/09/2019 post 8 days IV antibiotic. On 06/09/2019 started patient on cephalexin 500 mg 4 times daily for 7 days. 2. Status post sharp debridement of the left lower extremity purulence cellulitis. Appreciate wound care evaluation and recommendations. Continue wound care. Wound care note 06/09/2019: ?Wound is partial thickness and involves the majority of the left lower extremity from the knee to ankle, nearly circumferential in width, but with a few centimeters intact skin on the posterior calf. There is a large amount of serous drainage present. Erythema is retreating from marked boundaries. There is mild increased warmth to palpation. The area is tender to palpation. 3. Chronic atrial fibrillation, rate controlled, continue Coumadin. Patient has occasional periods of tachycardia but overall rate controlled. We had increased his metoprolol tartrate to 100 mg twice daily which will be continued. His INR was subtherapeutic, warfarin increased, and INR 2.8 on 06/09/2019. Continue warfarin 5 mg q.p.m. and recheck INR on 06/16/2019. 4. Hypertension, recent BPs normal, continue usual medication amlodipine 5 mg daily and on 06/10/2019 resume HCTZ 12.5 mg daily. 5. Hypokalemia, received 40 mEq KCL IV on 06/09/2019 for serum potassium 3.1. Recheck potassium on 06/16/2019. 6. Hyponatremia, very mild and stable 7. Depression, stable on low-dose sertraline 8. Morbid obesity, BMI 46 Patient is medically stable for discharge but will need retirement rehab PT and OT due to weakness and has ongoing wound care needs. We are patiently awaiting insurance authorization to discharge to retirement facility. Quality VTE Deep Vein Thrombosis/Pulmonary Embolism Present on Admission: No
--- NOTE | 2019-06-10 14:28 | P.PN_ITS ---
Subjective Date Patient Seen: 06/10/19 Interval history: Patient discharge delayed now 2 days due to awaiting insurance authorization for assisted facility rehab. Patient remains stable but with generalized weakness and poor balance. He is status post superficial I and D on 06/07/2019. He was on Ancef and now on cephalexin to complete treatment course. No nausea, vomiting, diarrhea or other antibiotic side effects noted. Exam Vital Signs (past 8 hours): - 06/10/19 07:33 06/10/19 07:45 06/10/19 12:46 Temperature 97.7 F 97.4 F L Pulse Rate 93 H 98 H Respiratory Rate 16 16 Blood Pressure 139/87 139/72 Pulse Oximetry 94 94 95 Oxygen Delivery Method Room Air Oxygen Flow Rate 0 Narrative Exam Narrative: General: Alert, pleasant in no acute distress Lungs: Breathing nonlabored, clear to auscultation Heart: Irregularly irregular rhythm Abdomen: Obese, soft Extremities: Left leg is edematous, erythema is largely retreating from the lower leg, but there is still some remaining erythema or inflammation around the I and D area. There is large area of very superficial debridement on the anterior calf. Objective Labs Result Diagrams: 06/09/19 05:55 06/09/19 05:55 Assessment & Plan Assessment & Plan narrative: 1. 69-year-old male admitted to the hospital for sepsis secondary to left lower extremity cellulitis. Cellulitis is resolving. Patient is afebrile with normal WBC. Cultures grew methicillin sensitive Staph aureus and strep pyogenes. Discontinued Ancef status on 06/09/2019 post 8 days IV antibiotic. On 06/09/2019 started patient on cephalexin 500 mg 4 times daily for 7 days. 2. Status post sharp debridement of the left lower extremity purulence cellulitis. Appreciate wound care evaluation and recommendations. Continue wound care. Wound care note 06/09/2019: ?Wound is partial thickness and involves the majority of the left lower extremity from the knee to ankle, nearly circumferential in width, but with a few centimeters intact skin on the posterior calf. There is a large amount of serous drainage present. Erythema is retreating from marked boundaries. There is mild increased warmth to palpation. The area is tender to palpation. 3. Chronic atrial fibrillation, rate controlled, continue Coumadin. Patient has occasional periods of tachycardia but overall rate controlled. We had increased his metoprolol tartrate to 100 mg twice daily which will be continued. His INR was subtherapeutic, warfarin increased, and INR 2.8 on 06/09/2019. Continue warfarin 5 mg q.p.m. and recheck INR on 06/16/2019. 4. Hypertension, recent BPs normal, continue usual medication amlodipine 5 mg daily and on 06/10/2019 resume HCTZ 12.5 mg daily. 5. Hypokalemia, received 40 mEq KCL IV on 06/09/2019 for serum potassium 3.1. Recheck potassium on 06/16/2019. 6. Hyponatremia, very mild and stable 7. Depression, stable on low-dose sertraline 8. Morbid obesity, BMI 46 Patient is medically stable for discharge but will need assisted rehab PT and OT due to weakness and has ongoing wound care needs. We are patiently awaiting insurance authorization to discharge to assisted facility. Quality VTE Deep Vein Thrombosis/Pulmonary Embolism Present on Admission: No
[2019-06-10] MEDS: WARFARIN 5 MG TABLET PO (17:05)
[2019-06-10] MEDS: SERTRALINE 25 MG TABLET PO (20:20)
[2019-06-11 04:00] VITALS: BP 146/91; PULSE 80; RESP 16; TEMP 36.8; O2SAT 95
[2019-06-11 07:00] VITALS: O2SAT 96
[2019-06-11 08:00] VITALS: BP 136/83; PULSE 110; RESP 18; TEMP 36.6; O2SAT 95
[2019-06-11] MEDS: cephALEXin 250 MG CAPSULE 500 MG PO (08:37)
[2019-06-11] MEDS: METOPROLOL IR 50 MG TABLET 100 MG PO (08:38)
[2019-06-11] MEDS: AMLODIPINE 5 MG TABLET PO (08:38)
[2019-06-11] MEDS: ACETAMINOPHEN 325 MG TABLET 650 MG PO (08:38)
--- NOTE | 2019-06-11 09:25 | CM.DPC ---
Addendum entered by Shraddha Rajan R.N. 06/11/19 14:02: Received signed discharge orders. Went ahead and faxed over PASSR, signed med sheets, as well as discharge summary. Patient aware of discharge, and stated, he really appreciated all of the help that he received here. [facility] arrived to picker / packer patient. Was able to get in contact with [facility] as well. Original Note: DCP Cont: Had received a call from April at [facility] stated that they received the insurance referral auth. at 0600 this morning. Marian at [facility] called later, and also left a message. [facility] is preferred choice, and the plan is for picker / packer at 11:00am. Updated patient, nurse Shelly, and Dr. Bolden. Orders are still pending. P: Patient is to be discharged today, picker / packer time at 11:00. Will await orders, and send to [facility]. Shraddha Rajan RN/Bath Steward/Stewardess
--- NOTE | 2019-06-11 09:40 | PT.IPTN ---
Current Diagnoses Sepsis, unspecified organism (06/01/19) Cellulitis of left lower limb (06/01/19) Surgery Performed Operation Date: 06/07/19 09:00 Actual Procedures p lower extremity debribement(Left) - Onofre Madden MD Physical Therapy Treatment Note M2 PT-IP Current Condition Start: 06/02/19 10:22 Freq: NEEDED Status: Active Protocol: Document 06/03/19 11:37 AB (Rec: 06/03/19 13:55 AB [id number]) Physical Therapy Current Condition Current Condition Evaluation Date 06/03/19 Treatment Diagnosis sepsis; L leg cellulitis; difficulty in walking Onset Date 06/01/19 M3 PT-IP Subjective Start: 06/02/19 10:22 Freq: NEEDED Status: Active Protocol: Document 06/11/19 09:40 AB (Rec: 06/11/19 11:09 AB [id number]) Subjective Physical Therapy Visit Type Type Treatment Note Visit Start Time 09:40 Visit Stop Time 10:09 Total Visit Minutes 29 Number of ARCHITECT IN TRAINING Visits 0 Physical Therapy Visit Comments Patient Comments pt agreeable to do PT M4 PT-IP Mobility and Gait Start: 06/02/19 10:22 Freq: NEEDED Status: Active Protocol: Document 06/11/19 09:40 AB (Rec: 06/11/19 11:09 AB [id number]) PT-Bed Mobility Assessment Supine to Sit Supine to Sit Standby Assistance Head of Bed Elevated Sit to Supine Sit to Supine Standby Assistance Head of Bed Elevated PT-Transfer Assessment Sit to and From Stand Sit to and from Stand Standby Assistance Equipment Transfer Assistive Device Gait Belt Front Wheeled Walker Orthotic/Prosthetic Devices or Brace: No Gait Assessment Gait Gait Assistance Required: Standby Assistance Distance (Feet) 200 Able to Maintain Weight Bearing Status Yes During Gait Assistive Devices Assistive Device Gait Belt Front Wheeled Walker Orthotic/Prosthetic Devices or Brace: No Gait Deviations General Gait Pattern Antalgic Decreased Stride Length Decreased Feet Clearance Flexed Trunk Factors Limiting Gait Function Factors Limiting Gait Function Decreased Activity Tolerance Decreased Strength Limited Range of Motion Poor Balance Poor Safety Awareness M5 PT-IP Objective Assessments Start: 06/02/19 10:22 Freq: NEEDED Status: Active Protocol: Document 06/03/19 11:37 AB (Rec: 06/03/19 13:55 AB [id number]) Orientation Orientation/Cognition Level of Alertness Alert Orientation Name Age Birthday Month Date Year Day of Week Place Situation Language Function Ability No Deficits Noted Safety Awareness Understands Safety Issues Memory Description No Deficits Noted Gross Range of Motion Lower Extremity ROM Assessment Within Functional Limits Strength Lower Extremity Strength Assessment Left Impaired Knee 3-/5 Coordination Assessment Gross Coordination Gross Coordination WNL Muscle Tone Muscle Tone WNL Yes M6 PT-IP Treatment Start: 06/02/19 10:22 Freq: NEEDED Status: Active Protocol: Document 06/11/19 09:40 AB (Rec: 06/11/19 11:09 AB [id number]) Physical Therapy Treatment Education Education Provided Safety M7 PT-IP Assessment and Plan Start: 06/02/19 10:22 Freq: NEEDED Status: Active Protocol: Document 06/11/19 09:40 AB (Rec: 06/11/19 11:09 AB [id number]) PT Summary Assessment and Plan Potential Rehabilitation Potential Good Summary Impairments Strength Balance Sensation Bed Mobility Transfers Gait Activity Tolerance Progress Towards Goals Progressing Toward Goals Assessment Summary pt requiring SBA with mobility using FWW. still has difficulty with bed mobility needing to have HOB elevated to get up. pt plans to d/c to [facility] today. Goals Bed Mobility Goal Independent Transfer Goal Independent Front Wheeled Walker Gait Goal Independent Front Wheel Walker Gait Distance 500 Other Goals up/down 2 steps with L rail SBA Days to Meet Goals 10 Frequency of Treatment Frequency Of Treatment Once a Day Treatment Plan Physical Therapy Treatment Plan Bed Mobility Training Transfer Training Gait Training Therapeutic Exercise Balance Retraining Discharge Planning Neuromuscular Re-ed Coordination Retraining Other Recommendations and Next Treatment stair climbing Focus sambulation; sit <>stand Recommendations To Nursing Amount of Assist Needed 1 Person Assist Discharge Recommendations PT Discharge Recommendations SNF Rehab Equipment Needed for Home Before FWW if pt goes home Discharge tub seat
--- NOTE | 2019-06-11 09:56 | P.DS_ITS ---
History of Present Illness Date Patient Seen: 06/11/19 Chief complaint: Swollen lft leg, radiating up, sores on legs, arms Narrative: Rick Cunningham is a 69-year-old male with a history of atrial fibrillation anticoagulated on warfarin, diabetes type 2, essential hypertension, and a new diagnosis of depression who presents to the emergency department with a 2 to three-week history of pain in his left lower leg. He states that it began with a sore on the right side of his left lower leg calf area and has now gotten more painful and difficult to walk on. The patient does not appear to be aware whether not he has had a fever. He endorses mild shortness of breath with exertion, denies chest pain or palpitations, denies nausea, vomiting, abdominal pain, diarrhea or constipation, he does state he urinates frequently and has benign prostatic hypertrophy, denies urinary pain, incontinence, hematuria or urinary retention. He does endorse having pain in his left leg but denies weakness, difficulty ambulating. He does state he has lesions on his hands and arms and he does state that he picks as a stress re action. He denies weakness but acknowledges that he has difficulties word- finding and answering questions even though he understands what is being said. He does state that he is mildly depressed, recently started on an antidepressant, he does not know the name of the medication he is taking. The patient states that he is not diabetic even though he is taking medicine for this. He states that they have been trying to monitor him for this. Patient states he takes warfarin 5 mg every other day and 2.5 mg every other day. Discharge Providers Date of admission: 06/01/19 16:44 Discharge Date: 06/11/19 Primary care physician: Ayo Beverly MD Consults: 06/01/19 17:52 Consult to Discharge Planning Routine Comment: Consult to Occupational Therapy Evaluate & Treat Comment: Physician Instructions: Evaluate and treat Consult to Physical Therapy Evaluate & Treat Comment: Physician Instructions: Evaluate and Treat 06/02/19 08:50 Consult to Dietitian, Adult Routine Comment: Reason For Exam: Diabetic education 06/04/19 11:18 Consult to Pharmacy Routine Comment: manage coumadin 06/05/19 17:14 Consult to Wound Care Routine Comment: Consulting Provider: [facility] 06/07/19 11:25 Consult to Wound Care Routine Comment: Consulting Provider: [facility] Discharge provider: Ingrid Bolden MD Summary Discharge Diagnosis: 1. Cellulitis of the Left Lower Extremity 2. S/P Sharp Debridement of the left lower extremity ulcer 3. Chronic Atrial Fibrillation 4.Type 2 Diabetes 5. Morbid Obesity 6. Hypertension 7.Depression 8. Hypokalemia 9. Hyponatremia Hospital Course: The the patient is a 69-year-old male with a history of type 2 diabetes, hypertension, chronic atrial fibrillation on Coumadin who presented to the hospital for left lower extremity cellulitis. The patient had a swelling and erythema of the left lower extremity going up to the thigh. He was initially placed on vancomycin and Zosyn. He was seen in consultation by General surgery and initially there was felt to be no need for surgical debridement. The patient's cultures were positive for Staph aureus and group B strep. The patient continued and was switched to IV Ancef. He developed blistering of the left lower extremity. There was janice pus underneath the blister and the patient went to the operating room for sharp debridement of the left lower extremity ulceration. Following surgery this improved significantly. His erythema resolved. The swelling of his foot improved. He developed an eruption on his back. As he completed 10 days of antibiotics, the oral antibiotics were discontinued. The patient was evaluated by the Wound Clinic and dressings were applied to his left leg. Patient was weak and had difficulty with ambulation. He was seen by PT/OT and arrangements were made for him to discharge to the SNF Status at Discharge Cognitive/behavioral status at discharge: oriented Functional status at discharge: uses cane/walker Overall status at discharge: patient is back to baseline Time Spent with Patient Less than 30 minutes Exam Vital Signs (past 8 hours): - 06/11/19 04:00 Temperature 98.2 F Pulse Rate 80 Respiratory Rate 16 Blood Pressure 146/91 H Pulse Oximetry 95 Oxygen Delivery Method Room Air Oxygen Flow Rate 0 Narrative Exam Narrative: Pleasant male in NAD Lungs: clear to auscultation CV: irregularly, irregular Nl Sl S2 Abd: soft/ non tender/ Ext: left leg decreased erythema, decreased swelling, dressing in place Skin: Back papular eruption on the entire back, mild erythema No rash on chest/abdomen Objective Labs Result Diagrams: 06/09/19 05:55 06/09/19 05:55 Discharge Plan Discharge Plan Patient Disposition: [facility] Other facility: TBD Transportation: Facility vehicle Labs: CBC, BMP, INR on 06/16/19 Consult as needed: Dental, Hearing, Mental health, Podiatry and Vision I certify the [facility]op [facility] care is medically necessary on a continuing basis for any conditions for which he/ she received care during this hospitalization.: Yes The receiving facility has agreed to accept transfer and provide medical treatment.: Yes Discharge Med Rec/Prescriptions Prescriptions: New acetaminophen 325 mg Tablet 650 mg PO Q6HR PRN (Reason: As Needed For Fever/Mild Pain) Qty: 30 RF: 0 metoprolol tartrate 50 mg Tablet 100 mg PO BID Qty: 60 RF: 0 sennosides [senna] 8.6 mg Tablet 17.2 mg PO BID Qty: 60 RF: 0 warfarin [Coumadin] 5 mg Tablet 5 mg PO 1700 Qty: 30 RF: 0 Continued metformin 500 mg tablet 500 mg PO DAILY RF: 0 amlodipine 5 mg tablet 5 mg PO DAILY RF: 0 sertraline 25 mg tablet 25 mg PO DAILY RF: 0 hydrochlorothiazide 12.5 mg tablet 12.5 mg PO DAILY RF: 0 Discontinued metoprolol tartrate 100 mg tablet 100 mg PO DAILY RF: 0 warfarin 5 mg PO Q OTHER DAY RF: 0 Follow up/Referrals: Ayo Beverly MD [Primary Care Provider] - Discharge Health Status Brief summary of current health status: improving lt leg cellulitis, s/p I&D 06/07/19, d/c to SNF for PT/OT rehab and wound care Multidrug resistant organism: No MDRO Precautions: [place] Provider Discharge Instructions Diet: Carb-consistent/Diabetic Liquid consistency: Normal/Thin Food texture: Regular Skin/Wound/Dressing Care Dressing: Cleanse wound and yue-wound skin on left lower extremity with normal saline. Pat dry the periwound skin. Apply Mextra superabsorbent pads (17.5 x 22.5 cm) to the wound with at least 2-4 cm overlap on the yue-wound skin. Secure in place with rolled gauze and tape. Change daily and prn dressing saturation. [facility] Rehabilitation [facility] Reason for rehabilitation: Recovery r/t decondition Rehab type: Physical therapy and Occupational therapy Discharge Data Primary Care Provider: Ayo Beverly Attending Provider: Elaine Rivera Admit Date/Time: 06/01/19 16:44 Quality VTE Deep Vein Thrombosis/Pulmonary Embolism Present on Admission: No
--- NOTE | 2019-06-11 10:39 | PC.NURSE ---
1020 Dressing to LLE cellulitis site changed. Pt radha. Pt has a rash on his back, states some slight itchiness, Dr Bolden assessed. Pt to transfer to [facility] today at 1100 per dc orders.
--- NOTE | 2019-06-11 10:54 | OT.IP.TRT ---
Current Diagnoses Sepsis, unspecified organism (06/01/19) Cellulitis of left lower limb (06/01/19) Surgery Performed Operation Date: 06/07/19 09:00 Actual Procedures p lower extremity debribement(Left) - Onofre Madden MD Occupational Therapy Treatment Note M2 OT-IP Current Condition Start: 06/02/19 13:21 Freq: Status: Active Protocol: Document 06/02/19 14:22 CGR (Rec: 06/02/19 14:43 CGR [id number]) Occupational Therapy Current Condition Current Condition Evaluation Date 06/02/19 Treatment Diagnosis LLE cellulitis Weight Bearing Status Weight Bearing Status Full Weight Bearing M3 OT- IP Subjective and Pain Start: 06/02/19 13:21 Freq: Status: Active Protocol: Document 06/11/19 10:48 CCC (Rec: 06/11/19 10:54 [facility] [id number]) OT- Subjective Occupational Therapy Visit Type Type Administrative Note Notes Pt being discharged soon and when asked to do OT treatment, pt refused, in addition just finished doing PT. Encourage pt to be proactive with his care at skilled rehab and be sure to ask questions as needed.
== END 2019-06-11 11:37 | DRG 872 ==
LOC: ED 15:56 → AC 16:45
PROVIDERS: Internal Medicine; Nurse Practitioner Family; Surgery; Admitting Provider Internal Medicine; Emergency Provider Nurse Practitioner Family; PCP Internal Medicine; Visit Provider Internal Medicine
DX: A41.01 Sepsis due to Methicillin susceptible Staphylococcus aureus (principal); L03.116 Cellulitis of left lower limb; E87.1 Hypo-osmolality and hyponatremia; I96 Gangrene, not elsewhere classified; Z68.42 Body mass index [BMI] 45.0-49.9, adult; I95.9 Hypotension, unspecified; R65.20 Severe sepsis without septic shock; E83.42 Hypomagnesemia; E87.6 Hypokalemia; I48.0 Paroxysmal atrial fibrillation; I10 Essential (primary) hypertension; F32.9 Major depressive disorder, single episode, unspecified; E66.01 Morbid (severe) obesity due to excess calories; B95.8 Unspecified staphylococcus as the cause of diseases classified elsewhere; E11.9 Type 2 diabetes mellitus without complications; Z79.01 Long term (current) use of anticoagulants
CPT/HCPCS: 36415; 36591; 71045; 73552; 80048; 80053; 80202; 81001; 82962; 83036; 83605; 83735; 84145; 85025; 85610; 86140; 87040; 87070; 87075; 87077; 87147; 87186; 87205; 87797; 93005; 93971; 94660; 96365; 96366; 97116; 97162; 97165; 97530; 97535; 99283; 99284; J0330; J0690; J1644; J2250; J2405; J2543; J2704; J3010; J3370; J3480

== ENCOUNTER → 2019-07-09 07:05 | Outpatient (CLI) | payer MEDICARE, SELFPAY ==
[2019-06-01 17:40] VITALS: BMI 46.6
[2019-07-09 08:32] LABS: Alanine Aminotransferase 7 IU/L (21-72); Albumin 3.9 g/dL (3.5-5.0); Albumin Globulin Ratio 0.9 (1.0-2.8); Alkaline Phosphatase 119 U/L (38-126); Aspartate Aminotransferase 20 IU/L (17-59); BUN Creatinine Ratio 18.8 (6-22); Bilirubin Total 0.6 mg/dL (0.2-1.3); Blood Urea Nitrogen 15 mg/dL (9-20); Calcium 9.1 mg/dL (8.4-10.2); Carbon Dioxide 26 mmol/L (22-32); Chloride 103 mmol/L (98-107); Cholesterol 124 mg/dL (140-199); Estimated Glomerular Filt Rate > 60.0 mL/min (>60); Globulin 4.5 g/dL (1.7-4.1); Glucose 116 mg/dL (80-110); HDL Cholesterol 29 mg/dL (40-60); HEMOLYSIS < 15 (0-50); LDL Cholesterol Calculated 75 mg/dL (<100); Potassium 3.3 mmol/L (3.4-5.1); Sodium 139 mmol/L (137-145); Total Protein 8.4 g/dL (6.3-8.2); Triglycerides 100 mg/dL (35-150)
[2019-07-09 08:46] LABS: Basophils Absolute Auto 100 /uL (0-100); Basophils Percent Auto 1.5 % (0-2); Eosinophils Absolute Auto 200 /uL (0-450); Eosinophils Percent Auto 2.5 % (2-4); Hematocrit 43.2 % (41-53); Hemoglobin 14.9 g/dL (13.5-17.5); Lymphocytes Absolute Auto 1900 /uL (1100-4500); Lymphocytes Percent Auto 19.8 % (25-40); Mean Corpuscular HGB Conc 34.6 % (30-36); Mean Corpuscular Hemoglobin 29.7 PG (26-34); Mean Corpuscular Volume 85.7 fL (80-100); Monocytes Absolute Auto 500 /uL (0-900); Monocytes Percent Auto 5.7 % (3-14); Neutrophils Absolute Auto 6800 /uL (1500-7000); Neutrophils Percent Auto 70.5 % (50-75); Red Blood Cell Count 5.04 X10^6/uL (4.5-5.9); Red Cell Distribution Width 14.6 % (11.6-14.8); White Blood Cell Count 9.6 X10^3/uL (4.5-11.0)
[2019-07-09 08:54] LABS: Add Manual Diff / Slide Review SLIDE REVIEW
[2019-07-09 09:51] LABS: Platelet Estimate Adequate on smear; RBC Morphology Normal Morphology
[2019-07-09 09:52] LABS: Platelet Count 216 X10^3/uL (150-400)
== END ==
PROVIDERS: PCP Internal Medicine; Visit Provider Internal Medicine
DX: E78.00 Pure hypercholesterolemia, unspecified (principal); I48.91 Unspecified atrial fibrillation; I10 Essential (primary) hypertension
CPT/HCPCS: 36415; 80053; 80061; 85025

== ENCOUNTER 2019-07-24 11:19 | Observation (INO) | payer MEDICARE, SELFPAY ==
[2019-06-01 17:40] VITALS: BMI 46.6
[2019-07-24] VITALS (24 sets, daily range): BP systolic 83–142; BP diastolic 45–111; PULSE 81–140; RESP 14–28; TEMP 36–37.2; O2SAT 94–100; BMI 46.3
--- NOTE | 2019-07-24 08:00 | DI.ECHO.S_ITS ---
Echocardiogram Report + + :Name: STEVE HOOKS JR Study Date: 07/25/2019 Height: 70 in : :[facility] Exam Location: [facility] Weight: 319 lb : : Gender: Male BSA: 2.5 m2 : :: 1950 Age: 69 yrs BP: 137/69 mmHg: :Reason For Study: A-FIB WITH RVR : :Ordering Physician: Benjamin : :Hospitalist Performed By: Hollie Page : :Referring: REYMUNDO SHERMAN : + + Interpretation Summary The left ventricle is normal in size. Left ventricular ejection fraction is estimated to be 55 +/- 5%. The right ventricle is normal in size and function. No significant valvular pathology seen. There is aortic root sclerosis/calcification. The ascending aorta is mildly enlarged. Procedure: A two-dimensional transthoracic echocardiogram with color flow and Doppler was performed. The study quality was technically difficult. There is no prior echocardiogram noted for this patient. A contrast injection of Definity was performed to improve assessment of LV function. The patient was in atrial fibrillation with heart rates between 75-105 bpm during the exam. Left Ventricle: There is normal left ventricular wall thickness. The left ventricle is normal in size. There is no thrombus. Left ventricular ejection fraction is estimated to be 55 +/- 5%. There are no focal wall motion abnormalities. Right Ventricle: The right ventricle is normal in size and function. Atria: Both atria are severely dilated. There is no Doppler evidence for an interatrial shunt. Mitral Valve: There is mild mitral annular calcification. There is trace mitral regurgitation. Aortic Valve: The aortic valve is mildly calcified. There is discrete nodular thickening of the non- coronary cusp. The aortic valve is trileaflet. There is no aortic valve stenosis. No aortic regurgitation is present. Tricuspid Valve: The tricuspid valve is normal. There is mild tricuspid regurgitation. The right ventricular systolic pressure is estimated to be at least 32 mmHg based on an estimated right atrial pressure of 8 mm Hg. Pulmonic Valve: The pulmonic valve is not well visualized. There is trace pulmonic regurgitation. Great Vessels: The aortic root is mildly dilated. There is aortic root sclerosis/calcification. The ascending aorta is mildly enlarged. The pulmonary artery is not well visualized, but is probably normal size. The IVC is dilated (diameter is greater than 2.1 cm) yet it collapses greater than 50% with a sniff. This suggests a right atrial pressure of 8 mm Hg. Pericardium/ Pleura There is no pericardial effusion. There is no pleural effusion. MMode/2D Measurements & Calculations LVIDd: 5.7 cm LVOT diam: 2.2 cm LVIDs: 3.7 cm Ao root diam: 3.9 cm FS: 34.0 % asc Aorta Diam: 3.6 cm EPSS: 0.68 cm IVSd: 1.1 cm LVPWd: 0.96 cm LV masters. diameter/BSA (cm/m^2): 2.2 LV sys. diameter/BSA (cm/m^2): 1.5 LA A2 area: 35.5 cm2 RA long axis: 7.2 cm LA A4 area: 39.0 cm2 RA area: 35.5 cm2 LA length (vol): 8.2 cm RA vol: 148.5 ml LA vol: 142.4 ml RA : 58.3 ml/m2 LA vol index: 56.0 ml/m2 IVC diam: 2.5 cm RVD1 (basal): 5.1 cm TAPSE: 2.0 cm Doppler Measurements & Calculations Ao V2 max: 123.1 cm/sec LVOT Max Lopez: 63.5 cm/sec Ao V2 mean: 83.9 cm/sec LV V1 max P.6 mmHg Ao max P.1 mmHg LV V1 VTI: 10.1 cm Ao mean P.2 mmHg CRYSTAL(I,D): 1.8 cm2 Ao V2 VTI: 20.4 cm CRYSTAL(V,D): 1.9 cm2 sev ratio: 0.50 CRYSTAL indexed to BSA (cm^2/m^2): 0.73 MV E max lopez: 104.2 cm/sec TR max lopez: 242.5 cm/sec MV P1/2t: 37.8 msec TR max P.6 mmHg PA V2 max: 69.7 cm/sec PA V2 mean: 49.0 cm/sec PA mean P.0 mmHg PA Accel Time: 0.08 sec MV P1/2t max lopez: 103.5 cm/sec SV(LVOT): 37.6 ml MVA(P1/2t): 5.8 cm2 _ Reading Physician:02:48 PM
--- NOTE | 2019-07-24 11:30 | ED.ARRPALP ---
HPI - Arrhythmia/Palpitations General Chief Complaint: Arrhythmia/Palpitations Stated Complaint: Rapid Afib Time Seen by Provider: 07/24/19 11:29 Source: patient and EMS Mode of arrival: EMS Limitations: no limitations History of Present Illness HPI narrative: Patient comes emergency department complaining of palpitations and dizziness that started about an hour and a half ago. Patient states he actually feels quite a bit better now. He states he got up from sleep and was eating breakfast when he began to feel a sensation. Patient has a history of atrial fibrillation, and states it feels like when his heart rate has been fast before. Patient states that he has not been ill with anything else recently. He denies any cough or fever. No nausea. He states he had no chest pain during the episode. Medics state that when they arrived, the patient felt cold, but was alert and talking to them. They found him to have a heart rate of 150 and tried to get a blood pressure but could not after couple of tries. Then they got 69/40 on a 3rd attempt. Medics state they would of shock to the patient, except that they were already here. Patient denies any syncopal episode. He is currently on metoprolol and Coumadin. No recent dose changes. No other complaints at this time. Related Data Home Medications Medication Instructions Recorded Confirmed amlodipine 5 mg PO DAILY 06/01/19 07/24/19 hydrochlorothiazide 12.5 mg PO DAILY 06/01/19 07/24/19 metformin 500 mg PO DAILY 06/01/19 07/24/19 aspirin 81 mg PO DAILY 07/24/19 07/24/19 cephalexin 500 mg PO QID 07/24/19 07/24/19 metoprolol tartrate 50 mg PO BID 07/24/19 07/24/19 potassium chloride 20 meq PO DAILY 07/24/19 07/24/19 pravastatin 20 mg PO DAILY 07/24/19 07/24/19 warfarin [Coumadin] 2.5 mg PO Q OTHER DAY 07/24/19 07/24/19 warfarin [Coumadin] 5 mg PO Q OTHER DAY 07/24/19 07/24/19 Previous Rx's Medication Instructions Recorded acetaminophen 650 mg PO Q6HR PRN #30 tab 06/09/19 Allergies Allergy/AdvReac Type Severity Reaction Status Date / Time digoxin Allergy Mild Rash Verified 07/24/19 11:28 lisinopril AdvReac Mild Cough Verified 07/24/19 11:28 Review of Systems Constitutional Constitutional: Denies chills, Denies fatigue, Denies fever(s), Denies frequent falls, Denies lethargy and Denies weakness Eyes Eyes: Denies change in vision, Denies eye discharge, Denies irritation and Denies loss of vision ENT Ears, Nose, Mouth, and Throat: Denies change in voice, Denies dizziness, Denies neck pain, Denies sore throat and Denies throat swelling Cardiovascular Cardiovascular: Denies chest pain, Denies irregular heart rhythm, Denies lightheadedness, Reports palpitations, Denies dyspnea, Denies dyspnea on exertion and Denies orthopnea Comments: Dizziness Respiratory Respiratory: Denies cough, Denies dyspnea, Denies dyspnea on exertion and Denies wheezing Gastrointestinal Gastrointestinal: Denies abdominal pain, Denies change in bowel habits, Denies diarrhea, Denies nausea and Denies vomiting Genitourinary Genitourinary: Denies hematuria, Denies flank pain, Denies urinary incontinence and Denies urinary urgency Musculoskeletal Musculoskeletal: Denies back pain, Denies muscle weakness, Denies neck pain, Denies numbness and Denies tingling Integumentary/Breasts Skin/Breast: Denies pruritus, Denies erythema, Denies rash and Denies wounds Neurologic Neurologic: Denies behavioral changes, Denies confusion, Denies dizziness, Denies frequent falls, Denies loss of vision, Denies numbness, Denies tingling and Denies weakness Psychiatric Psychiatric: Denies anxiety, Denies behavioral changes, Denies confusion, Denies depression, Denies homicidal ideation and Denies suicidal ideation Endocrine Endocrine: Denies fatigue, Denies flushing and Reports palpitations Hematologic/Lymphatic Hematologic/Lymphatic: Denies easy bruising Allergic/Immunologic Allergic/Immunologic: Denies urticaria, Denies throat swelling and Denies wheezing [facility] Medical History (Updated 07/24/19 @ 20:16 by JESUS MANUEL Ahumada) Atrial fibrillation with RVR (Inactive) Cellulitis of left lower extremity without foot (Acute) Depression (Chronic) Diabetes mellitus type 2 in obese (Chronic) Essential hypertension (Chronic) Surgical History History of knee surgery (Acute) Social History household members: none Smoking Status: Former smoker alcohol intake: former Social History household members: none Smoking Status: Former smoker alcohol intake: former Exam Initial Vital Signs Initial Vital Signs: Vital Signs Pulse Rate 132 H 07/24/19 11:23 Respiratory Rate 22 07/24/19 11:23 Blood Pressure 142/67 H 07/24/19 11:23 Pulse Oximetry 96 07/24/19 11:23 Const General: cooperative and well developed Nutritional Appearance: well nourished Orientation: alert, awake, oriented x3 and not confused HENMT Head: normocephalic and atraumatic Ears: external ears normal and TM's normal bilaterally Nose: external nose normal and No nasal discharge Face and sinus: sinuses nontender, face symmetric, no sinus tenderness and No dry mucous membranes Mouth: oral mucosae normal and moist mucous membranes Teeth and gingiva: dentition normal Throat: tonsils normal and uvula midline Eyes General: appearance normal, both eyes and all related structures Eyelids: eyelids normal Conjunctivae: conjunctivae normal Sclera: sclerae normal Pupils: PERRL EOM: EOM intact bilaterally Neck Neck: normal visual inspection, trachea midline, No lymphadenopathy, No midline deformity and No JVD Lymphatic: No lymphedema Chest Chest: normal inspection of the chest Resp Effort & Inspection: normal respiratory effort, able to speak in complete sentences, no respiratory distress and no use of accessory muscles Auscultation: clear to auscultation bilaterally, no rales, no rhonchi and no wheezes Cardio Rate: tachycardic Rhythm: abnormal rhythm irregularly irregular Heart Sounds: no click, no gallops, no murmurs and no rubs Pulses: normal peripheral pulses Other: Tachycardia in the 120's GI Inspection: non-distended Palpation: soft, no hepatosplenomegaly, No guarding, No pulsatile mass and No tender Auscultation: normal bowel sounds Back/Spine/Pelvis Back: No CVA tenderness Cervical Spine: cervical ROM normal and No pain with cervical ROM Thoracic/Lumbar Spine: thoracic and lumbar spine normal to inspection Skin General: no rashes or lesions noted, No jaundice and No petechiae Neuro General: alert, oriented x3, gait normal and no focal motor deficits Speech: speech normal Extrem General: full ROM, no clubbing, cyanosis or edema, no pedal edema and no calf tenderness Psych Appearance: well kempt Mental Status: mental status grossly normal Attitude: cooperative Thought Content: normal and suicidality Judgment: judgment good Course Course Course Narrative: Patient was hemodynamically stable upon arrival in the emergency department, with a blood pressure in the 140s/80s. He was asymptomatic at that time. He was given a dose of metoprolol 5 mg IV, and worked up with CBC, CMP, and INR initially. Patient was found to have no change in his heart rate with the metoprolol, but his blood pressure dropped precipitously to the 70s systolic. I did have nursing staff hang a 2nd L of normal saline, and patient's blood pressure did gradually rise into the 90s systolic. After his 3rd L of IV fluid, including the L he started by EMS, the patient still produce no urine, but his blood pressure did finally return to the very low 100s systolic. The patient remained at this level for a few readings, though his heart rate continued to fluctuate from the 110s to 130s, with an occasional rise to the 140s. The patient's blood pressure did drop again, the patient had no specific complaints and actually reported feeling better. He was just starting his 4th L of fluid at this point in time. The patient was found to have an elevated lactic acid level at 3.6, though procalcitonin was normal. The patient had a mildly elevated white blood cell count, but reiterated that he had no infectious complaints, other than a left leg cellulitis for which he has been on antibiotics, and which has been improving. The patient's blood pressure again returned to low normal, and we did began giving him very small spot doses of Cardizem IV. He was given 2 5 mg doses, followed by 10 mg dose, which did improve the patient's overall heart rate to the 90s to low 100s, with an occasional rise to the 110s or 120s. Patient was started on his 5th L of IV fluid, as he still had not produced urine, and the last dose of Cardizem had dropped his blood pressure back to the 90s. A repeat lactic acid level was performed 2 hours after the initial, and was found to be 4.7. At this point, though the patient was overall doing better and feeling better, I felt he should be admitted to the hospital. I spoke with Dr. Bolden, who agreed to admit the patient to her service. We discussed that the lactate level elevation may be due to the hypotension that the patient has had throughout the day especially the potential initially profound hypotension in the field. I discussed the admission with the patient, who is agreeable to the plan. Orders Ordered: ED Orders 07/24/19 14:18 XR chest 1V Stat Urinalysis and Microscopic Stat 07/24/19 14:29 Procalcitonin Stat Troponin & CK Cardiac Panel Stat 07/24/19 14:59 Lactate (Lactic Acid) Stat Acetaminophen (Tylenol) 650 mg PO Q6HR PRN PRN Reason: As Needed for Fever/Mild Pain Al Hydrox/Mg Hydrox/Simethicone (Maalox Plus) 30 ml PO Q6HR PRN PRN Reason: Dyspepsia Aspirin (Aspirin Ec) 81 mg PO DAILY BERNADETTE Bisacodyl (Dulcolax) 10 mg SD DAILY PRN PRN Reason: Constipation Calcium Carbonate (Tums) 1,000 mg PO Q4HR PRN PRN Reason: Dyspepsia Cephalexin HCl (Keflex) 500 mg PO QID [facility] Dextrose (D50w) 25 gm IV PRN PRN; Protocol PRN Reason: Hypoglycemia Docusate Sodium (Colace) 100 mg PO BID [facility] Last Admin: 07/24/19 20:23 Dose: 100 mg Documented by: CGRESS Hydrochlorothiazide (Hydrochlorothiazide) 12.5 mg PO DAILY [facility] Potassium Chloride 60 meq/ (Sodium Chloride) 530 mls @ 88.333 mls/hr IV NOW ONE Stop: 07/25/19 01:43 Sodium Chloride (Normal Saline 0.9%) 1,000 mls @ 100 mls/hr IV CONT [facility] Insulin Aspart (Novolog Flexpen) 0 unit SUBCUT ACHS [facility]; Protocol Metoprolol Tartrate (Lopressor) 50 mg PO BID [facility] Last Admin: 07/24/19 20:24 Dose: 50 mg Documented by: CGRESS Morphine Sulfate (Morphine) 2 mg IV Q4HR PRN PRN Reason: Pain, Moderate (4-6) Morphine Sulfate (Morphine) 4 mg IV Q4HR PRN PRN Reason: Pain, Severe (7-10) Ondansetron HCl (Zofran) 4 mg IV Q6HR PRN PRN Reason: Nausea And Vomiting Pravastatin Sodium (Pravachol) 20 mg PO DAILY BERNADETTE Sennosides (Senna) 17.2 mg PO BEDTIME BERNADETTE Last Admin: 07/24/19 20:23 Dose: 17.2 mg Documented by: JIMI Discontinued Medications Diltiazem HCl (Cardizem) 5 mg IV NOW ONE Stop: 07/24/19 15:47 Last Admin: 07/24/19 15:52 Dose: 5 mg Documented by: SHARLA Diltiazem HCl (Cardizem) 5 mg IV NOW ONE Stop: 07/24/19 16:03 Last Admin: 07/24/19 16:04 Dose: 5 mg Documented by: SHARLA Diltiazem HCl (Cardizem) 10 mg IV NOW ONE Stop: 07/24/19 16:27 Last Admin: 07/24/19 16:27 Dose: 10 mg Documented by: SHARLA Diltiazem HCl (Cardizem Sr) 90 mg PO NOW ONE Stop: 07/24/19 18:19 Last Admin: 07/24/19 18:30 Dose: 90 mg Documented by: SHARLA Sodium Chloride (Normal Saline 0.9%) 1,000 mls @ 1,000 mls/hr IV BOLUS ONE Stop: 07/24/19 12:29 Last Infusion: 07/24/19 12:34 Dose: 0 mls/hr Documented by: Admin: 07/24/19 11:40 Dose: 1,000 mls/hr Documented by: SHARLA Sodium Chloride (Normal Saline 0.9%) 1,000 mls @ 1,000 mls/hr IV BOLUS ONE Stop: 07/24/19 13:22 Last Infusion: 07/24/19 13:41 Dose: 0 mls/hr Documented by: Admin: 07/24/19 12:34 Dose: 1,000 mls/hr Documented by: SHARLA Sodium Chloride (Normal Saline 0.9%) 1,000 mls @ 1,000 mls/hr IV BOLUS ONE Stop: 07/24/19 16:18 Last Infusion: 07/24/19 16:27 Dose: 0 mls/hr Documented by: Admin: 07/24/19 15:28 Dose: 1,000 mls/hr Documented by: SHARLA Sodium Chloride (Normal Saline 0.9%) 1,000 mls @ 1,000 mls/hr IV BOLUS ONE Stop: 07/24/19 17:36 Last Infusion: 07/24/19 17:54 Dose: 0 mls/hr Documented by: Admin: 07/24/19 17:00 Dose: 1,000 mls/hr Documented by: SHARLA Metoprolol Tartrate (Lopressor) 5 mg IV NOW ONE Stop: 07/24/19 11:30 Last Admin: 07/24/19 11:40 Dose: 5 mg Documented by: SHARLA Ondansetron HCl (Zofran) 4 mg IV NOW ONE Stop: 07/24/19 14:18 Last Admin: 07/24/19 14:30 Dose: 4 mg Documented by: SHARLA Vital Signs Vital signs: Vital Signs - 8 hr 07/24/19 12:43 07/24/19 12:51 07/24/19 13:14 Pulse Rate 121 H 122 H 117 H Respiratory Rate 20 20 17 Blood Pressure Blood Pressure [Left Arm] 83/66 L 96/68 107/75 Pulse Oximetry 97 97 99 07/24/19 13:19 07/24/19 13:42 07/24/19 14:12 Pulse Rate 120 H 120 H 130 H Respiratory Rate 20 20 20 Blood Pressure Blood Pressure [Left Arm] 94/75 97/67 98/63 Pulse Oximetry 97 97 98 07/24/19 14:31 07/24/19 15:06 07/24/19 15:52 Pulse Rate 120 H 140 H 130 H Respiratory Rate 17 15 Blood Pressure 99/76 Blood Pressure [Left Arm] 92/63 93/63 Pulse Oximetry 100 98 07/24/19 16:07 07/24/19 17:00 07/24/19 17:25 Pulse Rate 115 H 95 H 107 H Respiratory Rate 20 26 H 22 Blood Pressure Blood Pressure [Left Arm] 105/75 84/61 L 106/63 Pulse Oximetry 96 96 95 07/24/19 18:15 07/24/19 18:31 07/24/19 18:50 Pulse Rate 108 H 131 H 127 H Respiratory Rate 20 20 20 Blood Pressure 127/87 Blood Pressure [Left Arm] 125/81 108/81 Pulse Oximetry 96 96 96 MDM - Arrhythmia/Palpitations Medical Records Attestation: I reviewed the patient's medical records. Lab Data Attestation: I reviewed the patient's lab results. Result diagrams: 07/24/19 11:15 07/24/19 11:15 Labs: Lab Results 07/24/19 07/24/19 07/24/19 Range/Units 11:15 11:15 11:15 WBC 15.1 H (4.5-11.0) X10^3/uL RBC 4.69 (4.5-5.9) X10^6/uL Hgb 13.7 (13.5-17.5) g/dL Hct 41.9 (41-53) % MCV 89.4 (80-100) fL MCH 29.2 (26-34) PG MCHC 32.7 (30-36) % RDW 15.4 H (11.6-14.8) % Plt Count 306 (150-400) X10^3/uL Neut % (Auto) 72.6 (50-75) % Lymph % (Auto) 21.1 L (25-40) % [place] % (Auto) 4.0 (3-14) % Eos % (Auto) 1.1 L (2-4) % Baso % (Auto) 1.2 (0-2) % Neut # (Auto) 63142 H (6744-6918) /uL Lymph # (Auto) 3200 (5417-2000) /uL [place] # (Auto) 600 (0-900) /uL Eos # (Auto) 200 (0-450) /uL Baso # (Auto) 200 H (0-100) /uL PT 28.1 H (10.1-12.7) SECONDS INR 2.4 H (0.9-1.3) Sodium 137 (137-145) mmol/L Potassium 3.3 L (3.4-5.1) mmol/L Chloride 99 (98-107) mmol/L Carbon Dioxide 19 L (22-32) mmol/L BUN 16 (9-20) mg/dL Creatinine 1.40 H (0.66-1.25) mg/dL Estimated GFR 50.2 L (>60) mL/min BUN/Creatinine Ratio 11.4 (6-22) Glucose 318 H (80-110) mg/dL Hemoglobin A1c (4.0-6.0) % Lactate (0.7-2.1) mmol/L Calcium 9.3 (8.4-10.2) mg/dL Magnesium (1.6-2.3) mg/dL Total Bilirubin 1.3 (0.2-1.3) mg/dL AST 23 (17-59) IU/L ALT 10 L (21-72) IU/L Alkaline Phosphatase 101 (38-126) U/L Total Creatine Kinase (55-170) U/L CK-MB (CK-2) CK-MB (CK-2) Rel Index Troponin I (0.01-0.034) ng/mL Total Protein 7.8 (6.3-8.2) g/dL Albumin 3.9 (3.5-5.0) g/dL Globulin 3.9 (1.7-4.1) g/dL Albumin/Globulin Ratio 1.0 (1.0-2.8) Procalcitonin (<0.5) ng/mL 07/24/19 07/24/19 07/24/19 Range/Units 11:15 14:29 14:29 WBC (4.5-11.0) X10^3/uL RBC (4.5-5.9) X10^6/uL Hgb (13.5-17.5) g/dL Hct (41-53) % MCV (80-100) fL MCH (26-34) PG MCHC (30-36) % RDW (11.6-14.8) % Plt Count (150-400) X10^3/uL Neut % (Auto) (50-75) % Lymph % (Auto) (25-40) % [place] % (Auto) (3-14) % Eos % (Auto) (2-4) % Baso % (Auto) (0-2) % Neut # (Auto) (3515-3546) /uL Lymph # (Auto) (9494-0352) /uL [place] # (Auto) (0-900) /uL Eos # (Auto) (0-450) /uL Baso # (Auto) (0-100) /uL PT (10.1-12.7) SECONDS INR (0.9-1.3) Sodium (137-145) mmol/L Potassium (3.4-5.1) mmol/L Chloride (98-107) mmol/L Carbon Dioxide (22-32) mmol/L BUN (9-20) mg/dL Creatinine (0.66-1.25) mg/dL Estimated GFR (>60) mL/min BUN/Creatinine Ratio (6-22) Glucose (80-110) mg/dL Hemoglobin A1c 5.7 (4.0-6.0) % Lactate (0.7-2.1) mmol/L Calcium (8.4-10.2) mg/dL Magnesium (1.6-2.3) mg/dL Total Bilirubin (0.2-1.3) mg/dL AST (17-59) IU/L ALT (21-72) IU/L Alkaline Phosphatase (38-126) U/L Total Creatine Kinase 52 L (55-170) U/L CK-MB (CK-2) TNP CK-MB (CK-2) Rel Index TNP Troponin I < 0.012 (0.01-0.034) ng/mL Total Protein (6.3-8.2) g/dL Albumin (3.5-5.0) g/dL Globulin (1.7-4.1) g/dL Albumin/Globulin Ratio (1.0-2.8) Procalcitonin 0.06 (<0.5) ng/mL 07/24/19 07/24/19 07/24/19 Range/Units 14:29 14:59 16:30 WBC (4.5-11.0) X10^3/uL RBC (4.5-5.9) X10^6/uL Hgb (13.5-17.5) g/dL Hct (41-53) % MCV (80-100) fL MCH (26-34) PG MCHC (30-36) % RDW (11.6-14.8) % Plt Count (150-400) X10^3/uL Neut % (Auto) (50-75) % Lymph % (Auto) (25-40) % [place] % (Auto) (3-14) % Eos % (Auto) (2-4) % Baso % (Auto) (0-2) % Neut # (Auto) (9665-0177) /uL Lymph # (Auto) (7281-1064) /uL [place] # (Auto) (0-900) /uL Eos # (Auto) (0-450) /uL Baso # (Auto) (0-100) /uL PT (10.1-12.7) SECONDS INR (0.9-1.3) Sodium (137-145) mmol/L Potassium (3.4-5.1) mmol/L Chloride (98-107) mmol/L Carbon Dioxide (22-32) mmol/L BUN (9-20) mg/dL Creatinine (0.66-1.25) mg/dL Estimated GFR (>60) mL/min BUN/Creatinine Ratio (6-22) Glucose (80-110) mg/dL Hemoglobin A1c (4.0-6.0) % Lactate 3.6 H Cancelled (0.7-2.1) mmol/L Calcium (8.4-10.2) mg/dL Magnesium 2.2 (1.6-2.3) mg/dL Total Bilirubin (0.2-1.3) mg/dL AST (17-59) IU/L ALT (21-72) IU/L Alkaline Phosphatase (38-126) U/L Total Creatine Kinase (55-170) U/L CK-MB (CK-2) CK-MB (CK-2) Rel Index Troponin I (0.01-0.034) ng/mL Total Protein (6.3-8.2) g/dL Albumin (3.5-5.0) g/dL Globulin (1.7-4.1) g/dL Albumin/Globulin Ratio (1.0-2.8) Procalcitonin (<0.5) ng/mL 07/24/19 Range/Units 16:30 WBC (4.5-11.0) X10^3/uL RBC (4.5-5.9) X10^6/uL Hgb (13.5-17.5) g/dL Hct (41-53) % MCV (80-100) fL MCH (26-34) PG MCHC (30-36) % RDW (11.6-14.8) % Plt Count (150-400) X10^3/uL Neut % (Auto) (50-75) % Lymph % (Auto) (25-40) % [place] % (Auto) (3-14) % Eos % (Auto) (2-4) % Baso % (Auto) (0-2) % Neut # (Auto) (2876-9241) /uL Lymph # (Auto) (1759-9765) /uL [place] # (Auto) (0-900) /uL Eos # (Auto) (0-450) /uL Baso # (Auto) (0-100) /uL PT (10.1-12.7) SECONDS INR (0.9-1.3) Sodium (137-145) mmol/L Potassium (3.4-5.1) mmol/L Chloride (98-107) mmol/L Carbon Dioxide (22-32) mmol/L BUN (9-20) mg/dL Creatinine (0.66-1.25) mg/dL Estimated GFR (>60) mL/min BUN/Creatinine Ratio (6-22) Glucose (80-110) mg/dL Hemoglobin A1c (4.0-6.0) % Lactate 4.7 H* (0.7-2.1) mmol/L Calcium (8.4-10.2) mg/dL Magnesium (1.6-2.3) mg/dL Total Bilirubin (0.2-1.3) mg/dL AST (17-59) IU/L ALT (21-72) IU/L Alkaline Phosphatase (38-126) U/L Total Creatine Kinase (55-170) U/L CK-MB (CK-2) CK-MB (CK-2) Rel Index Troponin I (0.01-0.034) ng/mL Total Protein (6.3-8.2) g/dL Albumin (3.5-5.0) g/dL Globulin (1.7-4.1) g/dL Albumin/Globulin Ratio (1.0-2.8) Procalcitonin (<0.5) ng/mL Imaging Data Chest x-ray: Radiologist's impression: PROCEDURE: XR CHEST 1V INDICATIONS: hypotension TECHNIQUE: One view of the chest was acquired. COMPARISON: [facility], , XR CHEST 1V, 06/01/2019, 15:15. FINDINGS: Surgical changes and devices: None. Lungs and pleura: Mildly increased perihilar interstitial markings are present (left greater than right). No definite effusion or pneumothorax is appreciated. Mediastinum: Mediastinal contours appear normal. Heart size is markedly enlarged. There is aortic atherosclerosis. Bones and chest wall: No suspicious bony lesions. Overlying soft tissues appear unremarkable. IMPRESSION: Cardiomegaly with associated vascular congestion. Dictated by: Pavel Parnell M.D. on 07/24/2019 at 14:04 Approved by: Pavel Parnell M.D. on 07/24/2019 at 14:09 ECG Data Attestation: I personally reviewed and interpreted this ECG as follows: (See below) Interpretation: Twelve lead EKG performed July 24, 2019, at 11:24 a.m. as follows: Irregular ventricular rhythm with a rate of 126 beats per minute SD interval and P waves undetectable QRS duration 110 millisecond QTC interval 409 milliseconds Interpretation: Atrial fibrillation with rapid ventricular response; ST deviation and moderate T-wave abnormality; abnormal EKG as interpreted by EDMD. Critical Care Time Critical Care Time Critical Care Time: Yes Total Critical Care Time: 60 Attestation: Critical care time was necessary, due to high probability of imminent decline and . Critical care time is exclusive of separately billable procedures. Critical care time included: Interviewing and examining the patient, ordering and reviewing laboratory studies, ordering and reviewing imaging studies, evaluating cardiac output, evaluating oxygen saturation, discussion with consultants, discussion with family, re-examining the patient, and documentation. Discharge Plan Departure Patient Disposition: Admitted as Observation Clinical Impression: Atrial fibrillation with RVR, Acute dehydration Hypotension Qualifiers: Hypotension type: hypotension due to hypovolemia Qualified Code(s): I95.89 - Other hypotension Discharge Date/Time: 07/24/19 19:40 Admit Date/Time: 07/24/19 18:55 Admit Provider: Ingrid Bolden
[2019-07-24 11:35] LABS: Add Manual Diff / Slide Review NO; Basophils Absolute Auto 200 /uL (0-100); Basophils Percent Auto 1.2 % (0-2); Eosinophils Absolute Auto 200 /uL (0-450); Eosinophils Percent Auto 1.1 % (2-4); Hematocrit 41.9 % (41-53); Hemoglobin 13.7 g/dL (13.5-17.5); Lymphocytes Absolute Auto 3200 /uL (1100-4500); Lymphocytes Percent Auto 21.1 % (25-40); Mean Corpuscular HGB Conc 32.7 % (30-36); Mean Corpuscular Hemoglobin 29.2 PG (26-34); Mean Corpuscular Volume 89.4 fL (80-100); Monocytes Absolute Auto 600 /uL (0-900); Neutrophils Absolute Auto 11000 /uL (1500-7000); Neutrophils Percent Auto 72.6 % (50-75); Platelet Count 306 X10^3/uL (150-400); Red Blood Cell Count 4.69 X10^6/uL (4.5-5.9); Red Cell Distribution Width 15.4 % (11.6-14.8); White Blood Cell Count 15.1 X10^3/uL (4.5-11.0)
[2019-07-24] MEDS: SODIUM CHLORIDE 0.9% 1,000 ML 1000 ML IV ×4 (11:40→17:00)
[2019-07-24] MEDS: METOPROLOL TARTRATE 5 MG/5 ML INJ IV (11:40)
[2019-07-24 11:48] LABS: INR 2.4 (0.9-1.3); Prothrombin Time 28.1 SECONDS (10.1-12.7)
[2019-07-24 11:51] LABS: Alanine Aminotransferase 10 IU/L (21-72); Albumin 3.9 g/dL (3.5-5.0); Alkaline Phosphatase 101 U/L (38-126); Aspartate Aminotransferase 23 IU/L (17-59); BUN Creatinine Ratio 11.4 (6-22); Bilirubin Total 1.3 mg/dL (0.2-1.3); Blood Urea Nitrogen 16 mg/dL (9-20); Calcium 9.3 mg/dL (8.4-10.2); Carbon Dioxide 19 mmol/L (22-32); Chloride 99 mmol/L (98-107); Estimated Glomerular Filt Rate 50.2 mL/min (>60); Globulin 3.9 g/dL (1.7-4.1); Glucose 318 mg/dL (80-110); HEMOLYSIS < 15 (0-50); Potassium 3.3 mmol/L (3.4-5.1); Sodium 137 mmol/L (137-145); Total Protein 7.8 g/dL (6.3-8.2)
--- NOTE | 2019-07-24 14:18 | DI.RAD.S_ITS ---
PROCEDURE: XR CHEST 1V INDICATIONS: hypotension TECHNIQUE: One view of the chest was acquired. COMPARISON: [facility], CR, XR CHEST 1V, 06/01/2019, 15:15. FINDINGS: Surgical changes and devices: None. Lungs and pleura: Mildly increased perihilar interstitial markings are present (left greater than right). No definite effusion or pneumothorax is appreciated. Mediastinum: Mediastinal contours appear normal. Heart size is markedly enlarged. There is aortic atherosclerosis. Bones and chest wall: No suspicious bony lesions. Overlying soft tissues appear unremarkable. IMPRESSION: Cardiomegaly with associated vascular congestion. Dictated by: Pavel Parnell M.D. on 07/24/2019 at 14:04 Approved by: Pavel Parnell M.D. on 07/24/2019 at 14:09
[2019-07-24] MEDS: ONDANSETRON 4 MG/2 ML INJ IV (14:30)
[2019-07-24 14:38] LABS: Creatine Kinase 52 U/L (55-170)
[2019-07-24 14:49] LABS: Troponin I < 0.012 ng/mL (0.01-0.034)
[2019-07-24 15:06] LABS: Lactate (Lactic Acid) 3.6 mmol/L (0.7-2.1)
[2019-07-24] MEDS: dilTIAZem 5 MG/ML SDV IV ×2 (15:52→16:04)
[2019-07-24] MEDS: dilTIAZem 5 MG/ML SDV 10 MG IV (16:27)
[2019-07-24 16:59] LABS: Reflexed Lactate in 2 Hours Y
[2019-07-24 17:09] LABS: Lactate 2HR (Lactic Acid Rflx) 4.7 mmol/L (0.7-2.1)
[2019-07-24 17:20] LABS: Procalcitonin 0.06 ng/mL (<0.5)
--- NOTE | 2019-07-24 20:04 | P.HP_ITS ---
History of Present Illness History of Present Illness Date Patient Seen: 07/24/19 Time Patient Seen: 20:04 Chief complaint: Rapid Afib Narrative: Mr. Rick Cunningham is a 69-year-old male patient with a history of atrial fibrillation, hypertension, type 2 diabetes, recent treatment lower extremity cellulitis and depression who presents to the ER after having a sudden onset of severe incapacitating dizziness this morning. The patient states he was eating breakfast and experienced symptoms severe dizziness, diaphoresis and hot flashes for approximately 1-1/2 hours prior to calling EMS. Patient denies complaints chest pain during this event. Upon arrival EMS the patient is found to be hypotensive at 60/40. The patient reports recent nonproductive cough treated with Mucinex with resolution but no other recent health issues or prodromal symptoms. Patient denies headaches nasal congestion or sore throat. She has chest pain and denies palpitations or sensation of racing heart. Denies shortness of breath or wheezing. He has had no abdominal pain, nausea vomiting and has had constipation but no diarrhea. Patient is normally independently ambulatory and has been the primary caregiver for his for the last 3 weeks years who has had progressive severe dementia and was recently placed in Memory Care. Upon arrival in the ER the patient was afebrile with a temperature of 96.8?, heart rate was 125, blood pressure had improved to 140 2/111 with a respiratory rate of 20 saturating 98% on air. EKG obtained finds rapid atrial fibrillation with a ventricular rate of 126 without indication of infarct or ischemia. Patient also had chest x-ray completed which finds cardiomyopathy with pulmonary congestion. On laboratory analysis he has an elevated white count of 15.1 hemoglobin of 13.7 and hematocrit of 41.9 and platelets of 306. On chemistry he has notable for hypokalemia with a potassium of 3.3 and has a BUN of 16 and creatinine 1.4. From his previous admission had a baseline creatinine of 0.8. His PT is 28.1 and INR 2.4 on warfarin anticoagulation, troponin is less than 0.012, procalcitonin is 0.06 and is found to have a lactic acid of 4.7 an anion gap calculated at 19. In the ER the patient received metoprolol 5 mg IV after which she became hypotensive and subsequently seized does diltiazem IV push in dose of 5 mg, 5 mg and 10 mg and subsequent dose of 90 mg diltiazem p.o.. The patient is admitted to the hospital with chronic persistent atrial fibrillation with rapid ventricular response, hyperglycemia and acute kidney injury. Patient History Medical History Atrial fibrillation with RVR (Inactive) Cellulitis of left lower extremity without foot (Acute) Depression (Chronic) Diabetes mellitus type 2 in obese (Chronic) Essential hypertension (Chronic) Surgical History H/O umbilical hernia repair (Acute) History of knee surgery (Acute) History of left inguinal hernia repair (Acute) Social History household members: none Smoking Status: Former smoker alcohol intake: former Family & Social History Family History (Updated 07/24/19 @ 21:56 by JESUS MANUEL Ahumada) Father No problems noted. Mother Cancer Son Obesity Social History: household members spouse Safety & Behavioral: Feels Safe in Current Yes Environment Been Physically Hurt or No Threatened By a Person Tobacco & Substance use: Smoking Status Former smoker alcohol intake former alcohol intake frequency 0-2 drinks per day Substance Use Type does not use Comment: The patient recently relocated to [place] from [facility] to be closer to his son and daughter. He has been the primary caregiver for his whom he just recently placed at memory care due to the progressive severity of dementia. Patient endorses a family history of stomach cancer in his mother and his father of unknown causes at age 97. Has 3 siblings whom he describes is in good health and 2 half siblings 1 brother and sister who are of unknown causes. He has 2 sons 1 home is obese and the other who is in good health. 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 Smoking: Patient quit smoking in 1994 before which he smoked approximately 1 pack per day Alcohol: Patient denies alcohol consumption. Substance use: The patient denies recreation pharmaceuticals, herbal or cannabis products. Advanced directives: The patient has formal advanced directives and he states his wish to be FULL CODE. He designates his son and daughter tenderness and c all who hold DPOA to be his surrogate decision makers. Meds Home Medications and Allergies Home Medications Medication Instructions Recorded Confirmed Type amlodipine 5 mg PO DAILY 06/01/19 07/24/19 History hydrochlorothiazide 12.5 mg PO DAILY 06/01/19 07/24/19 History metformin 500 mg PO DAILY 06/01/19 07/24/19 History acetaminophen 650 mg PO Q6HR PRN #30 tab 06/09/19 07/24/19 Rx aspirin 81 mg PO DAILY 07/24/19 07/24/19 History cephalexin 500 mg PO QID 07/24/19 07/24/19 History metoprolol tartrate 50 mg PO BID 07/24/19 07/24/19 History potassium chloride 20 meq PO DAILY 07/24/19 07/24/19 History pravastatin 20 mg PO DAILY 07/24/19 07/24/19 History warfarin [Coumadin] 2.5 mg PO Q OTHER DAY 07/24/19 07/24/19 History warfarin [Coumadin] 5 mg PO Q OTHER DAY 07/24/19 07/24/19 History Allergies Allergy/AdvReac Type Severity Reaction Status Date / Time digoxin Allergy Mild Rash Verified 07/24/19 11:28 lisinopril AdvReac Mild Cough Verified 07/24/19 11:28 Review of Systems Review of Systems ROS Unobtainable: All systems reviewed & are unremarkable except as noted in HPI and below Exam Vital Signs (past 8 hours): - 07/24/19 12:08 07/24/19 12:43 07/24/19 12:51 Pulse Rate 123 H 121 H 122 H Respiratory Rate 14 20 20 Blood Pressure Blood Pressure [Left Arm] 93/74 83/66 L 96/68 Pulse Oximetry 97 97 97 07/24/19 13:14 07/24/19 13:19 07/24/19 13:42 Pulse Rate 117 H 120 H 120 H Respiratory Rate 17 20 20 Blood Pressure Blood Pressure [Left Arm] 107/75 94/75 97/67 Pulse Oximetry 99 97 97 07/24/19 14:12 07/24/19 14:31 07/24/19 15:06 Pulse Rate 130 H 120 H 140 H Respiratory Rate 20 17 15 Blood Pressure Blood Pressure [Left Arm] 98/63 92/63 93/63 Pulse Oximetry 98 100 98 07/24/19 15:52 07/24/19 16:07 07/24/19 17:00 Pulse Rate 130 H 115 H 95 H Respiratory Rate 20 26 H Blood Pressure 99/76 Blood Pressure [Left Arm] 105/75 84/61 L Pulse Oximetry 96 96 07/24/19 17:25 07/24/19 18:15 07/24/19 18:31 Pulse Rate 107 H 108 H 131 H Respiratory Rate 22 20 20 Blood Pressure Blood Pressure [Left Arm] 106/63 125/81 108/81 Pulse Oximetry 95 96 96 07/24/19 18:50 07/24/19 19:30 Pulse Rate 127 H 112 H Respiratory Rate 20 26 H Blood Pressure 127/87 Blood Pressure [Left Arm] 128/81 Pulse Oximetry 96 Oxygen Delivery Method Room Air Narrative Exam Narrative: GENERAL APPEARANCE: well developed, morbidly obese, lying semi recumbent in bed in no acute distress. HEENT: Normocephalic, PERRLA, conjunctiva clear, EOMs intact without nystagmus, no sinus tenderness to percussion, no rhinorrhea, mucous membranes are moist and pink without lesions or exudate. NECK/THYROID: neck supple, no JVD, no carotid bruit, no thyromegaly, trachea midline. LYMPH NODES: no cervical or supraclavicular lymphadenopathy. SKIN: warm and dry, 2 small red skin lesions lower abdomen without cellulitis or drainage, venous stasis pigmentation changes bilateral lower extremities, multiple chest tattoos. HEART: Irregularly irregular rhythm, S1-S2, no murmur, no rubs or gallops, brisk capillary refill, trace pedal edema LUNGS: clear to auscultation bilaterally, no coarseness crackles or wheezing, nonproductive cough present CHEST: Symmetrical movement, no accessory muscle use, no pain to AP and lateral compression. ABDOMEN: Firm, obese, no epigastric or abdominal tenderness on palpation, no guarding or peritoneal signs, no organomegaly, exam limited by body habitus, active bowel tones. BACK: Normal curvature, nontender to palpation. EXTREMITIES: moves all extremities, strength is 5/5 and symmetrical, no deformities or joint effusions. NEUROLOGIC: AAO x4, no focal neurologic deficits, cranial nerves II-XII grossly intact , sensation intact to light touch, hearing grossly normal to speech. PSYCH: alert, cooperative, cognitive function intact, good eye contact, appropriate with stable behavior Objective Labs Result Diagrams: 07/24/19 11:15 07/24/19 11:15 Labs: Laboratory Results - last 24 hr 07/24/19 07/24/19 07/24/19 11:15 11:15 11:15 WBC 15.1 H RBC 4.69 Hgb 13.7 Hct 41.9 MCV 89.4 MCH 29.2 MCHC 32.7 RDW 15.4 H Plt Count 306 Neut % (Auto) 72.6 Lymph % (Auto) 21.1 L [place] % (Auto) 4.0 Eos % (Auto) 1.1 L Baso % (Auto) 1.2 Neut # (Auto) 67070 H Lymph # (Auto) 3200 [place] # (Auto) 600 Eos # (Auto) 200 Baso # (Auto) 200 H PT 28.1 H INR 2.4 H Sodium 137 Potassium 3.3 L Chloride 99 Carbon Dioxide 19 L BUN 16 Creatinine 1.40 H Estimated GFR 50.2 L BUN/Creatinine Ratio 11.4 Glucose 318 H Lactate Calcium 9.3 Total Bilirubin 1.3 AST 23 ALT 10 L Alkaline Phosphatase 101 Total Creatine Kinase CK-MB (CK-2) CK-MB (CK-2) Rel Index Troponin I Total Protein 7.8 Albumin 3.9 Globulin 3.9 Albumin/Globulin Ratio 1.0 Procalcitonin 07/24/19 07/24/19 07/24/19 14:29 14:29 14:59 WBC RBC Hgb Hct MCV MCH MCHC RDW Plt Count Neut % (Auto) Lymph % (Auto) [place] % (Auto) Eos % (Auto) Baso % (Auto) Neut # (Auto) Lymph # (Auto) [place] # (Auto) Eos # (Auto) Baso # (Auto) PT INR Sodium Potassium Chloride Carbon Dioxide BUN Creatinine Estimated GFR BUN/Creatinine Ratio Glucose Lactate 3.6 H Calcium Total Bilirubin AST ALT Alkaline Phosphatase Total Creatine Kinase 52 L CK-MB (CK-2) TNP CK-MB (CK-2) Rel Index TNP Troponin I < 0.012 Total Protein Albumin Globulin Albumin/Globulin Ratio Procalcitonin 0.06 07/24/19 07/24/19 16:30 16:30 WBC RBC Hgb Hct MCV MCH MCHC RDW Plt Count Neut % (Auto) Lymph % (Auto) [place] % (Auto) Eos % (Auto) Baso % (Auto) Neut # (Auto) Lymph # (Auto) [place] # (Auto) Eos # (Auto) Baso # (Auto) PT INR Sodium Potassium Chloride Carbon Dioxide BUN Creatinine Estimated GFR BUN/Creatinine Ratio Glucose Lactate Cancelled 4.7 H* Calcium Total Bilirubin AST ALT Alkaline Phosphatase Total Creatine Kinase CK-MB (CK-2) CK-MB (CK-2) Rel Index Troponin I Total Protein Albumin Globulin Albumin/Globulin Ratio Procalcitonin Assessment & Plan Assessment & Plan narrative: This is a 69-year-old male patient who is admitted to the hospital with atrial fibrillation with RVR, hyperglycemia in probable mild DKA and acute kidney injury. 1. Persistent atrial fibrillation, present on admission, active -history of atrial fibrillation documented on EKG 06/01/2019, metoprolol for rate control, rhythm is not self terminating requiring medication for rhythm management. -acute onset of symptoms today while eating breakfast with profound dizziness but no complaints of chest pain. Patient found hypotensive at 60/40 by EMS normalized by arrival in the ED. -patient treated with IV push doses of metoprolol and Cardizem in the ED followed by 90 mg p.o. dose of Cardizem. Borderline control with heart rate below 120. -patient received his regular home dose of metoprolol and remain tachycardic, diltiazem drip will be started to titrate to heart rate under 100. -hypokalemia will be corrected and magnesium level will be obtained. -patient with elevated lactic acid of 4.7 most likely attributable to hypotensive episode secondary to his arrhythmia. Will recheck lactic acid. -echocardiogram in the morning 2. Acute hyperglycemia versus a possible mild DKA, present on admission, active -patient hyperglycemic on arrival with a blood sugar of 318, he has a CO of 19 and lactate of 4.7 with an anion gap of 19. -patient has been taking metformin at home 500 mg twice daily. The patient does not check his blood sugars at home, will obtain a hemoglobin A1c to assess level of glycemic control. -blood sugar fingersticks AC and HS with correctional insulin low-dose range. 3. Acute pulmonary edema without history of congestive heart failure, present on admission, active. -the patient with ongoing atrial fibrillation, enlarged heart on chest x-ray with identification of pulmonary congestion. No complaints of chest pain or shortness of breath. -while in the ER the patient received 4 L of IV fluid. -will monitor respiratory status and treat underlying etiology to improve pulmonary hemodynamics. 4. Acute kidney injury, present on admission, active -patient has creatinine of 1.4 on admission with baseline of 0.8 on prior admission. BUN is approximately the same at 16. 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 -patient has adequate urine output will monitor chemistries and renal function. 5. Essential Hypertension, present on admission, active. -patient found hypotensive in the field with blood pressures 60/40 and blood pressure in the ER was 142/111. -while patient is on diltiazem drip will hold amlodipine 5 mg, will hold hydrochlorothiazide 12.5 mg -Will continue metoprolol tartrate 50 mg twice daily as needed for rhythm control. 6. Long-term anticoagulation, present on admission, stable -INR upon arrival to the ER is within therapeutic range at 2.4. -continue warfarin dosing of 5 mg every other day alternating with warfarin 2.5 mg. The patient is admitted to the hospital due to the severity of his symptoms and risk of complications and adverse events. The patient is admitted as observation with expected length of stay to be less than 2 midnights. Scores GCS [place] coma scale eye opening: Spontaneous [place] coma scale verbal response: Orientated [place] coma scale motor response: Obey commands [place] coma scale total score: 15
[2019-07-24 20:17] LABS: Hemoglobin A1C% w Est Avg Glu 5.7 % (4.0-6.0)
[2019-07-24 20:17] LABS: Magnesium 2.2 mg/dL (1.6-2.3)
[2019-07-24] MEDS: SENNOSIDES 8.6 MG TABLET 17.2 MG PO (20:23)
[2019-07-24] MEDS: DOCUSATE 100 MG CAPSULE PO (20:23)
[2019-07-24] MEDS: METOPROLOL IR 50 MG TABLET PO (20:24)
[2019-07-24] MEDS: SODIUM CHLORIDE 0.9% 1,000 ML 100 ML IV (20:29)
[2019-07-24] MEDS: POTASSIUM CHLORIDE 60 MEQ in SODIUM CHLORIDE 0.9% 500 ML 88.333 ML IV (20:30)
[2019-07-24] MEDS: cephALEXin 250 MG CAPSULE 500 MG PO (20:37)
[2019-07-24 22:20] LABS: Lactate (Lactic Acid) 2.4 mmol/L (0.7-2.1)
[2019-07-24] MEDS: WARFARIN 5 MG TABLET PO (22:46)
[2019-07-24] MEDS: dilTIAZem 5 MG/ML SDV 36 MG IV (23:17)
[2019-07-24] MEDS: DILTIAZEM 125 MG/125 ML PIGGYBACK IV (23:24)
[2019-07-24 23:54] LABS: Bacteria Urine None Seen; RBC Urine None Seen (0-5/HPF); WBC Urine None Seen (0-5/HPF)
[2019-07-24 23:55] LABS: Appearance Urine UA CLEAR; Bilirubin Urine UA NEGATIVE (NEGATIVE); Color Urine UA YELLOW; Glucose Urine UA NEGATIVE (Negative); Ketones Urine UA NEGATIVE (NEGATIVE); Leukocyte Esterase Urine UA NEGATIVE (NEGATIVE); Nitrite Urine UA NEGATIVE (Negative); Occult Blood Urine UA NEGATIVE (Negative); Protein Urine UA NEGATIVE (Negative); Specific Gravity Urine UA 1.025 (1.000-1.035); Urobilinogen Urine UA 0.2 E.U./dL (0.2)
[2019-07-25] VITALS (17 sets, daily range): BP systolic 110–160; BP diastolic 60–98; PULSE 16–126; RESP 15–126; TEMP 36.4–36.6; O2SAT 91–95
[2019-07-25 00:03] LABS: Culture Indicated Urine Cult Not Indicated; Hyaline Casts Urine 0-1/LPF
[2019-07-25] MEDS: FUROSEMIDE 20 MG/2 ML VIAL IV (00:08)
[2019-07-25 00:12] LABS: Reflexed Lactate in 2 Hours Y
[2019-07-25 00:41] LABS: Lactate 2HR (Lactic Acid Rflx) 1.8 mmol/L (0.7-2.1)
[2019-07-25 05:05] LABS: Add Manual Diff / Slide Review NO; Basophils Absolute Auto 0 /uL (0-100); Basophils Percent Auto 0.2 % (0-2); Eosinophils Absolute Auto 0 /uL (0-450); Hematocrit 30.4 % (41-53); Hemoglobin 10.3 g/dL (13.5-17.5); Lymphocytes Absolute Auto 1100 /uL (1100-4500); Mean Corpuscular HGB Conc 33.9 % (30-36); Mean Corpuscular Hemoglobin 29.9 PG (26-34); Mean Corpuscular Volume 88.2 fL (80-100); Monocytes Absolute Auto 400 /uL (0-900); Monocytes Percent Auto 3.4 % (3-14); Neutrophils Absolute Auto 11200 /uL (1500-7000); Neutrophils Percent Auto 87.4 % (50-75); Platelet Count 200 X10^3/uL (150-400); Red Blood Cell Count 3.45 X10^6/uL (4.5-5.9); Red Cell Distribution Width 15.4 % (11.6-14.8); White Blood Cell Count 12.8 X10^3/uL (4.5-11.0)
[2019-07-25 05:07] LABS: INR 2.4 (0.9-1.3); Prothrombin Time 28.5 SECONDS (10.1-12.7)
[2019-07-25 05:11] LABS: Blood Urea Nitrogen 18 mg/dL (9-20); Calcium 8.6 mg/dL (8.4-10.2); Carbon Dioxide 25 mmol/L (22-32); Chloride 105 mmol/L (98-107); Estimated Glomerular Filt Rate > 60.0 mL/min (>60); Glucose 151 mg/dL (80-110); HEMOLYSIS < 15 (0-50); Magnesium 1.7 mg/dL (1.6-2.3); Potassium 4.4 mmol/L (3.4-5.1); Sodium 138 mmol/L (137-145)
[2019-07-25 05:23] LABS: Troponin I 0.033 ng/mL (0.01-0.034)
[2019-07-25 05:42] LABS: Thyroid Stimulating Hormone 0.62 uIU/mL (0.47-4.68)
[2019-07-25] MEDS: cephALEXin 250 MG CAPSULE 500 MG PO ×3 (09:15→17:34)
[2019-07-25] MEDS: ASPIRIN EC 81 MG TABLET PO (09:15)
[2019-07-25] MEDS: METOPROLOL IR 50 MG TABLET PO (09:15)
[2019-07-25] MEDS: DOCUSATE 100 MG CAPSULE PO (09:16)
[2019-07-25] MEDS: hydroCHLOROthiazide 12.5 MG CAPSULE PO (09:16)
[2019-07-25 11:56] LABS: Troponin I 0.024 ng/mL (0.01-0.034)
--- NOTE | 2019-07-25 12:41 | PC.NURSE ---
pt refusing any insulin this shift- blood sugars only 133/166 and his hgb aic 5.7 - explained at length and he continues to refuse- dilt gtt off and echo complete hr remains in afib 80-90's occ over 100 bpm during exertion
[2019-07-25] MEDS: BISACODYL 10 MG SUPP PR (13:25)
--- NOTE | 2019-07-25 14:41 | CM.SWNOTE ---
DCP: GEODETIC TECHNICIAN reviewed EMR and consulted with pt's ICU team. PCP: Mikel Beverly. Payor: Buzz DOZIER Presenting Problem: This patient is a 69-year old male who presented to the ER yesterday with sudden onset dizziness, heart palpatations and atrial fibrillation. He was found to have elevated blood glucose and dehydration, suggesting possible early DKA. He recently moved to this area from [place] in order to live closer to his son and dtr, was the primary caregiver for his with dementia, however he recently needed to place her in memory care due to her worsening disease progression. He has since stabilized overnight, and the plan at this time is to discharge him later today. He he declines the need for in-home care resources or resources. Discharge Planning/Care Management CM Discharge Assessment Start: 07/25/19 14:34 Freq: Status: Active Protocol: Document 07/25/19 14:34 DPL (Rec: 07/25/19 14:40 DPL [id number]) Discharge Planning Assessment Assigned Truck Mechanic Lorraine Otoole DPOA/Assigned Designee Name Jozef Cunningham (son), Callie Ritchie (dtr) Contact Information in the EMR Advance Directives? Yes Advance Directives on File Yes History Provided By Patient,Medical Record Expected Length of Stay 1 Has Patient been admitted in last 30 No days? Prior Living Arrangements House Household Members none Comment Pt recently moved here from [place], [place], to live closer to his son and dtr. Type of transporation used prior to Drives own vehicle admit Independent with ADL's Yes Is patient alert and oriented? Yes Caregiver for Another Yes Comment Pt just recently needed to place his in memory care due to worsening dementia. Comment N/A Comment No d/c needs identified at this time. Barriers to Discharge No Discharge Plan Home Transportation Arrangement Family
--- NOTE | 2019-07-25 15:13 | DIET.PN ---
Dietary Progress Note Assessment: Mr. Cunningham is admitted for Rapid AFib. He has a HX of Type 2 Diabetes for which I recently provided education on during his last admission. He states he was not able to move his body during the event which brought him to the hospital, but he feels better today. He reports making several changes to eating habits since I last visited with him. Per nurse note, he is refusing insulin today. HT: 177.8cm WT: 146.6kg BMI: 46.4 (obese class III) MNA: 9 (reports weight loss) Labs: B Cr: 1.0 A1c: 5.8 Nutrition Diagnosis: Altered nutrition related lab values r/t impared glucose metabolism aeb pt report lack of previous knowledge of dietary restrictions, DX diabetes. Interventions: 1. Reviewed diabetes education and provided information on heart healthy nutrition therapy. 2. Recommended he try to increase his fiber and fluid intake. 3. Pt requests high pro smoothies for lunch. Will add to lunch as 1 carb choice. Monitoring/Evaluations: POC BG, weight, PO intake
[2019-07-25] MEDS: WARFARIN 5 MG TABLET PO (17:34)
--- NOTE | 2019-07-25 17:54 | P.DS_ITS ---
History of Present Illness History of Present Illness Date Patient Seen: 07/25/19 Time Patient Seen: 17:54 Chief complaint: Rapid Afib Narrative: As per JESUS MANUEL Ahumada: Mr. Rick Cunningham is a 69-year-old male patient with a history of atrial fibr illation, hypertension, type 2 diabetes, recent treatment lower extremity cellulitis and depression who presents to the ER after having a sudden onset of severe incapacitating dizziness this morning. The patient states he was eating breakfast and experienced symptoms severe dizziness, diaphoresis and hot flashes for approximately 1-1/2 hours prior to calling EMS. Patient denies complaints chest pain during this event. Upon arrival EMS the patient is found to be hypotensive at 60/40. The patient reports recent nonproductive cough treated with Mucinex with resolution but no other recent health issues or prodromal symptoms. Patient denies headaches nasal congestion or sore throat. She has chest pain and denies palpitations or sensation of racing heart. Denies shortness of breath or wheezing. He has had no abdominal pain, nausea vomiting and has had constipation but no diarrhea. Patient is normally independently ambulatory and has been the primary caregiver for his for the last 3 weeks years who has had progressive severe dementia and was recently placed in Memory Care. Upon arrival in the ER the patient was afebrile with a temperature of 96.8?, heart rate was 125, blood pressure had improved to 140 2/111 with a respiratory rate of 20 saturating 98% on air. EKG obtained finds rapid atrial fibrillation with a ventricular rate of 126 without indication of infarct or ischemia. Patient also had chest x-ray completed which finds cardiomyopathy with pulmonary congestion. On laboratory analysis he has an elevated white count of 15.1 hemoglobin of 13.7 and hematocrit of 41.9 and platelets of 306. On chemistry he has notable for hypokalemia with a potassium of 3.3 and has a BUN of 16 and creatinine 1.4. From his previous admission had a baseline creatinine of 0.8. His PT is 28.1 and INR 2.4 on warfarin anticoagulation, troponin is less than 0.012, procalcitonin is 0.06 and is found to have a lactic acid of 4.7 an anion gap calculated at 19. In the ER the patient received metoprolol 5 mg IV after which she became hypotensive and subsequently seized does diltiazem IV push in dose of 5 mg, 5 mg and 10 mg and subsequent dose of 90 mg diltiazem p.o.. The patient is admitted to the hospital with chronic persistent atrial fibrillation with rapid ventricular response, hyperglycemia and acute kidney injury. Discharge Providers Provider Date of admission: 07/24/19 18:55 Discharge Date: 07/25/19 Primary care physician: Ayo Beverly MD Consults: 07/24/19 20:09 Consult to Discharge Planning Routine Comment: 07/24/19 20:19 Consult to Dietitian, Adult Routine Comment: Reason For Exam: assessed at high risk Discharge provider: Chirag Doss DO Summary Hospital Course Hospital Course: This is a 69-year-old male patient who is admitted to the hospital with atrial fibrillation with RVR, hyperglycemia, and acute kidney injury. He improved very rapidly as did his heart rate and the patient was discharged home following day. It is presumed that he was hypotensive secondary to AFib with RVR, and this led to his anion gap, PAULINE, and pulmonary edema. The next day he was asymptomatic, and was stable for discharge home. His echocardiogram is currently pending final read, but given well appearance without evidence of dyspnea on exertion currently, and improved medications I believe any changes would be likely due to AFib and he would need follow up with his primary care provider and he needs to see a fly raiser lockstitch for further management. He was started on a diltiazem drip along with continued metoprolol. He did not have any evidence of heart block and his rate was improved, so he was continued on diltiazem as an outpatient 60 mg b.i.d. he should follow up with his primary care physician and potentially a fly raiser lockstitch for further management. 1. Persistent atrial fibrillation, present on admission, active -history of atrial fibrillation documented on EKG 06/01/2019, metoprolol for rate control, rhythm is not self terminating requiring medication for rhythm management. -acute onset of symptoms today while eating breakfast with profound dizziness but no complaints of chest pain. Patient found hypotensive at 60/40 by EMS normalized by arrival in the ED. -patient treated with IV push doses of metoprolol and Cardizem in the ED followed by 90 mg p.o. dose of Cardizem. -patient received his regular home dose of metoprolol and remain tachycardic, diltiazem drip was titrated off. He was started on 60 mg b.i.d. of diltiazem which she will continue as an outpatient. He should follow up with primary care provider and fly raiser lockstitch. -echocardiogram currently pending as noted above. 2. Acute hyperglycemia , present on admission, active -unclear etiology could have been due to brief period of hypotension. His anion gap resolved however a nd given his A1c is very unlikely that the patient has a predilection for DKA. -patient hyperglycemic on arrival with a blood sugar of 318, he has a CO of 19 and lactate of 4.7 with an anion gap of 19. -patient has been taking metformin at home 500 mg twice daily. His A1c was controlled. -continue home metformin 3. Acute pulmonary edema without history of congestive heart failure, present on admission, active. -the patient with ongoing atrial fibrillation, enlarged heart on chest x-ray with identification of pulmonary congestion. No complaints of chest pain or shortness of breath. -while in the ER the patient received 4 L of IV fluid. -patient currently feels well, as noted above his echo is pending final read, but any management changes will need to be done as an outpatient. 4. Acute kidney injury, present on admission, active -patient has creatinine of 1.4 on admission with baseline of 0.8 on prior admission. BUN is approximately the same at 16. -this was likely due to hypotension secondary to atrial fibrillation as noted above. -creatinine on discharge was 1.0. 5. Essential Hypertension, present on admission, active. -patient found hypotensive in the field with blood pressures 60/40 and blood pressure in the ER was 142/111. -continue HCTZ 12.5 mg, hold amlodipine 5 mg, start diltiazem 60 mg as noted above for AFib with RVR. -Will continue metoprolol tartrate 50 mg twice daily as needed for rhythm control. 6. Long-term anticoagulation, present on admission, stable -INR upon arrival to the ER is within therapeutic range at 2.4. -continue warfarin dosing of 5 mg every other day alternating with warfarin 2.5 mg. Exam Vital Signs (past 8 hours): - 07/25/19 12:27 07/25/19 15:40 Temperature 97.5 F L Pulse Rate 104 H 123 H Respiratory Rate 24 21 Blood Pressure 137/69 160/98 H Pulse Oximetry 95 94 Oxygen Delivery Method Room Air Oxygen Flow Rate 0 Narrative Exam Narrative: GENERAL APPEARANCE: Well developed, well nourished, in no acute distress. SKIN: Inspection of the skin reveals no rashes, ulcerations or petechiae. HEENT: The sclerae were anicteric and conjunctivae were pink and moist. Extraocular movements were intact and pupils were equal, round with normal a ccommodation. External inspection of the ears and nose showed no scars, lesions, or masses. Lips, teeth, and gums showed normal mucosa. The oral mucosa, hard and soft palate, tongue and posterior pharynx were unremarkable. NECK: Supple and symmetric. There was no thyroid enlargement, and no tenderness, or masses were felt. CHEST: Normal AP diameter and normal contour without any kyphoscoliosis. LUNGS: Auscultation of the lungs revealed no wheezes, rhonchi, or rales. CARDIOVASCULAR: There was a irregularly irregular rhythm with a normal rate without any murmurs, gallops, rubs. Peripheral pulses were 2+ and symmetric. ABDOMEN: Soft and nontender with normal bowel sounds. No ascites was noted. MUSCULOSKELETAL: There was no tenderness or effusions noted. Muscle strength and tone were normal. EXTREMITIES: No cyanosis, clubbing or edema. NEUROLOGIC: Alert and oriented x 3. Normal affect. Gait was normal. Strength is +5/5 in the Upper Extremities and Lower Extremities Bilaterally. Sensation to touch was normal. Objective Labs Result Diagrams: 07/25/19 04:35 07/25/19 04:35 Labs: Laboratory Results - last 24 hr 07/24/19 07/24/19 07/24/19 11:15 11:15 14:29 WBC RBC Hgb Hct MCV MCH MCHC RDW Plt Count Neut % (Auto) Lymph % (Auto) [place] % (Auto) Eos % (Auto) Baso % (Auto) Neut # (Auto) Lymph # (Auto) [place] # (Auto) Eos # (Auto) Baso # (Auto) PT INR Sodium 137 Potassium 3.3 L Chloride 99 Carbon Dioxide 19 L BUN 16 Creatinine 1.40 H Estimated GFR 50.2 L BUN/Creatinine Ratio 11.4 Glucose 318 H Hemoglobin A1c 5.7 Lactate Calcium 9.3 Magnesium Total Bilirubin 1.3 AST 23 ALT 10 L Alkaline Phosphatase 101 Total Creatine Kinase 52 L CK-MB (CK-2) TNP CK-MB (CK-2) Rel Index TNP Troponin I < 0.012 Total Protein 7.8 Albumin 3.9 Globulin 3.9 Albumin/Globulin Ratio 1.0 TSH Urine Color Urine Appearance Urine pH Ur Specific [place] Urine Protein Urine Glucose (UA) Urine Ketones Urine Occult Blood Urine Nitrate Urine Bilirubin Urine Urobilinogen Ur Leukocyte Esterase Urine RBC Urine WBC Urine Bacteria Hyaline Casts Ur Culture Indicated? Nasal Screen MRSA (PCR) 07/24/19 07/24/19 07/24/19 14:29 20:15 22:00 WBC RBC Hgb Hct MCV MCH MCHC RDW Plt Count Neut % (Auto) Lymph % (Auto) [place] % (Auto) Eos % (Auto) Baso % (Auto) Neut # (Auto) Lymph # (Auto) [place] # (Auto) Eos # (Auto) Baso # (Auto) PT INR Sodium Potassium Chloride Carbon Dioxide BUN Creatinine Estimated GFR BUN/Creatinine Ratio Glucose Hemoglobin A1c Lactate 2.4 H Calcium Magnesium 2.2 Total Bilirubin AST ALT Alkaline Phosphatase Total Creatine Kinase CK-MB (CK-2) CK-MB (CK-2) Rel Index Troponin I Total Protein Albumin Globulin Albumin/Globulin Ratio TSH Urine Color Urine Appearance Urine pH Ur Specific [place] Urine Protein Urine Glucose (UA) Urine Ketones Urine Occult Blood Urine Nitrate Urine Bilirubin Urine Urobilinogen Ur Leukocyte Esterase Urine RBC Urine WBC Urine Bacteria Hyaline Casts Ur Culture Indicated? Nasal Screen MRSA (PCR) Positive for mrsa H 07/24/19 07/25/19 07/25/19 23:52 00:25 04:35 WBC 12.8 H RBC 3.45 L Hgb 10.3 L Hct 30.4 L MCV 88.2 MCH 29.9 MCHC 33.9 RDW 15.4 H Plt Count 200 Neut % (Auto) 87.4 H Lymph % (Auto) 9.0 L [place] % (Auto) 3.4 Eos % (Auto) 0.0 L Baso % (Auto) 0.2 Neut # (Auto) 69168 H Lymph # (Auto) 1100 [place] # (Auto) 400 Eos # (Auto) 0 Baso # (Auto) 0 PT INR Sodium Potassium Chloride Carbon Dioxide BUN Creatinine Estimated GFR BUN/Creatinine Ratio Glucose Hemoglobin A1c Lactate 1.8 Calcium Magnesium Total Bilirubin AST ALT Alkaline Phosphatase Total Creatine Kinase CK-MB (CK-2) CK-MB (CK-2) Rel Index Troponin I Total Protein Albumin Globulin Albumin/Globulin Ratio TSH Urine Color Yellow Urine Appearance Clear Urine pH 5.0 Ur Specific [place] 1.025 Urine Protein Negative Urine Glucose (UA) Negative Urine Ketones Negative Urine Occult Blood Negative Urine Nitrate Negative Urine Bilirubin Negative Urine Urobilinogen 0.2 Ur Leukocyte Esterase Negative Urine RBC None seen Urine WBC None seen Urine Bacteria None seen Hyaline Casts 0-1/lpf Ur Culture Indicated? Cult not indicated Nasal Screen MRSA (PCR) 07/25/19 07/25/19 07/25/19 04:35 04:35 04:35 WBC RBC Hgb Hct MCV MCH MCHC RDW Plt Count Neut % (Auto) Lymph % (Auto) [place] % (Auto) Eos % (Auto) Baso % (Auto) Neut # (Auto) Lymph # (Auto) [place] # (Auto) Eos # (Auto) Baso # (Auto) PT 28.5 H INR 2.4 H Sodium 138 Potassium 4.4 Chloride 105 Carbon Dioxide 25 BUN 18 Creatinine 1.00 Estimated GFR > 60.0 BUN/Creatinine Ratio 18.0 Glucose 151 H D Hemoglobin A1c Lactate Calcium 8.6 Magnesium 1.7 Total Bilirubin AST ALT Alkaline Phosphatase Total Creatine Kinase CK-MB (CK-2) CK-MB (CK-2) Rel Index Troponin I 0.033 Total Protein Albumin Globulin Albumin/Globulin Ratio TSH 0.62 Urine Color Urine Appearance Urine pH Ur Specific [place] Urine Protein Urine Glucose (UA) Urine Ketones Urine Occult Blood Urine Nitrate Urine Bilirubin Urine Urobilinogen Ur Leukocyte Esterase Urine RBC Urine WBC Urine Bacteria Hyaline Casts Ur Culture Indicated? Nasal Screen MRSA (PCR) 07/25/19 11:00 WBC RBC Hgb Hct MCV MCH MCHC RDW Plt Count Neut % (Auto) Lymph % (Auto) [place] % (Auto) Eos % (Auto) Baso % (Auto) Neut # (Auto) Lymph # (Auto) [place] # (Auto) Eos # (Auto) Baso # (Auto) PT INR Sodium Potassium Chloride Carbon Dioxide BUN Creatinine Estimated GFR BUN/Creatinine Ratio Glucose Hemoglobin A1c Lactate Calcium Magnesium Total Bilirubin AST ALT Alkaline Phosphatase Total Creatine Kinase CK-MB (CK-2) CK-MB (CK-2) Rel Index Troponin I 0.024 Total Protein Albumin Globulin Albumin/Globulin Ratio TSH Urine Color Urine Appearance Urine pH Ur Specific [place] Urine Protein Urine Glucose (UA) Urine Ketones Urine Occult Blood Urine Nitrate Urine Bilirubin Urine Urobilinogen Ur Leukocyte Esterase Urine RBC Urine WBC Urine Bacteria Hyaline Casts Ur Culture Indicated? Nasal Screen MRSA (PCR) Discharge Plan Discharge Plan Patient Disposition: Home Discharge comment: You were admitted to the hospital with a fast heart rate. Your amlodipine was held and your started on a different medication called diltiazem. Your heart rate improved. You were transitioned to an oral medication and discharged home. You should stop taking amlodipine and resume diltiazem and you should follow up with your primary care physician within the next week and with the fly raiser lockstitch as well. Your echocardiogram is currently pending final read, however we will call you if this is grossly abnormal. Discharge Med Rec/Prescriptions Prescriptions: New diltiazem HCl 60 mg capsule,extended release 12 hr 60 mg PO BID 30 Days Qty: 60 RF: 0 Continued metformin 500 mg tablet 500 mg PO DAILY RF: 0 hydrochlorothiazide 12.5 mg tablet 12.5 mg PO DAILY RF: 0 acetaminophen 325 mg Tablet 650 mg PO Q6HR PRN (Reason: As Needed For Fever/Mild Pain) Qty: 30 RF: 0 metoprolol tartrate 100 mg Tablet 50 mg PO BID RF: 0 aspirin 81 mg Tablet,Delayed Release (Dr/Ec) 81 mg PO DAILY RF: 0 cephalexin 500 mg Capsule 500 mg PO QID RF: 0 warfarin [Coumadin] 5 mg Tablet 2.5 mg PO Q OTHER DAY RF: 0 pravastatin 20 mg Tablet 20 mg PO DAILY RF: 0 warfarin [Coumadin] 5 mg tablet 5 mg PO Q OTHER DAY RF: 0 Discontinued amlodipine 5 mg tablet 5 mg PO DAILY RF: 0 potassium chloride 20 mEq Tablet Extended Release 20 meq PO DAILY RF: 0 Follow up/Referrals: Ayo Beverly MD [Primary Care Provider] - Provider Discharge Instructions Diet: Diet as Tolerated Activity: As tolerated Discharge Data Primary Care Provider: Ayo Beverly Attending Provider: Ingrid Bolden Admit Date/Time: 07/24/19 18:55 Quality VTE Deep Vein Thrombosis/Pulmonary Embolism Present on Admission: No
[2019-07-25] MEDS: dilTIAZem SR 60 MG PO (17:57)
--- NOTE | 2019-07-25 18:51 | PC.NURSE ---
1500-Received report and safety checks done. assumed care patient. vss. patient alert and oriented x4, SBP slightly elevated in the 160s, HR afib in the 90s-100s; HR slightly increase w/activity 120s-130s, patient asymptomatic. 1800-Plan for patient to discharge after PO dose of Diltiazem; BP 160/76 and HR in the 100s. Patient was initially being discharged w/new order for diltiazem 60mg dose of 12hr extended release ; [facility] in [place] only carries 120mg 24hr extended release; per discussion w/ [facility] in [place] called for prescription of Diltiazem PO 120mg 24hr extended release. 1900: patient ready for discharge; home medications returned to patient. 153/74 and HR 90s-low 100s.
== END 2019-07-25 19:30 | disposition home or self-care (01) ==
LOC: ED 18:18 → AC 18:57 → ICU 20:08
PROVIDERS: Internal Medicine; Nurse Practitioner Adult Health; Admitting Provider Internal Medicine; Emergency Provider Emergency Medicine; PCP Internal Medicine; Visit Provider Internal Medicine
DX: I48.1 Persistent atrial fibrillation (principal); I49.9 Cardiac arrhythmia, unspecified; E11.65 Type 2 diabetes mellitus with hyperglycemia; N17.9 Acute kidney failure, unspecified; J81.0 Acute pulmonary edema; I10 Essential (primary) hypertension; F32.9 Major depressive disorder, single episode, unspecified; E66.9 Obesity, unspecified; Z87.891 Personal history of nicotine dependence; Z79.01 Long term (current) use of anticoagulants; Z79.84 Long term (current) use of oral hypoglycemic drugs
CPT/HCPCS: 36415; 71045; 80048; 80053; 81001; 82550; 82962; 83036; 83605; 83735; 84145; 84443; 84484; 85025; 85610; 87797; 93005; 93306; 94762; 96361; 96365; 96366; 96375; 96376; 99285; G0378; J1940; J2405; J3480

== ENCOUNTER 2019-07-28 12:45 | Emergency (ER) | payer MEDICARE, SELFPAY ==
[2019-07-24 20:10] VITALS: BMI 46.3
[2019-07-28] VITALS (7 sets, daily range): BP systolic 91–142; BP diastolic 54–80; PULSE 78–104; RESP 14–28; TEMP 36.4; O2SAT 95–100
--- NOTE | 2019-07-28 13:02 | ED.WEAKNESS ---
HPI - Weakness General Chief complaint: Weakness Stated complaint: LOW BP Time Seen by Provider: 07/28/19 12:47 Source: patient and family Mode of arrival: Ambulatory Limitations: no limitations History of Present Illness HPI Narrative: 69-year-old male smoker with history of AFib with RVR and hypertension presents with his son and a chief complaint of a recurrence of dizziness, weakness, lightheadedness and now lower abdominal pain. He was recently seen and treated in our emergency department for rapid AFib and after administration of beta-blockers became profoundly hypotensive. During his stay he had a critically elevated lactate and a bump in his renal function. He had been doing relatively okay for the past few days and started feeling bad again yesterday. The pain in his right lower quadrant is gradually worsening and was present a few days ago but he did not mention it, it is worse now. MD Complaint: generalized weakness Onset (ago): hour(s) Duration: constant Location: generalized Associated symptoms: loss of appetite and nausea/vomiting Related Data Home Medications Medication Instructions Recorded Confirmed hydrochlorothiazide 12.5 mg PO DAILY 06/01/19 07/28/19 metformin 500 mg PO DAILY 06/01/19 07/28/19 aspirin 81 mg PO DAILY 07/24/19 07/28/19 metoprolol tartrate 100 mg PO BID 07/24/19 07/28/19 pravastatin 20 mg PO QPM 07/24/19 07/28/19 warfarin [Coumadin] 2.5 mg PO Q OTHER DAY 07/24/19 07/28/19 warfarin [Coumadin] 5 mg PO Q OTHER DAY 07/24/19 07/28/19 cephalexin 500 mg PO QID 07/28/19 07/28/19 diltiazem HCl 120 mg PO DAILY 07/28/19 07/28/19 potassium chloride 20 meq PO DAILY 07/28/19 07/28/19 Previous Rx's Medication Instructions Recorded acetaminophen 650 mg PO Q6HR PRN #30 tab 06/09/19 Allergies Allergy/AdvReac Type Severity Reaction Status Date / Time digoxin Allergy Mild Rash Verified 07/24/19 11:28 lisinopril AdvReac Mild Cough Verified 07/24/19 11:28 Review of Systems Constitutional Constitutional: Denies chills, Denies fatigue, Denies fever(s), Denies frequent falls, Denies lethargy and Reports weakness Eyes Eyes: Denies change in vision, Denies eye discharge, Denies irritation and Denies loss of vision ENT Ears, Nose, Mouth, and Throat: Denies change in voice, Denies dizziness, Denies neck pain, Denies sore throat and Denies throat swelling Cardiovascular Cardiovascular: Denies chest pain, Denies irregular heart rhythm, Denies lightheadedness, Denies palpitations, Denies dyspnea, Denies dyspnea on exertion and Denies orthopnea Respiratory Respiratory: Denies cough, Denies dyspnea, Denies dyspnea on exertion and Denies wheezing Gastrointestinal Gastrointestinal: Reports abdominal pain, Denies change in bowel habits, Denies diarrhea, Denies nausea and Denies vomiting Genitourinary Genitourinary: Denies hematuria, Denies flank pain, Denies urinary incontinence and Denies urinary urgency Musculoskeletal Musculoskeletal: Denies back pain, Denies muscle weakness, Denies neck pain, Denies numbness and Denies tingling Integumentary/Breasts Skin/Breast: Denies pruritus, Denies erythema, Denies rash and Denies wounds Neurologic Neurologic: Denies behavioral changes, Denies confusion, Denies dizziness, Denies frequent falls, Denies loss of vision, Denies numbness, Denies tingling and Reports weakness Psychiatric Psychiatric: Denies anxiety, Denies behavioral changes, Denies confusion, Denies depression, Denies homicidal ideation and Denies suicidal ideation Endocrine Endocrine: Denies fatigue, Denies flushing and Denies palpitations Hematologic/Lymphatic Hematologic/Lymphatic: Denies easy bruising Allergic/Immunologic Allergic/Immunologic: Denies urticaria, Denies throat swelling and Denies wheezing [facility] History Atrial fibrillation with RVR (Inactive) Cellulitis of left lower extremity without foot (Acute) Depression (Chronic) Diabetes mellitus type 2 in obese (Chronic) Essential hypertension (Chronic) Surgical History H/O umbilical hernia repair (Acute) History of knee surgery (Acute) History of left inguinal hernia repair (Acute) Family History (Updated 07/24/19 @ 21:56 by JESUS MANUEL Ahumada) Father No problems noted. Mother Cancer Son Obesity Social History household members: none Smoking Status: Former smoker alcohol intake: former Family History Father No problems noted. Mother Cancer Son Obesity Social History household members: none Smoking Status: Former smoker alcohol intake: former Exam Narrative Exam Narrative: GENERAL: [69] year old patient appears stated age. Morbidly obese well-developed patient, in mild distress. Appears ill HEAD: Atraumatic. Normocephalic. EYES: Pupils equal round and reactive. Extraocular motions intact. No scleral icterus. No injection or drainage. ENT: Nose without bleeding, purulent drainage. Throat without erythema, tonsillar hypertrophy or exudate. Airway patent. NECK: Trachea midline. Non tender CARDIOVASCULAR: Regular rate and rhythm without murmurs, gallops, or rubs. RESPIRATORY: Clear to auscultation. Breath sounds equal bilaterally. No wheezes, rales, or rhonchi. GASTROINTESTINAL: Abdomen soft, tender in RLQ, nondistended. EXTREMITIES: No edema or joint tenderness. BACK: Nontender without deformity or crepitance. No flank tenderness. NEURO: AOx3. SKIN: No rash or erythema of visible areas Initial Vital Signs Initial Vital Signs: Vital Signs Temperature 97.6 F 07/28/19 13:03 Pulse Rate 78 07/28/19 13:03 Respiratory Rate 23 07/28/19 13:03 Blood Pressure 94/56 L 07/28/19 13:03 Pulse Oximetry 96 07/28/19 13:03 Course Orders Ordered: ED Orders 07/28/19 13:00 EKG-12 Lead Stat 07/28/19 13:06 XR chest 1V Stat 07/28/19 13:26 Complete Blood Count AUTO DIFF Stat Comprehensive Metabolic Panel Stat Lactate (Lactic Acid) Stat Magnesium Stat Prothrombin Time INR Stat Troponin & CK Cardiac Panel Stat 07/28/19 13:45 Blood Culture Stat 07/28/19 14:40 CT abdomen pelvis w con Stat 07/28/19 15:58 Hemoglobin and Hematocrit Stat Type and Screen Stat Sodium Chloride (Normal Saline 0.9%) 250 mls @ 21 mls/hr IV Q24H PRN PRN Reason: Flush Last Infusion: 07/28/19 18:03 Dose: 0 mls/hr Documented by: Admin: 07/28/19 15:58 Dose: 21 mls/hr Documented by: NITESH Discontinued Medications Phytonadione 10 mg/ Dextrose 51 mls @ 102 mls/hr IV NOW ONE Stop: 07/28/19 15:18 Last Infusion: 07/28/19 16:30 Dose: 0 mls/hr Documented by: Admin: 07/28/19 15:58 Dose: 102 mls/hr Documented by: NITESH Prothrombin Complex Concent ( Human) 2,500 unit/Miscellaneous 100 mls @ 1,077.732 mls/hr IV NOW ONE; Protocol Stop: 07/28/19 16:14 Last Infusion: 07/28/19 17:08 Dose: 0 unit/kg/min, 0 mls/hr Documented by: Admin: 07/28/19 17:02 Dose: 3 unit/kg/min, 1,077.732 mls/hr Documented by: NITESH Consultations Consultation #1: call to general surgery, not appropriate for this facility patient wishes to go to [facility] if possible Consultation #2: [employer] Laboratory Director at [facility] to accept Vital Signs Vital signs: Vital Signs - 8 hr 07/28/19 13:03 07/28/19 13:30 07/28/19 14:00 Temperature 97.6 F Pulse Rate 78 78 85 Respiratory Rate 23 14 18 Blood Pressure 94/56 L Blood Pressure [Left Arm] Blood Pressure [Right Arm] 91/54 L 126/68 Pulse Oximetry 96 98 100 07/28/19 15:19 07/28/19 17:00 07/28/19 18:10 Temperature Pulse Rate 79 84 89 Respiratory Rate 17 28 H 20 Blood Pressure Blood Pressure [Left Arm] 128/63 Blood Pressure [Right Arm] 132/70 142/80 H Pulse Oximetry 99 97 96 07/28/19 19:11 Temperature Pulse Rate 104 H Respiratory Rate 27 H Blood Pressure Blood Pressure [Left Arm] 135/78 Blood Pressure [Right Arm] Pulse Oximetry 95 MDM - Weakness Lab Data Result diagrams: 07/28/19 15:58 07/28/19 13:26 Labs: Lab Results 07/28/19 07/28/19 07/28/19 Range/Units 13:26 13:26 13:26 WBC 10.2 (4.5-11.0) X10^3/uL RBC 3.37 L (4.5-5.9) X10^6/uL Hgb 10.1 L (13.5-17.5) g/dL Hct 29.6 L (41-53) % MCV 87.9 (80-100) fL MCH 29.8 (26-34) PG MCHC 34.0 (30-36) % RDW 15.4 H (11.6-14.8) % Plt Count TNP Neut % (Auto) 69.3 (50-75) % Lymph % (Auto) 20.3 L (25-40) % Gregg % (Auto) 7.6 (3-14) % Eos % (Auto) 1.9 L (2-4) % Baso % (Auto) 0.9 (0-2) % Neut # (Auto) 7100 H (0049-9073) /uL Lymph # (Auto) 2100 (9550-2288) /uL Gregg # (Auto) 800 (0-900) /uL Eos # (Auto) 200 (0-450) /uL Baso # (Auto) 100 (0-100) /uL Platelet Estimate Adequate on smear Plt Morphology Comment RBC Morphology See below Polychromasia 2+ H PT 26.0 H (10.1-12.7) SECONDS INR 2.2 H (0.9-1.3) Sodium 139 (137-145) mmol/L Potassium 3.2 L D (3.4-5.1) mmol/L Chloride 98 (98-107) mmol/L Carbon Dioxide 27 (22-32) mmol/L BUN 15 (9-20) mg/dL Creatinine 0.90 (0.66-1.25) mg/dL Estimated GFR > 60.0 (>60) mL/min BUN/Creatinine Ratio 16.7 (6-22) Glucose 120 H (80-110) mg/dL Lactate (0.7-2.1) mmol/L Calcium 9.1 (8.4-10.2) mg/dL Magnesium (1.6-2.3) mg/dL Total Bilirubin 1.3 (0.2-1.3) mg/dL AST 25 (17-59) IU/L ALT 32 (21-72) IU/L Alkaline Phosphatase 94 (38-126) U/L Total Creatine Kinase (55-170) U/L CK-MB (CK-2) CK-MB (CK-2) Rel Index Troponin I (0.01-0.034) ng/mL Total Protein 7.4 (6.3-8.2) g/dL Albumin 3.8 (3.5-5.0) g/dL Globulin 3.6 (1.7-4.1) g/dL Albumin/Globulin Ratio 1.1 (1.0-2.8) Blood Type Antibody Screen 07/28/19 07/28/19 07/28/19 Range/Units 13:26 13:26 15:58 WBC (4.5-11.0) X10^3/uL RBC (4.5-5.9) X10^6/uL Hgb 10.0 L (13.5-17.5) g/dL Hct 29.8 L (41-53) % MCV (80-100) fL MCH (26-34) PG MCHC (30-36) % RDW (11.6-14.8) % Plt Count Neut % (Auto) (50-75) % Lymph % (Auto) (25-40) % Gregg % (Auto) (3-14) % Eos % (Auto) (2-4) % Baso % (Auto) (0-2) % Neut # (Auto) (0704-3221) /uL Lymph # (Auto) (4471-4113) /uL Gregg # (Auto) (0-900) /uL Eos # (Auto) (0-450) /uL Baso # (Auto) (0-100) /uL Platelet Estimate Plt Morphology Comment RBC Morphology Polychromasia PT (10.1-12.7) SECONDS INR (0.9-1.3) Sodium (137-145) mmol/L Potassium (3.4-5.1) mmol/L Chloride (98-107) mmol/L Carbon Dioxide (22-32) mmol/L BUN (9-20) mg/dL Creatinine (0.66-1.25) mg/dL Estimated GFR (>60) mL/min BUN/Creatinine Ratio (6-22) Glucose (80-110) mg/dL Lactate 1.9 (0.7-2.1) mmol/L Calcium (8.4-10.2) mg/dL Magnesium 1.9 (1.6-2.3) mg/dL Total Bilirubin (0.2-1.3) mg/dL AST (17-59) IU/L ALT (21-72) IU/L Alkaline Phosphatase (38-126) U/L Total Creatine Kinase 34 L (55-170) U/L CK-MB (CK-2) TNP CK-MB (CK-2) Rel Index TNP Troponin I < 0.012 (0.01-0.034) ng/mL Total Protein (6.3-8.2) g/dL Albumin (3.5-5.0) g/dL Globulin (1.7-4.1) g/dL Albumin/Globulin Ratio (1.0-2.8) Blood Type Antibody Screen 07/28/19 Range/Units 15:58 WBC (4.5-11.0) X10^3/uL RBC (4.5-5.9) X10^6/uL Hgb (13.5-17.5) g/dL Hct (41-53) % MCV (80-100) fL MCH (26-34) PG MCHC (30-36) % RDW (11.6-14.8) % Plt Count Neut % (Auto) (50-75) % Lymph % (Auto) (25-40) % Gregg % (Auto) (3-14) % Eos % (Auto) (2-4) % Baso % (Auto) (0-2) % Neut # (Auto) (8234-2451) /uL Lymph # (Auto) (4150-5918) /uL Gregg # (Auto) (0-900) /uL Eos # (Auto) (0-450) /uL Baso # (Auto) (0-100) /uL Platelet Estimate Plt Morphology Comment RBC Morphology Polychromasia PT (10.1-12.7) SECONDS INR (0.9-1.3) Sodium (137-145) mmol/L Potassium (3.4-5.1) mmol/L Chloride (98-107) mmol/L Carbon Dioxide (22-32) mmol/L BUN (9-20) mg/dL Creatinine (0.66-1.25) mg/dL Estimated GFR (>60) mL/min BUN/Creatinine Ratio (6-22) Glucose (80-110) mg/dL Lactate (0.7-2.1) mmol/L Calcium (8.4-10.2) mg/dL Magnesium (1.6-2.3) mg/dL Total Bilirubin (0.2-1.3) mg/dL AST (17-59) IU/L ALT (21-72) IU/L Alkaline Phosphatase (38-126) U/L Total Creatine Kinase (55-170) U/L CK-MB (CK-2) CK-MB (CK-2) Rel Index Troponin I (0.01-0.034) ng/mL Total Protein (6.3-8.2) g/dL Albumin (3.5-5.0) g/dL Globulin (1.7-4.1) g/dL Albumin/Globulin Ratio (1.0-2.8) Blood Type A Positive Antibody Screen Negative Urine Dip Bedside Urine Glucose Negative Bedside Urine Bilirubin - Negative Bedside Urine Ketone - Negative Urine Specific [place] 1.010 Bedside Urine Occult Blood - Negative Bedside Urine pH 7.0 Bedside Urine Protein +/- 15 Bedside Urine Urobilinogen 1+ 2mg Bedside Urine Nitrite - Negative Bedside Urine Leukocytes - Negative Esterase Imaging Data CT scan - abdomen: Radiologist's impression: Rick Cunningham Jr Evelyn 69 M [address] [place] [address] CT Scan Report Signed Patient: Octavio EmeryRick EMR#: [id number] : 1950Acct:[id number] Age/Sex: 69 / MDate of Service: 07/28/19 Loc: ED Accession Number: [id number] Procedure: CT abdomen pelvis w con Ordering Provider: Wes Ashton D.O. PROCEDURE: CT ABDOMEN PELVIS W CON INDICATIONS: severe right lower quadrant pain TECHNIQUE: After the administration of intravenous contrast, 5 mm thick sections acquired from the diaphragm to the symphysis. 5 mm coronal and sagittal reformats were acquired. For radiation dose reduction, the following was used: automated exposure control, adjustment of mA and/or kV according to patient size. COMPARISON: None. FINDINGS: Image quality: Excellent. ABDOMEN: Lung bases: Lung bases are clear. Heart size is normal. Solid organs: Liver is normal in size and enhancement. Gallbladder is within normal limits. Biliary system is non dilated. Pancreas enhances normally. Spleen is normal in size and enhancement. No adrenal nodules. Kidneys demonstrate normal size and enhancement, without hydronephrosis. Peritoneum and bowel: There is no evidence of bowel obstruction. Large heterogeneously hyperdense area is seen inferior and dorsal to second portion of duodenum extending along the space between gerota's fascia and peritoneum, measures up to 16 x 8.2 x 17.9 cm in its largest transverse, AP and craniocaudal dimensions. There is mass effect on adjacent small bowel loops. Wall thickening involving first and second portion of duodenum is seen. No peritoneal free air is noted. Sigmoid diverticulosis is noted, no suggestions of acute diverticulitis. Nodes and vessels: No retroperitoneal or mesenteric adenopathy by size criteria. Aorta is normal in size. Atherosclerotic calcifications throughout the abdominal aorta is seen. Flattened IVC is noted consistent with hypovolemia. Miscellaneous: Ventral abdominal hernia is seen with defect measures up to 5.4 cm in diameter contains fat only. PELVIS: Genitourinary: Bladder wall thickness is normal. Miscellaneous: No inguinal hernias or adenopathy. Bones: No suspicious bony lesions. No vertebral body compression fractures. IMPRESSION: 1. Findings suggestive of a large peritoneal hematoma in right side of abdomen posterior and inferior to second portion of duodenum with extraperitoneal extension. Findings may represent bleeding involving duodenum possibly secondary to peptic ulcer disease. Focus of hyperdensity is noted within this collection and may represent active bleeding. 2. Ventral hernia containing fat only. No bowel obstruction. No peritoneal free air. 3. Flattened appearing IVC suggestive of hypovolemia. Findings were discussed with Dr. Ashton in the ER at 3:30 PM on 07/28/19. Dictated by: Danny Helms M.D. on 07/28/2019 at 15:11 Approved by: Danny Helms M.D. on 07/28/2019 at 15:37 Discharge Plan Departure Patient Disposition: [facility] Clinical Impression: Peritoneal hematoma Prescriptions: No Action metformin 500 mg tablet 500 mg PO DAILY RF: 0 hydrochlorothiazide 12.5 mg tablet 12.5 mg PO DAILY RF: 0 acetaminophen 325 mg Tablet 650 mg PO Q6HR PRN (Reason: As Needed For Fever/Mild Pain) Qty: 30 RF: 0 metoprolol tartrate 100 mg Tablet 100 mg PO BID RF: 0 aspirin 81 mg Tablet,Delayed Release (Dr/Ec) 81 mg PO DAILY RF: 0 warfarin [Coumadin] 5 mg Tablet 2.5 mg PO Q OTHER DAY RF: 0 pravastatin 20 mg Tablet 20 mg PO QPM RF: 0 warfarin [Coumadin] 5 mg tablet 5 mg PO Q OTHER DAY RF: 0 diltiazem HCl 120 mg capsule,extended release 24 hr 120 mg PO DAILY RF: 0 potassium chloride 20 mEq tablet extended release 20 meq PO DAILY RF: 0 cephalexin 500 mg capsule 500 mg PO QID RF: 0 Referrals: Ayo Beverly MD [Primary Care Provider] -
--- NOTE | 2019-07-28 13:06 | DI.RAD.S_ITS ---
PROCEDURE: XR CHEST 1V INDICATIONS: dizzy, weak, lightheaded TECHNIQUE: One view of the chest was acquired. COMPARISON: [facility], CR, XR CHEST 1V, 06/01/2019, 15:15. [facility], CR, XR CHEST 1V, 07/24/2019, 14:38. FINDINGS: Surgical changes and devices: None. Lungs and pleura: Left basilar infiltrate suspicious for pneumonia. No pleural effusions or pneumothorax. Mediastinum: Mediastinal contours appear normal. Heart size is normal. Bones and chest wall: No suspicious bony lesions. Overlying soft tissues appear unremarkable. IMPRESSION: Left basilar pneumonia. Dictated by: Guerita Calderon M.D. on 07/28/2019 at 13:39 Approved by: Guerita Calderon M.D. on 07/28/2019 at 13:40
--- NOTE | 2019-07-28 13:36 | PC.NURSE ---
Pt c/o RLQ abd pain that is aching in character. No nausea or vomiting. States he has been clammy and not feeling well at home, took his BP, and it was low. Recently hospitalized here.
[2019-07-28 13:44] LABS: INR 2.2 (0.9-1.3)
[2019-07-28 13:50] LABS: Basophils Absolute Auto 100 /uL (0-100); Basophils Percent Auto 0.9 % (0-2); Eosinophils Absolute Auto 200 /uL (0-450); Eosinophils Percent Auto 1.9 % (2-4); Hematocrit 29.6 % (41-53); Hemoglobin 10.1 g/dL (13.5-17.5); Lactate (Lactic Acid) 1.9 mmol/L (0.7-2.1); Lymphocytes Absolute Auto 2100 /uL (1100-4500); Lymphocytes Percent Auto 20.3 % (25-40); Mean Corpuscular Hemoglobin 29.8 PG (26-34); Mean Corpuscular Volume 87.9 fL (80-100); Monocytes Absolute Auto 800 /uL (0-900); Monocytes Percent Auto 7.6 % (3-14); Neutrophils Absolute Auto 7100 /uL (1500-7000); Neutrophils Percent Auto 69.3 % (50-75); Red Blood Cell Count 3.37 X10^6/uL (4.5-5.9); Red Cell Distribution Width 15.4 % (11.6-14.8); White Blood Cell Count 10.2 X10^3/uL (4.5-11.0)
[2019-07-28 13:52] LABS: Alanine Aminotransferase 32 IU/L (21-72); Albumin 3.8 g/dL (3.5-5.0); Albumin Globulin Ratio 1.1 (1.0-2.8); Alkaline Phosphatase 94 U/L (38-126); Aspartate Aminotransferase 25 IU/L (17-59); BUN Creatinine Ratio 16.7 (6-22); Bilirubin Total 1.3 mg/dL (0.2-1.3); Blood Urea Nitrogen 15 mg/dL (9-20); Calcium 9.1 mg/dL (8.4-10.2); Carbon Dioxide 27 mmol/L (22-32); Chloride 98 mmol/L (98-107); Estimated Glomerular Filt Rate > 60.0 mL/min (>60); Globulin 3.6 g/dL (1.7-4.1); Glucose 120 mg/dL (80-110); HEMOLYSIS < 15 (0-50); Potassium 3.2 mmol/L (3.4-5.1); Sodium 139 mmol/L (137-145); Total Protein 7.4 g/dL (6.3-8.2)
[2019-07-28 13:54] LABS: Add Manual Diff / Slide Review SLIDE REVIEW; Creatine Kinase 34 U/L (55-170); Magnesium 1.9 mg/dL (1.6-2.3)
[2019-07-28 14:03] LABS: Troponin I < 0.012 ng/mL (0.01-0.034)
--- NOTE | 2019-07-28 14:40 | DI.CT.S_ITS ---
PROCEDURE: CT ABDOMEN PELVIS W CON INDICATIONS: severe right lower quadrant pain TECHNIQUE: After the administration of intravenous contrast, 5 mm thick sections acquired from the diaphragm to the symphysis. 5 mm coronal and sagittal reformats were acquired. For radiation dose reduction, the following was used: automated exposure control, adjustment of mA and/or kV according to patient size. COMPARISON: None. FINDINGS: Image quality: Excellent. ABDOMEN: Lung bases: Lung bases are clear. Heart size is normal. Solid organs: Liver is normal in size and enhancement. Gallbladder is within normal limits. Biliary system is non dilated. Pancreas enhances normally. Spleen is normal in size and enhancement. No adrenal nodules. Kidneys demonstrate normal size and enhancement, without hydronephrosis. Peritoneum and bowel: There is no evidence of bowel obstruction. Large heterogeneously hyperdense area is seen inferior and dorsal to second portion of duodenum extending along the space between gerota's fascia and peritoneum, measures up to 16 x 8.2 x 17.9 cm in its largest transverse, AP and craniocaudal dimensions. There is mass effect on adjacent small bowel loops. Wall thickening involving first and second portion of duodenum is seen. No peritoneal free air is noted. Sigmoid diverticulosis is noted, no suggestions of acute diverticulitis. Nodes and vessels: No retroperitoneal or mesenteric adenopathy by size criteria. Aorta is normal in size. Atherosclerotic calcifications throughout the abdominal aorta is seen. Flattened IVC is noted consistent with hypovolemia. Miscellaneous: Ventral abdominal hernia is seen with defect measures up to 5.4 cm in diameter contains fat only. PELVIS: Genitourinary: Bladder wall thickness is normal. Miscellaneous: No inguinal hernias or adenopathy. Bones: No suspicious bony lesions. No vertebral body compression fractures. IMPRESSION: 1. Findings suggestive of a large peritoneal hematoma in right side of abdomen posterior and inferior to second portion of duodenum with extraperitoneal extension. Findings may represent bleeding involving duodenum possibly secondary to peptic ulcer disease. Focus of hyperdensity is noted within this collection and may represent active bleeding. 2. Ventral hernia containing fat only. No bowel obstruction. No peritoneal free air. 3. Flattened appearing IVC suggestive of hypovolemia. Findings were discussed with Dr. Ashton in the ER at 3:30 PM on 07/28/19. Dictated by: Danny Helms M.D. on 07/28/2019 at 15:11 Approved by: Danny Helms M.D. on 07/28/2019 at 15:37
[2019-07-28 14:44] LABS: Platelet Estimate Adequate on smear; Polychromasia 2+
[2019-07-28] MEDS: SODIUM CHLORIDE 0.9% 250 ML 21 ML IV (15:58)
[2019-07-28] MEDS: PHYTONADIONE (VIT K1) 10 MG in DEXTROSE 5 % IN WATER 50 ML 102 ML IV (15:58)
[2019-07-28 16:13] LABS: Hematocrit 29.8 % (41-53)
[2019-07-28] MEDS: PROTHROMBIN CPLX(PCC)4FACT 2,500 UNIT in ISOOSMOTIC VEHICLE 0 ML 1077.732 ML IV (17:02)
== END 2019-07-28 19:21 | disposition short-term general hospital (02) ==
PROVIDERS: Emergency Provider Emergency Medicine; PCP Internal Medicine
DX: S36.81XA Injury of peritoneum, initial encounter (principal); R42 Dizziness and giddiness
CPT/HCPCS: 36415; 36591; 71045; 74177; 80053; 81003; 82550; 83605; 83735; 84484; 85014; 85018; 85025; 85610; 86850; 86900; 86901; 87040; 93005; 93010; 96361; 96374; 96375; 99285; C9132; J3430; Q9967

== ENCOUNTER → 2019-08-15 11:22 | Outpatient (CLI) | payer MEDICARE, SELFPAY ==
[2019-07-24 20:10] VITALS: BMI 46.3
[2019-08-15 12:21] LABS: Add Manual Diff / Slide Review NO; Basophils Absolute Auto 100 /uL (0-100); Basophils Percent Auto 1.1 % (0-2); Eosinophils Absolute Auto 100 /uL (0-450); Eosinophils Percent Auto 1.7 % (2-4); Hematocrit 37.5 % (41-53); Hemoglobin 12.4 g/dL (13.5-17.5); Lymphocytes Absolute Auto 1300 /uL (1100-4500); Lymphocytes Percent Auto 16.8 % (25-40); Mean Corpuscular HGB Conc 33.1 % (30-36); Mean Corpuscular Hemoglobin 29.7 PG (26-34); Mean Corpuscular Volume 89.9 fL (80-100); Monocytes Absolute Auto 500 /uL (0-900); Neutrophils Absolute Auto 5700 /uL (1500-7000); Neutrophils Percent Auto 73.4 % (50-75); Platelet Count 447 X10^3/uL (150-400); Red Blood Cell Count 4.17 X10^6/uL (4.5-5.9); Red Cell Distribution Width 16.3 % (11.6-14.8); White Blood Cell Count 7.8 X10^3/uL (4.5-11.0)
[2019-08-15 12:24] LABS: BUN Creatinine Ratio 14.3 (6-22); Blood Urea Nitrogen 10 mg/dL (9-20); Calcium 9.3 mg/dL (8.4-10.2); Carbon Dioxide 28 mmol/L (22-32); Chloride 101 mmol/L (98-107); Estimated Glomerular Filt Rate > 60.0 mL/min (>60); Glucose 135 mg/dL (80-110); HEMOLYSIS < 15 (0-50); Potassium 3.8 mmol/L (3.4-5.1); Sodium 138 mmol/L (137-145)
[2019-08-19 22:15] LABS: Albumin 3.3 g/dL (3.8-4.8); Alpha 1 Globulin 0.6 g/dL (0.2-0.3); Alpha 2 Globulin 0.8 g/dL (0.5-0.9); Beta 1 Globulin 0.3 g/dL (0.4-0.6); Gamma Globulin 1.6 g/dL (0.8-1.7)
== END ==
PROVIDERS: PCP Internal Medicine; Visit Provider Internal Medicine
DX: E11.9 Type 2 diabetes mellitus without complications (principal); R58 Hemorrhage, not elsewhere classified; E88.09 Other disorders of plasma-protein metabolism, not elsewhere classified
CPT/HCPCS: 36415; 80048; 84155; 84165; 85025

== ENCOUNTER → 2019-09-09 09:28 | Outpatient (CLI) | payer MEDICARE, SELFPAY ==
[2019-07-24 20:10] VITALS: BMI 46.3
[2019-09-09 10:54] LABS: Add Manual Diff / Slide Review NO; Basophils Absolute Auto 100 /uL (0-100); Basophils Percent Auto 1.6 % (0-2); Eosinophils Absolute Auto 200 /uL (0-450); Eosinophils Percent Auto 2.2 % (2-4); Hematocrit 46.5 % (41-53); Hemoglobin 15.6 g/dL (13.5-17.5); Lymphocytes Absolute Auto 1600 /uL (1100-4500); Lymphocytes Percent Auto 20.7 % (25-40); Mean Corpuscular HGB Conc 33.6 % (30-36); Mean Corpuscular Hemoglobin 29.4 PG (26-34); Mean Corpuscular Volume 87.4 fL (80-100); Monocytes Absolute Auto 500 /uL (0-900); Monocytes Percent Auto 6.8 % (3-14); Neutrophils Absolute Auto 5200 /uL (1500-7000); Neutrophils Percent Auto 68.7 % (50-75); Red Blood Cell Count 5.32 X10^6/uL (4.5-5.9); Red Cell Distribution Width 14.9 % (11.6-14.8); White Blood Cell Count 7.6 X10^3/uL (4.5-11.0)
[2019-09-09 11:12] LABS: Alanine Aminotransferase 11 IU/L (<50); Albumin 4.3 g/dL (3.5-5.0); Albumin Globulin Ratio 1.2 (1.0-2.8); Alkaline Phosphatase 107 U/L (38-126); Aspartate Aminotransferase 20 IU/L (17-59); BUN Creatinine Ratio 16.7 (6-22); Bilirubin Total 0.7 mg/dL (0.2-1.3); Blood Urea Nitrogen 15 mg/dL (9-20); Calcium 9.8 mg/dL (8.4-10.2); Carbon Dioxide 27 mmol/L (22-32); Chloride 97 mmol/L (98-107); Estimated Glomerular Filt Rate > 60.0 mL/min (>60); Globulin 3.5 g/dL (1.7-4.1); Glucose 127 mg/dL (80-110); HEMOLYSIS < 15 (0-50); Sodium 137 mmol/L (137-145); Total Protein 7.8 g/dL (6.3-8.2)
[2019-09-09 11:38] LABS: Platelet Count 277 X10^3/uL (150-400)
== END ==
PROVIDERS: PCP Internal Medicine; Visit Provider Internal Medicine
DX: R58 Hemorrhage, not elsewhere classified (principal); E11.9 Type 2 diabetes mellitus without complications; I48.91 Unspecified atrial fibrillation
CPT/HCPCS: 36415; 80053; 85025

== ENCOUNTER → 2020-04-26 07:38 | Outpatient (CLI) | payer MEDICARE, SELFPAY ==
[2019-07-24 20:10] VITALS: BMI 46.3
[2020-04-26 10:04] LABS: Prostate Specific Antigen Scrn 0.822 ng/mL (0.1-4.0)
== END ==
PROVIDERS: PCP Internal Medicine; Referring Provider Internal Medicine; Visit Provider Internal Medicine
DX: R35.1 Nocturia (principal); N40.1 Benign prostatic hyperplasia with lower urinary tract symptoms; Z12.5 Encounter for screening for malignant neoplasm of prostate
CPT/HCPCS: 36415; G0103

== ENCOUNTER → 2020-05-03 16:36 | Outpatient (CLI) | payer MEDICARE, SELFPAY ==
[2019-07-24 20:10] VITALS: BMI 46.3
[2020-05-03 17:40] LABS: Add Manual Diff / Slide Review NO; Basophils Absolute Auto 100 /uL (0-100); Basophils Percent Auto 1.3 % (0-2); Eosinophils Absolute Auto 100 /uL (0-450); Hematocrit 45.5 % (41-53); Hemoglobin 15.5 g/dL (13.5-17.5); Lymphocytes Absolute Auto 1500 /uL (1100-4500); Lymphocytes Percent Auto 22.9 % (25-40); Mean Corpuscular HGB Conc 34.1 % (30-36); Mean Corpuscular Hemoglobin 29.4 PG (26-34); Mean Corpuscular Volume 86.1 fL (80-100); Monocytes Absolute Auto 500 /uL (0-900); Monocytes Percent Auto 8.3 % (3-14); Neutrophils Absolute Auto 4300 /uL (1500-7000); Neutrophils Percent Auto 65.5 % (50-75); Platelet Count 210 X10^3/uL (150-400); Red Blood Cell Count 5.29 X10^6/uL (4.5-5.9); Red Cell Distribution Width 14.5 % (11.6-14.8); White Blood Cell Count 6.6 X10^3/uL (4.5-11.0)
[2020-05-03 18:05] LABS: Alanine Aminotransferase 13 IU/L (<50); Albumin 3.9 g/dL (3.5-5.0); Albumin Globulin Ratio 1.1 (1.0-2.8); Alkaline Phosphatase 108 U/L (38-126); Aspartate Aminotransferase 19 IU/L (17-59); Bilirubin Total 0.7 mg/dL (0.2-1.3); Blood Urea Nitrogen 16 mg/dL (9-20); Calcium 9.1 mg/dL (8.4-10.2); Carbon Dioxide 27 mmol/L (22-32); Chloride 98 mmol/L (98-107); Estimated Glomerular Filt Rate > 60.0 mL/min (>60); Globulin 3.7 g/dL (1.7-4.1); Glucose 109 mg/dL (80-110); HEMOLYSIS < 15 (0-50); Lactate Dehydrogenase 384 U/L (313-618); Potassium 3.6 mmol/L (3.4-5.1); Sodium 135 mmol/L (137-145); Total Protein 7.6 g/dL (6.3-8.2)
[2020-05-03 18:16] LABS: Erythrocyte Sedimentation Rate 22 MM/HR (0-15)
[2020-05-04 17:36] LABS: Free Kappa Lt Chains, Serum 27.2 mg/L (3.3-19.4); Free Lambda Lt Chains,Serum 19.4 mg/L (5.7-26.3)
[2020-05-05 15:36] LABS: Albumin 3.2 g/dL (2.9-4.4); Alpha 1 Globulin 0.3 g/dL (0.0-0.4); Alpha 2 Globulin 0.9 g/dL (0.4-1.0); Gamma Globulin 1.5 g/dL (0.4-1.8)
== END ==
PROVIDERS: PCP Internal Medicine; Referring Provider Internal Medicine Hematology & Oncology; Visit Provider Internal Medicine Hematology & Oncology
DX: D47.2 Monoclonal gammopathy (principal)
CPT/HCPCS: 80053; 83615; 83883; 84155; 84165; 85025; 85651

== ENCOUNTER → 2020-07-05 09:16 | Outpatient (CLI) | payer MEDICARE, SELFPAY ==
[2019-07-24 20:10] VITALS: BMI 46.3
--- NOTE | 2020-07-05 | DI.RAD.S_ITS ---
PROCEDURE: XR CHEST 2V INDICATIONS: COUGH TECHNIQUE: 2 views of the chest were acquired. COMPARISON: [facility], CR, XR CHEST 1V, 07/28/2019, 13:15. FINDINGS: Surgical changes and devices: None. Lungs and pleura: Lungs are clear. No pleural effusions or pneumothorax. Slight appearance of increased vascularity. Mediastinum: Mediastinal contours are normal. Heart size is enlarged. Bones and chest wall: No suspicious bony abnormalities. Soft tissues appear unremarkable. IMPRESSION: Cardiomegaly with slight increased vascularity suggestive of edema. Dictated by: Kamala Zhang M.D. on 07/05/2020 at 12:04 Approved by: Kamala Zhang M.D. on 07/05/2020 at 12:05
== END ==
PROVIDERS: PCP Internal Medicine; Referring Provider Internal Medicine; Visit Provider Internal Medicine
DX: R05 Cough (principal); I51.7 Cardiomegaly
CPT/HCPCS: 71046

== ENCOUNTER → 2020-08-05 08:53 | Outpatient (CLI) | payer MEDICARE, SELFPAY ==
[2019-07-24 20:10] VITALS: BMI 46.3
--- NOTE | 2020-08-05 | DI.ECHO.S_ITS ---
[place] [facility]---------+ [facility] +---------+ : : [address] : [address] : : : : [id number] : : : : Phone: [phone] +---------+ Echocardiogram Report + + :Name: STEVE HOOKS JR Study Date: 08/05/2020 Height: 70 in : :[facility] Weight: 352 lb : : Gender: Male BSA: 2.7 m2 : :: 1950 Age: 70 yrs BP: 174/100 mmHg: :Reason For Study: CARDIOMEGALY : :Ordering Physician: SARAHI, : :DONOVAN POND Performed By: Soniya Faith : :Referring: DONOVAN MCCLAIN MD : + + Interpretation Summary The left ventricle is normal in size. Left ventricular ejection fraction is estimated to be 55 +/- 5%. There has been no significant change in LV EF since the previous exam. The right ventricle is mildly dilated. Right ventricular systolic function is mildly reduced. The aortic valve is mildly calcified. There is mildly reduced leaflet mobility. There is no hemodynamically significant valvular aortic stenosis. Procedure: A two-dimensional transthoracic echocardiogram with color flow and Doppler was performed. The study quality was technically adequate. The study quality was technically difficult. Comparison is made with the echocardiogram of 07/25/2019. A contrast injection of Definity was performed to improve assessment of LV function. The patient was in atrial fibrillation with heart rates between 62-74 bpm during the exam. Left Ventricle: The left ventricle is normal in size. There is mild concentric left ventricular hypertrophy. There is no thrombus. Left ventricular ejection fraction is estimated to be 55 +/- 5%. There has been no significant change since the previous exam. There are no obvious focal wall motion abnormalities noted but poor endocardial definition reduces the sensitivity for the detection of such. Diastolic function could not be accurately assessed due to atrial fibrillation. Right Ventricle: The right ventricle is mildly dilated. Right ventricular systolic function is mildly reduced. Atria: The left atrium is moderately dilated. The left atrium has mildly decreased in size since the prior echo exam. The right atrium is mild to moderately dilated. There is no Doppler evidence for an interatrial shunt. Mitral Valve: There is mild mitral annular calcification. The mitral valve is not well visualized. The mitral valve leaflets are slightly calcified. There is mild mitral regurgitation. Aortic Valve: The aortic valve is trileaflet. The aortic valve is mildly calcified. There is discrete nodular thickening of the non- coronary cusp. There is mildly reduced leaflet mobility. There is no hemodynamically significant valvular aortic stenosis. No aortic regurgitation is present. Tricuspid Valve: The tricuspid valve is not well visualized, but is grossly normal. There is trace tricuspid regurgitation. Pulmonary artery pressures cannot be estimated because of the lack of a measurable TR jet velocity. Pulmonic Valve: The pulmonic valve leaflets are thin and pliable; valve motion is normal. There is mild pulmonic regurgitation. Great Vessels: The aortic root is normal size. The ascending aorta is at the upper limits of normal in size. The inferior vena cava was not visualized. Pericardium/ Pleura There is no pericardial effusion. There is no pleural effusion. MMode/2D Measurements & Calculations LVIDd: 4.9 cm LVOT diam: 2.2 cm LVIDs: 3.6 cm Ao root diam: 3.8 cm FS: 26.1 % asc Aorta Diam: 3.5 cm EPSS: 0.86 cm Ao Arch Diam (Prox Trans): 4.1 cm IVSd: 1.2 cm LVPWd: 1.1 cm LV masters. diameter/BSA (cm/m^2): 1.9 LV sys. diameter/BSA (cm/m^2): 1.4 LA A2 area: 32.7 cm2 RA long axis: 6.8 cm LA A4 area: 27.3 cm2 RA area: 27.5 cm2 LA length (vol): 7.0 cm RA vol: 94.3 ml LA vol: 108.0 ml RA : 35.5 ml/m2 LA vol index: 40.7 ml/m2 RVD1 (basal): 4.5 cm TAPSE: 1.6 cm Doppler Measurements & Calculations Ao V2 max: 124.6 cm/sec LVOT Max Lopez: 77.7 cm/sec Ao V2 mean: 83.3 cm/sec LV V1 max P.4 mmHg Ao max P.2 mmHg LV V1 VTI: 17.8 cm Ao mean P.3 mmHg CRYSTAL(I,D): 2.8 cm2 Ao V2 VTI: 23.8 cm CRYSTAL(V,D): 2.3 cm2 sev ratio: 0.75 CRYSTAL indexed to BSA (cm^2/m^2): 1.1 MV E max lopez: 114.1 cm/sec PA V2 max: 61.1 cm/sec MV A max lopez: 0.52 cm/sec PA V2 mean: 38.8 cm/sec MV E/A: 220.2 PA mean P.72 mmHg Med Peak E' Lopez: 6.7 cm/sec PA pr(Accel): 29.3 mmHg E/E' med: 17.0 Lat Peak E' Lopez: 7.4 cm/sec E/E' lat: 15.4 E/e' average: 16.2 MV dec time: 0.13 sec SV(LVOT): 66.3 ml Reading Physician:06:46 PM
== END ==
PROVIDERS: PCP Internal Medicine; Referring Provider Internal Medicine; Visit Provider Internal Medicine
DX: I34.0 Nonrheumatic mitral (valve) insufficiency (principal); I51.7 Cardiomegaly
CPT/HCPCS: 93306; Q9957

== ENCOUNTER → 2021-05-11 16:59 | Outpatient (CLI) | payer OTHER, SELFPAY ==
[2019-07-24 20:10] VITALS: BMI 46.3
--- NOTE | 2021-05-11 | DI.RAD.S_ITS ---
PROCEDURE: XR FOOT LT MIN 3V INDICATIONS: LEFT FOOT TRAUMA TECHNIQUE: 3 views of the foot were acquired. COMPARISON: None. FINDINGS: Bones: No fractures or dislocations. No suspicious bony lesions. Soft tissues: No tibiotalar joint effusion. Achilles tendon appears normal. IMPRESSION: No osseous trauma found. Mild swelling over the dorsum of the foot. Dictated by: Shaun Mullen M.D. on 05/12/2021 at 10:36 Approved by: Shaun Mullen M.D. on 05/12/2021 at 10:37
== END ==
PROVIDERS: PCP Internal Medicine; Referring Provider Internal Medicine; Visit Provider Internal Medicine
DX: M79.672 Pain in left foot (principal); S99.922A Unspecified injury of left foot, initial encounter; X58.XXXA Exposure to other specified factors, initial encounter
CPT/HCPCS: 73630

== ENCOUNTER → 2022-07-24 15:14 | Outpatient (CLI) | payer OTHER, SELFPAY ==
[2019-07-24 20:10] VITALS: BMI 46.3
[2022-07-24 18:08] LABS: BUN Creatinine Ratio 21.3 (6-22); Blood Urea Nitrogen 19 mg/dL (9-20); Calcium 8.7 mg/dL (8.4-10.2); Carbon Dioxide 26 mmol/L (22-32); Chloride 98 mmol/L (98-107); Estimated Glomerular Filt Rate > 60 mL/min (>60); Glucose 103 mg/dL (80-110); HEMOLYSIS < 15 (0-50); Potassium 4.2 mmol/L (3.4-5.1); Sodium 135 mmol/L (137-145)
== END ==
PROVIDERS: PCP Internal Medicine; Referring Provider Internal Medicine Cardiovascular Disease; Visit Provider Internal Medicine Cardiovascular Disease
DX: I50.22 Chronic systolic (congestive) heart failure (principal)
CPT/HCPCS: 36415; 80048

== ENCOUNTER → 2022-07-27 13:28 | Outpatient (CLI) | payer OTHER, SELFPAY ==
[2019-07-24 20:10] VITALS: BMI 46.3
--- NOTE | 2022-07-27 | DI.ECHO.S_ITS ---
[place] +---------+ [facility] +---------+ : : [address] : [address] : : : : [id number] : : : : Phone: [phone] +---------+ Echocardiogram Report + + :Name: STEVE HOOKS JR Study Date: 07/27/2022 Height: 69 in : :[facility] ReadingLocation: Weight: 324 lb : : Gender: Male BSA: 2.5 m2 : :: 1950 Age: 72 yrs BP: 136/91 mmHg: :Reason For Study: SYSTOLIC HEART FAILURE : :Ordering Physician: MINE, : :PETAR Performed By: Soniya Faith : :Referring: PETAR LEA : + + Interpretation Summary 1) Mildly to moderately increased left ventricular thickness (concentric) with normal size and normal systolic function (EF 55-60%). 2) The right ventricle is not well visualized. Grossly, mildly enlarged right ventricle with mildly reduced function. 3) No significant valvular abnormalities. 4) Compared to the echo done 08/05/2020, no significant change. Procedure: A two-dimensional transthoracic echocardiogram with color flow and Doppler was performed. The study quality was technically difficult. A contrast injection of Definity was performed to improve assessment of LV function. The study quality was technically limited. The patient was in sinus rhythm with heart rates between 60-73 bpm during the exam. Left Ventricle: The left ventricle is normal in size. There is mild-moderate concentric left ventricular hypertrophy. The ejection fraction is estimated to be 55-60%. There are no obvious focal wall motion abnormalities noted but poor endocardial definition reduces the sensitivity for the detection of such. Right Ventricle: The right ventricle is not well visualized. Grossly, mildly enlarged right ventricle with mildly reduced function. Atria: The left atrium is moderately dilated. The right atrium is borderline dilated. Mitral Valve: The mitral valve is not well visualized. There is mild mitral annular calcification. There is trace mitral regurgitation. Aortic Valve: The aortic valve is mildly calcified. There is no aortic valve stenosis. No aortic regurgitation is present. Tricuspid Valve: The tricuspid valve is not well visualized. There is trace tricuspid regurgitation. Pulmonary artery pressures cannot be estimated because of the lack of a measurable TR jet velocity. Pulmonic Valve: The pulmonic valve is not well visualized. There is mild pulmonic regurgitation. Great Vessels: The aortic root is normal size. The dimensions of the ascending aorta are normal. The IVC is of normal diameter and collapses greater than 50% with a sniff. This suggests a low right atrial pressure of 3 mm Hg. Pericardium/ Pleura There is no pericardial effusion. There is no pleural effusion. MMode/2D Measurements & Calculations LVIDd: 4.8 cm LVOT diam: 2.1 cm LVIDs: 3.2 cm Ao root diam: 3.4 cm FS: 33.2 % asc Aorta Diam: 3.3 cm IVSd: 1.4 cm LVPWd: 1.4 cm LV masters. diameter/BSA (cm/m^2): 1.9 LV sys. diameter/BSA (cm/m^2): 1.3 LA dimension: 4.8 cm RA long axis: 6.9 cm LA A4 area: 33.3 cm2 RA area: 27.1 cm2 LA length (vol): 7.9 cm RA vol: 90.3 ml RA : 35.6 ml/m2 IVC diam: 1.6 cm Doppler Measurements & Calculations Ao V2 max: 141.9 cm/sec LVOT Max Lopez: 78.8 cm/sec Ao V2 mean: 101.7 cm/sec LV V1 max P.5 mmHg Ao max P.1 mmHg LV V1 VTI: 17.2 cm Ao mean P.7 mmHg CRYSTAL(I,D): 2.1 cm2 Ao V2 VTI: 29.8 cm CRYSTAL(V,D): 2.0 cm2 sev ratio: 0.58 CRYSTAL indexed to BSA (cm^2/m^2): 0.82 MV E max lopez: 113.0 cm/sec PA V2 max: 86.6 cm/sec MV A max lopez: 0.84 cm/sec PA V2 mean: 58.7 cm/sec MV E/A: 134.8 PA mean P.5 mmHg Med Peak E' Lopez: 6.5 cm/sec PA pr(Accel): 25.9 mmHg E/E' med: 17.5 Lat Peak E' Lopez: 8.1 cm/sec E/E' lat: 13.9 E/e' average: 15.7 MV dec time: 0.23 sec SV(LVOT): 61.8 ml Reading Physician:11:32 AM
== END ==
PROVIDERS: PCP Internal Medicine; Referring Provider Internal Medicine Cardiovascular Disease; Visit Provider Internal Medicine Cardiovascular Disease
DX: I50.22 Chronic systolic (congestive) heart failure (principal)
CPT/HCPCS: C8929; Q9957